=== PATIENT | male | born 1940 | race Caucasian/White ===

== ENCOUNTER 2016-07-16 11:59 | Emergency (ER) | payer MEDICARE, OTHER ==
[2016-07-16] MEDS ORDERED: HYDROmorphone 1 MG/ML SYRINGE IM STA (13:02)
[2016-07-16] MEDS ORDERED: HYDROmorphone 1 MG/ML SYRINGE ONE (13:08)
[2016-07-16] MEDS ORDERED: levoFLOXacin 250 MG TABLET PO STA (15:56)
[2016-07-16] MEDS ORDERED: levoFLOXacin 250 MG TABLET PO ONE (16:01)
== END 2016-07-16 16:28 | disposition home or self-care (01) ==
DX: N45.1 Epididymitis (principal); N30.01 Acute cystitis with hematuria; N49.2 Inflammatory disorders of scrotum; N43.3 Hydrocele, unspecified; I10 Essential (primary) hypertension; J44.9 Chronic obstructive pulmonary disease, unspecified; J45.909 Unspecified asthma, uncomplicated; F17.200 Nicotine dependence, unspecified, uncomplicated; Z79.82 Long term (current) use of aspirin
CPT/HCPCS: 76870; 81001; 87077; 87086; 87181; 93976; 96372; 99283; 99284; A9270; J1170

== ENCOUNTER 2016-09-01 21:37 | Outpatient (CLI) | payer MEDICARE, OTHER | END 2016-09-01 21:38 | disposition home or self-care (01) | DX: R55 Syncope and collapse (principal); I10 Essential (primary) hypertension ==

== ENCOUNTER 2016-09-20 08:18 | Outpatient (CLI) | payer MEDICARE, OTHER | END 2016-09-20 08:19 | disposition home or self-care (01) | DX: I71.4 Abdominal aortic aneurysm, without rupture (principal); K76.0 Fatty (change of) liver, not elsewhere classified ==

== ENCOUNTER 2016-09-20 08:23 | Outpatient (CLI) | payer MEDICARE, OTHER ==
[2016-09-20] MEDS ORDERED: IOPAMIDOL-300 100 ML VIAL IVP ONE (10:18)
== END 2016-09-20 08:24 | disposition home or self-care (01) ==
DX: J43.9 Emphysema, unspecified (principal); R19.01 Right upper quadrant abdominal swelling, mass and lump; R18.8 Other ascites; I71.4 Abdominal aortic aneurysm, without rupture; K76.0 Fatty (change of) liver, not elsewhere classified
CPT/HCPCS: 71260; 76700; Q9967

== ENCOUNTER 2016-10-26 12:07 | Outpatient (CLI) | payer MEDICARE, OTHER | END 2016-10-26 12:08 | disposition home or self-care (01) | DX: R55 Syncope and collapse (principal) ==

== ENCOUNTER 2016-10-30 07:17 | Outpatient (CLI) | payer MEDICARE, OTHER ==
[2016-10-30] MEDS ORDERED: IOPAMIDOL-300 50 ML VIAL IVP ONE (08:11)
== END 2016-10-30 07:18 | disposition home or self-care (01) ==
DX: R55 Syncope and collapse (principal); I71.4 Abdominal aortic aneurysm, without rupture; I10 Essential (primary) hypertension; G31.9 Degenerative disease of nervous system, unspecified
CPT/HCPCS: 70470; Q9967

== ENCOUNTER 2016-11-01 13:06 | Outpatient (CLI) | payer MEDICARE, OTHER | END 2016-11-01 13:07 | disposition home or self-care (01) | DX: M25.462 Effusion, left knee (principal); M62.562 Muscle wasting and atrophy, not elsewhere classified, left lower leg ==

== ENCOUNTER 2017-03-16 08:08 | Outpatient (CLI) | payer MEDICARE, OTHER ==
[2017-03-16 14:18] LABS: ALBUMIN/GLOBULIN RATIO 1.4 (1.0-2.2); BILIRUBIN,TOTAL 0.6 mg/dL (0.2-1.0); BUN - BLOOD UREA NITROGEN 17 mg/dL (6-20); CALCIUM 9.4 mg/dL (8.5-10.3); CARBON DIOXIDE - CO2 30 mmol/L (21-32); CHLORIDE 103 mmol/L (101-111); CHOL/HDL RATIO 3.7 (<5.0); CHOLESTEROL 128 mg/dL; GFR - MDRD 73 (>89); GLUCOSE 100 mg/dL (70-100); HDL CHOLESTEROL 35 mg/dL; POTASSIUM 3.5 mmol/L (3.5-5.0); SODIUM 140 mmol/L (135-145); TOTAL PROTEIN 7.4 g/dL (6.7-8.2); TRIGLYCERIDES 117 mg/dL; VLDL CHOLESTEROL 23 mg/dL
== END 2017-03-16 08:09 | disposition home or self-care (01) ==
LOC: LAB.WCP 08:08
PROVIDERS: ATTEND Physician Assistant Medical
DX: E78.5 Hyperlipidemia, unspecified (principal); Z51.81 Encounter for therapeutic drug level monitoring; Z79.899 Other long term (current) drug therapy
CPT/HCPCS: 36415; 80053; 80061

== ENCOUNTER 2017-09-18 10:51 | Outpatient (CLI) | payer MEDICARE, OTHER ==
[2017-09-18] MEDS ORDERED: IOPAMIDOL-300 100 ML VIAL IVP ONE ×3 (10:52→13:10)
[2017-09-18] MEDS ORDERED: IOPAMIDOL-300 100 ML VIAL ONE (11:31)
--- NOTE | 2017-09-19 10:30 | CT Report ---
EXAM: CTA RUNOFF EXAM DATE: 09/18/2017 12:19 PM. CLINICAL HISTORY: AAA. COMPARISON: None. TECHNIQUE: Following the intravenous administration of 125 cc of Isovue-300, images were obtained thr ough the abdomen, pelvis, and lower extremities. Multiplanar 3D reconstructions are available for in terpretation. In accordance with CT protocol optimization, one or more of the following dose reduction techniques w ere utilized for this exam: automated exposure control, adjustment of mA and/or KV based on patient s ize, or use of iterative reconstructive technique. COMPARISON: 12/16/2013 FINDINGS: UPPER ABDOMINAL AORTA: There is atherosclerosis of the upper abdominal aorta without evidence of aneu rysmal dilatation or dissection. MESENTERIC ARTERIES: There is a calcified plaque at the origin of the celiac without evidence of sign ificant. The common hepatic, and left gastric artery are normal in course and caliber. Splenic artery is normal in course and caliber without evidence of aneurysmal dilatation. The SMA demonstrates calc ified and noncalcified plaque at its origin without evidence of significant stenosis. The GERMAINE appears to be occluded at its origin. Reconstitution of flow is noted distally. RENAL ARTERIES: Single renal arteries are noted bilaterally without evidence of significant stenosis. DISTAL AORTA There is atherosclerosis without evidence of aneurysmal dilatation or dissection involving the iliac arteries. FEMORAL ARTERIES: There is atherosclerosis of the common femoral arteries. Mild calcified plaque is s een involving the inferior aspect of the anterior right common femoral artery. The left common femora l artery is without evidence of anterior calcified plaque. Both common femoral arteries. Below the fe moral heads. There is atherosclerosis without evidence of significant stenosis involving the profunda femoris and superficial femoral arteries. Femur hardening artifact due to a left knee arthroplasty obscures visualization of the left popliteal artery. The visualized popliteal arteries demonstrate a normal course and caliber. TIBIAL The left anterior tibial artery is patent and supplies the dorsalis pedis. The left posterior tibial artery is patent to the level of the ankle. The left posterior tibial artery is patent to the level o f the ankle. ABDOMEN, PELVIS AND LOWER EXTREMITY CT: Increased lung markings are noted within the lung bases most likely represents artery or atelectasis. The liver is without evidence of an enhancing mass. The spleen, pancreas, and adrenal glands are wit hout evidence of an enhancing mass. Kidneys are without evidence of a mass or hydronephrosis. There is a fat-containing umbilical hernia. It measures approximately 2.5 x 1.9 x 3.1 cm (image 165 o f series 7). The appearance is similar to the previous study. There are no dilated loops of bowel to suggest the presence of an obstruction. The appendix is normal in appearance. Diverticuli are seen i nvolving the descending and sigmoid colon. There is no fat stranding or fluid collection to suggest t he presence of diverticulitis. There is a fat-containing left inguinal hernia. The appearance is marivel lar to the previous study. No mass or cyst is seen within the pelvis. There is no lymphadenopathy. Visible but not enlarged nikki aortic lymph nodes are noted. No mass or cyst is seen within the lower extremities. There are postoperative changes with pins in th e right ankle and left hip. There are postoperative changes consistent with a left knee arthroplasty. Degenerative changes of the thoracic and lumbar spine are noted. 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 The diameter of the venetie ira aorta has increased in size since the previous study . No endoleak is identified on the arterial phase images. However venous phase images may be benefici al for further characterization. Probable 3 vessel runoff bilaterally. Obscured visualization of the distal right posterior tibial artery and left popliteal arteries due to be metal susceptibility artifact from adjacent orthopedic hardware. Redemonstration of umbilical and left inguinal hernias with a similar appearance to the previous stud y. Diverticulosis of the descending and sigmoid colon without evidence of diverticulitis. [facility] Referring Provider Line: [phone] SITE ID: [id number]
== END 2017-09-18 10:52 | disposition home or self-care (01) ==
LOC: DI 10:51
PROVIDERS: ATTEND Physician Assistant Medical
DX: I71.4 Abdominal aortic aneurysm, without rupture (principal); K40.90 Unilateral inguinal hernia, without obstruction or gangrene, not specified as recurrent; K42.9 Umbilical hernia without obstruction or gangrene; K57.30 Diverticulosis of large intestine without perforation or abscess without bleeding; I10 Essential (primary) hypertension
CPT/HCPCS: 36415; 75635; 80048; Q9967

== ENCOUNTER 2017-09-18 10:56 | Outpatient (CLI) | payer MEDICARE, OTHER ==
[2017-09-18 11:37] LABS: CALCIUM 8.8 mg/dL (8.5-10.3); CREATININE 0.9 mg/dL (0.6-1.2)
== END 2017-09-18 10:57 | disposition home or self-care (01) ==
LOC: LAB 10:56
PROVIDERS: ATTEND Family Medicine
DX: I10 Essential (primary) hypertension (principal)
CPT/HCPCS: 36415; 80048

== ENCOUNTER 2017-10-03 10:37 | Outpatient (CLI) | payer MEDICARE, OTHER ==
[2017-10-03 19:04] LABS: BASOPHILS % (AUTO) 0.4 %; EOSINOPHILS # (AUTO) 0.1 10^3/uL (0.0-0.7); EOSINOPHILS % (AUTO) 1.8 %; HGB - HEMOGLOBIN 15.3 g/dL (14.0-18.0); LYMPHOCYTES # (AUTO) 1.6 10^3/uL (1.5-3.5); LYMPHOCYTES % (AUTO) 18.9 %; MEAN CORPUSCULAR HEMOGLOBIN 29.1 pg (27.0-31.0); MEAN CORPUSCULAR HGB CONC 31.6 g/dL (32.0-36.0); MEAN CORPUSCULAR VOLUME 91.9 fL (80.0-94.0); MEAN PLATELET VOLUME 7.5 fL (7.4-11.4); MONOCYTES # (AUTO) 0.8 10^3/uL (0.0-1.0); MONOCYTES % (AUTO) 9.8 %; NEUTROPHILS # (AUTO) 5.8 10^3/uL (1.5-6.6); NEUTROPHILS % (AUTO) 69.1 %; PLT - PLATELET COUNT 336 10^3/uL (130-450); RED BLOOD COUNT 5.26 10^6/uL (4.70-6.10); WHITE BLOOD COUNT 8.4 x10^3/uL (4.8-10.8)
[2017-10-03 19:14] LABS: ALBUMIN 4.4 g/dL (3.2-5.5); ALBUMIN/GLOBULIN RATIO 1.5 (1.0-2.2); BILIRUBIN,TOTAL 0.8 mg/dL (0.2-1.0); TOTAL PROTEIN 7.3 g/dL (6.7-8.2)
== END 2017-10-03 10:38 | disposition home or self-care (01) ==
LOC: LAB.WCP 10:37
PROVIDERS: ATTEND Physician Assistant
DX: R10.13 Epigastric pain (principal)
CPT/HCPCS: 36415; 80053; 85025

== ENCOUNTER 2017-10-22 11:21 | Day surgery (SDC) | payer MEDICARE, OTHER ==
[2017-10-22] MEDS ORDERED: LACTATED RINGERS 1,000 ML IV ONE (11:52)
[2017-10-22] MEDS ORDERED: BENZOCAINE/TETRACAINE/BUTAMBEN SPRAY 56 GM TOP ONE ×2 (12:30→12:50)
[2017-10-22] MEDS: LIDO GARGLE 30 ML BOTTLE ONE ×2 (12:30→12:50)
[2017-10-22] MEDS ORDERED: LIDOCAINE 1% 50 ML MDV ONE (12:36)
[2017-10-22] MEDS ORDERED: MIDAZOLAM 2 MG/2 ML VIAL IVP ONE (13:30)
[2017-10-22] MEDS ORDERED: fentaNYL 100 MCG/2 ML VIAL IVP ONE (13:30)
[2017-10-22 14:21] VITALS: BP 138/87
== END 2017-10-22 11:22 | disposition home or self-care (01) ==
LOC: SDS 11:21
PROVIDERS: ATTEND Surgery
PROC: 0DBK8ZZ Excision of Ascending Colon, Via Natural or Artificial Opening Endoscopic (ICD-10-PCS; 2017-10-22)
PROC: 0DJ08ZZ Inspection of Upper Intestinal Tract, Via Natural or Artificial Opening Endoscopic (ICD-10-PCS; 2017-10-22)
PROC: 0DBK8ZZ Excision of Ascending Colon, Via Natural or Artificial Opening Endoscopic (ICD-10-PCS; principal; 2017-10-22 12:30)
PROC: 0DBL8ZZ Excision of Transverse Colon, Via Natural or Artificial Opening Endoscopic (ICD-10-PCS; 2017-10-22 12:30)
DX: R19.4 Change in bowel habit (principal); D12.2 Benign neoplasm of ascending colon; D12.3 Benign neoplasm of transverse colon; K59.00 Constipation, unspecified; R10.13 Epigastric pain; K21.9 Gastro-esophageal reflux disease without esophagitis; K57.30 Diverticulosis of large intestine without perforation or abscess without bleeding; K64.8 Other hemorrhoids; I10 Essential (primary) hypertension; J44.9 Chronic obstructive pulmonary disease, unspecified; E78.5 Hyperlipidemia, unspecified; F17.210 Nicotine dependence, cigarettes, uncomplicated
CPT/HCPCS: 43235; 45380; 45385; A9270; J7120; 88305

== ENCOUNTER 2017-12-17 08:00 | Outpatient (CLI) | payer MEDICARE, OTHER | END 2017-12-17 08:01 | disposition home or self-care (01) | LOC: LAB.WCP 08:00 | PROVIDERS: ATTEND Physician Assistant | DX: N40.1 Benign prostatic hyperplasia with lower urinary tract symptoms (principal) | CPT/HCPCS: 36415; 84153 ==

== ENCOUNTER 2018-01-04 10:04 | Outpatient (CLI) | payer MEDICARE, OTHER ==
[2018-01-04 12:40] LABS: ALBUMIN/GLOBULIN RATIO 1.2 (1.0-2.2); BILIRUBIN,TOTAL 0.7 mg/dL (0.2-1.0); CREATININE 1.1 mg/dL (0.6-1.2); TOTAL PROTEIN 7.3 g/dL (6.7-8.2)
== END 2018-01-04 10:05 | disposition home or self-care (01) ==
LOC: LAB.WCP 10:04
PROVIDERS: ATTEND Physician Assistant
DX: I10 Essential (primary) hypertension (principal)
CPT/HCPCS: 36415; 80053

== ENCOUNTER 2018-03-19 08:00 | Outpatient (CLI) | payer MEDICARE, OTHER ==
[2018-03-19 13:17] LABS: BASOPHILS # (AUTO) 0.1 10^3/uL (0.0-0.1); BASOPHILS % (AUTO) 0.6 %; EOSINOPHILS # (AUTO) 0.2 10^3/uL (0.0-0.7); HGB - HEMOGLOBIN 16.2 g/dL (14.0-18.0); LYMPHOCYTES # (AUTO) 2.1 10^3/uL (1.5-3.5); LYMPHOCYTES % (AUTO) 23.9 %; MEAN CORPUSCULAR HEMOGLOBIN 30.4 pg (27.0-31.0); MEAN CORPUSCULAR HGB CONC 33.5 g/dL (32.0-36.0); MEAN CORPUSCULAR VOLUME 90.9 fL (80.0-94.0); MEAN PLATELET VOLUME 7.2 fL (7.4-11.4); MONOCYTES # (AUTO) 0.8 10^3/uL (0.0-1.0); MONOCYTES % (AUTO) 9.7 %; NEUTROPHILS # (AUTO) 5.5 10^3/uL (1.5-6.6); NEUTROPHILS % (AUTO) 63.8 %; PLT - PLATELET COUNT 398 10^3/uL (130-450); RED BLOOD COUNT 5.32 10^6/uL (4.70-6.10); RED CELL DISTRIBUTION WIDTH 15.9 % (12.0-15.0); WHITE BLOOD COUNT 8.7 x10^3/uL (4.8-10.8)
[2018-03-19 13:40] LABS: ALBUMIN 4.1 g/dL (3.2-5.5); ALBUMIN/GLOBULIN RATIO 1.3 (1.0-2.2); ALKALINE PHOSPHATASE 44 IU/L (42-121); ALT ALANINE AMINOTRANSFERASE 17 IU/L (10-60); AST ASPARTATE AMINOTRANSFERASE 23 IU/L (10-42); BILIRUBIN,TOTAL 0.7 mg/dL (0.2-1.0); BUN - BLOOD UREA NITROGEN 30 mg/dL (6-20); CALCIUM 9.2 mg/dL (8.5-10.3); CARBON DIOXIDE - CO2 29 mmol/L (21-32); CHLORIDE 98 mmol/L (101-111); CHOL/HDL RATIO 3.9 (<5.0); CHOLESTEROL 145 mg/dL; CREATININE 1.2 mg/dL (0.6-1.2); GFR - MDRD 59 (>89); GLUCOSE 89 mg/dL (70-100); HDL CHOLESTEROL 37 mg/dL; LDL CHOLESTEROL,CALCULATED 80 mg/dL; LDL/HDL RATIO 2.2 (<3.6); SODIUM 134 mmol/L (135-145); TOTAL PROTEIN 7.2 g/dL (6.7-8.2); VLDL CHOLESTEROL 28 mg/dL
[2018-03-19 13:47] LABS: PSA TOTAL 0.26 ng/mL (0.000-2.000)
[2018-03-19 13:50] LABS: PSA FREE 0.04 ng/mL (0.16-2.81)
== END 2018-03-19 08:01 | disposition home or self-care (01) ==
LOC: LAB.WCP 08:00
PROVIDERS: ATTEND Physician Assistant
DX: E78.5 Hyperlipidemia, unspecified (principal); I10 Essential (primary) hypertension; N40.1 Benign prostatic hyperplasia with lower urinary tract symptoms
CPT/HCPCS: 36415; 80053; 80061; 83721; 84154; 85025

== ENCOUNTER 2018-03-29 12:33 | Outpatient (CLI) | payer MEDICARE, OTHER ==
--- NOTE | 2018-03-29 17:56 | Ultrasound Report ---
Reason: PERIPHERAL VASCULAR DISEASE Procedure Date: 03/29/2018 Accession Number: [id number] / [id number] Procedure: US - Carotid Doppler Complete CPT Code: FULL RESULT: EXAM: BILATERAL CAROTID AND VERTEBRAL ARTERY DUPLEX DOPPLER ULTRASOUND: EXAM DATE: 03/29/2018 01:25 PM CLINICAL HISTORY: Peripheral vascular disease. COMPARISON: 02/02/2006. TECHNIQUE: Grayscale imaging, color Doppler, and duplex spectral Doppler were used to evaluate the carotid and vertebral arteries bilaterally. Static images were obtained. FINDINGS: Mild to moderate bilateral plaque formation. No significant plaque is identified in the right or left common or internal carotid arteries. Normal antegrade flow is present in bilateral vertebral arteries. VELOCITIES (cm/sec): Right CCA Mid: PSV 70.6 cm/sec CCA Dist: PSV 70.1 cm/sec ICA Prox: PSV 62.2 cm/sec, EDV 14.0 cm/sec ICA Mid: PSV 49.3 cm/sec, EDV 13.4 cm/sec ICA Dist: PSV 56.5 cm/sec, EDV 16.4 cm/sec ECA: PSV 91.9 cm/sec Vert: PSV 41.1 cm/sec ICA/CCA: 0.88 Left CCA Mid: PSV 70.9 cm/sec CCA Dist: PSV 46.5 cm/sec ICA Prox: PSV 45.9 cm/sec, EDV 12.3 cm/sec ICA Mid: PSV 48.1 cm/sec, EDV 18.4 cm/sec ICA Dist: PSV 51.0 cm/sec, EDV 17.4 cm/sec ECA: PSV 87.7 cm/sec Vert: PSV 30.0 cm/sec ICA/CCA: 0.72 ICA diameter stenosis: Right: <50% by velocity and <70% by NASCET criteria. Left: <50% by velocity and <70% by NASCET criteria. IMPRESSION: 1. No significant bilateral carotid artery plaquing. 2. In the right carotid artery there are no elevated carotid artery velocities to suggest hemodynamically significant stenosis. 3. In the left carotid artery there are no elevated carotid artery velocities to suggest hemodynamically significant stenosis. 4. Normal antegrade flow is present in bilateral vertebral arteries. General Recommendations: Stenosis =50% ICA - Follow-up ultrasound 6-12 months Stenosis <50% ICA - High Risk Patient with plaque - Follow-up ultrasound 1-2 years Normal Study but High Risk Patient - Follow-up ultrasound 3-5 years Management recommendations and diagnostic criteria are based on current IAC endorsed standards in Carotid Artery Stenosis: Grayscale and Doppler Ultrasound Diagnosis. Validated velocity measurements with angiographic measurements and velocity criteria are extrapolated from diameter data as defined by the Society of Radiologists in Ultrasound Consensus Conference Radiology 2003; 229;340-346. [facility]
== END 2018-03-29 12:34 | disposition home or self-care (01) ==
LOC: DI 12:33
PROVIDERS: ATTEND Physician Assistant
DX: I73.9 Peripheral vascular disease, unspecified (principal)
CPT/HCPCS: 93880

== ENCOUNTER 2018-10-09 08:00 | Outpatient (CLI) | payer MEDICARE, OTHER ==
[2018-10-09 19:15] LABS: ALBUMIN 3.9 g/dL (3.2-5.5); ALBUMIN/GLOBULIN RATIO 1.2 (1.0-2.2); BILIRUBIN,TOTAL 1.3 mg/dL (0.2-1.0); CALCIUM 9.3 mg/dL (8.5-10.3); CREATININE 1.3 mg/dL (0.6-1.2); TOTAL PROTEIN 7.1 g/dL (6.7-8.2)
[2018-10-09 19:54] LABS: BASOPHILS % (AUTO) 0.6 %; EOSINOPHILS % (AUTO) 0.1 %; HGB - HEMOGLOBIN 15.9 g/dL (14.0-18.0); LYMPHOCYTES % (AUTO) 6.4 %; MEAN CORPUSCULAR HEMOGLOBIN 32.4 pg (27.0-31.0); MEAN CORPUSCULAR HGB CONC 33.7 g/dL (32.0-36.0); MEAN PLATELET VOLUME 7.6 fL (7.4-11.4); MONOCYTES % (AUTO) 9.3 %; NEUTROPHILS % (AUTO) 83.6 %; PLT - PLATELET COUNT 323 10^3/uL (130-450); RED CELL DISTRIBUTION WIDTH 13.2 % (12.0-15.0); WHITE BLOOD COUNT 23.1 x10^3/uL (4.8-10.8)
[2018-10-09 20:30] LABS: ABNORMAL LYMPHS % (MANUAL) 0 %; BAND NEUTROPHILS % (MANUAL) 0 %
[2018-10-09 22:33] LABS: LYMPHOCYTES # (MANUAL) 1.6 10^3/uL (1.5-3.5); LYMPHOCYTES % (MANUAL) 7 %; MONOCYTES # (MANUAL) 2.3 10^3/uL (0.0-1.0); NEUTROPHILS # (MANUAL) 19.2 10^3/uL (1.5-6.6); NEUTROPHILS % (MANUAL) 83 %
[2018-10-09 22:35] LABS: DIFFERENTIAL COMMENT MANUAL DIFFERENTIAL; PLATELET ESTIMATE, MANUAL NORMAL (130-450,000) (NORMAL); PLATELET MORPHOLOGY NORMAL APPEARANCE (NORMAL); RBC MORPHOLOGY (MULTIPLE) NORMAL APPEARANCE (NORMAL)
== END 2018-10-09 23:59 ==
LOC: LAB.WCP 08:00
PROVIDERS: ATTEND Physician Assistant
DX: I10 Essential (primary) hypertension (principal); N39.0 Urinary tract infection, site not specified
CPT/HCPCS: 36415; 80053; 85025; 87086; 87181

== ENCOUNTER 2018-10-11 08:00 | Outpatient (CLI) | payer MEDICARE, OTHER | END 2018-10-11 23:59 | disposition home or self-care (01) | LOC: LAB.WCP 08:00 | PROVIDERS: ATTEND Family Medicine | DX: N39.0 Urinary tract infection, site not specified (principal) | CPT/HCPCS: 81002 ==

== ENCOUNTER 2018-10-14 08:00 | Outpatient (CLI) | payer MEDICARE, OTHER | END 2018-10-14 23:59 | disposition home or self-care (01) | LOC: LAB.R 08:00 | PROVIDERS: ATTEND Family Medicine | DX: N39.0 Urinary tract infection, site not specified (principal) | CPT/HCPCS: 87086 ==

== ENCOUNTER 2018-10-14 08:00 | Outpatient (CLI) | payer MEDICARE, OTHER ==
[2018-10-14 12:30] LABS: BASOPHILS % (AUTO) 0.7 %; EOSINOPHILS # (AUTO) 0.2 10^3/uL (0.0-0.7); EOSINOPHILS % (AUTO) 2.3 %; HGB - HEMOGLOBIN 15.8 g/dL (14.0-18.0); LYMPHOCYTES # (AUTO) 1.7 10^3/uL (1.5-3.5); LYMPHOCYTES % (AUTO) 22.9 %; MEAN CORPUSCULAR HEMOGLOBIN 32.6 pg (27.0-31.0); MEAN CORPUSCULAR HGB CONC 33.8 g/dL (32.0-36.0); MEAN CORPUSCULAR VOLUME 96.4 fL (80.0-94.0); MEAN PLATELET VOLUME 7.2 fL (7.4-11.4); MONOCYTES # (AUTO) 0.9 10^3/uL (0.0-1.0); NEUTROPHILS # (AUTO) 4.6 10^3/uL (1.5-6.6); NEUTROPHILS % (AUTO) 62.1 %; PLT - PLATELET COUNT 316 10^3/uL (130-450); RED BLOOD COUNT 4.84 10^6/uL (4.70-6.10); RED CELL DISTRIBUTION WIDTH 13.3 % (12.0-15.0); WHITE BLOOD COUNT 7.4 x10^3/uL (4.8-10.8)
== END 2018-10-14 23:59 | disposition home or self-care (01) ==
LOC: LAB.WCP 08:00
PROVIDERS: ATTEND Family Medicine
DX: N39.0 Urinary tract infection, site not specified (principal)
CPT/HCPCS: 36415; 85025; 87086

== ENCOUNTER 2018-11-07 11:08 | Outpatient (CLI) | payer MEDICARE, OTHER ==
--- NOTE | 2018-11-07 13:02 | XRAY Report ---
Reason: RIB PAIN Procedure Date: 11/07/2018 Accession Number: [id number] / [id number] Procedure: WCP - Ribs 2 View LT CPT Code: FULL RESULT: EXAM: LEFT RIB RADIOGRAPHY EXAM DATE: 11/07/2018 11:21 AM. CLINICAL HISTORY: Left rib pain status post fall. COMPARISON: CHEST W/ 09/20/2016 10:09 AM. TECHNIQUE: 2 views. FINDINGS: Bones: Normal. No fracture or bone lesion. Lungs: Lungs are hyperinflated and hyperlucent as seen previously suggesting emphysema. No acute disease evident. No pneumothorax. Mediastinum: Heart and cardiomediastinal contours are unremarkable. Other: None. IMPRESSION: 1. No rib fracture or bone lesion. 2. Emphysema with hyperinflation as before. [facility]
== END 2018-11-07 11:09 | disposition home or self-care (01) ==
LOC: DI.WCP 11:08
PROVIDERS: ATTEND Nurse Practitioner
DX: J43.9 Emphysema, unspecified (principal)

== ENCOUNTER 2018-12-23 10:05 | Outpatient (CLI) | payer MEDICARE, OTHER ==
--- NOTE | 2018-12-23 11:06 | XRAY Report ---
Reason: COPD Procedure Date: 12/23/2018 Accession Number: [id number] / [id number] Procedure: WCP - Chest 2 View X-Ray CPT Code: 40012 FULL RESULT: EXAM: CHEST RADIOGRAPHY EXAM DATE: 12/23/2018 10:25 AM. CLINICAL HISTORY: COPD. Cough and shortness of breath. COMPARISON: RIBS 2 VIEW LT 11/07/2018. CHEST W/ 09/20/2016. TECHNIQUE: 2 views. FINDINGS: Lungs/Pleura: There is a paucity of upper lung pulmonary markings. No focal opacities evident. No pleural effusion. No pneumothorax. High lung volumes. Flattening of the diaphragms on lateral view. Mediastinum: Heart and mediastinal contours are stable. Other: A cardiac recording device is again seen projecting over the left thorax. The bones are qualitatively osteopenic; this limits evaluation for underlying fractures or masses. IMPRESSION: Emphysema without acute airspace disease detected. [facility]
== END 2018-12-23 10:06 | disposition home or self-care (01) ==
LOC: DI.WCP 10:05
PROVIDERS: ATTEND Family Medicine
DX: J43.9 Emphysema, unspecified (principal)
CPT/HCPCS: 71046

== ENCOUNTER 2019-01-16 09:15 | Outpatient (CLI) | payer MEDICARE, OTHER | END 2019-01-16 23:59 | disposition home or self-care (01) | LOC: LAB.R 09:15 | PROVIDERS: ATTEND Family Medicine | DX: N39.0 Urinary tract infection, site not specified (principal) | CPT/HCPCS: 87086; 87181 ==

== ENCOUNTER 2019-01-29 11:17 | Outpatient (CLI) | payer MEDICARE, OTHER ==
--- NOTE | 2019-01-30 08:48 | XRAY Report ---
Reason: PAIN SWELLING MED,L ANKLE X 2 WKS Procedure Date: 01/29/2019 Accession Number: [id number] / [id number] Procedure: XR - Ankle 3 View LT CPT Code: FULL RESULT: EXAM: LEFT ANKLE RADIOGRAPHY EXAM DATE: 01/29/2019 11:45 AM. CLINICAL HISTORY: Pain and swelling medial left ankle x 2 weeks. No trauma. COMPARISON: None. TECHNIQUE: 3 views. FINDINGS: Bones: Moderate-sized plantar calcaneal spur. Chronic-appearing, corticated 8 mm ossification at the tip of the medial malleolus is consistent with a developmental ossicle. An old fracture fragment is not excluded. The AP view suggests subtle lucency through the adjacent distal medial malleolus for which an nondisplaced acute fracture is not definitely excluded. Tiny lateral calcifications distal to the fibula and adjacent to the calcaneus also may simply represent incidental small ossicles. Old small fracture fragments are not excluded. Joints: Normal. No effusion. No subluxations. The ankle mortise is normally aligned. Soft Tissues: Mild medial soft tissue swelling. IMPRESSION: 1. No definite acute osseous abnormality. 2. Chronic medial ossicle and probable chronic small lateral ossicles, as above. 3. Subtle lucency within the medial malleolus on a single view. Nondisplaced fracture is not excluded. [facility]
== END 2019-01-29 11:18 | disposition home or self-care (01) ==
LOC: DI 11:17
PROVIDERS: ATTEND Podiatrist
DX: M25.572 Pain in left ankle and joints of left foot (principal); M25.472 Effusion, left ankle

== ENCOUNTER 2019-02-05 | Outpatient (CLI) | payer MEDICARE, OTHER | END 2019-02-05 15:30 | disposition home or self-care (01) | DX: S93.492A Sprain of other ligament of left ankle, initial encounter (principal); S82.52XK Displaced fracture of medial malleolus of left tibia, subsequent encounter for closed fracture with nonunion; M19.072 Primary osteoarthritis, left ankle and foot; S96.812A Strain of other specified muscles and tendons at ankle and foot level, left foot, initial encounter; S93.02XA Subluxation of left ankle joint, initial encounter ==

== ENCOUNTER 2019-04-05 11:19 | Outpatient (CLI) | payer MEDICARE, OTHER ==
--- NOTE | 2019-04-07 03:02 | Ultrasound Report ---
Reason: HYPERTENSION Procedure Date: 04/05/2019 Accession Number: [id number] / [id number] Procedure: US - Carotid Doppler Complete CPT Code: FULL RESULT: EXAM: BILATERAL CAROTID AND VERTEBRAL ARTERY DUPLEX DOPPLER ULTRASOUND EXAM DATE: 04/05/2019 12:20 PM CLINICAL HISTORY: Hypertension. COMPARISON: CAROTID DOPPLER COMPLETE 03/29/2018 12:41 PM. TECHNIQUE: Grayscale imaging, color Doppler, and duplex spectral Doppler were used to evaluate the carotid and vertebral arteries bilaterally. Static images were obtained. FINDINGS: Brisk arterial upstrokes are preserved on spectral waveforms bilaterally throughout the interrogated carotid artery systems. In both carotid artery systems, there is morphologically diffuse segmental hyperechoic shadowing plaque which visually appears to be less than 50% of the lumen. Normal antegrade flow is present in bilateral vertebral arteries. VELOCITIES (cm/sec): Right CCA mid: PSV 38.0 cm/sec CCA dist: PSV 59.0 cm/sec ICA prox: PSV 50.1 cm/sec, EDV 13.2 cm/sec ICA mid: PSV 47.7 cm/sec, EDV 13.0 cm/sec ICA dist: PSV 55.9 cm/sec, EDV 22.4 cm/sec ECA: PSV 96.2 cm/sec Vert: PSV 37.7 cm/sec ICA/CCA: 1.0 Left CCA mid: PSV 59.6 cm/sec CCA dist: PSV 53.6 cm/sec ICA prox: PSV 67.0 cm/sec, EDV 24.6 cm/sec ICA mid: PSV 76.4 cm/sec, EDV 30.4 cm/sec ICA dist: PSV 106.8 cm/sec, EDV 40.4 cm/sec ECA: PSV 84.9 cm/sec Vert: PSV 44.1 cm/sec ICA/CCA: 1.8 ICA diameter stenosis: Right: <50% by velocity and <70% by NASCET criteria. Left: <50% by velocity and <70% by NASCET criteria. IMPRESSION: 1. Diffuse predominantly hyperechoic bilateral carotid artery plaquing, visually less than 50%, centered about the bifurcations. 2. In the right carotid artery there are no elevated carotid artery velocities to suggest hemodynamically significant stenosis. 3. In the left carotid artery there are no elevated carotid artery velocities to suggest hemodynamically significant stenosis. 4. Normal antegrade flow is present in bilateral vertebral arteries. General Recommendations: Stenosis =50% ICA - Follow-up ultrasound 6-12 months Stenosis <50% ICA - High Risk Patient with plaque - Follow-up ultrasound 1-2 years Normal Study but High Risk Patient - Follow-up ultrasound 3-5 years Management recommendations and diagnostic criteria are based on current IAC endorsed standards in Carotid Artery Stenosis: Grayscale and Doppler Ultrasound Diagnosis. Validated velocity measurements with angiographic measurements and velocity criteria are extrapolated from diameter data as defined by the Society of Radiologists in Ultrasound Consensus Conference Radiology 2003; 229;340-346. [facility]
== END 2019-04-05 11:20 | disposition home or self-care (01) ==
LOC: DI 11:19
PROVIDERS: ATTEND Family Medicine
DX: I10 Essential (primary) hypertension (principal)
CPT/HCPCS: 93880

== ENCOUNTER 2019-04-11 10:47 | Outpatient (CLI) | payer MEDICARE, OTHER ==
[2019-04-11] MEDS ORDERED: IOVERSOL 320 100 ML VIAL IVP ONE ×3 (10:48→11:56)
[2019-04-11 11:16] LABS: ALBUMIN 4.3 g/dL (3.2-5.5); ALBUMIN/GLOBULIN RATIO 1.4 (1.0-2.2); BILIRUBIN,TOTAL 0.8 mg/dL (0.2-1.0); CALCIUM 9.5 mg/dL (8.5-10.3); CREATININE 1.3 mg/dL (0.6-1.2); TOTAL PROTEIN 7.3 g/dL (6.7-8.2)
[2019-04-11] MEDS ORDERED: IOVERSOL 320 50 ML VIAL ONE (11:22)
[2019-04-11] MEDS ORDERED: IOVERSOL 320 50 ML VIAL PO ONE (11:56)
--- NOTE | 2019-04-12 09:47 | CT Report ---
Reason: AAA Procedure Date: 04/11/2019 Accession Number: [id number] / [id number] Procedure: CT - ANGIO ABD RUNOFF W/WO - B/L CPT Code: FULL RESULT: EXAM: CT ANGIOGRAM ABDOMEN AND PELVIS, WITH BILATERAL LOWER EXTREMITY ARTERY RUNOFF EXAM DATE: 04/11/2019 11:54 AM CLINICAL HISTORY: Abdominal aortic aneurysm status post stenting. COMPARISON: ANGIO AORTA W/RUNOFF 09/18/2017 12:01 PM. TECHNIQUE: Routine helical imaging was performed through the abdomen, pelvis and bilateral lower extremities in arterial phase. IV Contrast: 120 mL Optiray 320. Reconstructions: Coronal, sagittal, and 3D MIP reconstructions were performed. In accordance with CT protocol optimization, one or more of the following dose reduction techniques were utilized for this exam: automated exposure control, adjustment of mA and/or KV based on patient size, or use of iterative reconstructive technique. FINDINGS: Vascular: There is an aortoiliac endograft in the expected position and patent. Endograft is in stable position since prior. Bilateral renal arteries enhance. Celiac and superior mesenteric arteries enhance. Intermesenteric artery does not enhance. There is a residual saccular distal aortic aneurysm lumen which is thrombosed. No evidence of endograft leak. Right lower extremity: The right common, internal, and external iliac arteries are patent with mild atherosclerosis. Right common femoral, superficial femoral and deep femoral arteries patent with mild atherosclerosis. Right popliteal artery patent with mild atherosclerosis. The anterior tibial and peroneal arteries enhance to the ankle. Anterior tibial gives rise to dorsalis pedis. Posterior tibial artery does not appear to enhance beyond the distal third of the calf. However, there is some enhancement of the plantar arch, likely from collaterals. Left lower extremity: The left common iliac, internal and external iliac arteries are patent with mild atherosclerosis. Left common femoral, superficial femoral and deep femoral arteries patent with mild atherosclerosis. Left popliteal partially obscured by metal artifact but appears patent. The anterior tibial and posterior tibial arteries enhance to the ankle. Peroneal artery does not enhance below distal third of the calf. There is mild enhancement of the dorsalis pedis, but plantar arch does not well enhance, possibly due to timing of contrast enhancement and image acquisition. Inferior vena cava normal. Abdomen: Mild scarring and fibrosis in the lung bases. Lung bases clear. No evidence of mass, fluid or inflammatory process in the abdomen or pelvis. Pelvis: Pelvic organs, bowel, and bladder unremarkable for arterial phase enhancement. Pelvic contents otherwise normal. Extremities: Left knee arthroplasty. No fracture or suspicious bony lesion. IMPRESSION: 1. Aortoiliac endograft in stable position and patent. No evidence of leak. Stable residual distal aortic aneurysm lumen, thrombosed. 2. Two-vessel runoff right lower extremity via anterior tibial and peroneal. 3. Two-vessel runoff left lower extremity via anterior and posterior tibial.
== END 2019-04-11 10:48 | disposition home or self-care (01) ==
LOC: DI 10:47
PROVIDERS: ATTEND Physician Assistant
DX: I71.4 Abdominal aortic aneurysm, without rupture (principal); I10 Essential (primary) hypertension; J44.9 Chronic obstructive pulmonary disease, unspecified
CPT/HCPCS: 36415; 75635; 80053; Q9967

== ENCOUNTER 2019-05-14 15:26 | Outpatient (CLI) | payer MEDICARE, OTHER ==
--- NOTE | 2019-05-15 13:55 | XRAY Report ---
Reason: RIGHT FOOT PAIN Procedure Date: 05/14/2019 Accession Number: [id number] / [id number] Procedure: WCP - Foot 3 View RT CPT Code: Final Report FULL RESULT: EXAM: RIGHT FOOT RADIOGRAPHY EXAM DATE: 05/14/2019 03:46 PM. CLINICAL HISTORY: Right foot pain. COMPARISON: None. TECHNIQUE: 3 views. FINDINGS: Bones and joints: Proximal phalanx of the third toe is dislocated laterally relative to the third metatarsal head. Increased joint space at the second metatarsophalangeal joint. Bones are osteopenic without an acute fracture seen. Moderate degenerative changes at the first MTP joint. Previous ankle fusion appears grossly unremarkable where seen. Soft Tissues: Normal. No soft tissue swelling. IMPRESSION: 1. Proximal phalanx of the third toe is dislocated laterally relative to the third metatarsal head. 2. Increased joint space at the second metatarsophalangeal joint may reflect an effusion. 3. Bones are osteopenic without an acute fracture seen. 4. Moderate degenerative changes at the first metatarsophalangeal joint. [facility]
== END 2019-05-14 23:59 | disposition home or self-care (01) ==
LOC: DI.WCP 15:26
PROVIDERS: ATTEND Family Medicine
DX: S93.124A Dislocation of metatarsophalangeal joint of right lesser toe(s), initial encounter (principal); M85.871 Other specified disorders of bone density and structure, right ankle and foot; M19.071 Primary osteoarthritis, right ankle and foot

== ENCOUNTER 2019-05-15 08:15 | Outpatient (CLI) | payer MEDICARE, OTHER ==
[2019-05-15 13:15] LABS: ALBUMIN 3.9 g/dL (3.2-5.5); ALBUMIN/GLOBULIN RATIO 1.2 (1.0-2.2); ALKALINE PHOSPHATASE 42 IU/L (42-121); ALT ALANINE AMINOTRANSFERASE 17 IU/L (10-60); AST ASPARTATE AMINOTRANSFERASE 24 IU/L (10-42); BILIRUBIN,TOTAL 0.8 mg/dL (0.2-1.0); BUN - BLOOD UREA NITROGEN 29 mg/dL (6-20); CALCIUM 9.2 mg/dL (8.5-10.3); CARBON DIOXIDE - CO2 28 mmol/L (21-32); CHLORIDE 104 mmol/L (101-111); CHOL/HDL RATIO 4.8 (<5.0); CHOLESTEROL 139 mg/dL; CREATININE 1.6 mg/dL (0.6-1.2); GFR - MDRD 42 (>89); GLUCOSE 97 mg/dL (70-100); HDL CHOLESTEROL 29 mg/dL; LDL CHOLESTEROL,CALCULATED 79 mg/dL; LDL/HDL RATIO 2.7 (<3.6); SODIUM 140 mmol/L (135-145); TOTAL PROTEIN 7.1 g/dL (6.7-8.2); VLDL CHOLESTEROL 31 mg/dL
[2019-05-15 13:24] LABS: BASOPHILS # (AUTO) 0.1 10^3/uL (0.0-0.1); BASOPHILS % (AUTO) 0.8 %; EOSINOPHILS # (AUTO) 0.2 10^3/uL (0.0-0.7); EOSINOPHILS % (AUTO) 2.2 %; HGB - HEMOGLOBIN 14.9 g/dL (14.0-18.0); LYMPHOCYTES # (AUTO) 1.9 10^3/uL (1.5-3.5); LYMPHOCYTES % (AUTO) 25.9 %; MEAN CORPUSCULAR HEMOGLOBIN 31.8 pg (27.0-31.0); MEAN CORPUSCULAR HGB CONC 31.6 g/dL (32.0-36.0); MEAN CORPUSCULAR VOLUME 100.4 fL (80.0-94.0); MEAN PLATELET VOLUME 8.9 fL (7.4-11.4); MONOCYTES # (AUTO) 0.7 10^3/uL (0.0-1.0); NEUTROPHILS # (AUTO) 4.4 10^3/uL (1.5-6.6); NEUTROPHILS % (AUTO) 60.5 %; PLT - PLATELET COUNT 377 10^3/uL (130-450); RED BLOOD COUNT 4.69 10^6/uL (4.70-6.10); RED CELL DISTRIBUTION WIDTH 13.5 % (12.0-15.0); WHITE BLOOD COUNT 7.3 x10^3/uL (4.8-10.8)
== END 2019-05-15 23:59 | disposition home or self-care (01) ==
LOC: LAB.WCP 08:15
PROVIDERS: ATTEND Physician Assistant
DX: E78.5 Hyperlipidemia, unspecified (principal); J44.9 Chronic obstructive pulmonary disease, unspecified; I10 Essential (primary) hypertension; R33.8 Other retention of urine; Z51.81 Encounter for therapeutic drug level monitoring; Z79.899 Other long term (current) drug therapy
CPT/HCPCS: 36415; 80053; 80061; 83721; 85025

== ENCOUNTER 2019-06-17 08:00 | Outpatient (CLI) | payer MEDICARE, OTHER ==
[2019-06-17 18:55] LABS: CALCIUM 9.4 mg/dL (8.5-10.3); CREATININE 1.5 mg/dL (0.6-1.2)
== END 2019-06-17 23:59 | disposition home or self-care (01) ==
LOC: LAB.WCP 08:00
PROVIDERS: ATTEND Physician Assistant
DX: N39.0 Urinary tract infection, site not specified (principal); M10.9 Gout, unspecified; I10 Essential (primary) hypertension
CPT/HCPCS: 36415; 80048; 84550; 87086

== ENCOUNTER 2019-06-17 08:00 | Outpatient (CLI) | payer MEDICARE, OTHER | END 2019-06-17 23:59 | disposition home or self-care (01) | LOC: LAB.R 08:00 | PROVIDERS: ATTEND Physician Assistant | DX: N39.0 Urinary tract infection, site not specified (principal) | CPT/HCPCS: 87086 ==

== ENCOUNTER 2019-08-03 07:30 | Emergency (ER) | payer MEDICARE, OTHER ==
--- NOTE | 2019-08-03 08:13 | ED Physician Documentation ---
PD HPI MALE - Stated complaint Stated Complaint: MALE - Chief complaint Chief Complaint: General - History obtained from History obtained from: Patient - History of Present Illness Timing - onset: Yesterday Timing - duration: Days (1) Timing - details: Gradual onset, Still present Associated symptoms: Dysuria, Urinary frequency PD HPI MALE CONTRIB FACTORS: Not sexually active Similar symptoms before: Diagnosis (UTI) Recently seen: Not recently seen - Additional information Additional information: 79-year-old male with a history of hypertension COPD a AAA repair and a TURP has an issue with frequent urinary tract infections and he self caths once every night. He states that beginning yesterday he was having sensation of urinary urgency and frequency and he is dribbling only a small amount. He has had the symptoms multiple times previously he had some chills last night and felt warm. He denies any vomiting denies any flank pain. He remembers from his last visit that he was on an antibiotic got a call from the doctor to change the antibiotic. He indicates these were both antibiotics were taking twice per day. He does see a urologist Dr. Ashraf at [facility]. Review of Systems Constitutional: reports: Fever, Chills Eyes: denies: Decreased vision Ears: denies: Ear pain Nose: denies: Congestion Throat: denies: Sore throat Respiratory: denies: Cough GI: denies: Nausea, Vomiting : reports: Dysuria, Frequency Skin: denies: Rash Musculoskeletal: reports: Back pain. denies: Neck pain, Extremity pain Neurologic: denies: Generalized weakness, Focal weakness, Numbness PD PAST MEDICAL HISTORY - Past Medical History Cardiovascular: Hypertension, High cholesterol Respiratory: Asthma, COPD Endocrine/Autoimmune: None GI: GERD, Diverticulitis : Benign prostate hypertrophy, Retention, Kidney stones, Other HEENT: None Psych: None Musculoskeletal: Osteoarthritis, Fatigue Derm: Other - Past Surgical History Past Surgical History: Yes General: Colonoscopy, EGD Ortho: Knee replacement, Carpal Tunnel surgery Cardiovascular: AAA Derm: Skin cancer surgery - Present Medications Home Medications: Ambulatory Orders Medication Instructions Recorded Confirmed Aspirin [Aspir 81] 81 mg PO DAILY 05/03/13 10/19/17 Cetirizine HCl [Zyrtec] 10 mg PO DAILY 05/03/13 10/22/17 Esomeprazole Magnesium [Nexium] 40 mg PO DAILY 05/03/13 10/22/17 Fenofibrate Nanocrystallized 160 mg PO HS 05/03/13 10/22/17 [Triglide] Simvastatin [Zocor] 20 mg PO QPM 05/03/13 10/19/17 Tiotropium [Spiriva] 1 puffs INH DAILY 05/03/13 10/22/17 Fluticasone/Vilanterol [Breo 1 each IH DAILY 10/19/17 10/22/17 Ellipta 100-25 Mcg INH] hydroCHLOROthiazide 25 mg PO DAILY 10/19/17 10/22/17 [Hydrochlorothiazide] Levofloxacin [Levaquin] 500 mg PO DAILY #7 tablet 08/03/19 - Allergies Allergies/Adverse Reactions: Allergies Allergy/AdvReac Type Severity Reaction Status Date / Time fluticasone propionate * Allergy split Verified 10/19/17 13:04 [From Advair Diskus] vision salmeterol xinafoate * Allergy split Verified 10/19/17 13:04 [From Advair Diskus] vision - Social History Does the pt smoke?: Yes Smoking Status: Current every day smoker Does the pt drink ETOH?: Yes Does the pt have substance abuse?: No PD ED PE NORMAL - Vitals Vital signs reviewed: Yes (tachy and hypertensive) - General General: Alert and oriented X 3, No acute distress, Well developed/nourished - HEENT HEENT: Atraumatic, PERRL - Respiratory Respiratory: No respiratory distress - Abdomen Abdomen: Soft, Non tender - Back Back: No CVA TTP, No spinal TTP - Derm Derm: Normal color, Warm and dry, No rash - Extremities Extremities: No deformity, No calf tenderness / cord - Neuro Neuro: director medical science 2-12 intact, No motor deficit, No sensory deficit, Normal speech Eye Opening: Spontaneous Motor: Obeys Commands Verbal: Oriented GCS Score: 15 - Psych Psych: Normal mood, Normal affect Results - Vitals Vitals: Vital Signs - 24 hr 08/03/19 07:43 Temperature 37.2 C Heart Rate 110 H Respiratory 18 Rate Blood Pressure 130/88 H O2 Saturation 99 Oxygen O2 Source Room air - Labs Labs: Laboratory Tests 08/03/19 08:50 Urine Color YELLOW Urine Clarity CLOUDY Urine pH 7.0 Ur Specific [place] 1.015 Urine Protein 30 H Urine Glucose (UA) NEGATIVE Urine Ketones NEGATIVE Urine Occult Blood TRACE-INTA Urine Nitrite NEGATIVE Urine Bilirubin NEGATIVE Urine Urobilinogen 0.2 (NORMAL) Ur Leukocyte Esterase MODERATE H Urine RBC 6-10 H Urine WBC >25 H Ur Epithelial Cells FEW Transitional Ur Squamous Epith Cells RARE Squamous Urine Bacteria Moderate H Ur Microscopic Review INDICATED Urine Culture Comments INDICATED PD MEDICAL DECISION MAKING - ED course Complexity details: reviewed old records, reviewed results, re-evaluated patient, considered differential, d/w patient ED course: 79-year-old male with frequent urinary tract infections has another urinary tract infection today. In review of his past urine cultures he has grown E. coli a number of times sensitivities have changed and most recently his urine grew an organism resistant to Septra.We will obtain a urine specimen from the patient and place him on some Levaquin. Departure - Departure Disposition: 01 Home, Self Care Clinical Impression: Urinary tract infection Qualifiers: Urinary tract infection type: acute cystitis Hematuria presence: without hematuria Qualified Code(s): N30.00 - Acute cystitis without hematuria Instructions: ED UTI Cystitis Male Follow-Up: Tiffanie Shore PA [Primary Care Provider] - Prescriptions: Levofloxacin [Levaquin] 500 mg PO DAILY #7 tablet
[2019-08-03] MEDS ORDERED: levoFLOXacin 250 MG TABLET PO STA (08:57)
[2019-08-03 09:01] LABS: BILIRUBIN,URINE NEGATIVE (NEGATIVE); GLUCOSE, URINE (UA) NEGATIVE (NEGATIVE); KETONES,URINE (UA) NEGATIVE (NEGATIVE); LEUKOCYTE ESTERASE, URINE MODERATE (NEGATIVE); NITRITE,URINE NEGATIVE (NEGATIVE); OCCULT BLOOD,URINE TRACE-INTA (NEGATIVE); PROTEIN,URINE 30 mg/dL (NEGATIVE); UROBILINOGEN,URINE 0.2 (NORMAL) E.U./dL (NORMAL)
[2019-08-03 09:03] LABS: CLARITY,URINE CLOUDY (CLEAR)
[2019-08-03 09:12] LABS: SQUAMOUS EPITHELIAL CELL,UR RARE Squamous (<= Few)
[2019-08-03 09:13] LABS: BACTERIA,URINE Moderate /HPF (None Seen); EPITHELIAL CELLS,UR FEW Transitional /HPF (<= Few)
[2019-08-03 09:28] VITALS: BP 95/79
== END 2019-08-03 09:33 | disposition home or self-care (01) ==
LOC: ED 07:30
DX: N30.00 Acute cystitis without hematuria (principal); I10 Essential (primary) hypertension; J44.9 Chronic obstructive pulmonary disease, unspecified; F17.200 Nicotine dependence, unspecified, uncomplicated; Z79.82 Long term (current) use of aspirin
CPT/HCPCS: 51701; 81001; 87086; 87181; 99283; 99284; A9270; 81003

== ENCOUNTER 2019-09-17 10:10 | Outpatient (CLI) | payer MEDICARE, OTHER ==
--- NOTE | 2019-09-23 08:29 | CT Report ---
Reason: COPD Procedure Date: 09/17/2019 Accession Number: [id number] / [id number] Procedure: CT - CHEST WO CPT Code: Final Report FULL RESULT: EXAM: CT CHEST WITHOUT IV CONTRAST EXAM DATE: 09/17/2019 10:22 AM. CLINICAL HISTORY: COPD. COMPARISONS: CHEST W/ 09/20/2016 10:09 AM. TECHNIQUE: Routine helical CT imaging was performed through the chest. IV contrast: None. Reconstructions: Coronal and sagittal. In accordance with CT protocol optimization, one or more of the following dose reduction techniques were utilized for this exam: automated exposure control, adjustment of mA and/or KV based on patient size, or use of iterative reconstructive technique. FINDINGS: Lungs/Pleura: Advanced emphysematous changes throughout the lungs, similar in appearance versus previous. Predominantly peripheral and cephalad centrilobular and paraseptal cystic changes, with bullous changes towards the apices. There is an area of peribronchial thickening and atelectasis in the superior segment of the right lower lobe, series 4, image 194. At this level, there is 8 x 10 mm area of focal peribronchial thickening versus developing nodule, with slightly irregular margin. Short interval follow-up is suggested to evaluate for stability of this finding. Elsewhere, no developing lung masses or nodules detected. No pleural fluid collections. Mediastinum: No pathologically enlarged lymph nodes identified. No cardiomegaly. Coronary arterial calcifications. 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 This measures up to 4.2 cm transversely, and is best seen on sagittal images series 8 image 59. Bones: No lytic or blastic lesions detected. Visualized Abdomen: Unremarkable. Other: Minimally imaged endovascular repair of the abdominal aorta. Stable subcutaneous metallic density anterior left mid chest just to the left of midline, compatible with a manager monitoring device. IMPRESSION: 1. Focal peribronchial thickening versus development of a 1 cm nodule in the superior segment of the right lower lobe. Consideration of follow-up within 3-6 months suggested to evaluate for stability. 2. 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 3. Examination elsewhere appears stable. RADIA
== END 2019-09-17 10:11 | disposition home or self-care (01) ==
LOC: DI 10:10
PROVIDERS: ATTEND Physician Assistant
DX: J44.9 Chronic obstructive pulmonary disease, unspecified (principal); R91.8 Other nonspecific abnormal finding of lung field; I71.2 Thoracic aortic aneurysm, without rupture
CPT/HCPCS: 71250

== ENCOUNTER 2019-11-07 08:00 | Outpatient (CLI) | payer MEDICARE, OTHER ==
[2019-11-07 13:21] LABS: BASOPHILS % (AUTO) 0.4 %; EOSINOPHILS # (AUTO) 0.1 10^3/uL (0.0-0.7); EOSINOPHILS % (AUTO) 1.3 %; HGB - HEMOGLOBIN 15.7 g/dL (14.0-18.0); LYMPHOCYTES # (AUTO) 1.5 10^3/uL (1.5-3.5); LYMPHOCYTES % (AUTO) 22.4 %; MEAN CORPUSCULAR HEMOGLOBIN 32.8 pg (27.0-31.0); MEAN CORPUSCULAR HGB CONC 33.1 g/dL (32.0-36.0); MEAN CORPUSCULAR VOLUME 99.2 fL (80.0-94.0); MEAN PLATELET VOLUME 8.9 fL (7.4-11.4); MONOCYTES # (AUTO) 0.8 10^3/uL (0.0-1.0); MONOCYTES % (AUTO) 11.6 %; NEUTROPHILS # (AUTO) 4.3 10^3/uL (1.5-6.6); NEUTROPHILS % (AUTO) 63.9 %; PLT - PLATELET COUNT 320 10^3/uL (130-450); RED BLOOD COUNT 4.78 10^6/uL (4.70-6.10); RED CELL DISTRIBUTION WIDTH 14.2 % (12.0-15.0); WHITE BLOOD COUNT 6.7 x10^3/uL (4.8-10.8)
[2019-11-07 13:41] LABS: ALBUMIN 4.3 g/dL (3.2-5.5); ALBUMIN/GLOBULIN RATIO 1.4 (1.0-2.2); BILIRUBIN,TOTAL 1.1 mg/dL (0.2-1.0); CALCIUM 9.3 mg/dL (8.5-10.3); CREATININE 1.3 mg/dL (0.6-1.2); TOTAL PROTEIN 7.3 g/dL (6.7-8.2)
== END 2019-11-07 23:59 | disposition home or self-care (01) ==
LOC: LAB.WCP 08:00
PROVIDERS: ATTEND Physician Assistant
DX: Z79.899 Other long term (current) drug therapy (principal)
CPT/HCPCS: 36415; 80053; 85025

== ENCOUNTER 2019-11-11 11:50 | Outpatient (CLI) | payer MEDICARE, OTHER ==
[2019-11-11] MEDS ORDERED: IOVERSOL 320 100 ML VIAL IVP ONE ×2 (11:56→15:02)
--- NOTE | 2019-11-12 13:26 | CT Report ---
Reason: THORACIC AORTIC ANEURYSM,LUNG NODULE Procedure Date: 11/11/2019 Accession Number: [id number] / [id number] Procedure: CT - ANGIO CHEST W/WO CPT Code: Final Report FULL RESULT: EXAM: CTA CHEST EXAM DATE: 11/11/2019 12:18 PM. CLINICAL HISTORY: THORACIC AORTIC ANEURYSM, LUNG NODULE.. COMPARISON: CHEST W/O 09/17/2019 10:19 AM. TECHNIQUE: Prior to and following intravenous administration of 80 mL Optiray 320, multiplanar 3D/MIP reconstruction of the thoracic aorta was performed. In accordance with CT protocol optimization, one or more of the following dose reduction techniques were utilized for this exam: automated exposure control, adjustment of mA and/or KV based on patient size, or use of iterative reconstructive technique. FINDINGS: Vascular Structures: Prominent ductus bump redemonstrated and similar to the prior examination. This measures up to 3.8 cm in width at the base and 13 mm in depth. Partially visualized endograft repair of the infrarenal abdominal aorta. There is dilatation of the proximal ascending thoracic aorta measuring up to 4.1 cm, previously 4.4 cm on the axial plane from the 2 o'clock to 8 o'clock position at the level of the main pulmonary artery. Lungs/Pleura: Severe emphysematous changes redemonstrated. Bronchial wall thickening in the superior segment of the right lower lobe is again demonstrated and similar to the prior examination. No suspicious pulmonary nodules or masses. Scarring in the right lower lobe is also redemonstrated and similar. Mediastinum: Normal. No cardiac enlargement or adenopathy. Upper Abdomen: Unremarkable. Other: None. IMPRESSION: 1. Bronchial wall thickening in the superior segment of the right lower lobe is again demonstrated and similar to the prior examination. Severe underlying emphysematous changes redemonstrated and similar. 2. No suspicious pulmonary nodules or masses. 3. Prominent ductus bump redemonstrated and similar to the prior examination measuring up to 3.8 cm in width at the base and 13 mm in depth. 4. Mild dilatation of the ascending thoracic aorta measuring up to 4.1 cm, previously 4.4 cm. RADIA
== END 2019-11-11 11:51 | disposition home or self-care (01) ==
LOC: DI 11:50
PROVIDERS: ATTEND Physician Assistant
DX: I77.810 Thoracic aortic ectasia (principal); R91.8 Other nonspecific abnormal finding of lung field; J43.9 Emphysema, unspecified
CPT/HCPCS: 71275

== ENCOUNTER 2019-12-03 15:18 | Outpatient (CLI) | payer MEDICARE, OTHER | END 2019-12-03 23:59 | disposition home or self-care (01) | LOC: LAB.WCP 15:18 | PROVIDERS: ATTEND Family Medicine | DX: N39.0 Urinary tract infection, site not specified (principal) | CPT/HCPCS: 87086; 87181 ==

== ENCOUNTER 2020-01-01 07:07 | Outpatient (CLI) | payer MEDICARE, OTHER ==
[2020-01-01 12:00] LABS: CALCIUM 9.4 mg/dL (8.5-10.3); CREATININE 1.4 mg/dL (0.6-1.2)
== END 2020-01-01 23:59 | disposition home or self-care (01) ==
LOC: LAB.WCP 07:07
PROVIDERS: ATTEND Physician Assistant
DX: I10 Essential (primary) hypertension (principal)
CPT/HCPCS: 36415; 80048

== ENCOUNTER 2020-03-03 07:00 | Outpatient (CLI) | payer MEDICARE, OTHER | END 2020-03-03 23:59 | disposition home or self-care (01) | LOC: LAB.R 07:00 | PROVIDERS: ATTEND Physician Assistant | DX: N39.0 Urinary tract infection, site not specified (principal) | CPT/HCPCS: 87086; 87181 ==

== ENCOUNTER 2020-04-14 08:20 | Outpatient (CLI) | payer MEDICARE, OTHER ==
[2020-04-14 11:58] LABS: BASOPHILS % (AUTO) 0.5 %; EOSINOPHILS # (AUTO) 0.5 10^3/uL (0.0-0.7); EOSINOPHILS % (AUTO) 6.7 %; HGB - HEMOGLOBIN 14.4 g/dL (14.0-18.0); LYMPHOCYTES # (AUTO) 1.7 10^3/uL (1.5-3.5); MEAN CORPUSCULAR HEMOGLOBIN 30.3 pg (27.0-31.0); MEAN CORPUSCULAR HGB CONC 31.4 g/dL (32.0-36.0); MEAN CORPUSCULAR VOLUME 96.4 fL (80.0-94.0); MEAN PLATELET VOLUME 8.9 fL (7.4-11.4); MONOCYTES # (AUTO) 0.9 10^3/uL (0.0-1.0); MONOCYTES % (AUTO) 12.2 %; NEUTROPHILS # (AUTO) 4.5 10^3/uL (1.5-6.6); NEUTROPHILS % (AUTO) 58.2 %; PLT - PLATELET COUNT 315 10^3/uL (130-450); RED BLOOD COUNT 4.76 10^6/uL (4.70-6.10); WHITE BLOOD COUNT 7.7 x10^3/uL (4.8-10.8)
[2020-04-14 12:17] LABS: ALBUMIN/GLOBULIN RATIO 1.3 (1.0-2.2); ALKALINE PHOSPHATASE 72 IU/L (42-121); ALT ALANINE AMINOTRANSFERASE 26 IU/L (10-60); AST ASPARTATE AMINOTRANSFERASE 28 IU/L (10-42); BILIRUBIN,TOTAL 0.9 mg/dL (0.2-1.0); BUN - BLOOD UREA NITROGEN 14 mg/dL (6-20); CALCIUM 9.3 mg/dL (8.5-10.3); CARBON DIOXIDE - CO2 27 mmol/L (21-32); CHLORIDE 103 mmol/L (101-111); CHOL/HDL RATIO 3.6 (<5.0); CHOLESTEROL 151 mg/dL; CREATININE 1.1 mg/dL (0.6-1.2); GLUCOSE 101 mg/dL (70-100); HDL CHOLESTEROL 42 mg/dL; LDL CHOLESTEROL,CALCULATED 75 mg/dL; LDL/HDL RATIO 1.8 (<3.6); SODIUM 138 mmol/L (135-145); TOTAL PROTEIN 7.1 g/dL (6.7-8.2); VLDL CHOLESTEROL 34 mg/dL
== END 2020-04-14 08:21 | disposition home or self-care (01) ==
LOC: LAB.WCP 08:20
PROVIDERS: ATTEND Physician Assistant
DX: I10 Essential (primary) hypertension (principal); E78.5 Hyperlipidemia, unspecified
CPT/HCPCS: 36415; 80053; 80061; 83721; 85025

== ENCOUNTER 2020-06-15 16:15 | Outpatient (CLI) | payer MEDICARE, OTHER ==
--- NOTE | 2020-06-15 16:17 | XRAY Report ---
PROCEDURE: Chest 1 View X-Ray INDICATIONS: PERSISTENT COUGH TECHNIQUE: One view of the chest was acquired. COMPARISON: 12/23/2018 FINDINGS: Surgical changes and devices: None. Lungs and pleura: No pleural effusions or pneumothorax. There is moderate patchy airspace opacity wi thin the bilateral mid and lower lungs. Mediastinum: Mediastinal contours appear normal. Heart size is normal. Bones and chest wall: No suspicious bony lesions. Overlying soft tissues appear unremarkable. IMPRESSION: Bilateral pneumonia. Follow-up PA and lateral chest x-rays or chest CT is recommended to ensure resol ution, and to exclude underlying neoplasm. Reviewed by: Gildardo Patel MD on 06/15/2020 4:15 PM PST Approved by: Gildardo Patel MD on 06/15/2020 4:15 PM [facility] Station ID: [id number]
--- NOTE | 2020-06-15 16:56 | XRAY Report ---
PROCEDURE: Ribs 2 View RT INDICATIONS: R SIDE RIB PX TECHNIQUE: 3 views of the right ribs were acquired. COMPARISON: Chest x-ray 06/15/2020 FINDINGS: Surgical changes and devices: Vascular endograft is noted. Bones and chest wall: There is a nondisplaced fracture of the lateral right 10th rib. No suspicious b rolando lesions. Overlying soft tissues appear unremarkable. Lungs and pleura: Partially visualized opacities within the lung bases are noted. No pleural effusion s or pneumothorax are visible. IMPRESSION: 1. Nondisplaced right 10th lateral rib fracture. 2. Mild increased opacities within the bases suggestive of pneumonia. Reviewed by: Francheska Denis MD on 06/15/2020 4:55 PM PST Approved by: Francheska Denis MD on 06/15/2020 4:55 PM PST Station ID: [id number]
== END 2020-06-15 23:59 | disposition home or self-care (01) ==
LOC: DI.N 16:15
PROVIDERS: ATTEND Family Medicine
DX: S22.31XA Fracture of one rib, right side, initial encounter for closed fracture (principal); J18.9 Pneumonia, unspecified organism

== ENCOUNTER 2020-06-21 07:00 | Outpatient (CLI) | payer MEDICARE, OTHER ==
--- NOTE | 2020-06-21 15:41 | XRAY Report ---
PROCEDURE: Chest 2 View X-Ray INDICATIONS: PNEUMONIA TECHNIQUE: 2 view(s) of the chest. COMPARISON: 06/15/2020. FINDINGS: Surgical changes and devices: Loop recorder noted. Lungs and pleura: No pleural effusions or pneumothorax. Groundglass opacity in the left greater than right mid lung regions. Findings have improved since the prior study but are not entirely resolved. Mediastinum: Mediastinal contours are normal. Heart size is normal. Bones and chest wall: No suspicious bony abnormalities. Soft tissues appear unremarkable. IMPRESSION: Improved but not entirely resolved bilateral groundglass airspace opacities. Continued fo llow-up to document resolution recommended. In the absence of any residual symptoms, CT chest with IV contrast could be considered for more comprehensive evaluation. Reviewed by: Juan Murphy MD on 06/21/2020 2:39 PM [facility] Approved by: Juan Murphy MD on 06/21/2020 2:39 PM [facility] Station ID: [id number]
== END 2020-06-21 23:59 | disposition home or self-care (01) ==
LOC: DI.N 07:00
PROVIDERS: ATTEND Family Medicine
DX: R91.8 Other nonspecific abnormal finding of lung field (principal)

== ENCOUNTER 2020-10-18 08:00 | Outpatient (CLI) | payer MEDICARE, OTHER ==
[2020-10-18 18:20] LABS: BASOPHILS # (AUTO) 0.1 10^3/uL (0.0-0.1); BASOPHILS % (AUTO) 0.6 %; EOSINOPHILS # (AUTO) 0.4 10^3/uL (0.0-0.7); EOSINOPHILS % (AUTO) 4.6 %; HCT - HEMATOCRIT 48.9 % (42.0-52.0); HGB - HEMOGLOBIN 14.9 g/dL (14.0-18.0); LYMPHOCYTES # (AUTO) 1.9 10^3/uL (1.5-3.5); LYMPHOCYTES % (AUTO) 23.4 %; MEAN CORPUSCULAR HEMOGLOBIN 27.8 pg (27.0-31.0); MEAN CORPUSCULAR HGB CONC 30.5 g/dL (32.0-36.0); MEAN CORPUSCULAR VOLUME 91.2 fL (80.0-94.0); MEAN PLATELET VOLUME 9.1 fL (7.4-11.4); MONOCYTES # (AUTO) 0.9 10^3/uL (0.0-1.0); MONOCYTES % (AUTO) 10.7 %; NEUTROPHILS # (AUTO) 4.9 10^3/uL (1.5-6.6); NEUTROPHILS % (AUTO) 60.3 %; PLT - PLATELET COUNT 293 10^3/uL (130-450); RED BLOOD COUNT 5.36 10^6/uL (4.70-6.10); RED CELL DISTRIBUTION WIDTH 15.3 % (12.0-15.0); WHITE BLOOD COUNT 8.1 x10^3/uL (4.8-10.8)
[2020-10-18 18:44] LABS: ALBUMIN 4.4 g/dL (3.2-5.5); ALBUMIN/GLOBULIN RATIO 1.4 (1.0-2.2); BILIRUBIN,TOTAL 1.1 mg/dL (0.2-1.0); CALCIUM 9.4 mg/dL (8.5-10.3); CREATININE 1.1 mg/dL (0.6-1.2); POTASSIUM 4.3 mmol/L (3.5-5.0); TOTAL PROTEIN 7.5 g/dL (6.7-8.2)
== END 2020-10-18 23:59 | disposition home or self-care (01) ==
LOC: LAB.WCP 08:00
PROVIDERS: ATTEND Physician Assistant
DX: I10 Essential (primary) hypertension (principal)
CPT/HCPCS: 36415; 80053; 85025

== ENCOUNTER 2020-11-08 08:48 | Outpatient (CLI) | payer MEDICARE, OTHER ==
--- NOTE | 2020-11-08 10:40 | CT Report ---
PROCEDURE: ANGIO CHEST W/WO INDICATIONS: THORACIC AORTIC ANEURYSM CONTRAST: IV CONTRAST: Isovue 300 ml: 150 PO CONTRAST: *NO PO CONTRAST TECHNIQUE: Precontrast chest CT is performed. After the administration of intravenous contrast, 2 mm thick secti ons acquired from the pulmonary apices to the posterior costophrenic angles. 3-dimensional maximum i ntensity projection (MIP) coronal and sagittal reformats were then acquired through the thorax. For r adiation dose reduction, the following was used: automated exposure control, adjustment of mA and/or kV according to patient size. COMPARISON: 04/11/2019 CT examination. 11/11/2019 CT examination. FINDINGS: Image quality: Excellent. Vascular structures: Mild dilatation of the ascending thoracic aorta is present, as before, measuring roughly 42 mm diameter. There is a prominent ductus bone measuring roughly 38 mm in length, and 14 m m in depth, as before. No evidence of thoracic aorta dissection. Lungs and pleura: Severe apical predominant emphysema is present, as before. No pleural effusions or pneumothorax central airways are patent. Bronchial wall thickening involving the superior segment of the right lower lobe is unchanged. There is a new, 8 mm diameter nodule with spiculated margins withi n the anterior aspect of the left lower lobe (series 22 image 52). There is a nodular focus within th e left lower lobe posteriorly which is increased in prominence, measuring roughly 8 mm ((series 22 im age 62), and a region of prior scarring. Mediastinum: Heart size is normal, without pericardial effusion. Mild apical scarring calcification of the coronary vasculature. No mediastinal or hilar adenopathy. Thoracic aorta is normal in caliber and enhancement. Esophagus is normal in caliber, without hiatal hernia. Bones and chest wall: No suspicious bony lesions. Ribs and thoracic spine appear intact throughout. The thyroid is normal. No axillary or supraclavicular adenopathy. Abdomen: Visualized portions of the upper abdomen demonstrate the superior aspect of an aortoiliac s tent graft. IMPRESSION: 1. No significant change in mild aneurysmal dilatation of the descending thoracic aorta. No change in prominent ductus bump. 2. No change in bronchial wall thickening within the right lower lobe superior segment. 3. New left lower lobe pulmonary nodules as described above, possibly indicating malignancy. PET/CT e xamination is recommended for further assessment. 4. Coronary artery disease. Reviewed by: Gildardo Patel MD on 11/08/2020 10:38 AM PDT Approved by: Gildardo Patel MD on 11/08/2020 10:38 AM PDT Station ID: [id number]
== END 2020-11-08 08:49 | disposition home or self-care (01) ==
LOC: DI 08:48
PROVIDERS: ATTEND Internal Medicine
DX: I71.2 Thoracic aortic aneurysm, without rupture (principal); R91.8 Other nonspecific abnormal finding of lung field; J98.09 Other diseases of bronchus, not elsewhere classified; I25.10 Atherosclerotic heart disease of native coronary artery without angina pectoris; Z09 Encounter for follow-up examination after completed treatment for conditions other than malignant neoplasm; R91.1 Solitary pulmonary nodule; K80.20 Calculus of gallbladder without cholecystitis without obstruction; Z95.828 Presence of other vascular implants and grafts
CPT/HCPCS: 71275; 75635; Q9967

== ENCOUNTER 2021-04-17 13:35 | Outpatient (CLI) | payer MEDICARE, OTHER ==
--- NOTE | 2021-04-17 13:54 | XRAY Report ---
PROCEDURE: Shoulder 2 View RT INDICATIONS: RIGHT SHOULDER PAIN TECHNIQUE: 2 views of the shoulder were acquired. COMPARISON: Correlation is made with chest CT angiogram, 11/08/2020. FINDINGS: Bones: No fractures or dislocations. No suspicious bony lesions. Visualized ribs appear intact. M ild degenerative changes are seen, with mild subacromial spurring. The acromioclavicular interspace i s mildly widened at 9 mm. Soft tissues: No suspicious soft tissue calcifications. The visualized lung demonstrates a normal a ppearance. IMPRESSION: Degenerative changes, with mild acromioclavicular separation. If it would be helpful for clinical management decision making, please consider a dedicated, schedule d shoulder MRI for further evaluation (assuming that there is no contraindication). Reviewed by: Ronald Jordan MD on 04/17/2021 12:53 PM [facility] Approved by: Ronald Jordan MD on 04/17/2021 12:53 PM [facility] Station ID: [id number]
== END 2021-04-17 13:36 ==
LOC: DI.N 13:35
PROVIDERS: ATTEND Nurse Practitioner
DX: M19.011 Primary osteoarthritis, right shoulder (principal); S43.101A Unspecified dislocation of right acromioclavicular joint, initial encounter

== ENCOUNTER 2021-05-11 11:54 | Outpatient (CLI) | payer MEDICARE, OTHER ==
--- NOTE | 2021-05-11 15:15 | CT Report ---
PROCEDURE: CHEST WO INDICATIONS: LUNG NODULE TECHNIQUE: Noncontrast 1mm axial images were acquired from the pulmonary apices to the posterior costophrenic an gles. Axial 5 mm soft tissue kernel reconstructions were performed as well as 8 mm axial MIP and cor onal and sagittal 5 mm reformations. For radiation dose reduction, the following was used: automate d exposure control, adjustment of mA and/or kV according to patient size. COMPARISON: November 08, 2020 FINDINGS: Thyroid: 9 mm hypoattenuating lesion in the right lobe of the thyroid, which may reflect a nodule. Vasculature: Redemonstrated dilatation of the ascending thoracic aorta, measuring up to 4.2 cm in gre atest dimension, with ductus diverticulum. Heart: No cardiomegaly or pericardial effusion. Coronary artery calcifications are present. Mediastinum/ventura: No pathologically enlarged lymph nodes by size criteria. Lung/pleura: No consolidation, pleural effusion, or pneumothorax. Advance centrilobular paraseptal em physematous changes. Plate atelectasis/scarring in the right middle and lower lobes. Left lower lobe anterior segment May 11, 2021: 9.7 x 9.5 mm; series 4, image 148 November 08, 2020: 7 x 7.3 mm; series 18, image 31 Left lower lobe posterior segment May 11, 2021: 11.8 x 6.2 mm; series 4, image 177 November 08, 2020: 10.3 x 3.3 mm series 15, image 77. Tracheobronchial tree: Patent. Narrowing of the trachea in the transverse dimension. Dilatation of th e bronchials with wall thickening. Upper abdomen: No acute abnormality. Partially imaged infrarenal aortic stent. Persistent 8.3 mm fat attenuation lesion in the pancreatic body/tail, likely representing a lipoma. Pertinent nephrolithiasis versus vascular calcifications. Bones: No significant abnormality. Chest wall: No significant abnormality. IMPRESSION: 1.Persistent nodular densities in the left lower lobe, which appears somewhat sessile in the cranioca udal dimension and may reflect scarring. If not previously performed, consider PET CT for further radha luation. Reviewed by: Jarek Lopez MD on 05/11/2021 3:13 PM PDT Approved by: Jarek Lopez MD on 05/11/2021 3:13 PM PDT Station ID: [id number]
== END 2021-05-11 11:55 | disposition home or self-care (01) ==
LOC: DI 11:54
PROVIDERS: ATTEND Family Medicine
DX: R91.1 Solitary pulmonary nodule (principal)

== ENCOUNTER 2021-08-23 10:22 | Outpatient (CLI) | payer MEDICARE, OTHER ==
[2021-08-23 13:36] LABS: ALBUMIN 4.2 g/dL (3.2-5.5); ALBUMIN/GLOBULIN RATIO 1.3 (1.0-2.2); ALKALINE PHOSPHATASE 84 IU/L (42-121); ALT ALANINE AMINOTRANSFERASE 21 IU/L (10-60); AST ASPARTATE AMINOTRANSFERASE 22 IU/L (10-42); BUN - BLOOD UREA NITROGEN 17 mg/dL (6-20); CALCIUM 8.9 mg/dL (8.5-10.3); CARBON DIOXIDE - CO2 31 mmol/L (21-32); CHLORIDE 96 mmol/L (101-111); CHOL/HDL RATIO 2.8 (<5.0); CHOLESTEROL 152 mg/dL; GFR - MDRD 72 (>89); GLUCOSE 99 mg/dL (70-100); HDL CHOLESTEROL 54 mg/dL; LDL CHOLESTEROL,CALCULATED 74 mg/dL; LDL/HDL RATIO 1.4 (<3.6); POTASSIUM 4.1 mmol/L (3.5-5.0); SODIUM 136 mmol/L (135-145); TOTAL PROTEIN 7.5 g/dL (6.7-8.2); TRIGLYCERIDES 119 mg/dL; VLDL CHOLESTEROL 24 mg/dL
== END 2021-08-23 10:23 | disposition home or self-care (01) ==
LOC: LAB.N 10:22
PROVIDERS: ATTEND Family Medicine
DX: I10 Essential (primary) hypertension (principal)
CPT/HCPCS: 36415; 80053; 80061; 83721

== ENCOUNTER 2022-05-15 14:47 | Outpatient (CLI) | payer MEDICARE, OTHER ==
[2022-05-15 18:22] LABS: BASOPHILS # (AUTO) 0.1 10^3/uL (0.0-0.1); BASOPHILS % (AUTO) 0.5 %; EOSINOPHILS # (AUTO) 0.3 10^3/uL (0.0-0.7); EOSINOPHILS % (AUTO) 3.2 %; HCT - HEMATOCRIT 46.3 % (42.0-52.0); HGB - HEMOGLOBIN 14.1 g/dL (14.0-18.0); LYMPHOCYTES # (AUTO) 1.9 10^3/uL (1.5-3.5); LYMPHOCYTES % (AUTO) 19.6 %; MEAN CORPUSCULAR HEMOGLOBIN 27.2 pg (27.0-31.0); MEAN CORPUSCULAR HGB CONC 30.5 g/dL (32.0-36.0); MEAN CORPUSCULAR VOLUME 89.2 fL (80.0-94.0); MEAN PLATELET VOLUME 9.1 fL (7.4-11.4); MONOCYTES # (AUTO) 1.4 10^3/uL (0.0-1.0); MONOCYTES % (AUTO) 14.2 %; NEUTROPHILS # (AUTO) 6.1 10^3/uL (1.5-6.6); PLT - PLATELET COUNT 321 10^3/uL (130-450); RED BLOOD COUNT 5.19 10^6/uL (4.70-6.10); RED CELL DISTRIBUTION WIDTH 15.9 % (12.0-15.0); WHITE BLOOD COUNT 9.8 x10^3/uL (4.8-10.8)
[2022-05-15 18:42] LABS: ALBUMIN/GLOBULIN RATIO 1.3 (1.0-2.2); BILIRUBIN,TOTAL 0.4 mg/dL (0.2-1.0); CALCIUM 9.3 mg/dL (8.5-10.3); CREATININE 1.2 mg/dL (0.6-1.2); POTASSIUM 4.3 mmol/L (3.5-5.0); TOTAL PROTEIN 7.1 g/dL (6.7-8.2)
[2022-05-15 18:52] LABS: FERRITIN 14.5 ng/mL (23.9-336.2)
== END 2022-05-15 14:48 | disposition home or self-care (01) ==
LOC: LAB.N 14:47
PROVIDERS: ATTEND Nurse Practitioner Family
DX: I10 Essential (primary) hypertension (principal); G47.62 Sleep related leg cramps
CPT/HCPCS: 36415; 80053; 82607; 82728; 82746; 83540; 84466; 85025

== ENCOUNTER 2022-07-12 11:49 | Outpatient (CLI) | payer MEDICARE, OTHER ==
[2022-07-12 18:14] LABS: BASOPHILS # (AUTO) 0.1 10^3/uL (0.0-0.1); BASOPHILS % (AUTO) 0.6 %; EOSINOPHILS # (AUTO) 0.5 10^3/uL (0.0-0.7); EOSINOPHILS % (AUTO) 5.9 %; HCT - HEMATOCRIT 52.6 % (42.0-52.0); HGB - HEMOGLOBIN 15.9 g/dL (14.0-18.0); LYMPHOCYTES # (AUTO) 1.7 10^3/uL (1.5-3.5); LYMPHOCYTES % (AUTO) 19.4 %; MEAN CORPUSCULAR HGB CONC 30.2 g/dL (32.0-36.0); MEAN CORPUSCULAR VOLUME 92.8 fL (80.0-94.0); MEAN PLATELET VOLUME 9.1 fL (7.4-11.4); MONOCYTES % (AUTO) 11.5 %; NEUTROPHILS # (AUTO) 5.3 10^3/uL (1.5-6.6); NEUTROPHILS % (AUTO) 62.4 %; PLT - PLATELET COUNT 267 10^3/uL (130-450); RED BLOOD COUNT 5.67 10^6/uL (4.70-6.10); RED CELL DISTRIBUTION WIDTH 18.7 % (12.0-15.0); WHITE BLOOD COUNT 8.5 x10^3/uL (4.8-10.8)
[2022-07-12 19:15] LABS: % IRON SATURATION 46 % (20-50); IRON 213 ug/dL (45-182); TOTAL IRON BINDING CAPACITY 459 ug/dL (250-450); TRANSFERRIN 328 mg/dL (180-329)
== END 2022-07-12 11:50 | disposition home or self-care (01) ==
LOC: LAB.N 11:49
PROVIDERS: ATTEND Nurse Practitioner Family
DX: D50.9 Iron deficiency anemia, unspecified (principal)
CPT/HCPCS: 36415; 82728; 83540; 84466; 85025

== ENCOUNTER 2022-09-13 09:42 | Outpatient (CLI) | payer MEDICARE, OTHER ==
--- NOTE | 2022-09-13 16:10 | Ultrasound Report ---
PROCEDURE: Head or Neck Soft Tissue INDICATIONS: EMPHYSEMA, LUNG NODULE, HX OF THYROID NODULE TECHNIQUE: Real time scanning was performed of the neck region of interest, with image documentation . COMPARISON: None. FINDINGS: The thyroid is not definitively visualized and appears either surgically absent or markedly atrophic. No thyroid nodule is identified. No mass or lymphadenopathy in the neck demonstrated. IMPRESSION: Markedly atrophic thyroid with no discrete nodule. Reviewed by: Juan Murphy MD on 09/13/2022 4:08 PM PST Approved by: Juan Murphy MD on 09/13/2022 4:08 PM PST Station ID: [id number]
--- NOTE | 2022-09-13 18:13 | CT Report ---
PROCEDURE: CHEST WO INDICATIONS: EMPHYSEMA, LUNG NODULE, HX OF THYROID NODULE TECHNIQUE: Noncontrast 1mm axial images were acquired from the pulmonary apices to the posterior costophrenic an gles. Axial 5 mm soft tissue kernel reconstructions were performed as well as 8 mm axial MIP and cor onal and sagittal 5 mm reformations. For radiation dose reduction, the following was used: automate d exposure control, adjustment of mA and/or kV according to patient size. COMPARISON: 05/11/2021 FINDINGS: Image quality: Good Lungs and pleura:Emphysema. Scattered scarring, particularly increased in the right middle lobe. Righ t lower lobe groundglass opacities. Scattered areas of mucous plugging and bronchiectasis, for exampl e in the right lower lobe. Similar nodule in the left lower lobe (4/180). Numerous micronodules are a lso seen on maximum intensity projection images, for example in the left series 6 image 69. None appe ar overtly suspicious. Mediastinum, heart, and esophagus: No significant hiatal hernia. Coronary and annular calcifications of the heart. No pathologic adenopathy by size criteria. Chest wall and thyroid: Thyroid is somewhat atrophic. Similar right hypodense nodule. Chest wall is u nremarkable. Upper abdomen: Noncontrast limited evaluation, without gross abnormality. Partially seen aortic stent . Bones: No acute or suspicious osseous finding. IMPRESSION: No overtly suspicious pulmonary nodule. Compared to 2020 imaging, there are new ground glass opacitie s in the right lower lobe, along with upstream bronchiectasis and mucous plugging (also seen to a les ser extent in the upper lobes), possibly infectious or inflammatory. There is also increased scarring in the right middle lobe. Multifocal stable small nodules and emphysema. Consider further follow-up chest CT. Reviewed by: Daniel Gtz MD on 09/13/2022 6:11 PM PST Approved by: Daniel Gtz MD on 09/13/2022 6:11 PM PST Station ID: [id number]
== END 2022-09-13 09:43 | disposition home or self-care (01) ==
LOC: DI 09:42
PROVIDERS: ATTEND Nurse Practitioner Family
DX: J43.9 Emphysema, unspecified (principal); R91.8 Other nonspecific abnormal finding of lung field; I71.20 Thoracic aortic aneurysm, without rupture, unspecified; F17.200 Nicotine dependence, unspecified, uncomplicated; I10 Essential (primary) hypertension; I71.40 Abdominal aortic aneurysm, without rupture, unspecified; Z86.39 Personal history of other endocrine, nutritional and metabolic disease; E03.4 Atrophy of thyroid (acquired); J47.9 Bronchiectasis, uncomplicated; T17.890A Other foreign object in other parts of respiratory tract causing asphyxiation, initial encounter; J98.4 Other disorders of lung

== ENCOUNTER 2022-11-13 08:51 | Outpatient (CLI) | payer MEDICARE, OTHER ==
[2022-11-13 09:13] LABS: PT - PROTHROMBIN TIME 11.3 secs (9.9-12.6)
[2022-11-13 09:20] LABS: PARTIAL THROMBOPLASTIN TIME 27.9 secs (24.9-33.3)
== END 2022-11-13 08:52 | disposition home or self-care (01) ==
LOC: LAB 08:51
PROVIDERS: ATTEND Surgery
DX: Z01.812 Encounter for preprocedural laboratory examination (principal); C49.A2 Gastrointestinal stromal tumor of stomach; Z86.010 Personal history of colon polyps
CPT/HCPCS: 36415; 85610; 85730

== ENCOUNTER 2022-11-15 07:15 | Day surgery (SDC) | payer MEDICARE, OTHER ==
--- NOTE | 2022-11-15 07:48 | ANESTHESIA ---
Pre-Anesthesia VS, & Labs - Diagnosis screening exam, history of gastric tumor - Procedure colonoscopy and EGD Vital Signs: Temp Pulse Resp BP Pulse Ox O2 Flow Rate 36 C L 73 14 133/77 H 92 11/15/22 07:35 11/15/22 07:35 11/15/22 07:35 11/15/22 07:35 11/15/22 07:35 Height: 5 ft 9 in Weight (kg): 79.8 kg Body Mass Index: 25.9 BMI Classification: Overweight - NPO >8 hours Home Medications and Allergies Aspirin [Aspir 81] 81 mg PO DAILY 05/03/13 Cetirizine HCl [Zyrtec] 10 mg PO DAILY 05/03/13 Esomeprazole Magnesium [Nexium] 40 mg PO DAILY 05/03/13 Fenofibrate Nanocrystallized [Triglide] 160 mg PO HS 05/03/13 Simvastatin [Zocor] 20 mg PO QPM 05/03/13 Tiotropium [Spiriva] 1 puffs INH DAILY 05/03/13 Fluticasone/Vilanterol [Breo Ellipta 100-25 Mcg INH] 1 each IH DAILY 10/19/17 hydroCHLOROthiazide [Hydrochlorothiazide] 25 mg PO DAILY 10/19/17 Allergies/Adverse Reactions: Allergies Allergy/AdvReac Type Severity Reaction Status Date / Time fluticasone propionate * Allergy split Verified 10/19/17 13:04 [From Advair Diskus] vision salmeterol xinafoate * Allergy split Verified 10/19/17 13:04 [From Advair Diskus] vision Anes History & Medical History - Anesthetic History Anesthesia Complications: reports: No previous complications - Medical History Cardiovascular: reports: Hypertension, High cholesterol, Peripheral Vascular Disease (AAA repair) Pulmonary: reports: Asthma, COPD Gastrointestinal: reports: GERD, Colon polyps, Diverticulitis Urinary: reports: Benign prostate hypertrophy, Retention, Kidney stones, Other (self cath) Musculoskeletal: reports: Osteoarthritis, Fatigue Endocrine/Autoimmune: reports: None Skin: reports: Other Smoking Status: Current every day smoker Psychosocial: reports: Alcohol (daily use) History of Cancer?: Yes - Surgical History General: reports: Colonoscopy, EGD, Other (gastric resection) Cardiothoracic: reports: AAA Urologic: reports: Prostatic surgery Orthopedic: reports: Knee replacement, Carpal Tunnel surgery Dermatologic: reports: Skin cancer surgery Exam General: Alert, Oriented x3, Cooperative, No acute distress Dental: Poor dentition Mouth Openin Fingerbreadth Neck Mobility: Normal Mallampati classification: II Thyromental Distance: 4-6 cm Respiratory: Decreased breath sounds Mental/Cognitive Status: Alert/Oriented X3, Normal for patient Plan Anesthesia Type: General, Total IV Consent for Procedure(s) Verified and Reviewed: Yes Code Status: Attempt Resuscitation ASA classification: 3-Severe systemic disease Is this case an emergency?: No
[2022-11-15] MEDS ORDERED: LACTATED RINGERS 1,000 ML IV ONE (07:53)
[2022-11-15] MEDS ORDERED: PROPOFOL 500 MG/50 ML 500 MG/50 ML VIAL ONE (08:04)
[2022-11-15] MEDS ORDERED: LIDOCAINE-MPF 2% 5 ML VIAL ONE (08:05)
[2022-11-15] MEDS ORDERED: ePHEDrine 50 MG/ML VIAL IVP ONE (08:33)
[2022-11-15] MEDS ORDERED: PHENYLEPHRINE 10 MG/ML VIAL ONE (09:01)
[2022-11-15] MEDS ORDERED: LACTATED RINGERS 100 ML IV ONE (09:06)
[2022-11-15 09:37] VITALS: BP 110/69
--- NOTE | 2022-11-15 09:52 | ANESTHESIA POST OP EVALUATION ---
Anesthesia Post Eval - Post Anesthesia Eval Vitals: Last Vital Signs Temp 36 C L 11/15/22 07:35 Pulse 81 11/15/22 09:35 Resp 23 11/15/22 09:35 BP 110/69 11/15/22 09:35 Pulse Ox 91 L 11/15/22 09:35 O2 Flow Rate CV Function Including HR & BP: Stable Pain Control: Satisfactory Nausea & Vomiting: Negative Mental Status: Baseline Respiratory Status: Airway Patent Hydration Status: Satisfactory Anesthesia Complications: None
== END 2022-11-15 07:16 | disposition home or self-care (01) ==
LOC: SDS 07:15
PROVIDERS: ATTEND Surgery
PROC: 0DB68ZX Excision of Stomach, Via Natural or Artificial Opening Endoscopic, Diagnostic (ICD-10-PCS; principal; 2022-11-15 08:30)
PROC: 0DBN8ZZ Excision of Sigmoid Colon, Via Natural or Artificial Opening Endoscopic (ICD-10-PCS; 2022-11-15 08:30)
DX: Z12.11 Encounter for screening for malignant neoplasm of colon (principal); Z08 Encounter for follow-up examination after completed treatment for malignant neoplasm; D12.7 Benign neoplasm of rectosigmoid junction; J43.9 Emphysema, unspecified; I95.9 Hypotension, unspecified; K21.9 Gastro-esophageal reflux disease without esophagitis; N40.1 Benign prostatic hyperplasia with lower urinary tract symptoms; R33.8 Other retention of urine; F17.200 Nicotine dependence, unspecified, uncomplicated; K31.7 Polyp of stomach and duodenum; Z85.028 Personal history of other malignant neoplasm of stomach; Z86.010 Personal history of colon polyps; Z87.19 Personal history of other diseases of the digestive system; Z79.82 Long term (current) use of aspirin
CPT/HCPCS: 43239; 45338; J7120

== ENCOUNTER 2022-11-26 10:37 | Outpatient (CLI) | payer MEDICARE, OTHER | END 2022-11-26 10:38 | disposition critical access hospital (66) | LOC: EMS 10:37 | DX: R06.02 Shortness of breath (principal); R00.0 Tachycardia, unspecified; R50.9 Fever, unspecified; M25.522 Pain in left elbow; W18.39XA Other fall on same level, initial encounter; Y92.008 Other place in unspecified non-institutional (private) residence as the place of occurrence of the external cause | CPT/HCPCS: A0425; A0429 ==

== ENCOUNTER 2022-11-26 10:56 | Inpatient (IN) | payer MEDICARE, OTHER ==
[2022-11-26] MEDS ORDERED: IPRATROPIUM/ALBUTEROL 3 ML NEB INH STA (11:41)
[2022-11-26] MEDS ORDERED: AZITHROMYCIN INJ 500 MG in SODIUM CHLORIDE 0.9% 250 ML IV STA (11:41)
[2022-11-26] MEDS ORDERED: cefTRIAXone 1 GM VIAL IVP STA (11:41)
[2022-11-26] MEDS ORDERED: methylPREDNISolone SUCCINATE 125 MG/2 ML VIAL IVP STA (11:41)
[2022-11-26] MEDS ORDERED: SODIUM CHLORIDE 0.9% 1,000 ML IV STA ×2 (11:42)
[2022-11-26 11:45] LABS: BASOPHILS % (AUTO) 0.4 %; HCT - HEMATOCRIT 54.3 % (42.0-52.0); LYMPHOCYTES # (AUTO) 0.5 10^3/uL (1.5-3.5); LYMPHOCYTES % (AUTO) 4.3 %; MEAN CORPUSCULAR HEMOGLOBIN 32.6 pg (27.0-31.0); MEAN CORPUSCULAR HGB CONC 33.1 g/dL (32.0-36.0); MEAN CORPUSCULAR VOLUME 98.4 fL (80.0-94.0); MEAN PLATELET VOLUME 8.8 fL (7.4-11.4); MONOCYTES % (AUTO) 9.1 %; NEUTROPHILS # (AUTO) 9.3 10^3/uL (1.5-6.6); NEUTROPHILS % (AUTO) 85.8 %; PLT - PLATELET COUNT 174 10^3/uL (130-450); RED BLOOD COUNT 5.52 10^6/uL (4.70-6.10); RED CELL DISTRIBUTION WIDTH 13.4 % (12.0-15.0); WHITE BLOOD COUNT 10.8 x10^3/uL (4.8-10.8)
--- NOTE | 2022-11-26 11:45 | XRAY Report ---
PROCEDURE: Chest 1 View X-Ray INDICATIONS: fever TECHNIQUE: One view of the chest was acquired. COMPARISON: 10/05/2021 FINDINGS: Surgical changes and devices: None. Lungs and pleura: No pleural effusions or pneumothorax. There is moderate bibasilar patchy reticulon odular pulmonary opacity. Mediastinum: Mediastinal contours appear normal. Heart size is normal. Bones and chest wall: No suspicious bony lesions. Overlying soft tissues appear unremarkable. IMPRESSION: Moderate atypical pneumonia. Reviewed by: Gildardo Patel MD on 11/26/2022 10:44 AM [facility] Approved by: Gildardo Patel MD on 11/26/2022 10:44 AM [facility] Station ID: [id number]
[2022-11-26] MEDS ORDERED: SODIUM CHLORIDE 0.9% IV STA (11:49)
[2022-11-26] MEDS ORDERED: AZITHROMYCIN IV STA (11:49)
--- NOTE | 2022-11-26 11:52 | ED Physician Documentation ---
History of Present Illness - Stated complaint Stated Complaint: TREMORS - Chief complaint Chief Complaint: General - History obtained from History obtained from: Patient - History of Present Illness Timing: Yesterday Pain level max: 0 Pain level now: 0 - Additonal information Additional information: Patient is an 82-year-old male who has a history of COPD, presents to the emergency department with fever, chills, rigors. Started yesterday. Increased coughing. Increased weakness today. He states that he does have home oxygen and wears that as needed. He states 2 L. He has not been on any antibiotics recently. Nothing seems to make this better or worse. Patient states that the shaking chills worsened today. No urinary symptoms. No abdominal pain, nausea, vomiting, diarrhea. No back pain. Has not taken a COVID test. Review of Systems Constitutional: reports: Fever (100.4), Chills Nose: reports: Rhinorrhea / runny nose, Congestion Throat: denies: Sore throat Cardiac: denies: Chest pain / pressure, Palpitations Respiratory: reports: Dyspnea, Cough, Wheezing GI: denies: Abdominal Pain, Nausea, Vomiting, Diarrhea Skin: denies: Rash Musculoskeletal: denies: Neck pain, Back pain Neurologic: denies: Headache PD PAST MEDICAL HISTORY - Past Medical History Cardiovascular: Hypertension, High cholesterol, Peripheral Vascular Disease (AAA repair) Respiratory: Asthma, COPD Endocrine/Autoimmune: None GI: GERD, Colon polyps, Diverticulitis : Benign prostate hypertrophy, Retention, Kidney stones, Other (self cath) HEENT: Chronic vision loss Psych: None Musculoskeletal: Osteoarthritis, Fatigue Derm: Other - Past Surgical History Past Surgical History: Yes General: Colonoscopy, EGD, Other (gastric resection) Ortho: Knee replacement, Carpal Tunnel surgery Cardiovascular: AAA Derm: Skin cancer surgery - Present Medications Home Medications: Ambulatory Orders Medication Instructions Recorded Confirmed Aspirin [Aspir 81] 81 mg PO DAILY 05/03/13 11/15/22 Cetirizine HCl [Zyrtec] 10 mg PO DAILY 05/03/13 11/15/22 Esomeprazole Magnesium [Nexium] 40 mg PO DAILY 05/03/13 11/15/22 Fenofibrate Nanocrystallized 160 mg PO HS 05/03/13 11/15/22 [Triglide] Simvastatin [Zocor] 20 mg PO QPM 05/03/13 11/15/22 Tiotropium [Spiriva] 1 puffs INH DAILY 05/03/13 11/15/22 Fluticasone/Vilanterol [Breo 1 each IH DAILY 10/19/17 11/15/22 Ellipta 100-25 Mcg INH] hydroCHLOROthiazide 25 mg PO DAILY 10/19/17 11/15/22 [Hydrochlorothiazide] - Allergies Allergies/Adverse Reactions: Allergies Allergy/AdvReac Type Severity Reaction Status Date / Time fluticasone propionate * Allergy split Verified 11/26/22 11:15 [From Advair Diskus] vision salmeterol xinafoate * Allergy split Verified 11/26/22 11:15 [From Advair Diskus] vision - Social History Does the pt smoke?: Yes Smoking Status: Current every day smoker Does the pt drink ETOH?: Yes Does the pt have substance abuse?: No PD ED PE NORMAL - Vitals Vital signs reviewed: Yes - General General: Alert and oriented X 3, No acute distress - HEENT HEENT: Moist mucous membranes - Neck Neck: Supple, no meningeal sign - Cardiac Cardiac: RRR, No murmur - Respiratory Respiratory: Other (decreased breath sounds throughout, wheezing B) - Abdomen Abdomen: Soft, Non tender, Non distended - Derm Derm: Warm and dry - Extremities Extremities: No edema, No calf tenderness / cord - Neuro Neuro: Alert and oriented X 3 - Psych Psych: Normal mood, Normal affect Results - Vitals Vitals: Vital Signs - 24 hr 11/26/22 11/26/22 11/26/22 11:15 11:22 11:49 Temperature 37.9 C Heart Rate 107 H 103 H 101 H Respiratory 24 36 H 35 H Rate Blood Pressure 84/62 L 92/60 94/58 L O2 Saturation 83 L 88 L 90 L If not protocol 4 6 : Oxygen Flow, liters/minute 11/26/22 11/26/22 11/26/22 12:16 12:45 13:07 Temperature Heart Rate 96 93 92 Respiratory 25 H 23 23 Rate Blood Pressure 99/73 108/70 O2 Saturation 92 92 If not protocol 2 2 : Oxygen Flow, liters/minute 11/26/22 11/26/22 11/26/22 13:15 13:30 14:00 Temperature Heart Rate 92 92 91 Respiratory 23 21 22 Rate Blood Pressure 125/70 105/61 104/60 O2 Saturation 90 L 92 92 If not protocol 2 2 2 : Oxygen Flow, liters/minute 11/26/22 11/26/22 11/26/22 14:30 15:00 15:30 Temperature Heart Rate 92 90 88 Respiratory 25 H 23 22 Rate Blood Pressure 117/76 116/73 106/68 O2 Saturation 89 L 90 L 91 L If not protocol 2 2 2 : Oxygen Flow, liters/minute Oxygen O2 Source Nasal cannula Oxygen Flow Rate 6 - Labs Labs: Laboratory Tests 11/26/22 11/26/22 11/26/22 11:38 11:38 11:38 WBC 10.8 RBC 5.52 Hgb 18.0 Hct 54.3 H MCV 98.4 H MCH 32.6 H MCHC 33.1 RDW 13.4 Plt Count 174 MPV 8.8 Neut # (Auto) 9.3 H Lymph # (Auto) 0.5 L Union # (Auto) 1.0 Eos # (Auto) 0.0 Baso # (Auto) 0.0 Absolute Nucleated RBC 0.00 Nucleated RBC % 0.0 PT 13.2 H INR 1.2 APTT 28.6 Sodium 139 Potassium 4.1 Chloride 98 L Carbon Dioxide 24 Anion Gap 17.0 H BUN 22 H Creatinine 1.6 H Estimated GFR (MDRD) 42 L Glucose 121 H Lactic Acid Calcium 8.0 L Total Bilirubin 1.1 H AST 41 ALT 31 Alkaline Phosphatase 93 Total Protein 7.1 Albumin 3.9 Globulin 3.2 Albumin/Globulin Ratio 1.2 Lipase 26 Urine Color Urine Clarity Urine pH Ur Specific [place] Urine Protein Urine Glucose (UA) Urine Ketones Urine Occult Blood Urine Nitrite Urine Bilirubin Urine Urobilinogen Ur Leukocyte Esterase Urine RBC Urine WBC Ur Squamous Epith Cells Urine Bacteria Ur Microscopic Review Urine Culture Comments Nasal Adenovirus (PCR) Nasal B. parapertussis DNA (PCR) Nasal Coronavir 229E PCR Nasal Coronavir HKU1 PCR Nasal Coronavir NL63 PCR Nasal Coronavir OC43 PCR Nasal Enterovir/Rhinovir PCR Nasal Influenza B PCR Nasal Influenza A PCR Nasal Parainfluen 1 PCR Nasal Parainfluen 2 PCR Nasal Parainfluen 3 PCR Nasal Parainfluen 4 PCR Nasal RSV (PCR) Nasal B.pertussis DNA PCR Nasal C.pneumoniae (PCR) Raymundo Human Metapneumo PCR Nasal M.pneumoniae (PCR) Nasal SARS-CoV-2 (PCR) 0511/26/22 11/26/22 11:38 11:45 13:00 WBC RBC Hgb Hct MCV MCH MCHC RDW Plt Count MPV Neut # (Auto) Lymph # (Auto) Union # (Auto) Eos # (Auto) Baso # (Auto) Absolute Nucleated RBC Nucleated RBC % PT INR APTT Sodium Potassium Chloride Carbon Dioxide Anion Gap BUN Creatinine Estimated GFR (MDRD) Glucose Lactic Acid 1.3 Calcium Total Bilirubin AST ALT Alkaline Phosphatase Total Protein Albumin Globulin Albumin/Globulin Ratio Lipase Urine Color YELLOW Urine Clarity SL. CLOUDY Urine pH 6.5 Ur Specific [place] 1.020 Urine Protein TRACE Urine Glucose (UA) NEGATIVE Urine Ketones NEGATIVE Urine Occult Blood LARGE H Urine Nitrite NEGATIVE Urine Bilirubin NEGATIVE Urine Urobilinogen 0.2 (NORMAL) Ur Leukocyte Esterase SMALL H Urine RBC TNTC H Urine WBC >25 H Ur Squamous Epith Cells RARE Squamous Urine Bacteria Many H Ur Microscopic Review INDICATED Urine Culture Comments INDICATED Nasal Adenovirus (PCR) NOT DETECTED Nasal B. parapertussis DNA (PCR) NOT DETECTED Nasal Coronavir 229E PCR NOT DETECTED Nasal Coronavir HKU1 PCR NOT DETECTED Nasal Coronavir NL63 PCR NOT DETECTED Nasal Coronavir OC43 PCR NOT DETECTED Nasal Enterovir/Rhinovir PCR NOT DETECTED Nasal Influenza B PCR NOT DETECTED Nasal Influenza A PCR NOT DETECTED Nasal Parainfluen 1 PCR NOT DETECTED Nasal Parainfluen 2 PCR NOT DETECTED Nasal Parainfluen 3 PCR NOT DETECTED Nasal Parainfluen 4 PCR NOT DETECTED Nasal RSV (PCR) NOT DETECTED Nasal B.pertussis DNA PCR NOT DETECTED Nasal C.pneumoniae (PCR) NOT DETECTED Ray[place] Human Metapneumo PCR NOT DETECTED Nasal M.pneumoniae (PCR) NOT DETECTED Nasal SARS-CoV-2 (PCR) NOT DETECTED - Rads (name of study) cxr Relevant Findings:: Final report received, See rad report PD Medical Decision Making - ED course Complexity details: reviewed results, re-evaluated patient, considered differential, d/w patient, d/w family ED course: 82-year-old male with pneumonia on chest x-ray. Has a history of COPD and is hypoxic here. Placed on oxygen. Given Solu-Medrol. Given DuoNeb breathing treatment and breathing improved. Given IV fluids. Started on Rocephin and azithromycin for the pneumonia. Lactate is normal. Given his medical history and hypoxia, room air sat of 83, we will admit the patient for further treatment of his pneumonia. His hypotension improved with IV fluids. His port score is 122, placing him as a risk class IV. Discussed the case with Dr. Waite, hospitalist who accepts This document was made in part using voice recognition software. While efforts are made to proofread this document, sound alike and grammatical errors may occur. Departure - Departure Disposition: 66 [facility] DC/Xfer Clinical Impression: Hypoxia, Tachycardia, COPD with exacerbation, Acute and chronic respiratory failure with hypoxia Pneumonia Qualifiers: Pneumonia type: due to unspecified organism Laterality: unspecified laterality Lung location: unspecified part of lung Qualified Code(s): J18.9 - Pneumonia, unspecified organism Hypotension Qualifiers: Hypotension type: unspecified hypotension type Qualified Code(s): I95.9 - Hypotension, unspecified Urinary tract infection Qualifiers: Urinary tract infection type: acute cystitis Hematuria presence: without hematuria Qualified Code(s): N30.00 - Acute cystitis without hematuria Condition: Stable Discharge Date/Time: 11/26/22 17:00
[2022-11-26 11:53] LABS: INR 1.2 (0.8-1.2); PT - PROTHROMBIN TIME 13.2 secs (9.9-12.6)
[2022-11-26 11:58] LABS: ALBUMIN 3.9 g/dL (3.2-5.5); ALBUMIN/GLOBULIN RATIO 1.2 (1.0-2.2); BILIRUBIN,TOTAL 1.1 mg/dL (0.2-1.0); CREATININE 1.6 mg/dL (0.6-1.2); POTASSIUM 4.1 mmol/L (3.5-5.0); TOTAL PROTEIN 7.1 g/dL (6.7-8.2)
[2022-11-26 12:00] LABS: PARTIAL THROMBOPLASTIN TIME 28.6 secs (24.9-33.3)
[2022-11-26 12:49] LABS: B. PARAPERTUSSIS- RESP PCR PAN NOT DETECTED; B. PERTUSSIS- RESP PCR PANEL NOT DETECTED; C. PNEUMONIAE- RESP PCR PANEL NOT DETECTED; CORONAVIRUS 229E-RESP PCR NOT DETECTED; CORONAVIRUS HKU1-RESP PCR NOT DETECTED; CORONAVIRUS NL63-RESP PCR NOT DETECTED; CORONAVIRUS OC43-RESP PCR NOT DETECTED; HUMAN METAPNEUMOVIRUS NOT DETECTED; INFLUENZA A- RESP PCR PANEL NOT DETECTED; INFLUENZA B - RESP PCR PANEL NOT DETECTED; M. PNEUMONIAE- RESP PCR PANEL NOT DETECTED; PARAINFLUENZA VIRUS 1 NOT DETECTED; PARAINFLUENZA VIRUS 2 NOT DETECTED; PARAINFLUENZA VIRUS 3 NOT DETECTED; PARAINFLUENZA VIRUS 4 NOT DETECTED; RHINOVIRUS/ENTEROVIRUS NOT DETECTED; RSV- RESP PCR PANEL NOT DETECTED; SARS-CoV-2 -RESP PCR PANEL NOT DETECTED
[2022-11-26 13:07] LABS: BILIRUBIN,URINE NEGATIVE (NEGATIVE); GLUCOSE, URINE (UA) NEGATIVE (NEGATIVE); KETONES,URINE (UA) NEGATIVE (NEGATIVE); LEUKOCYTE ESTERASE, URINE SMALL (NEGATIVE); NITRITE,URINE NEGATIVE (NEGATIVE); OCCULT BLOOD,URINE LARGE (NEGATIVE); PH,URINE 6.5 PH (5.0-7.5); PROTEIN,URINE TRACE mg/dL (NEGATIVE); UROBILINOGEN,URINE 0.2 (NORMAL) E.U./dL (NORMAL)
[2022-11-26 13:14] LABS: BACTERIA,URINE Many /HPF (None Seen); CLARITY,URINE SL. CLOUDY (CLEAR); RBC,URINE TNTC /HPF (0-5); SQUAMOUS EPITHELIAL CELL,UR RARE Squamous (<= Few); WBC,URINE >25 /HPF (0-3)
[2022-11-26] MEDS ORDERED: SODIUM CHLORIDE FLUSH 0.9% 10 ML SYRINGE IVP PRN (16:00)
[2022-11-26] MEDS ORDERED: ONDANSETRON 4 MG/2 ML VIAL IVP PRN (16:00)
[2022-11-26] MEDS ORDERED: ACETAMINOPHEN 325 MG TABLET PO PRN (16:00)
[2022-11-26] MEDS ORDERED: IPRATROPIUM/ALBUTEROL 3 ML NEB INH PRN (16:03)
--- NOTE | 2022-11-26 16:11 | HISTORY & PHYSICAL EXAMINATION ---
Chief Complaint - Chief Complaint Chief Complaint: Shortness of breath, cough, shaking chills, weakness, too weak to get up History of Present Illness - Admitted From Admitted From:: ED - History Obtained From History obtained from: ED provider and the patient - History of Present Illness HPI Comment/Other: This is an 82-year-old male, who lives alone, with a history of COPD who uses home O2 as needed, and has a history of cigarette smoking and still smokes but is tapering down, PVD with aorto-iliac stent and hypertension. Yesterday the patient started to develop a cough and shaking chills. Today an episodes of shaking chills made him weak and he dropped to the floor and was too weak to get up for an hour. He says he fell forward onto his hands, did not hit his head and did not blackout. His sister usually calls him daily and he heard the phone ring but was too weak to get up and answer it. This made the sister suspicious and his niece and nephew came to check on him. He checked his oxygen level which was lower than his usual 90% and he presented to the emergency room. In the ER, he had a documented O2 saturation of 83% on room air. He was put on oxy gen, got a nebulizer treatment, steroid treatment and started to feel better. Chest x-ray was read as having bilateral atypical pneumonia with groundglass patchy infiltrates bilaterally. Blood cultures were taken and he has been started on empiric iv Rocephin and Zithromax. His lactic acid is normal, COVID and respiratory PCR is negative and white blood count is 10.8. His urinalysis however has many WBCs and many bacteria consistent with a UTI. ED provider spoke to me about this patient, who will be admitted for hypoxia, pneumonia and UTI. I spoke to the patient about his CODE BLUE wishes. He wants to be a DNR. History - Past Medical History Cardiovascular: reports: Hypertension, High cholesterol, Peripheral Vascular Dis ease (AAA repair) Respiratory: reports: Asthma, COPD Endocrine/Autoimmune: reports: None GI: reports: GERD, Colon polyps, Diverticulitis : reports: Benign prostate hypertrophy, Retention, Kidney stones, Other (self cath) HEENT: reports: Chronic vision loss Psych: reports: None Musculoskeletal: reports: Osteoarthritis, Fatigue Derm: reports: Other MRSA Hx?: No - Past Surgical History General: reports: Colonoscopy, EGD, Other (gastric resection) Ortho: reports: Knee replacement, Carpal Tunnel surgery Cardiovascular: reports: AAA Derm: reports: Skin cancer surgery - Family & Social History Living arrangement: At home Living Situation: Alone Social History Notes: He is a smoker of many years, has been tapering down to quit with a planned quit date of 11/28/2022, so he says he will quit now. No alcohol abuse. Lives alone. His sister calls him every day. His niece and nephew check on him often. He drives a car. - Substance History Use: Uses substance without health or social issues: Tobacco Meds/Allgy - Home Medications Home Medications: Ambulatory Orders Medication Instructions Recorded Confirmed Aspirin [Aspir 81] 81 mg PO DAILY 05/03/13 11/15/22 Cetirizine HCl [Zyrtec] 10 mg PO DAILY 05/03/13 11/15/22 Esomeprazole Magnesium [Nexium] 40 mg PO DAILY 05/03/13 11/15/22 Fenofibrate Nanocrystallized 160 mg PO HS 05/03/13 11/15/22 [Triglide] Simvastatin [Zocor] 20 mg PO QPM 05/03/13 11/15/22 Tiotropium [Spiriva] 1 puffs INH DAILY 05/03/13 11/15/22 Fluticasone/Vilanterol [Breo 1 each IH DAILY 10/19/17 11/15/22 Ellipta 100-25 Mcg INH] hydroCHLOROthiazide 25 mg PO DAILY 10/19/17 11/15/22 [Hydrochlorothiazide] - Allergies Allergies/Adverse Reactions: Allergies Allergy/AdvReac Type Severity Reaction Status Date / Time fluticasone propionate * Allergy split Verified 11/26/22 11:15 [From Advair Diskus] vision salmeterol xinafoate * Allergy split Verified 11/26/22 11:15 [From Advair Diskus] vision Review of Systems - Constitutional Constitutional: reports: Weakness - Respiratory Respiratory: reports: Cough, Sputum production, SOB at rest Exam - Vital Signs Vital Signs: Vital Signs x48h Temp Pulse Resp BP Pulse Ox O2 Flow Rate 11/26/22 14:30 92 25 H 117/76 89 L 2 11/26/22 14:00 91 22 104/60 92 2 11/26/22 13:30 92 21 105/61 92 2 11/26/22 13:15 92 23 125/70 90 L 2 11/26/22 13:07 92 23 108/70 92 2 11/26/22 12:45 93 23 99/73 92 2 11/26/22 12:16 96 25 H 11/26/22 11:49 101 H 35 H 94/58 L 90 L 6 11/26/22 11:22 103 H 36 H 92/60 88 L 4 11/26/22 11:15 37.9 C 107 H 24 84/62 L 83 L - Physical Exam General Appearance: positive: No acute distress (wearing O2 n.c.), Other (Very tanned, elderly male, with male pattern baldness) Eyes Bilateral: positive: Normal inspection, EOMI ENT: positive: ENT inspection nml, No signs of dehydration Neck: positive: Nml inspection, No JVD Respiratory: positive: Other (Very poor air movement in all lung hernandez, no wheezes, rhonchi or rales.) Cardiovascular: positive: Other (Very distant heart sounds due to increased AP diameter from his COPD) Abdomen: positive: Non-tender, Nml bowel sounds, No distention Skin: positive: Warm, Dry Extremities: positive: Non-tender, No pedal edema Neurologic/Psychiatric: positive: Oriented x3, Motor nml Conclusion/Plan - Problem List (1) Acute and chronic respiratory failure with hypoxia Conclusion/Plan: Patient only uses his home O2 as needed, set at 2L/min Plan: We will give supplemental O2, target saturations will be greater than 88% in the COPDer We will treat the underlying pneumonia and COPD exacerbation (2) Pneumonia Conclusion/Plan: His chest x-ray was read as having bilateral groundglass and patchy infiltrates consistent with an atypical pneumonia therefore it may be viral but his entire PCR panel is negative. We will treat him for community-acquired pneumonia Plan: We will obtain sputum for culture We will continue with the empiric IV ceftriaxone and IV Zithromax Will start Mucinex twice daily for pulmonary toilet Qualifiers: Pneumonia type: due to unspecified organism Laterality: unspecified laterality Lung location: unspecified part of lung Qualified Code(s): J18.9 - Pneumonia, unspecified organism (3) COPD with exacerbation Conclusion/Plan: There is results of PFTs done here in 2013 that shows he has severe COPD. He is on some inhalers at home but he continues to smoke. He does tell me he has been trying to quit, decreasing slowly and his quit date was going to be 11/28/22 Plan: We will start IV steroids and inhaled steroids Will give DuoNebs scheduled 4 times daily and as needed Will start Motelukast and give Mucinex and treat the underlying PNA Smoking cessation will be stressed. (4) Urinary tract infection Conclusion/Plan: This patient has to self cath once a day which she does at night. This is probably the source of his bacteriuria. I suspect that his shaking chills may reveal a bacteremia and likely this would be from his UTI Plan: Continue with empiric IV ceftriaxone for the pneumonia which covers UTI treatment Await urine cultures and blood culture results to tailor antibiotic Will order straight cath every evening Qualifiers: Urinary tract infection type: acute cystitis Hematuria presence: without hematuria Qualified Code(s): N30.00 - Acute cystitis without hematuria (5) PVD (peripheral vascular disease) Conclusion/Plan: This patient had aortoiliac stenting. He takes aspirin daily. The patient smokes but has been tapering down in order to quit.. Plan: We will continue with his antiplatelet agent and other cardiovascular meds, await the reconciled med list by pharmacy Smoking cessation will be stressed - Lab Results Fish Bones: 11/26/22 11:38 11/26/22 11:38 - Diagnostic Imaging Results Diagnostic Imaging Results: positive: Final report reviewed - Other Other Results/Comments: Attestation: The patient is expected to be hospitalized greater than 2 midnights, and is expected to be discharged or transferred to another facility within 96 hours: Yes.
[2022-11-26] MEDS: BUDESONIDE 0.5 MG/2 ML NEB INH SCH (18:14)
[2022-11-26] MEDS: IPRATROPIUM/ALBUTEROL 3 ML NEB INH SCH (18:14)
[2022-11-26] MEDS: methylPREDNISolone SUCCINATE 40 MG/ML VIAL IVP SCH ×2 (18:56→23:12)
[2022-11-26] MEDS: SODIUM CHLORIDE FLUSH 0.9% 10 ML SYRINGE IVP SCH (18:57)
[2022-11-26] MEDS: MONTELUKAST 10 MG TABLET PO SCH (23:12)
[2022-11-26] MEDS: guaiFENesin 600 MG TABLET PO SCH (23:12)
[2022-11-27] MEDS: SODIUM CHLORIDE FLUSH 0.9% 10 ML SYRINGE IVP SCH ×3 (01:00→15:32)
[2022-11-27] MEDS: IPRATROPIUM/ALBUTEROL 3 ML NEB INH SCH ×4 (06:24→18:07)
[2022-11-27] MEDS: BUDESONIDE 0.5 MG/2 ML NEB INH SCH ×2 (06:25→18:06)
[2022-11-27] MEDS: methylPREDNISolone SUCCINATE 40 MG/ML VIAL IVP SCH ×3 (06:46→21:40)
[2022-11-27 07:39] LABS: BASOPHILS % (AUTO) 0.2 %; CALCIUM 8.5 mg/dL (8.5-10.3); CREATININE 1.3 mg/dL (0.6-1.2); HCT - HEMATOCRIT 53.3 % (42.0-52.0); HGB - HEMOGLOBIN 17.9 g/dL (14.0-18.0); LYMPHOCYTES # (AUTO) 0.7 10^3/uL (1.5-3.5); LYMPHOCYTES % (AUTO) 5.7 %; MEAN CORPUSCULAR HGB CONC 33.6 g/dL (32.0-36.0); MEAN CORPUSCULAR VOLUME 98.2 fL (80.0-94.0); MEAN PLATELET VOLUME 8.8 fL (7.4-11.4); MONOCYTES # (AUTO) 0.6 10^3/uL (0.0-1.0); MONOCYTES % (AUTO) 4.3 %; NEUTROPHILS # (AUTO) 11.5 10^3/uL (1.5-6.6); NEUTROPHILS % (AUTO) 89.3 %; PLT - PLATELET COUNT 173 10^3/uL (130-450); POTASSIUM 3.8 mmol/L (3.5-5.0); RED BLOOD COUNT 5.43 10^6/uL (4.70-6.10); RED CELL DISTRIBUTION WIDTH 13.3 % (12.0-15.0); WHITE BLOOD COUNT 12.9 x10^3/uL (4.8-10.8)
--- NOTE | 2022-11-27 09:04 | PROVIDER PROGRESS NOTE ---
Assessment/Plan - Problem List (1) Acute and chronic respiratory failure with hypoxia Assessment/Plan: Patient only uses his home O2 as needed, set at 2L/min. 11/27: Patient was sitting at the edge of the bed on 3L NC when I saw him. He stated that he did not feel short of breath, and that he feels like his breathing has gotten better since yesterday. Breath sounds are very diminished both anteriorly and posteriorly. Plan: Daily CBC/BMP. Supplemental O2 (target saturations will be greater than 88%). Obtain sputum for culture. Blood cultures pending. No growth to date yet. Continue nebulizer treatments for COPD. Continue empiric azithromycin and ceftriaxone for pneumonia. Encourage incentive spirometry use. (2) Pneumonia Assessment/Plan: His chest x-ray was read as having bilateral groundglass and patchy infiltrates consistent with an atypical pneumonia therefore it may be viral but his entire PCR panel is negative. We will treat him for community-acquired pneumonia. 11/27: Patient has a strong dry cough when I saw him. He states that sometimes he coughs up sputum but not every time so a sample has not yet been collected for culture. All labs reviewed, WBC 12.9 on morning labs. No fever present today. Plan: Obtain sputum for culture. Continue with the empiric IV ceftriaxone and IV azithromycin. Continue Mucinex twice daily for pulmonary toilet. Encourage incentive spirometry use. Daily CBC. Qualifiers: Pneumonia type: due to unspecified organism Laterality: unspecified laterality Lung location: unspecified part of lung Qualified Code(s): J18.9 - Pneumonia, unspecified organism (3) COPD with exacerbation Assessment/Plan: There is results of PFTs done here in 2013 that shows he has severe COPD. He is on some inhalers at home but he continues to smoke. He does tell me he has been trying to quit, decreasing slowly and his quit date was going to be 11/28/22. 11/27: Patient stated that he did not feel short of breath when I saw him, and that he feels like his breathing has gotten better since yesterday. Breath sounds are very diminished both anteriorly and posteriorly. He states that he is done with smoking for good now. Plan: Continue IV and inhaled steroids. Continue DuoNebs scheduled 4 times daily and as needed. Continue with the empiric IV ceftriaxone and IV azithromycin for underlying pneumonia. Continue Montelukast and Mucinex. Continue encouraging smoking cessation. (4) Urinary tract infection Assessment/Plan: This patient has to self cath once a day which he does at night. This is probably the source of his bacteriuria. I suspect that his shaking chills may reveal a bacteremia and likely this would be from his UTI. 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 Pending urine and blood culture results to tailor antibiotics. Continue straight cath every evening by RN. Daily CBC. Qualifiers: Urinary tract infection type: acute cystitis Hematuria presence: without hematuria Qualified Code(s): N30.00 - Acute cystitis without hematuria (5) PVD (peripheral vascular disease) Assessment/Plan: This patient had aortoiliac stenting. He takes aspirin daily. The patient smokes but has been tapering down in order to quit. 11/27: Patient states that he is done with smoking for good now. Plan: Continue with his antiplatelet agent and other cardiovascular meds, await the reconciled med list by pharmacy. (6) Self-catheterizes urinary bladder This is likely is the cause of developing the UTI. Plan: Continue straight cath every evening by RN. - Current Meds Current Meds: Current Medications Generic Name Dose Route Start Last Admin Trade Name Freq PRN Reason Stop Dose Admin Albuterol/Ipratropium 3 ml 11/26/22 16:03 11/27/22 02:17 Ipratropium/Albuterol 3 Ml Neb INH 3 ml Q4HR PRN Administration Wheezing Albuterol/Ipratropium 3 ml 11/26/22 19:00 11/27/22 06:24 Ipratropium/Albuterol 3 Ml Neb INH 3 ml RTQID MICHAEL Administration Budesonide 0.5 mg 11/26/22 19:00 11/27/22 06:25 Budesonide 0.5 Mg/2 Ml Neb INH 0.5 mg RTBID MICHAEL Administration Guaifenesin 600 mg 11/26/22 21:00 11/26/22 23:12 Guaifenesin 600 Mg Tablet PO 600 mg BID MICHAEL Administration Methylprednisolone 80 mg 11/26/22 16:06 11/27/22 06:46 Methylprednisolone Succinate 40 Mg/Ml Vial IVP 80 mg TID MICHAEL Administration Montelukast Sodium 10 mg 11/26/22 21:00 11/26/22 23:12 Montelukast 10 Mg Tablet PO 10 mg QPM MICHAEL Administration Sodium Chloride 10 ml 11/26/22 17:00 11/27/22 01:00 Sodium Chloride Flush 0.9% 10 Ml Syringe IVP 10 ml 0100,0900,1700 MICHAEL Administration - Lab Result Fish Bone Diagrams: 11/27/22 07:27 11/27/22 07:27 <Ritu Reynoso - Last Filed: 11/27/22 15:14> - Current Meds Current Meds: Current Medications Generic Name Dose Route Start Last Admin Trade Name Freq PRN Reason Stop Dose Admin Albuterol/Ipratropium 3 ml 11/26/22 16:03 11/27/22 02:17 Ipratropium/Albuterol 3 Ml Neb INH 3 ml Q4HR PRN Administration Wheezing Albuterol/Ipratropium 3 ml 11/26/22 19:00 11/27/22 14:49 Ipratropium/Albuterol 3 Ml Neb INH 3 ml RTQID MICHAEL Administration Budesonide 0.5 mg 11/26/22 19:00 11/27/22 06:25 Budesonide 0.5 Mg/2 Ml Neb INH 0.5 mg RTBID MICHAEL Administration Guaifenesin 600 mg 11/26/22 21:00 11/27/22 09:24 Guaifenesin 600 Mg Tablet PO 600 mg BID MICHAEL Administration Ceftriaxone Sodium 1 gm/ 100 mls @ 200 mls/hr 11/27/22 15:00 11/27/22 14:46 Sodium Chloride IV 12/01/22 14:59 200 mls/hr DAILY MICHAEL Administration Methylprednisolone 80 mg 11/26/22 16:06 11/27/22 14:48 Methylprednisolone Succinate 40 Mg/Ml Vial IVP 80 mg TID MICHAEL Administration Montelukast Sodium 10 mg 11/26/22 21:00 11/26/22 23:12 Montelukast 10 Mg Tablet PO 10 mg QPM MICHAEL Administration Sodium Chloride 10 ml 11/26/22 17:00 11/27/22 09:25 Sodium Chloride Flush 0.9% 10 Ml Syringe IVP 10 ml 0100,0900,1700 MICHAEL Administration - Lab Result Fish Bone Diagrams: 11/27/22 07:27 11/27/22 07:27 - Additional Planning My Orders: My Active Orders 11/27/22 14:00 Azithromycin Inj [Zithromax Inj] 500 mg Sodium Chloride 0.9% [Normal Saline 0.9%] 250 ml IV DAILY 11/27/22 15:00 cefTRIAXone [Rocephin] 1 gm Sodium Chloride 0.9% Minibag [Normal Saline 0.9% Minibag] 100 ml IV DAILY 11/27/22 15:09 RT [Nebulizer/MDI Tx.] [RC] QID 11/28/22 05:00 BMP - BASIC METABOLIC PANEL [CHEM] DAILYLAB CBC - COMP BLD CT W/AUTO DIFF [HEME] DAILYLAB 11/29/22 05:00 BMP - BASIC METABOLIC PANEL [CHEM] DAILYLAB CBC - COMP BLD CT W/AUTO DIFF [HEME] DAILYLAB 11/30/22 05:00 BMP - BASIC METABOLIC PANEL [CHEM] DAILYLAB CBC - COMP BLD CT W/AUTO DIFF [HEME] DAILYLAB 12/01/22 05:00 BMP - BASIC METABOLIC PANEL [CHEM] DAILYLAB CBC - COMP BLD CT W/AUTO DIFF [HEME] DAILYLAB <Vicenta Das L - Last Filed: 11/27/22 15:17> Subjective - Subjective Patient Reports: Feeling Better, Shortness of Breath (States that his breathing has gotten better since yesterday, but he still has some SOB with moving.) Nursing Reports: Cough, Shortness of Breath <Ritu Reynoso - Last Filed: 11/27/22 15:14> Objective Vital Signs: Vital Signs - 24 hr 11/26/22 11/26/22 11/26/22 11:15 11:22 11:49 Temperature 37.9 C Heart Rate 107 H 103 H 101 H Heart Rate [ Radial] Respiratory 24 36 H 35 H Rate Blood Pressure 84/62 L 92/60 94/58 L Blood Pressure [Right Brachial artery] O2 Saturation 83 L 88 L 90 L If not protocol 4 6 : Oxygen Flow, liters/minute 11/26/22 11/26/22 11/26/22 12:16 12:45 13:07 Temperature Heart Rate 96 93 92 Heart Rate [ Radial] Respiratory 25 H 23 Rate Blood Pressure 99/73 108/70 Blood Pressure [Right Brachial artery] O2 Saturation 92 92 If not protocol 2 2 : Oxygen Flow, liters/minute 11/26/22 11/26/22 11/26/22 13:15 13:30 14:00 Temperature Heart Rate 92 92 91 Heart Rate [ Radial] Respiratory Rate Blood Pressure 125/70 105/61 104/60 Blood Pressure [Right Brachial artery] O2 Saturation 90 L 92 92 If not protocol 2 2 2 : Oxygen Flow, liters/minute 11/26/22 11/26/22 11/26/22 14:30 15:00 15:30 Temperature Heart Rate 92 90 88 Heart Rate [ Radial] Respiratory 25 H 22 Rate Blood Pressure 117/76 116/73 106/68 Blood Pressure [Right Brachial artery] O2 Saturation 89 L 90 L 91 L If not protocol 2 2 2 : Oxygen Flow, liters/minute 11/26/22 11/26/22 11/26/22 16:00 16:20 16:53 Temperature 36.6 C Heart Rate 85 83 Heart Rate [ 83 Radial] Respiratory 21 19 18 Rate Blood Pressure 102/66 103/71 Blood Pressure 122/69 [Right Brachial artery] O2 Saturation 90 L 91 L 92 If not protocol 2 2 2 : Oxygen Flow, liters/minute 11/26/22 11/26/22 11/27/22 17:06 18:16 00:03 Temperature 36.3 C L Heart Rate 85 Heart Rate [ 83 Radial] Respiratory 18 18 Rate Blood Pressure Blood Pressure 109/70 [Right Brachial artery] O2 Saturation 86 L If not protocol 2 2 2 : Oxygen Flow, liters/minute 11/27/22 11/27/22 11/27/22 02:20 05:49 06:25 Temperature 36.6 C Heart Rate 86 94 Heart Rate [ 77 Radial] Respiratory 20 17 18 Rate Blood Pressure Blood Pressure 110/63 [Right Brachial artery] O2 Saturation 89 L If not protocol 3 2 3 : Oxygen Flow, liters/minute 11/27/22 08:22 Temperature 36.3 C L Heart Rate Heart Rate [ 98 Radial] Respiratory 18 Rate Blood Pressure Blood Pressure 109/62 [Right Brachial artery] O2 Saturation 91 L If not protocol 2 : Oxygen Flow, liters/minute Oxygen O2 Source Nasal cannula Oxygen Flow Rate 6 I&O (Last 24 Hrs): Intake and Output Totals x24h 11/25/22 11/26/2211/27/23 23:59 23:59 23:59 Intake Total 2100 Output Total 1750 375 Balance 350 -375 General: Alert, Oriented x3, Cooperative, Mild distress (Acute on chronic respiratory distress) HEENT: Atraumatic, PERRLA, EOMI, Mucous membr. moist/pink Neck: Supple, No JVD, No thyromegaly Lymphatic: no adenopathy Neuro: Alert, CN 2-12 Grossly Intact, Oriented Times 3 Cardiovascular: Regular rate, Normal S1, Normal S2 Respiratory: Other (Breath sounds are very diminished both anteriorly and posteriorly.) Abdomen: Normal bowel sounds, Soft, No tenderness Extremities: No cyanosis, No edema, Normal pulses Skin: No rashes, No breakdown, No significant lesion - Results Results: Laboratory Results WBC 12.9 x10^3/uL (4.8-10.8) H 11/27/22 07:27 RBC 5.43 10^6/uL (4.70-6.10) 11/27/22 07:27 Hgb 17.9 g/dL (14.0-18.0) 11/27/22 07:27 Hct 53.3 % (42.0-52.0) H 11/27/22 07:27 MCV 98.2 fL (80.0-94.0) H 11/27/22 07:27 MCH 33.0 pg (27.0-31.0) H 11/27/22 07:27 MCHC 33.6 g/dL (32.0-36.0) 11/27/22 07:27 RDW 13.3 % (12.0-15.0) 11/27/22 07:27 Plt Count 173 10^3/uL (130-450) 11/27/22 07:27 MPV 8.8 fL (7.4-11.4) 11/27/22 07:27 Neut # (Auto) 11.5 10^3/uL (1.5-6.6) H 11/27/22 07:27 Lymph # (Auto) 0.7 10^3/uL (1.5-3.5) L 11/27/22 07:27 [place] # (Auto) 0.6 10^3/uL (0.0-1.0) 11/27/22 07:27 Eos # (Auto) 0.0 10^3/uL (0.0-0.7) 11/27/22 07:27 Baso # (Auto) 0.0 10^3/uL (0.0-0.1) 11/27/22 07:27 Absolute Nucleated RBC 0.00 x10^3/uL 11/27/22 07:27 Nucleated RBC % 0.0 /100WBC 11/27/22 07:27 PT 13.2 secs (9.9-12.6) H 11/26/22 11:38 INR 1.2 (0.8-1.2) 11/26/22 11:38 APTT 28.6 secs (24.9-33.3) 11/26/22 11:38 Sodium 141 mmol/L (135-145) 11/27/22 07:27 Potassium 3.8 mmol/L (3.5-5.0) 11/27/22 07:27 Chloride 105 mmol/L (101-111) 11/27/22 07:27 Carbon Dioxide 26 mmol/L (21-32) 11/27/22 07:27 Anion Gap 10.0 (6-13) 11/27/22 07:27 BUN 24 mg/dL (6-20) H 11/27/22 07:27 Creatinine 1.3 mg/dL (0.6-1.2) H 11/27/22 07:27 Estimated GFR (MDRD) 53 (>89) L 11/27/22 07:27 Glucose 161 mg/dL (70-100) H 11/27/22 07:27 Lactic Acid 1.3 mmol/L (0.5-2.2) 11/26/22 11:38 Calcium 8.5 mg/dL (8.5-10.3) 11/27/22 07:27 Total Bilirubin 1.1 mg/dL (0.2-1.0) H 11/26/22 11:38 AST 41 IU/L (10-42) 11/26/22 11:38 ALT 31 IU/L (10-60) 11/26/22 11:38 Alkaline Phosphatase 93 IU/L (42-121) 11/26/22 11:38 Total Protein 7.1 g/dL (6.7-8.2) 11/26/22 11:38 Albumin 3.9 g/dL (3.2-5.5) 11/26/22 11:38 Globulin 3.2 g/dL (2.1-4.2) 11/26/22 11:38 Albumin/Globulin Ratio 1.2 (1.0-2.2) 11/26/22 11:38 Lipase 26 U/L (22-51) 11/26/22 11:38 Urine Color YELLOW 11/26/22 13:00 Urine Clarity SL. CLOUDY (CLEAR) 11/26/22 13:00 Urine pH 6.5 PH (5.0-7.5) 11/26/22 13:00 Ur Specific [place] 1.020 (1.002-1.030) 11/26/22 13:00 Urine Protein TRACE mg/dL (NEGATIVE) 11/26/22 13:00 Urine Glucose (UA) NEGATIVE mg/dL (NEGATIVE) 11/26/22 13:00 Urine Ketones NEGATIVE mg/dL (NEGATIVE) 11/26/22 13:00 Urine Occult Blood LARGE (NEGATIVE) H 11/26/22 13:00 Urine Nitrite NEGATIVE (NEGATIVE) 11/26/22 13:00 Urine Bilirubin NEGATIVE (NEGATIVE) 11/26/22 13:00 Urine Urobilinogen 0.2 (NORMAL) E.U./dL (NORMAL) 11/26/22 13:00 Ur Leukocyte Esterase SMALL (NEGATIVE) H 11/26/22 13:00 Urine RBC TNTC /HPF (0-5) H 11/26/22 13:00 Urine WBC >25 /HPF (0-3) H 11/26/22 13:00 Ur Squamous Epith Cells RARE Squamous (<= Few) 11/26/22 13:00 Urine Bacteria Many /HPF (None Seen) H 11/26/22 13:00 Ur Microscopic Review INDICATED 11/26/22 13:00 Urine Culture Comments INDICATED 11/26/22 13:00 Nasal Adenovirus (PCR) NOT DETECTED 11/26/22 11:45 Nasal B. parapertussis DNA (PCR) NOT DETECTED 11/26/22 11:45 Nasal Coronavir 229E PCR NOT DETECTED 11/26/22 11:45 Nasal Coronavir HKU1 PCR NOT DETECTED 11/26/22 11:45 Nasal Coronavir NL63 PCR NOT DETECTED 11/26/22 11:45 Nasal Coronavir OC43 PCR NOT DETECTED 11/26/22 11:45 Nasal Enterovir/Rhinovir PCR NOT DETECTED 11/26/22 11:45 Nasal Influenza B PCR NOT DETECTED 11/26/22 11:45 Nasal Influenza A PCR NOT DETECTED 11/26/22 11:45 Nasal Parainfluen 1 PCR NOT DETECTED 11/26/22 11:45 Nasal Parainfluen 2 PCR NOT DETECTED 11/26/22 11:45 Nasal Parainfluen 3 PCR NOT DETECTED 11/26/22 11:45 Nasal Parainfluen 4 PCR NOT DETECTED 11/26/22 11:45 Nasal RSV (PCR) NOT DETECTED 11/26/22 11:45 Nasal B.pertussis DNA PCR NOT DETECTED 11/26/22 11:45 Nasal C.pneumoniae (PCR) NOT DETECTED 11/26/22 11:45 Raymundo Human Metapneumo PCR NOT DETECTED 11/26/22 11:45 Nasal M.pneumoniae (PCR) NOT DETECTED 11/26/22 11:45 Nasal SARS-CoV-2 (PCR) NOT DETECTED 11/26/22 11:45 - Procedures Procedures: Procedures ENDO RECTUM POLYPECTOMY (01/19/14) ENDOSC POLYPECTOMY OF LG INTEST (01/19/14) EXCISION OF ASCENDING COLON, ENDO (10/22/17) EXCISION OF SIGMOID COLON, ENDO (11/15/22) EXCISION OF STOMACH, ENDO, DIAGN (11/15/22) EXCISION OF TRANSVERSE COLON, ENDO (10/22/17) FLEXIBLE SIGMOIDOSCOPY (12/22/13) INSPECTION OF UPPER INTESTINAL TRACT, ENDO (10/22/17) <Ritu Reynoso - Last Filed: 11/27/22 15:14> Vital Signs: Vital Signs - 24 hr 11/26/22 11/26/22 11/26/22 15:30 16:00 16:20 Temperature Heart Rate 88 85 83 Heart Rate [ Radial] Respiratory 22 21 19 Rate Blood Pressure 106/68 102/66 103/71 Blood Pressure [Right Brachial artery] O2 Saturation 91 L 90 L 91 L If not protocol 2 2 2 : Oxygen Flow, liters/minute 11/26/22 11/26/22 11/26/22 16:53 17:06 18:16 Temperature 36.6 C Heart Rate 85 Heart Rate [ 83 Radial] Respiratory 18 18 Rate Blood Pressure Blood Pressure 122/69 [Right Brachial artery] O2 Saturation 92 If not protocol 2 2 2 : Oxygen Flow, liters/minute 11/27/22 11/27/22 11/27/22 00:03 02:20 05:49 Temperature 36.3 C L 36.6 C Heart Rate 86 Heart Rate [ 83 77 Radial] Respiratory 18 20 17 Rate Blood Pressure Blood Pressure 109/70 110/63 [Right Brachial artery] O2 Saturation 86 L 89 L If not protocol 2 3 2 : Oxygen Flow, liters/minute 11/27/22 11/27/22 11/27/22 06:25 08:22 09:00 Temperature 36.3 C L Heart Rate 94 Heart Rate [ 98 Radial] Respiratory 18 18 Rate Blood Pressure Blood Pressure 109/62 [Right Brachial artery] O2 Saturation 91 L 85 L If not protocol 3 2 : Oxygen Flow, liters/minute 11/27/22 11/27/22 11/27/22 09:05 10:57 11:40 Temperature 36.6 C Heart Rate 97 Heart Rate [ 99 Radial] Respiratory 22 18 Rate Blood Pressure Blood Pressure 129/76 [Right Brachial artery] O2 Saturation 88 L 90 L If not protocol 2 2 2 : Oxygen Flow, liters/minute 11/27/22 11/27/22 14:58 15:05 Temperature 36.6 C Heart Rate 90 Heart Rate [ 95 Radial] Respiratory 22 18 Rate Blood Pressure Blood Pressure 122/63 [Right Brachial artery] O2 Saturation 90 L If not protocol 2 : Oxygen Flow, liters/minute Oxygen O2 Source Nasal cannula Oxygen Flow Rate 6 I&O (Last 24 Hrs): Intake and Output Totals x24h 11/25/22 11/26/22 11/27/22 23:59 23:59 23:59 Intake Total 2100 350 Output Total 1750 725 Balance 350 -375 - Results Results: Laboratory Results WBC 12.9 x10^3/uL (4.8-10.8) H 11/27/22 07:27 RBC 5.43 10^6/uL (4.70-6.10) 11/27/22 07:27 Hgb 17.9 g/dL (14.0-18.0) 11/27/22 07:27 Hct 53.3 % (42.0-52.0) H 11/27/22 07:27 MCV 98.2 fL (80.0-94.0) H 11/27/22 07:27 MCH 33.0 pg (27.0-31.0) H 11/27/22 07:27 MCHC 33.6 g/dL (32.0-36.0) 11/27/22 07:27 RDW 13.3 % (12.0-15.0) 11/27/22 07:27 Plt Count 173 10^3/uL (130-450) 11/27/22 07:27 MPV 8.8 fL (7.4-11.4) 11/27/22 07:27 Neut # (Auto) 11.5 10^3/uL (1.5-6.6) H 11/27/22 07:27 Lymph # (Auto) 0.7 10^3/uL (1.5-3.5) L 11/27/22 07:27 [place] # (Auto) 0.6 10^3/uL (0.0-1.0) 11/27/22 07:27 Eos # (Auto) 0.0 10^3/uL (0.0-0.7) 11/27/22 07:27 Baso # (Auto) 0.0 10^3/uL (0.0-0.1) 11/27/22 07:27 Absolute Nucleated RBC 0.00 x10^3/uL 11/27/22 07: Nucleated RBC % 0.0 /100WBC 11/27/22 07: PT 13.2 secs (9.9-12.6) H 11/26/22 11:38 INR 1.2 (0.8-1.2) 11/26/22 11:38 APTT 28.6 secs (24.9-33.3) 11/26/22 11:38 Sodium 141 mmol/L (135-145) 11/27/22 07:27 Potassium 3.8 mmol/L (3.5-5.0) 11/27/22 07: Chloride 105 mmol/L (101-111) 11/27/22 07:27 Carbon Dioxide 26 mmol/L (21-32) 11/27/22 07:27 Anion Gap 10.0 (6-13) 11/27/22 07:27 BUN 24 mg/dL (6-20) H 11/27/22 07:27 Creatinine 1.3 mg/dL (0.6-1.2) H 11/27/22 07:27 Estimated GFR (MDRD) 53 (>89) L 11/27/22 07:27 Glucose 161 mg/dL (70-100) H 11/27/22 07:27 Lactic Acid 1.3 mmol/L (0.5-2.2) 11/26/22 11:38 Calcium 8.5 mg/dL (8.5-10.3) 11/27/22 07:27 Total Bilirubin 1.1 mg/dL (0.2-1.0) H 11/26/22 11:38 AST 41 IU/L (10-42) 11/26/22 11:38 ALT 31 IU/L (10-60) 11/26/22 11:38 Alkaline Phosphatase 93 IU/L (42-121) 11/26/22 11:38 Total Protein 7.1 g/dL (6.7-8.2) 11/26/22 11:38 Albumin 3.9 g/dL (3.2-5.5) 11/26/22 11:38 Globulin 3.2 g/dL (2.1-4.2) 11/26/22 11:38 Albumin/Globulin Ratio 1.2 (1.0-2.2) 11/26/22 11:38 Lipase 26 U/L (22-51) 11/26/22 11:38 Urine Color YELLOW 11/26/22 13:00 Urine Clarity SL. CLOUDY (CLEAR) 11/26/22 13:00 Urine pH 6.5 PH (5.0-7.5) 11/26/22 13:00 Ur Specific [place] 1.020 (1.002-1.030) 11/26/22 13:00 Urine Protein TRACE mg/dL (NEGATIVE) 11/26/22 13:00 Urine Glucose (UA) NEGATIVE mg/dL (NEGATIVE) 11/26/22 13:00 Urine Ketones NEGATIVE mg/dL (NEGATIVE) 11/26/22 13:00 Urine Occult Blood LARGE (NEGATIVE) H 11/26/22 13:00 Urine Nitrite NEGATIVE (NEGATIVE) 11/26/22 13:00 Urine Bilirubin NEGATIVE (NEGATIVE) 11/26/22 13:00 Urine Urobilinogen 0.2 (NORMAL) E.U./dL (NORMAL) 11/26/22 13:00 Ur Leukocyte Esterase SMALL (NEGATIVE) H 11/26/22 13:00 Urine RBC TNTC /HPF (0-5) H 11/26/22 13:00 Urine WBC >25 /HPF (0-3) H 11/26/22 13:00 Ur Squamous Epith Cells RARE Squamous (<= Few) 11/26/22 13:00 Urine Bacteria Many /HPF (None Seen) H 11/26/22 13:00 Ur Microscopic Review INDICATED 11/26/22 13:00 Urine Culture Comments INDICATED 11/26/22 13:00 Nasal Adenovirus (PCR) NOT DETECTED 11/26/22 11:45 Nasal B. parapertussis DNA (PCR) NOT DETECTED 11/26/22 11:45 Nasal Coronavir 229E PCR NOT DETECTED 11/26/22 11:45 Nasal Coronavir HKU1 PCR NOT DETECTED 11/26/22 11:45 Nasal Coronavir NL63 PCR NOT DETECTED 11/26/22 11:45 Nasal Coronavir OC43 PCR NOT DETECTED 11/26/22 11:45 Nasal Enterovir/Rhinovir PCR NOT DETECTED 11/26/22 11:45 Nasal Influenza B PCR NOT DETECTED 11/26/22 11:45 Nasal Influenza A PCR NOT DETECTED 11/26/22 11:45 Nasal Parainfluen 1 PCR NOT DETECTED 11/26/22 11:45 Nasal Parainfluen 2 PCR NOT DETECTED 11/26/22 11:45 Nasal Parainfluen 3 PCR NOT DETECTED 11/26/22 11:45 Nasal Parainfluen 4 PCR NOT DETECTED 11/26/22 11:45 Nasal RSV (PCR) NOT DETECTED 11/26/22 11:45 Nasal B.pertussis DNA PCR NOT DETECTED 11/26/22 11:45 Nasal C.pneumoniae (PCR) NOT DETECTED 11/26/22 11:45 Raymundo Human Metapneumo PCR NOT DETECTED 11/26/22 11:45 Nasal M.pneumoniae (PCR) NOT DETECTED 11/26/22 11:45 Nasal SARS-CoV-2 (PCR) NOT DETECTED 11/26/22 11:45 - Procedures Procedures: Procedures ENDO RECTUM POLYPECTOMY (01/19/14) ENDOSC POLYPECTOMY OF LG INTEST (01/19/14) EXCISION OF ASCENDING COLON, ENDO (10/22/17) EXCISION OF SIGMOID COLON, ENDO (11/15/22) EXCISION OF STOMACH, ENDO, DIAGN (11/15/22) EXCISION OF TRANSVERSE COLON, ENDO (10/22/17) FLEXIBLE SIGMOIDOSCOPY (12/22/13) INSPECTION OF UPPER INTESTINAL TRACT, ENDO (10/22/17) <Vicenta Das - Last Filed: 11/27/22 15:17> ABX Reporting Has patient been on IV antibiotics over the past 48 hours?: Yes <Ritu Reynoso - Last Filed: 11/27/22 15:14>
[2022-11-27] MEDS: guaiFENesin 600 MG TABLET PO SCH ×2 (09:24→21:40)
--- NOTE | 2022-11-27 11:00 | PHARMACY PROGRESS NOTE ---
- Best Possible Medication History Admit Date and Time: 11/26/22 1600 Processed by: Pharmacy Medication History completed: Yes Patient Interview: Completed Secondary Source(s): Pharmacy records As the person ultimately responsible for medication therapy, providers are able to order a medication from an existing home medication list in [facility] via the "Reconcile Routine" prior to Confirmation of that medication by child support officer. Such practice is discouraged except when the physician, in their clinical judgment, deems that a medical need exists for a medication without regard to previous use.
[2022-11-27] MEDS ORDERED: cefTRIAXone 1 GM in SODIUM CHLORIDE 0.9% MINIBAG 100 ML IV SCH (15:00)
[2022-11-27] MEDS: AZITHROMYCIN INJ 500 MG in SODIUM CHLORIDE 0.9% 250 ML IV SCH (15:30)
[2022-11-27] MEDS: MONTELUKAST 10 MG TABLET PO SCH (21:41)
[2022-11-28] MEDS: SODIUM CHLORIDE FLUSH 0.9% 10 ML SYRINGE IVP SCH ×4 (00:42→23:59)
[2022-11-28 05:42] LABS: BASOPHILS % (AUTO) 0.1 %; HCT - HEMATOCRIT 49.5 % (42.0-52.0); HGB - HEMOGLOBIN 16.2 g/dL (14.0-18.0); LYMPHOCYTES # (AUTO) 0.6 10^3/uL (1.5-3.5); LYMPHOCYTES % (AUTO) 4.2 %; MEAN CORPUSCULAR HEMOGLOBIN 32.3 pg (27.0-31.0); MEAN CORPUSCULAR HGB CONC 32.7 g/dL (32.0-36.0); MEAN CORPUSCULAR VOLUME 98.6 fL (80.0-94.0); MEAN PLATELET VOLUME 9.4 fL (7.4-11.4); MONOCYTES # (AUTO) 0.7 10^3/uL (0.0-1.0); MONOCYTES % (AUTO) 4.6 %; NEUTROPHILS # (AUTO) 13.6 10^3/uL (1.5-6.6); NEUTROPHILS % (AUTO) 90.4 %; PLT - PLATELET COUNT 201 10^3/uL (130-450); RED BLOOD COUNT 5.02 10^6/uL (4.70-6.10); RED CELL DISTRIBUTION WIDTH 13.2 % (12.0-15.0); WHITE BLOOD COUNT 15.1 x10^3/uL (4.8-10.8)
[2022-11-28 05:57] LABS: CALCIUM 8.6 mg/dL (8.5-10.3); CREATININE 0.9 mg/dL (0.6-1.2); POTASSIUM 4.1 mmol/L (3.5-5.0)
[2022-11-28] MEDS: IPRATROPIUM/ALBUTEROL 3 ML NEB INH SCH ×4 (06:25→20:12)
[2022-11-28] MEDS: BUDESONIDE 0.5 MG/2 ML NEB INH SCH ×2 (06:25→20:07)
[2022-11-28] MEDS: guaiFENesin 600 MG TABLET PO SCH ×2 (09:08→21:07)
[2022-11-28] MEDS: AZITHROMYCIN INJ 500 MG in SODIUM CHLORIDE 0.9% 250 ML IV SCH (09:08)
--- NOTE | 2022-11-28 09:29 | PROVIDER PROGRESS NOTE ---
Assessment/Plan - Problem List (1) Acute and chronic respiratory failure with hypoxia Assessment/Plan: Patient only uses his home O2 as needed, set at 2L/min. 11/27: Patient was sitting at the edge of the bed on 3L NC when I saw him. He stated that he did not feel short of breath, and that he feels like his breathing has gotten better since yesterday. Breath sounds are very diminished both anteriorly and posteriorly. 11/28: Patient was sitting up in the chair when I saw him, and he states that he feels much better today and that his breathing feels great. Lung sounds are still very diminished. He was satting 92% on 2L NC. Urine cultures showed ESBL- producing K. pneumoniae which is sensitive to Zosyn and levofloxacin. Levofloxacin will cover both the UTI and the pneumonia. Plan: Daily CBC/BMP. Supplemental O2 (target saturations will be greater than 88%). Sputum culture preliminary results show rare Gram + diplococci. Blood cultures show no growth to date. Continue nebulizer treatments for COPD. Last dose of azithromycin today. DC ceftriaxone and start levofloxacin. (2) Pneumonia Assessment/Plan: His chest x-ray was read as having bilateral groundglass and patchy infiltrates consistent with an atypical pneumonia therefore it may be viral but his entire PCR panel is negative. We will treat him for community-acquired pneumonia. 11/27: Patient has a strong dry cough when I saw him. He states that sometimes he coughs up sputum but not every time so a sample has not yet been collected for culture. All labs reviewed, WBC 12.9 on morning labs. No fever present today. 11/28: WBC increased to 15 today. Antibiotics will be narrowed for better cov erage based on the sensitivities. Lung sounds are still very diminished. He was satting 92% on 2L NC when I saw him. Plan: Supplemental O2 (target saturations will be greater than 88%). Sputum culture preliminary results show rare Gram + diplococci. Blood cultures show no growth to date. Continue nebulizer treatments for COPD. Continue Mucinex twice daily for pulmonary toilet. Last dose of azithromycin today. DC ceftriaxone and start levofloxacin. Daily CBC. Qualifiers: Pneumonia type: due to unspecified organism Laterality: unspecified laterality Lung location: unspecified part of lung Qualified Code(s): J18.9 - Pneumonia, unspecified organism (3) COPD with exacerbation Assessment/Plan: There is results of PFTs done here in 2013 that shows he has severe COPD. He is on some inhalers at home but he continues to smoke. He does tell me he has been trying to quit, decreasing slowly and his quit date was going to be 11/28/22. 11/27: Patient stated that he did not feel short of breath when I saw him, and that he feels like his breathing has gotten better since yesterday. Breath sounds are very diminished both anteriorly and posteriorly. He states that he is done with smoking for good now. 11/28: Patient was sitting up in the chair when I saw him, and he states that he feels much better today and that his breathing feels great. Lung sounds are still very diminished. He was satting 92% on 2L NC. Plan: Continue IV and inhaled steroids. Continue DuoNebs scheduled 4 times daily and as needed. Last dose of azithromycin today. DC ceftriaxone and start levofloxacin. Continue Montelukast and Mucinex. Continue encouraging smoking cessation. (4) Urinary tract infection Assessment/Plan: This patient has to self cath once a day which he does at night. This is probably the source of his bacteriuria. I suspect that his shaking chills may reveal a bacteremia and likely this would be from his UTI. 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 pneumoniae which is sensitive to Zosyn and levofloxacin. WBC increased to 15 today. Levofloxacin will cover both the UTI and the pneumonia. Plan: DC ceftriaxone and start levofloxacin. Continue straight cath every evening by RN. Daily CBC. Qualifiers: Urinary tract infection type: acute cystitis Hematuria presence: without hematuria Qualified Code(s): N30.00 - Acute cystitis without hematuria (5) PVD (peripheral vascular disease) Assessment/Plan: This patient had aortoiliac stenting. He takes aspirin daily. The patient smokes but has been tapering down in order to quit. 11/27: Patient states that he is done with smoking for good now. 11/28: No acute management needed at this time. Plan: Continue with his antiplatelet agent. Hold hydrochlorothiazide for now. (6) Self-catheterizes urinary bladder This is likely is the cause of developing the UTI. 11/28: No acute management needed at this time. Plan: Continue straight cath every evening by RN. - Current Meds Current Meds: Current Medications Generic Name Dose Route Start Last Admin Trade Name Freq PRN Reason Stop Dose Admin Albuterol/Ipratropium 3 ml 11/26/22 16:03 11/27/22 02:17 Ipratropium/Albuterol 3 Ml Neb INH 3 ml Q4HR PRN Administration Wheezing Albuterol/Ipratropium 3 ml 11/26/22 19:00 11/28/22 06:25 Ipratropium/Albuterol 3 Ml Neb INH 3 ml RTQID MICHAEL Administration Budesonide 0.5 mg 11/26/22 19:00 11/28/22 06:25 Budesonide 0.5 Mg/2 Ml Neb INH 0.5 mg RTBID MICHAEL Administration Guaifenesin 600 mg 11/26/22 21:00 11/28/22 09:08 Guaifenesin 600 Mg Tablet PO 600 mg BID MICHAEL Administration Azithromycin 500 mg/ Sodium 250 mls @ 250 mls/hr 11/27/22 14:00 11/28/22 09:08 Chloride IV 11/29/22 13:59 250 mls/hr DAILY MICHAEL Administration Ceftriaxone Sodium 1 gm/ 100 mls @ 200 mls/hr 11/27/22 15:00 11/28/22 00:45 Sodium Chloride IV 12/01/22 14:59 Infused DAILY MICHAEL Infusion Methylprednisolone 80 mg 11/26/22 16:06 11/27/22 21:40 Methylprednisolone Succinate 40 Mg/Ml Vial IVP 80 mg TID MICHAEL Administration Montelukast Sodium 10 mg 11/26/22 21:00 11/27/22 21:41 Montelukast 10 Mg Tablet PO 10 mg QPM MICHEAL Administration Sodium Chloride 10 ml 11/26/22 16:00 11/27/22 21:41 Sodium Chloride Flush 0.9% 10 Ml Syringe IVP 10 ml PRN PRN Administration NEEDED PER PROVIDER ORDERS Sodium Chloride 10 ml 11/26/22 17:00 11/28/22 09:08 Sodium Chloride Flush 0.9% 10 Ml Syringe IVP 10 ml 0100,0900,1700 MICHAEL Administration - Lab Result Fish Bone Diagrams: 11/28/22 05:16 11/28/22 05:16 Subjective - Subjective Patient Reports: Feeling Better, Resting Comfortably, No Complaints Nursing Reports: No Complaints Objective Vital Signs: Vital Signs - 24 hr 11/27/22 11/27/22 11/27/22 10:57 11:40 14:58 Temperature 36.6 C Heart Rate 97 90 Heart Rate [ 99 Radial] Respiratory 22 18 22 Rate Blood Pressure [Left Brachial artery] Blood Pressure 129/76 [Right Brachial artery] O2 Saturation 90 L If not protocol 2 2 : Oxygen Flow, liters/minute 11/27/22 11/27/22 11/27/22 15:05 18:08 20:42 Temperature 36.6 C 36.4 C L Heart Rate 95 Heart Rate [ 95 93 Radial] Respiratory 18 20 18 Rate Blood Pressure [Left Brachial artery] Blood Pressure 122/63 110/63 [Right Brachial artery] O2 Saturation 90 L 92 If not protocol 2 2 2 : Oxygen Flow, liters/minute 11/28/22 11/28/22 11/28/22 00:23 06:25 06:32 Temperature 36.2 C L 36.2 C L Heart Rate 83 Heart Rate [ 86 84 Radial] Respiratory 24 18 16 Rate Blood Pressure 107/56 L [Left Brachial artery] Blood Pressure 107/67 [Right Brachial artery] O2 Saturation 89 L 88 L If not protocol 2 2 2 : Oxygen Flow, liters/minute 11/28/22 07:38 Temperature 36.3 C L Heart Rate Heart Rate [ 84 Radial] Respiratory 24 Rate Blood Pressure [Left Brachial artery] Blood Pressure 104/66 [Right Brachial artery] O2 Saturation 92 If not protocol 2 : Oxygen Flow, liters/minute Oxygen O2 Source Nasal cannula Oxygen Flow Rate 6 I&O (Last 24 Hrs): Intake and Output Totals x24h 11/26/22 11/27/22 11/28/22 23:59 23:59 23:59 Intake Total 2100 470 786 Output Total 1750 1250 200 Balance 350 -780 586 General: Alert, Oriented x3, Cooperative, No acute distress HEENT: Atraumatic, PERRLA, EOMI, Mucous membr. 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0-1.0) 11/28/22 05:16 Eos # (Auto) 0.0 10^3/uL (0.0-0.7) 11/28/22 05:16 Baso # (Auto) 0.0 10^3/uL (0.0-0.1) 11/28/22 05:16 Absolute Nucleated RBC 0.00 x10^3/uL 11/28/22 05:16 Nucleated RBC % 0.0 /100WBC 11/28/22 05:16 PT 13.2 secs (9.9-12.6) H 11/26/22 11:38 INR 1.2 (0.8-1.2) 11/26/22 11:38 APTT 28.6 secs (24.9-33.3) 11/26/22 11:38 Sodium 140 mmol/L (135-145) 11/28/22 05:16 Potassium 4.1 mmol/L (3.5-5.0) 11/28/22 05:16 Chloride 109 mmol/L (101-111) 11/28/22 05:16 Carbon Dioxide 26 mmol/L (21-32) 11/28/22 05:16 Anion Gap 5.0 (6-13) L 11/28/22 05:16 BUN 30 mg/dL (6-20) H 11/28/22 05:16 Creatinine 0.9 mg/dL (0.6-1.2) 11/28/22 05:16 Estimated GFR (MDRD) 81 (>89) L 11/28/22 05:16 Glucose 174 mg/dL (70-100) H 11/28/22 05:16 Lactic Acid 1.3 mmol/L (0.5-2.2) 11/26/22 11:38 Calcium 8.6 mg/dL (8.5-10.3) 11/28/22 05:16 Total Bilirubin 1.1 mg/dL (0.2-1.0) H 11/26/22 11:38 AST 41 IU/L (10-42) 11/26/22 11:38 ALT 31 IU/L (10-60) 11/26/22 11:38 Alkaline Phosphatase 93 IU/L (42-121) 11/26/22 11:38 Total Protein 7.1 g/dL (6.7-8.2) 11/26/22 11:38 Albumin 3.9 g/dL (3.2-5.5) 11/26/22 11:38 Globulin 3.2 g/dL (2.1-4.2) 11/26/22 11:38 Albumin/Globulin Ratio 1.2 (1.0-2.2) 11/26/22 11:38 Lipase 26 U/L (22-51) 11/26/22 11:38 Urine Color YELLOW 11/26/22 13:00 Urine Clarity SL. CLOUDY (CLEAR) 11/26/22 13:00 Urine pH 6.5 PH (5.0-7.5) 11/26/22 13:00 Ur Specific [place] 1.020 (1.002-1.030) 11/26/22 13:00 Urine Protein TRACE mg/dL (NEGATIVE) 11/26/22 13:00 Urine Glucose (UA) NEGATIVE mg/dL (NEGATIVE) 11/26/22 13:00 Urine Ketones NEGATIVE mg/dL (NEGATIVE) 11/26/22 13:00 Urine Occult Blood LARGE (NEGATIVE) H 11/26/22 13:00 Urine Nitrite NEGATIVE (NEGATIVE) 11/26/22 13:00 Urine Bilirubin NEGATIVE (NEGATIVE) 11/26/22 13:00 Urine Urobilinogen 0.2 (NORMAL) E.U./dL (NORMAL) 11/26/22 13:00 Ur Leukocyte Esterase SMALL (NEGATIVE) H 11/26/22 13:00 Urine RBC TNTC /HPF (0-5) H 11/26/22 13:00 Urine WBC >25 /HPF (0-3) H 11/26/22 13:00 Ur Squamous Epith Cells RARE Squamous (<= Few) 11/26/22 13:00 Urine Bacteria Many /HPF (None Seen) H 11/26/22 13:00 Ur Microscopic Review INDICATED 11/26/22 13:00 Urine Culture Comments INDICATED 11/26/22 13:00 Nasal Adenovirus (PCR) NOT DETECTED 11/26/22 11:45 Nasal B. parapertussis DNA (PCR) NOT DETECTED 11/26/22 11:45 Nasal Coronavir 229E PCR NOT DETECTED 11/26/22 11:45 Nasal Coronavir HKU1 PCR NOT DETECTED 11/26/22 11:45 Nasal Coronavir NL63 PCR NOT DETECTED 11/26/22 11:45 Nasal Coronavir OC43 PCR NOT DETECTED 11/26/22 11:45 Nasal Enterovir/Rhinovir PCR NOT DETECTED 11/26/22 11:45 Nasal Influenza B PCR NOT DETECTED 11/26/22 11:45 Nasal Influenza A PCR NOT DETECTED 11/26/22 11:45 Nasal Parainfluen 1 PCR NOT DETECTED 11/26/22 11:45 Nasal Parainfluen 2 PCR NOT DETECTED 11/26/22 11:45 Nasal Parainfluen 3 PCR NOT DETECTED 11/26/22 11:45 Nasal Parainfluen 4 PCR NOT DETECTED 11/26/22 11:45 Nasal RSV (PCR) NOT DETECTED 11/26/22 11:45 Nasal B.pertussis DNA PCR NOT DETECTED 11/26/22 11:45 Nasal C.pneumoniae (PCR) NOT DETECTED 11/26/22 11:45 [place] Human Metapneumo PCR NOT DETECTED 11/26/22 11:45 Nasal M.pneumoniae (PCR) NOT DETECTED 11/26/22 11:45 Nasal SARS-CoV-2 (PCR) NOT DETECTED 11/26/22 11:45 - Procedures Procedures: Procedures ENDO RECTUM POLYPECTOMY (01/19/14) ENDOSC POLYPECTOMY OF LG INTEST (01/19/14) EXCISION OF ASCENDING COLON, ENDO (10/22/17) EXCISION OF SIGMOID COLON, ENDO (11/15/22) EXCISION OF STOMACH, ENDO, DIAGN (11/15/22) EXCISION OF TRANSVERSE COLON, ENDO (10/22/17) FLEXIBLE SIGMOIDOSCOPY (12/22/13) INSPECTION OF UPPER INTESTINAL TRACT, ENDO (10/22/17) ABX Reporting Has patient been on IV antibiotics over the past 48 hours?: Yes
[2022-11-28] MEDS: levoFLOXacin 750 MG/150 ML 750 MG/150 ML BAG IV SCH (10:57)
[2022-11-28] MEDS: TAMSULOSIN 0.4 MG CAPSULE PO SCH (11:52)
[2022-11-28] MEDS: POTASSIUM CHLORIDE 10 MEQ CAPSULE PO SCH (11:52)
[2022-11-28] MEDS: CETIRIZINE 10 MG TABLET PO SCH (11:52)
[2022-11-28] MEDS: methylPREDNISolone SUCCINATE 40 MG/ML VIAL IVP SCH ×2 (14:27→21:08)
[2022-11-28] MEDS: SACCHAROMYCES BOULARDII 250 MG CAPSULE PO SCH (17:52)
[2022-11-28] MEDS: MONTELUKAST 10 MG TABLET PO SCH (21:07)
[2022-11-29] MEDS: methylPREDNISolone SUCCINATE 40 MG/ML VIAL IVP SCH ×2 (05:11→13:58)
[2022-11-29 05:43] LABS: BASOPHILS % (AUTO) 0.1 %; HCT - HEMATOCRIT 48.4 % (42.0-52.0); HGB - HEMOGLOBIN 15.9 g/dL (14.0-18.0); LYMPHOCYTES # (AUTO) 0.5 10^3/uL (1.5-3.5); LYMPHOCYTES % (AUTO) 4.1 %; MEAN CORPUSCULAR HEMOGLOBIN 32.6 pg (27.0-31.0); MEAN CORPUSCULAR HGB CONC 32.9 g/dL (32.0-36.0); MEAN CORPUSCULAR VOLUME 99.4 fL (80.0-94.0); MEAN PLATELET VOLUME 9.2 fL (7.4-11.4); MONOCYTES # (AUTO) 0.6 10^3/uL (0.0-1.0); MONOCYTES % (AUTO) 5.4 %; NEUTROPHILS # (AUTO) 10.1 10^3/uL (1.5-6.6); NEUTROPHILS % (AUTO) 89.8 %; PLT - PLATELET COUNT 208 10^3/uL (130-450); RED BLOOD COUNT 4.87 10^6/uL (4.70-6.10); RED CELL DISTRIBUTION WIDTH 13.4 % (12.0-15.0); WHITE BLOOD COUNT 11.2 x10^3/uL (4.8-10.8)
[2022-11-29] MEDS: IPRATROPIUM/ALBUTEROL 3 ML NEB INH SCH ×4 (06:01→18:53)
[2022-11-29] MEDS: BUDESONIDE 0.5 MG/2 ML NEB INH SCH ×2 (06:01→18:53)
[2022-11-29 06:02] LABS: CALCIUM 8.8 mg/dL (8.5-10.3); CREATININE 0.8 mg/dL (0.6-1.2); POTASSIUM 4.5 mmol/L (3.5-5.0)
[2022-11-29] MEDS: ASPIRIN EC 81 MG TABLET PO SCH (08:06)
[2022-11-29] MEDS: CETIRIZINE 10 MG TABLET PO SCH (08:06)
[2022-11-29] MEDS: guaiFENesin 600 MG TABLET PO SCH ×2 (08:06→21:42)
[2022-11-29] MEDS: FENOFIBRATE 48 MG TABLET PO SCH (08:06)
[2022-11-29] MEDS: TAMSULOSIN 0.4 MG CAPSULE PO SCH (08:06)
[2022-11-29] MEDS: AZITHROMYCIN INJ 500 MG in SODIUM CHLORIDE 0.9% 250 ML IV SCH (08:06)
[2022-11-29] MEDS: SACCHAROMYCES BOULARDII 250 MG CAPSULE PO SCH ×2 (08:06→17:06)
[2022-11-29] MEDS: POTASSIUM CHLORIDE 10 MEQ CAPSULE PO SCH (08:06)
[2022-11-29] MEDS: SODIUM CHLORIDE FLUSH 0.9% 10 ML SYRINGE IVP SCH ×2 (08:07→17:06)
[2022-11-29] MEDS: levoFLOXacin 750 MG/150 ML 750 MG/150 ML BAG IV SCH (10:13)
[2022-11-29] MEDS: polyethylene glycoL 3350 17 GM PACKET PO SCH (10:13)
--- NOTE | 2022-11-29 15:03 | PROVIDER PROGRESS NOTE ---
Progress Note November 29, 2022 2:56 PM Sitting up at the edge of the bed. He says that he feels good. A lot less coughing the last 2 days. Still short of breath when he gets up from the bed and tries to walk to the bathroom but he feels stronger and safer. He realizes that he will not be able to go home by himself. He still needs a lot of help. His daughter flies in either later tonight or early tomorrow morning and will be staying with him. Then another daughter will come in a week later and stay with him as well. Active Medications Acetaminophen (Acetaminophen 325 Mg Tablet) 650 mg PO Q4HR PRN PRN Reason: Pain 1 to 4, or Fever Albuterol/Ipratropium (Ipratropium/Albuterol 3 Ml Neb) 3 ml INH Q4HR PRN PRN Reason: Wheezing Last Admin: 11/27/22 02:17 Dose: 3 ml Albuterol/Ipratropium (Ipratropium/Albuterol 3 Ml Neb) 3 ml INH RTQID [facility] Last Admin: 11/29/22 11:14 Dose: 3 ml Aspirin (Aspirin Ec 81 Mg Tablet) 81 mg PO DAILY [facility] Last Admin: 11/29/22 08:06 Dose: 81 mg Budesonide (Budesonide 0.5 Mg/2 Ml Neb) 0.5 mg INH RTBID [facility] Last Admin: 11/29/22 06:01 Dose: 0.5 mg Cetirizine HCl (Cetirizine 10 Mg Tablet) 10 mg PO DAILY [facility] Last Admin: 11/29/22 08:06 Dose: 10 mg Fenofibrate (Fenofibrate 48 Mg Tablet) 144 mg PO DAILY [facility] Last Admin: 11/29/22 08:06 Dose: 144 mg Guaifenesin (Guaifenesin 600 Mg Tablet) 600 mg PO BID [facility] Last Admin: 11/29/22 08:06 Dose: 600 mg Levofloxacin (Levaquin 750 Mg/150 Ml) 750 mg in 150 mls @ 100 mls/hr IV Q24H [facility] Last Infusion: 11/29/22 11:45 Dose: Infused Methylprednisolone (Methylprednisolone Succinate 40 Mg/Ml Vial) 80 mg IVP TID [facility] Last Admin: 11/29/22 13:58 Dose: 80 mg Montelukast Sodium (Montelukast 10 Mg Tablet) 10 mg PO QPM [facility] Last Admin: 11/28/22 21:07 Dose: 10 mg Ondansetron HCl (Ondansetron 4 Mg/2 Ml Vial) 4 mg IVP Q6HR PRN PRN Reason: Nausea / Vomiting Polyethylene Glycol (Polyethylene Glycol 3350 17 Gm Packet) 17 gm PO DAILY [facility] Last Admin: 11/29/22 10:13 Dose: 17 gm Potassium Chloride (Potassium Chloride 10 Meq Capsule) 10 meq PO DAILYWM [facility] Last Admin: 11/29/22 08:06 Dose: 10 meq Saccharomyces Boulardii (Saccharomyces Boulardii 250 Mg Capsule) 250 mg PO BIDWM [facility] Last Admin: 11/29/22 08:06 Dose: 250 mg Sodium Chloride (Sodium Chloride Flush 0.9% 10 Ml Syringe) 10 ml IVP PRN PRN PRN Reason: NEEDED PER PROVIDER ORDERS Last Admin: 11/27/22 21:41 Dose: 10 ml Sodium Chloride (Sodium Chloride Flush 0.9% 10 Ml Syringe) 10 ml IVP 0100,0900,1700 [facility] Last Admin: 11/29/22 08:07 Dose: 10 ml Tamsulosin HCl (Tamsulosin 0.4 Mg Capsule) 0.4 mg PO DAILY [facility] Last Admin: 11/29/22 08:06 Dose: 0.4 mg Home Meds: Aspirin [Aspir 81] 81 mg PO DAILY 05/03/13 Cetirizine HCl [Zyrtec] 10 mg PO DAILY 05/03/13 Esomeprazole Magnesium [Nexium] 40 mg PO DAILY 05/03/13 Fenofibrate Nanocrystallized [Triglide] 160 mg PO HS 05/03/13 Simvastatin [Zocor] 20 mg PO QPM 05/03/13 Tiotropium [Spiriva] 1 puffs INH DAILY 05/03/13 Fluticasone/Vilanterol [Breo Ellipta 100-25 Mcg INH] 1 each IH DAILY 10/19/17 hydroCHLOROthiazide [Hydrochlorothiazide] 25 mg PO DAILY 10/19/17 Albuterol Sulf [Ventolin Hfa Inhaler] 1 - 2 puffs INH Q4HR PRN 11/27/22 Mirabegron [Myrbetriq] 50 mg PO DAILY 11/27/22 Potassium Chloride [Klor-Con M10] 10 meq PO DAILY 11/27/22 Exam: Temperature is 36.4. Heart rate 86. Blood pressure 117/76. Respirations 18. He has been on his usual 2 L nasal cannula since 8 in the morning November 27. When he walks with physical therapy he will desaturate to 87% on the 2 L. Needs to go up to 2-1/2 or 3 L to bump it back up over 90% with exertion. Recovers quickly. Alert, oriented, no acute distress as he sits on the edge of the bed Shotty neck adenopathy but supple Very quiet lung sounds. But I actually hear more air sounds in the apices and midlung zone I usually hear. Bases are silent. He does laugh spontaneously is something I say and he has wheezing with that. Otherwise I hear no wheezing, crackles, rhonchi. No respiratory distress or increased respiratory effort. With walking or talking. AP chest wall diameter is narrow Regular rate and rhythm Abdomen is soft, nontender, quiet bowel sounds. Last bowel movement was November 27. He is urinating without a Carter and has clear yellow urine when the nurses visualize it. Extremities have no edema. Neurologically he is alert, oriented to person place and time, mild hearing deficit but not severe. Using a walker Per PT today: Pt agreeable to performing bathing tasks in prep for D/C home tomorrow. SpO2 at 92% on 2L O2 NC at beginning of session. Pt demo'd good carryover during STS t/f with hand placement and use of FWW req SBA-CGA for all t/fs. Pt req assistance with IV and O2 management during functional mobility w/ FWW (SBA). Mod cueing for use of gb to cementer machine joiner front of toilet for urination with Joanne for clothing management. CGA w/ cues for SPT to shower bench. Pt req Joanne with bathing tasks to wash back; S/U for 80% of bathing. CGA while standing with cueing to use grab bar maintaining good standing balance while using one UE to wash self. Joanne to d ry back and BLEs. S/U to don socks. MaxA to don brief and gown d/t unfamiliarity. SBA for mobility w/ FWW to b/s chair. SpO2 at 90% on 2L O2 NC after activity (improvement). Call benjamin and tray table within reach, all needs met. Pt edu on use of AD upon d/c; recommended constant O2, FWW, sock aid, long- handled sponge, loan operations specialist and gbs. Laboratory Tests 11/29/22 11/29/22 05:08 05:08 WBC 11.2 H Hgb 15.9 Hct 48.4 MCV 99.4 H Plt Count 208 Sodium 141 Potassium 4.5 Chloride 108 Carbon Dioxide 27 Anion Gap 6.0 BUN 27 H Creatinine 0.8 Assessment/Plan - Problem List (1) Acute Phase now resolved. And now with chronic respiratory failure with hypoxia Assessment/Plan: Patient only uses his home O2 as needed, set at 2L/min. 11/27: Patient was sitting at the edge of the bed on 3L NC when I saw him. He stated that he did not feel short of breath, and that he feels like his breathing has gotten better since yesterday. Breath sounds are very diminished both anteriorly and posteriorly. 11/28: Patient was sitting up in the chair when I saw him, and he states that he feels much better today and that his breathing feels great. Lung sounds are still very diminished. He was satting 92% on 2L NC. Urine cultures showed ESBL-producing K. pneumoniae which is sensitive to Zosyn and levofloxacin. Levofloxacin will cover both the UTI and the pneumonia. He was started on levaquin. Ceftriaxone stopped.Sputum culture preliminary results show rare Gram + diplococci. 11/29: Day #2 of Levaquin. Overall day #4 of antibiotics. Plan: Daily CBC/BMP. Supplemental O2 (target saturations will be greater than 88%). Continue nebulizer treatments for COPD. (2) Pneumonia Assessment/Plan: His chest x-ray was read as having bilateral groundglass and patchy infiltrates consistent with an atypical pneumonia therefore it may be viral but his entire PCR panel is negative. We will treat him for community-acquired pneumonia. 11/27: Patient has a strong dry cough when I saw him. He states that sometimes he coughs up sputum but not every time so a sample has not yet been collected for culture. All labs reviewed, WBC 12.9 on morning labs. No fever present today. 11/28: WBC increased to 15 today. Antibiotics will be narrowed for better coverage based on the sensitivities. Lung sounds are still very diminished. He was satting 92% on 2L NC when I saw him. Last dose of azithromycin today. In order to cover both pneumonia and UTI ceftriaxone will be stopped and Levaquin will be started.Blood cultures are negative today. Sputum culture has gram- positive diplococci.Blood cultures still negative from admission. 11/29: Stable oxygen requirement. He feels good. Plan for discharge tomorrow morning. I will send him home on a total of 7 days of antibiotics. Today is day 4, so he will need 3 more days to complete. Plan: Supplemental O2 (target saturations will be greater than 88%). Continue nebulizer treatments for COPD. Continue Mucinex twice daily for pulmonary toilet. Daily CBC. I went over incentive spirometry with him. Showed him how to be aggressive and using the tube. I want him to go home with this and practice this at least for 5 times a day. Qualifiers: Pneumonia type: due to unspecified organism Laterality: unspecified laterality Lung location: unspecified part of lung Qualified Code(s): J18.9 - Pneumonia, unspecified organism (3) COPD with exacerbation Assessment/Plan: There is results of PFTs done here in 2013 that shows he has severe COPD. He is on some inhalers at home but he continues to smoke. He does tell me he has been trying to quit, decreasing slowly and his quit date was going to be 11/28/22. 11/27: Patient stated that he did not feel short of breath when I saw him, and that he feels like his breathing has gotten better since yesterday. Breath sounds are very diminished both anteriorly and posteriorly. He states that he is done with smoking for good now. 11/28: Patient was sitting up in the chair when I saw him, and he states that he feels much better today and that his breathing feels great. Lung sounds are still very diminished. He was satting 92% on 2L NC. 11/29: He is sitting up in bed this morning. Said he had not quite gotten to the chair yet. He says that he feels even stronger than yesterday. Feels like his breathing is back to baseline. He is surprised when I let him know that he does desat with exertion. He feels safe enough to go home but his caregiver/daughter will not be arriving till tonight or tomorrow morning. Plan: Continue inhaled steroids, but he has been on Solu-Medrol 80 mg IV 3 times daily for 4 days. I will stop the Solu-Medrol. No taper since has been 4 days. Continue DuoNebs scheduled 4 times daily and as needed. Continue Montelukast and Mucinex. Continue encouraging smoking cessation. (4) Urinary tract infection Assessment/Plan: This patient has to self cath once a day which he does at night. This is probably the source of his bacteriuria. I suspect that his shaking chills may reveal a bacteremia and likely this would be from his UTI. 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 pneumoniae which is sensitive to Zosyn and levofloxacin. WBC increased to 15 today. Levofloxacin will cover both the UTI and the pneumonia. Ceftriaxone discontinued and started on Levaquin. 11/29:Today is day #2 of Levaquin, day #4 of antibiotics. Plan for a full 7 days of antibiotics we will need to go home on 3 more days when he leaves tomorrow. Continue straight cath every evening by RN.But I have asked her to encourage him to make sure he is doing sterile technique. Daily CBC. Qualifiers: Urinary tract infection type: acute cystitis Hematuria presence: without hematuria Qualified Code(s): N30.00 - Acute cystitis without hematuria (5) PVD (peripheral vascular disease) Assessment/Plan: This patient had aortoiliac stenting. He takes aspirin daily. The patient smokes but has been tapering down in order to quit. 11/27: Patient states that he is done with smoking for good now. 11/28 & 11/29: No acute management needed at this time. Plan: Continue with his antiplatelet agent. Hold hydrochlorothiazide for now. (6) Self-catheterizes urinary bladder This is likely is the cause of developing the UTI. 11/28: No acute management needed at this time. 11/29: focus on sterile technique Plan: Continue straight cath every evening by RN.
[2022-11-29] MEDS: MONTELUKAST 10 MG TABLET PO SCH (21:42)
[2022-11-30] MEDS: SODIUM CHLORIDE FLUSH 0.9% 10 ML SYRINGE IVP SCH ×2 (01:00→08:18)
[2022-11-30 05:24] LABS: BASOPHILS % (AUTO) 0.1 %; HGB - HEMOGLOBIN 15.7 g/dL (14.0-18.0); LYMPHOCYTES # (AUTO) 0.9 10^3/uL (1.5-3.5); LYMPHOCYTES % (AUTO) 7.9 %; MEAN CORPUSCULAR HEMOGLOBIN 32.5 pg (27.0-31.0); MEAN CORPUSCULAR HGB CONC 32.7 g/dL (32.0-36.0); MEAN CORPUSCULAR VOLUME 99.4 fL (80.0-94.0); MEAN PLATELET VOLUME 9.1 fL (7.4-11.4); MONOCYTES # (AUTO) 1.1 10^3/uL (0.0-1.0); NEUTROPHILS # (AUTO) 8.8 10^3/uL (1.5-6.6); NEUTROPHILS % (AUTO) 81.2 %; PLT - PLATELET COUNT 223 10^3/uL (130-450); RED BLOOD COUNT 4.83 10^6/uL (4.70-6.10); RED CELL DISTRIBUTION WIDTH 13.2 % (12.0-15.0); WHITE BLOOD COUNT 10.9 x10^3/uL (4.8-10.8)
[2022-11-30 05:34] LABS: CALCIUM 8.7 mg/dL (8.5-10.3); CREATININE 0.8 mg/dL (0.6-1.2); POTASSIUM 4.4 mmol/L (3.5-5.0)
[2022-11-30] MEDS: BUDESONIDE 0.5 MG/2 ML NEB INH SCH (07:29)
[2022-11-30] MEDS: IPRATROPIUM/ALBUTEROL 3 ML NEB INH SCH (07:29)
--- NOTE | 2022-11-30 07:54 | Discharge Plan ---
Discharge Plan Problem Reviewed?: Yes Disposition: Home Health Service Condition: Stable Prescriptions: Montelukast [Singulair] 10 mg PO QPM #30 tab Diet: Regular Activity Restrictions: Activity as Tolerated Health Concerns: You have a history of emphysema and you are on oxygen at 2 L nasal cannula, you still smoke, and you have peripheral vascular disease of the aorta down to your legs. You also have high blood pressure, and chronic urinary retention requiring you to self catheterize on a daily basis. You came to the hospital because you developed a cough and shaking chills. You were so weak that you drop to the floor and you could not get back up for about an hour. When you did not answer your phone, your family came to check on you and found you on the floor. They called ambulance, and you were brought to the emergency room. You had a urinary tract infection, as well as severe low oxygen from atypical pneumonia. You have been on antibiotics for both a urinary tract infection and the pneumonia. Over the last 2 days you started to feel stronger, and you are back down to your normal oxygen of 2 L nasal cannula. You live alone. Plan of Treatment: 1. You will need to finish your antibiotics and I have prescribed Levaquin tablets at 250 mg tablets. You need to take 3 tablets, twice a day. This will only be for 2 days. And then you will complete 7 days of antibiotics. 2. You still require help. Your oxygen level drops when you try and do simple activities such as walking across the room. So while at rest, make sure you are on 2 L nasal cannula. If you get up to walk to the bathroom, walk to the living room, or walk anywhere, increase your oxygen to 3 L while walking. Please make sure you also use your front wheel walker when you ambulate. 3. Please see your primary care provider, Jael Armas, in the next 1 to 2 weeks. 4. I would also suggest that you start talking to your family about future care needs. A general discussion about who would take care of you, or where you will live when you could no longer take care of yourself should probably be covered. 5. Because you are still weak and needs some help, I have ordered home health help. With home health I have ordered physical therapy and Occupational Therapy. A bath aide. And a public health social worker to evaluate her home situation. Care Goals: To remain at home as independently as possible for as long as possible To control your symptoms of emphysema so that you do not deteriorate further, or require more oxygen You would be a candidate for cardiopulmonary rehabilitation. This allows you to get stronger, and breathe better. See if your primary care provider can refer you. Assessment: Patient is alert, oriented, still making his own decisions Follow-Up Care: [facility] No Smoking: If you smoke, Please STOP! Call for help.
[2022-11-30] MEDS: SACCHAROMYCES BOULARDII 250 MG CAPSULE PO SCH (08:17)
[2022-11-30] MEDS: CETIRIZINE 10 MG TABLET PO SCH (08:17)
[2022-11-30] MEDS: POTASSIUM CHLORIDE 10 MEQ CAPSULE PO SCH (08:17)
[2022-11-30] MEDS: ASPIRIN EC 81 MG TABLET PO SCH (08:17)
[2022-11-30] MEDS: FENOFIBRATE 48 MG TABLET PO SCH (08:17)
[2022-11-30] MEDS: guaiFENesin 600 MG TABLET PO SCH (08:17)
[2022-11-30] MEDS: TAMSULOSIN 0.4 MG CAPSULE PO SCH (08:17)
--- NOTE | 2022-11-30 08:17 | DISCHARGE SUMMARY ---
"Discharge Summary Admit Date: 11/26/22 Discharge Date: 11/30/22 Discharging Provider: Vicenta Das MD Primary Care Provider: Elena Gillespie Code Status: Do Not Attempt Resuscitation Condition at Discharge: Fair Discharge Disposition: Home Health Service - DIAGNOSES Discharge Diagnoses with Status of Each Condition: 1. Acute on chronic respiratory failure with hypoxia 2. Atypical pneumonia 3. COPD with exacerbation 4. ESBL Klebsiella pneumonia UTI 5. Chronic urinary retention 6. Self catheterizes urinary bladder 7. Peripheral vascular disease - HPI History of Present Illness: This is an 82-year-old male, who lives alone, with a history of COPD who uses home O2 as needed, and has a history of cigarette smoking and still smokes but is tapering down, PVD with aorto-iliac stent and hypertension. Yesterday the patient started to develop a cough and shaking chills. Today an episodes of shaking chills made him weak and he dropped to the floor and was too weak to get up for an hour. He says he fell forward onto his hands, did not hit his head and did not blackout. His sister usually calls him daily and he heard the phone ring but was too weak to get up and answer it. This made the sister suspicious and his niece and nephew came to check on him. He checked his oxygen level which was lower than his usual 90% and he presented to the emergency room. In the ER, he had a documented O2 saturation of 83% on room air. He was put on oxygen, got a nebulizer treatment, steroid treatment and started to feel better. Chest x-ray was read as having bilateral atypical pneumonia with groundglass pa tchy infiltrates bilaterally. Blood cultures were taken and he has been started on empiric iv Rocephin and Zithromax. His lactic acid is normal, COVID and respiratory PCR is negative and white blood count is 10.8. His urinalysis however has many WBCs and many bacteria consistent with a UTI. ED provider spoke to me about this patient, who will be admitted for hypoxia, pneumonia and UTI. I spoke to the patient about his CODE BLUE wishes. He wants to be a DNR. - Past Medical History Cardiovascular: reports: Hypertension, High cholesterol, Peripheral Vascular Disease (AAA repair) Respiratory: reports: Asthma, COPD Endocrine/Autoimmune: reports: None GI: reports: GERD, Colon polyps, Diverticulitis : reports: Benign prostate hypertrophy, Retention, Kidney stones, Other (self cath) HEENT: reports: Chronic vision loss Psych: reports: None Musculoskeletal: reports: Osteoarthritis, Fatigue Derm: reports: Other MRSA Hx?: No - Past Surgical History General: reports: Colonoscopy, EGD, Other (gastric resection) Ortho: reports: Knee replacement, Carpal Tunnel surgery Cardiovascular: reports: AAA Derm: reports: Skin cancer surgery - CONSULTS | PROCEDURES Procedures: Chest x-ray has moderate bibasilar patchy reticular nodular pulmonary opacities. Viral panel has no virus detected from adenovirus, coronavirus, SARS COVID-19, influenza, enterovirus, parainfluenza, pertussis, chlamydia, or human metapneumovirus. Blood cultures from November 26 are negative after 2 days then on the third day was positive for Staphylococcus species. This is felt to be contaminant. Urine culture from November 26 has ESBL producing Klebsiella pneumonia sensitive to ertapenem, imipenem, Levaquin, Zosyn. Respiratory culture positive for gram-negative evelia, identification and sensitivities are pending - HOSPITAL COURSE Hospital Course: He was started on empiric antibiotic therapy. He really did likely had viral pneumonia but his entire viral panel was negative. He responded to empiric antibiotics, steroids, oxygen and nebs. He was eventually able to come down to his baseline 2 L nasal cannula. With exertion he does need to go up to 3 L nasal cannula. He was identified as having an ESBL Klebsiella pneumonia UTI. Antibiotics were adjusted to treat both the pneumonia and the UTI and he is now on Levaquin and needs to complete 2 more days of Levaquin therapy in the outpatient setting. He is back to baseline ambulation. No longer coughing. Feels strong and safe to go home. He does have 1 daughter coming to stay with him for the next week, and then another daughter will come after that. I have asked him to start discussing advance care planning with regards to what he will do if he can no longer take care of himself. It is plan to go to a usp, to stay at home with caregivers, or to go live with one of his kids. At discharge temperature was 36.5. Heart rate 86. Blood pressure 122/77. Respirations 20. He is on 2 L nasal cannula and saturating at 93%. He is a tanned elderly gentleman. Balding. Well-nourished. Neck has shotty adenopathy but no bruits or JVD. Lungs have very, very quiet breath sounds. When I first met him he had no breath sounds whatsoever and over the course of a couple of days him starting to hear some slight sounds in the apices and mid lungs and no sounds in the bases. He does have prolonged and exhalation but no wheezing. No respiratory distress no use of accessory muscles. Occasionally he gets a hoarse voice and has to clear his throat with a cough. Regular rate and rhythm. Abdomen benign. Extremities without edema. He walks in his room without any ataxia. I discharge I am having finish his Levaquin. He needs 2 more days. I have started him on singular. He will resume his usual home medications. I have asked home health to start seeing him for PT/OT. Social work to assess if his home life is safe. Greater than 30 minutes was spent coordinating discharge. I have asked him to see his primary care provider in the next 1 to 2 weeks. - ALLERGIES Allergies/Adverse Reactions: Allergies Allergy/AdvReac Type Severity Reaction Status Date / Time fluticasone propionate * Allergy split Verified 11/26/22 11:15 [From Advair Diskus] vision salmeterol xinafoate * Allergy split Verified 11/26/22 11:15 [From Advair Diskus] vision - MEDICATIONS Home Medications: Ambulatory Orders Medication Instructions Recorded Confirmed Aspirin [Aspir 81] 81 mg PO DAILY 05/03/13 11/27/22 Cetirizine HCl [Zyrtec] 10 mg PO DAILY 05/03/13 11/27/22 Esomeprazole Magnesium [Nexium] 40 mg PO DAILY 05/03/13 11/27/22 Fenofibrate Nanocrystallized 160 mg PO HS 05/03/13 11/27/22 [Triglide] Simvastatin [Zocor] 20 mg PO QPM 05/03/13 11/27/22 Tiotropium [Spiriva] 1 puffs INH DAILY 05/03/13 11/27/22 Fluticasone/Vilanterol [Breo 1 each IH DAILY 10/19/17 11/27/22 Ellipta 100-25 Mcg INH] hydroCHLOROthiazide 25 mg PO DAILY 10/19/17 11/27/22 [Hydrochlorothiazide] Albuterol Sulf [Ventolin Hfa 1 - 2 puffs INH Q4HR PRN 11/27/22 11/27/22 Inhaler] Mirabegron [Myrbetriq] 50 mg PO DAILY 11/27/22 11/27/22 Potassium Chloride [Klor-Con M10] 10 meq PO DAILY 11/27/22 11/27/22 Acetaminophen [Tylenol] 650 mg PO Q4HR PRN tab 11/30/22 Montelukast [Singulair] 10 mg PO QPM #30 tab 11/30/22 guaiFENesin [Mucinex] 600 mg PO BID tab 11/30/22 levoFLOXacin [Levaquin] 750 mg PO QD #6 tablet 11/30/22 - LABS Result Diagrams: 11/30/22 04:49 11/30/22 04:49"
[2022-11-30] MEDS: polyethylene glycoL 3350 17 GM PACKET PO SCH (08:18)
[2022-11-30 09:42] VITALS: BP 122/77
== END 2022-11-30 10:35 | disposition home health service (06) | DRG 189 ==
LOC: EDUNIT# → ED 10:56 → MS2 16:00
PROVIDERS: ADMIT Internal Medicine; ATTEND Specialist
DX: R53.1 Weakness (principal); J96.21 Acute and chronic respiratory failure with hypoxia; J44.0 Chronic obstructive pulmonary disease with (acute) lower respiratory infection; J44.1 Chronic obstructive pulmonary disease with (acute) exacerbation; J18.9 Pneumonia, unspecified organism; I95.9 Hypotension, unspecified; J43.9 Emphysema, unspecified; N30.90 Cystitis, unspecified without hematuria; F17.210 Nicotine dependence, cigarettes, uncomplicated; B96.1 Klebsiella pneumoniae [K. pneumoniae] as the cause of diseases classified elsewhere; F17.200 Nicotine dependence, unspecified, uncomplicated; Z20.822 Contact with and (suspected) exposure to COVID-19; N40.1 Benign prostatic hyperplasia with lower urinary tract symptoms; R33.8 Other retention of urine; R00.0 Tachycardia, unspecified; N30.00 Acute cystitis without hematuria; I73.9 Peripheral vascular disease, unspecified; I10 Essential (primary) hypertension; Z66 Do not resuscitate; E78.00 Pure hypercholesterolemia, unspecified; K21.9 Gastro-esophageal reflux disease without esophagitis; Z79.82 Long term (current) use of aspirin; Z99.81 Dependence on supplemental oxygen; Z91.81 History of falling
CPT/HCPCS: 36415; 71045; 80048; 80053; 81001; 83605; 83690; 85025; 85610; 85730; 87040; 87070; 87077; 87086; 87150; 87181; 87205; 87633; 94640; 94664; 96361; 96365; 96375; 97116; 97161; 97166; 97535; 99284; 99285; A9270; J7626; 81003

== ENCOUNTER 2023-02-27 12:21 | Outpatient (CLI) | payer MEDICARE, OTHER ==
[2023-02-27 18:00] LABS: BASOPHILS % (AUTO) 0.4 %; EOSINOPHILS # (AUTO) 0.1 10^3/uL (0.0-0.7); EOSINOPHILS % (AUTO) 1.6 %; HCT - HEMATOCRIT 54.1 % (42.0-52.0); HGB - HEMOGLOBIN 17.1 g/dL (14.0-18.0); LYMPHOCYTES # (AUTO) 1.4 10^3/uL (1.5-3.5); LYMPHOCYTES % (AUTO) 18.6 %; MEAN CORPUSCULAR HEMOGLOBIN 31.4 pg (27.0-31.0); MEAN CORPUSCULAR HGB CONC 31.6 g/dL (32.0-36.0); MEAN CORPUSCULAR VOLUME 99.4 fL (80.0-94.0); MEAN PLATELET VOLUME 9.3 fL (7.4-11.4); MONOCYTES # (AUTO) 0.6 10^3/uL (0.0-1.0); MONOCYTES % (AUTO) 8.4 %; NEUTROPHILS # (AUTO) 5.4 10^3/uL (1.5-6.6); NEUTROPHILS % (AUTO) 70.7 %; PLT - PLATELET COUNT 242 10^3/uL (130-450); RED BLOOD COUNT 5.44 10^6/uL (4.70-6.10); WHITE BLOOD COUNT 7.6 x10^3/uL (4.8-10.8)
[2023-02-27 18:09] LABS: ALBUMIN 4.2 g/dL (3.2-5.5); ALBUMIN/GLOBULIN RATIO 1.7 (1.0-2.2); BILIRUBIN,TOTAL 0.7 mg/dL (0.2-1.0); CALCIUM 9.4 mg/dL (8.5-10.3); POTASSIUM 3.8 mmol/L (3.5-4.5); TOTAL PROTEIN 6.7 g/dL (6.4-8.9)
[2023-02-27 18:22] LABS: THYROID STIMULATING HORMONE 2.08 uIU/mL (0.34-5.60)
== END 2023-02-27 12:22 | disposition home or self-care (01) ==
LOC: LAB.N 12:21
PROVIDERS: ATTEND Nurse Practitioner Family
DX: I12.9 Hypertensive chronic kidney disease with stage 1 through stage 4 chronic kidney disease, or unspecified chronic kidney disease (principal); N18.31 Chronic kidney disease, stage 3a; Z86.39 Personal history of other endocrine, nutritional and metabolic disease
CPT/HCPCS: 36415; 80053; 84443; 85025

== ENCOUNTER 2023-05-24 14:23 | Outpatient (CLI) | payer MEDICARE, OTHER ==
[2023-05-24 17:57] LABS: CALCIUM 9.3 mg/dL (8.5-10.3); CREATININE 1.1 mg/dL (0.6-1.3); POTASSIUM 4.2 mmol/L (3.5-4.5)
[2023-05-24 18:13] LABS: THYROID STIMULATING HORMONE 2.18 uIU/mL (0.34-5.60)
[2023-05-24 18:19] LABS: FERRITIN 10.4 ng/mL (23.9-336.2)
== END 2023-05-24 14:24 | disposition home or self-care (01) ==
LOC: LAB.N 14:23
PROVIDERS: ATTEND Family Medicine
DX: M79.605 Pain in left leg (principal); M79.604 Pain in right leg; R25.2 Cramp and spasm
CPT/HCPCS: 36415; 80048; 82550; 82728; 84443

== ENCOUNTER 2023-06-20 13:59 | Outpatient (CLI) | payer MEDICARE, OTHER ==
[2023-06-20 18:44] LABS: PSA TOTAL 0.741 ng/mL (0.000-2.000)
== END 2023-06-20 14:00 | disposition home or self-care (01) ==
LOC: LAB.N 13:59
PROVIDERS: ATTEND Internal Medicine
DX: Z12.5 Encounter for screening for malignant neoplasm of prostate (principal)
CPT/HCPCS: 36415; 84153

== ENCOUNTER 2023-07-18 11:33 | Outpatient (CLI) | payer MEDICARE, OTHER ==
[2023-07-18 17:52] LABS: BASOPHILS # (AUTO) 0.1 10^3/uL (0.0-0.1); BASOPHILS % (AUTO) 0.8 %; EOSINOPHILS # (AUTO) 0.2 10^3/uL (0.0-0.7); EOSINOPHILS % (AUTO) 2.4 %; HCT - HEMATOCRIT 55.8 % (42.0-52.0); HGB - HEMOGLOBIN 17.1 g/dL (14.0-18.0); LYMPHOCYTES # (AUTO) 1.7 10^3/uL (1.5-3.5); LYMPHOCYTES % (AUTO) 22.3 %; MEAN CORPUSCULAR HEMOGLOBIN 29.2 pg (27.0-31.0); MEAN CORPUSCULAR HGB CONC 30.6 g/dL (32.0-36.0); MEAN CORPUSCULAR VOLUME 95.2 fL (80.0-94.0); MEAN PLATELET VOLUME 9.7 fL (7.4-11.4); MONOCYTES # (AUTO) 0.9 10^3/uL (0.0-1.0); MONOCYTES % (AUTO) 11.6 %; NEUTROPHILS # (AUTO) 4.8 10^3/uL (1.5-6.6); NEUTROPHILS % (AUTO) 62.5 %; PLT - PLATELET COUNT 248 10^3/uL (130-450); RED BLOOD COUNT 5.86 10^6/uL (4.70-6.10); RED CELL DISTRIBUTION WIDTH 20.7 % (12.0-15.0); WHITE BLOOD COUNT 7.6 x10^3/uL (4.8-10.8)
[2023-07-18 18:04] LABS: SLIDE REVIEW? Indicated
[2023-07-18 18:29] LABS: ALBUMIN 4.1 g/dL (3.2-5.5); ALBUMIN/GLOBULIN RATIO 1.6 (1.0-2.2); BILIRUBIN,TOTAL 0.6 mg/dL (0.2-1.0); CALCIUM 8.9 mg/dL (8.5-10.3); POTASSIUM 4.4 mmol/L (3.5-4.5); TOTAL PROTEIN 6.7 g/dL (6.4-8.9)
[2023-07-18 18:34] LABS: FERRITIN 15.4 ng/mL (23.9-336.2)
[2023-07-18 21:25] LABS: PLATELET ESTIMATE, MANUAL NORMAL (130-450,000) (NORMAL)
== END 2023-07-18 11:34 | disposition home or self-care (01) ==
LOC: LAB.N 11:33
PROVIDERS: ATTEND Nurse Practitioner Family
DX: I12.9 Hypertensive chronic kidney disease with stage 1 through stage 4 chronic kidney disease, or unspecified chronic kidney disease (principal); N18.31 Chronic kidney disease, stage 3a; D50.9 Iron deficiency anemia, unspecified
CPT/HCPCS: 36415; 80053; 82728; 83540; 84466; 85025

== ENCOUNTER 2023-08-14 08:59 | Outpatient (CLI) | payer MEDICARE, OTHER ==
--- NOTE | 2023-08-14 13:04 | Ultrasound Report ---
PROCEDURE: Renal (Retroperitoneal) INDICATIONS: INCOMPLETE BLADDER EMPTYING TECHNIQUE: Real-time scanning was performed of the retroperitoneal organs, with image documentation. COMPARISON: CT chest 11/08/2020. FINDINGS: Kidneys: Kidneys are normal in size. Right kidney measures 10.1 cm long; left kidney measures 11.5 cm long. Right renal cortical thickness is 0.84 cm; left renal cortical thickness is 0.82 cm. No so lid masses, hydronephrosis, or nephrolithiasis. An 8 x 9 x 7 mm right renal cyst is noted. A 24 x 24 x 29 mm left renal cyst is noted inferiorly. Bot h these cysts show posterior acoustic enhancement, no internal echogenicity or blood flow and thin wa lls. Bladder: Pre-void bladder volume is 560 mL. Patient was unable to void. ureteral jets are noted with color Doppler interrogation. (Of note, ureteral jets may not be detectable in up to 25% of cases du e to insufficient differences in specific gravity between ureteral and bladder urine). Miscellaneous: No free abdominal fluid. IMPRESSION: 1. Patient was unable to void. 2. Bilateral incidental simple renal cysts 3. Otherwise unremarkable kidneys Reviewed by: Derrell Becerra MD on 08/14/2023 1:03 PM PST Approved by: Derrell Becerra MD on 08/14/2023 1:03 PM PST Station ID: [id number]
== END 2023-08-14 09:00 | disposition home or self-care (01) ==
LOC: DI 08:59
PROVIDERS: ATTEND Urology
DX: R33.9 Retention of urine, unspecified (principal)

== ENCOUNTER 2023-10-26 07:45 | Outpatient (CLI) | payer MEDICARE, OTHER | END 2023-10-26 08:00 | disposition home or self-care (01) | LOC: LAB.N 07:45 | PROVIDERS: ATTEND Physician Assistant Medical | DX: N39.0 Urinary tract infection, site not specified (principal) | CPT/HCPCS: 87077; 87086; 87181 ==

== ENCOUNTER 2023-10-27 14:20 | Outpatient (CLI) | payer MEDICARE, OTHER | END 2023-10-27 23:59 | disposition critical access hospital (66) | LOC: EMS 14:20 | DX: R06.03 Acute respiratory distress (principal); R05.9 Cough, unspecified; R53.1 Weakness; Z99.81 Dependence on supplemental oxygen; J44.9 Chronic obstructive pulmonary disease, unspecified | CPT/HCPCS: A0425; A0427 ==

== ENCOUNTER 2023-10-27 14:45 | Inpatient (IN) | payer MEDICARE, OTHER ==
[2023-10-27 15:15] LABS: BASOPHILS % (AUTO) 0.3 %; EOSINOPHILS % (AUTO) 0.2 %; LYMPHOCYTES % (AUTO) 12.6 %; MEAN CORPUSCULAR HEMOGLOBIN 32.3 pg (27.0-31.0); MEAN CORPUSCULAR HGB CONC 31.6 g/dL (32.0-36.0); MEAN CORPUSCULAR VOLUME 102.2 fL (80.0-94.0); MEAN PLATELET VOLUME 8.9 fL (7.4-11.4); MONOCYTES % (AUTO) 15.7 %; NEUTROPHILS % (AUTO) 70.7 %; PLT - PLATELET COUNT 146 10^3/uL (130-450); RED BLOOD COUNT 5.58 10^6/uL (4.70-6.10); RED CELL DISTRIBUTION WIDTH 14.9 % (12.0-15.0); WHITE BLOOD COUNT 10.6 x10^3/uL (4.8-10.8)
[2023-10-27 15:17] LABS: ABNORMAL LYMPHS % (MANUAL) 0 %
[2023-10-27] MEDS: methylPREDNISolone SUCCINATE 125 MG/2 ML VIAL IVP STA (15:17)
[2023-10-27 15:30] LABS: ALBUMIN 3.9 g/dL (3.2-5.5); ALBUMIN/GLOBULIN RATIO 1.4 (1.0-2.2); ALKALINE PHOSPHATASE 87 IU/L (42-121); ALT ALANINE AMINOTRANSFERASE 19 IU/L (10-60); AST ASPARTATE AMINOTRANSFERASE 21 IU/L (10-42); BILIRUBIN,TOTAL 0.6 mg/dL (0.2-1.0); BUN - BLOOD UREA NITROGEN 32 mg/dL (6-20); CALCIUM 9.5 mg/dL (8.5-10.3); CARBON DIOXIDE - CO2 34 mmol/L (21-32); CHLORIDE 99 mmol/L (101-111); CREATININE 1.3 mg/dL (0.6-1.3); GFR - MDRD 53 (>89); GLUCOSE 84 mg/dL (74-104); POTASSIUM 4.9 mmol/L (3.5-4.5); SODIUM 135 mmol/L (135-145); TOTAL PROTEIN 6.7 g/dL (6.4-8.9)
[2023-10-27 15:31] LABS: LIPASE < 10 U/L (11-82)
--- NOTE | 2023-10-27 15:36 | XRAY Report ---
PROCEDURE: Chest 2V INDICATIONS: SOa, COPD TECHNIQUE: 2 views of the chest were acquired. COMPARISON: None. FINDINGS: Surgical changes and devices: None. Lungs and pleura: Progression of interstitial reticulonodular prominence most prominent the bibasila r regions. No pleural effusion. No pneumothorax. Mediastinum: Mediastinal contours appear normal. Heart size is normal. Bones and chest wall: No suspicious bony lesions. Overlying soft tissues appear unremarkable. IMPRESSION: Progression of reticulonodular interstitial opacities of the bibasilar regions likely reflecting inte rstitial lung disease with atypical infection not excluded. Reviewed by: Azar Murphy MD on 10/27/2023 2:34 PM [facility] Approved by: Azar Murphy MD on 10/27/2023 2:34 PM [facility] Station ID: [id number]
[2023-10-27 15:37] LABS: BAND NEUTROPHILS % (MANUAL) 1 %; LYMPHOCYTES # (MANUAL) 1.5 10^3/uL (1.5-3.5); LYMPHOCYTES % (MANUAL) 11 %; MONOCYTES # (MANUAL) 1.5 10^3/uL (0.0-1.0); NEUTROPHILS # (MANUAL) 7.6 10^3/uL (1.5-6.6); REACTIVE LYMPHS % (MANUAL) 3 %
[2023-10-27 15:38] LABS: DIFFERENTIAL COMMENT MANUAL DIFFERENTIAL; PLATELET ESTIMATE, MANUAL NORMAL (130-450,000) (NORMAL); PLATELET MORPHOLOGY NORMAL APPEARANCE (NORMAL); RBC MORPHOLOGY (MULTIPLE) 1+ MACROCYTOSIS (NORMAL)
--- NOTE | 2023-10-27 15:40 | ED Physician Documentation ---
PD HPI DYSPNEA - Stated complaint Stated Complaint: SOA - Chief complaint Chief Complaint: Resp - Additional information Additional information: 83-year-old male with history of hypertension, hypercholesterolemia, peripheral vascular disease, advanced COPD, tobacco dependence currently smokes about 10 cigarettes a day has been smoking since mid 50s, GERD, BPH, kidney stones, urinary retention, osteoarthritis. Patient presents to the emergency department via EMS for shortness of breath. He was seen at walk-in clinic yesterday and was started on antibiotics (unsure what kind at this time) for urinary tract infection. He said since he has been home he has been feeling increased generalized malaise unwell. He uses oxygen intermittently does not sleep with it every night but said last night he slept with about 2 to 3 L because he was having such a hard time catching his breath. When medics arrived he was found to be at 78% on room air he was given a DuoNeb and route and did report significant alleviation of symptoms but is still quite hypoxic. Patient unsure if he is not having any fevers but he has been experiencing intermittent chills. PD PAST MEDICAL HISTORY - Past Medical History Past Medical History: Yes Cardiovascular: Hypertension, High cholesterol, Peripheral Vascular Disease Respiratory: Asthma, COPD Neuro: None Endocrine/Autoimmune: None GI: GERD, Colon polyps, Diverticulitis : Benign prostate hypertrophy, Retention, Kidney stones, Other HEENT: Chronic vision loss Psych: None Musculoskeletal: Osteoarthritis, Fatigue Derm: Other - Past Surgical History Past Surgical History: Yes General: Colonoscopy, EGD, Other Ortho: Knee replacement, Carpal Tunnel surgery Cardiovascular: AAA Derm: Skin cancer surgery - Present Medications Home Medications: Ambulatory Orders Medication Instructions Recorded Confirmed Aspirin [Aspir 81] 81 mg PO DAILY 05/03/13 10/27/23 Cetirizine HCl [Zyrtec] 10 mg PO DAILY 05/03/13 10/27/23 Simvastatin [Zocor] 20 mg PO QPM 05/03/13 10/27/23 Tiotropium [Spiriva] 1 puffs INH DAILY 05/03/13 10/27/23 Fluticasone/Vilanterol [Breo 1 each IH DAILY 10/19/17 10/27/23 Ellipta 100-25 Mcg Inhalr] hydroCHLOROthiazide 25 mg PO DAILY 10/19/17 10/27/23 [Hydrochlorothiazide] Albuterol Sulf [Ventolin Hfa 1 - 2 puffs INH Q4HR PRN 11/27/22 10/27/23 Inhaler] Mirabegron [Myrbetriq] 50 mg PO DAILY 11/27/22 10/27/23 Potassium Chloride [Klor-Con M10] 10 meq PO DAILY 11/27/22 10/27/23 Acetaminophen [Tylenol] 650 mg PO Q4HR PRN tab 11/30/22 10/27/23 Montelukast [Singulair] 10 mg PO QPM #30 tab 11/30/22 10/27/23 guaiFENesin [Mucinex] 600 mg PO BID tab 11/30/22 10/27/23 levoFLOXacin [Levaquin] 750 mg PO QD #6 tablet 11/30/22 10/27/23 Ferrous Sulfate [Feosol] 325 mg PO DAILY 10/27/23 10/27/23 Magnesium Oxide [Magnesium] 500 mg PO DAILY 10/27/23 10/27/23 Pantoprazole Sodium 20 mg PO BID 10/27/23 10/27/23 Telmisartan 40 mg PO DAILY 10/27/23 10/27/23 - Allergies Allergies/Adverse Reactions: Allergies Allergy/AdvReac Type Severity Reaction Status Date / Time bupropion Allergy Unknown Verified 10/27/23 14:54 fluticasone propionate * Allergy split Verified 11/26/22 11:15 [From Advair Diskus] vision salmeterol xinafoate * Allergy split Verified 11/26/22 11:15 [From Advair Diskus] vision - Social History Does the pt smoke?: Yes Smoking Status: Current every day smoker Does the pt drink ETOH?: Yes Does the pt have substance abuse?: No - Immunizations Immunizations are current?: No Immunizations: Other immun not current PD ED PE NORMAL - Vitals Vital signs reviewed: Yes - General General: Alert and oriented X 3, Well developed/nourished, Other (Increased work of breathing) - Cardiac Cardiac: No murmur, No gallop, Strong equal pulses, Other (Tachycardic) - Respiratory Respiratory: Other (Bilateral wheeze and rhonchi) - Abdomen Abdomen: Normal bowel sounds, Soft, Non tender, No organomegaly - Back Back: No CVA TTP - Derm Derm: Normal color, Warm and dry, No rash - Extremities Extremities: No edema, No calf tenderness / cord - Neuro Neuro: Alert and oriented X 3, life skills worker 2-12 intact, No motor deficit, No sensory deficit, Normal speech - Psych Psych: Normal mood, Normal affect Results - Vitals Vitals: Vital Signs - 24 hr 10/27/23 10/27/23 10/27/23 14:55 15:13 16:00 Temperature 37.2 C Heart Rate 104 H 98 102 H Respiratory 24 24 26 H Rate Blood Pressure 112/101 H 98/52 L 144/80 H O2 Saturation 86 L 95 87 L If not protocol 4 4 : Oxygen Flow, liters/minute 10/27/23 10/27/23 16:44 17:02 Temperature Heart Rate 102 H 106 H Respiratory 28 H 30 H Rate Blood Pressure 109/49 L 119/67 O2 Saturation 92 89 L If not protocol 4 4 : Oxygen Flow, liters/minute Oxygen O2 Source Nasal cannula Oxygen Flow Rate 4 - Labs Labs: Laboratory Tests 10/27/23 10/27/23 10/27/23 15:05 15:05 15:10 WBC 10.6 RBC 5.58 Hgb 18.0 Hct 57.0 H MCV 102.2 H MCH 32.3 H MCHC 31.6 L RDW 14.9 Plt Count 146 MPV 8.9 Neut # (Auto) Not Reportable Lymph # (Auto) Not Reportable [place]ho # (Auto) Not Reportable Eos # (Auto) Not Reportable Baso # (Auto) Not Reportable Absolute Nucleated RBC Not Reportable Total Counted 100 Band Neuts % (Manual) 1 Reactive Lymphs % (Man) 3 Abnorm Lymph % (Manual) 0 Nucleated RBC % Not Reportable Neutrophils # (Manual) 7.6 H Lymphocytes # (Manual) 1.5 Monocytes # (Manual) 1.5 H Eosinophils # (Manual) 0.0 Basophils # (Manual) 0.0 Differential Comment MANUAL DIFFERENTIAL Platelet Estimate NORMAL (130-450,000) Platelet Morphology NORMAL APPEARANCE RBC Morph Micro Appear 1+ MACROCYTOSIS Sodium 135 Potassium 4.9 H Chloride 99 L Carbon Dioxide 34 H Anion Gap 2.0 L BUN 32 H Creatinine 1.3 Estimated GFR (MDRD) 53 L Glucose 84 Calcium 9.5 Magnesium 2.0 Total Bilirubin 0.6 AST 21 ALT 19 Alkaline Phosphatase 87 Total Protein 6.7 Albumin 3.9 Globulin 2.8 Albumin/Globulin Ratio 1.4 Lipase < 10 L Nasal Adenovirus (PCR) NOT DETECTED Nasal B. parapertussis DNA (PCR) NOT DETECTED Nasal Coronavir 229E PCR NOT DETECTED Nasal Coronavir HKU1 PCR NOT DETECTED Nasal Coronavir NL63 PCR NOT DETECTED Nasal Coronavir OC43 PCR NOT DETECTED Nasal Enterovir/Rhinovir PCR NOT DETECTED Nasal Influenza B PCR NOT DETECTED Nasal Influenza A PCR NOT DETECTED Nasal Parainfluen 1 PCR NOT DETECTED Nasal Parainfluen 2 PCR NOT DETECTED Nasal Parainfluen 3 PCR NOT DETECTED Nasal Parainfluen 4 PCR NOT DETECTED Nasal RSV (PCR) NOT DETECTED Nasal B.pertussis DNA PCR NOT DETECTED Nasal C.pneumoniae (PCR) NOT DETECTED Raymundo Human Metapneumo PCR NOT DETECTED Nasal M.pneumoniae (PCR) NOT DETECTED Nasal SARS-CoV-2 (PCR) NOT DETECTED - Rads (name of study) 2V Chest x-ray Relevant Findings:: Final report received, EMP independent interpretation of test, Other (Progression of reticulonodular interstitial opacities of the bibasilar regions most likely interstitial lung disease) CT angio chest Relevant Findings:: Final report received, EMP independent interpretation of test, Other (No pulmonary embolism, right lower lobe infiltrate, increased interstitial thickening, advanced emphysema changes) PD Medical Decision Making - ED course ED course: 83-year-old male here with shortness of breath, differentials include pneumonia, sepsis, pyelonephritis, COPD exacerbation. Because of patient's tachycardia age and dyspnea could not rule out pulmonary embolism because of this a CT angio was complete and there was no pulmonary embolus identified. Chest x-ray revealed ongoing bibasilar infiltrates. CT revealed increasing interstitial thickening and fibrosis with traction bronchiectasis as well as advanced emphysema to the lungs. While patient was in the emergency department he was given 1 L of IV fluids, 2 sets of blood cultures were collected in and out for urinalysis for cultures was also complete. He was given 125 mg of Solu-Medrol and started on IV doxycycline. Patient said if it was advisable for him to be admitted for hospitalization given his ongoing hypoxia and COPD exacerbation he said that he would be amenable to do so. Labs were complete no leukocytosis he appears to have most likely anemia of chronic inflammation, hematocrit 57.0, MCV 102.2, MCH 32.3. He appears to be hyperkalemic, potassium 4.9, carbon dioxide 34 BUN elevated at 32, GFR 53 respiratory panel negative. I spoke with Dr. Richards he said at this point in time he would be agreeable to admit patient for hospitalization to help with his COPD exacerbation and monitoring of blood cultures. Greatly appreciate his acceptance to the hospital for patient to recover from COPD exacerbation and UTI. Departure - Departure Disposition: 66 [facility] DC/Xfer Clinical Impression: COPD exacerbation, Hyperkalemia, Acute kidney injury UTI (urinary tract infection) Qualifiers: Hematuria presence: without hematuria Forms: PCP List
[2023-10-27] MEDS ORDERED: iohexoL-300 100 ML VIAL ONE (16:01)
[2023-10-27] MEDS: SODIUM CHLORIDE 0.9% 1,000 ML IV ONE (16:05)
[2023-10-27 16:11] LABS: CORONAVIRUS 229E-RESP PCR NOT DETECTED; CORONAVIRUS HKU1-RESP PCR NOT DETECTED; CORONAVIRUS NL63-RESP PCR NOT DETECTED; CORONAVIRUS OC43-RESP PCR NOT DETECTED; HUMAN METAPNEUMOVIRUS NOT DETECTED; SARS-CoV-2 -RESP PCR PANEL NOT DETECTED
[2023-10-27 16:12] LABS: B. PARAPERTUSSIS- RESP PCR PAN NOT DETECTED; B. PERTUSSIS- RESP PCR PANEL NOT DETECTED; C. PNEUMONIAE- RESP PCR PANEL NOT DETECTED; INFLUENZA A- RESP PCR PANEL NOT DETECTED; INFLUENZA B - RESP PCR PANEL NOT DETECTED; M. PNEUMONIAE- RESP PCR PANEL NOT DETECTED; PARAINFLUENZA VIRUS 1 NOT DETECTED; PARAINFLUENZA VIRUS 2 NOT DETECTED; PARAINFLUENZA VIRUS 3 NOT DETECTED; PARAINFLUENZA VIRUS 4 NOT DETECTED; RHINOVIRUS/ENTEROVIRUS NOT DETECTED; RSV- RESP PCR PANEL NOT DETECTED
--- NOTE | 2023-10-27 16:41 | CT Report ---
PROCEDURE: Angio Chest INDICATIONS: SOA, r/o PE CONTRAST: 80ml omni 300 TECHNIQUE: After the administration of intravenous contrast, 2 mm axial images were acquired from the pulmonary apices to the posterior costophrenic angles during the arterial phase. In addition, 1 mm lung kernel and 5 mm soft tissue kernel reconstructions were performed. 3-dimensional coronal oblique maximum int ensity projection (MIP) reformats, 8 mm axial MIP, and 5 mm coronal and sagittal MPR reformats were t hen performed through the thorax. For radiation dose reduction, the following was used: automated exp osure control, adjustment of mA and/or kV according to patient size. COMPARISON: CT September 23, 2022 FINDINGS: Image quality: Excellent. Large vessels: No filling defects within the opacified pulmonary arteries, accounting for motion and contrast timing. Small fusiform aneurysm at the top of the aortic arch with peripheral calcifications consistent with chronic dilation measuring up to 4.4 cm Lungs and pleura: No consolidation. No pleural effusions. No pneumothorax. Extensive paraseptal and centrilobular emphysematous changes throughout the bilateral lungs with mild interstitial thickening most prominent in the bibasilar regions. No honeycombing. Right lower lobe infiltrate and groundglass opacities. Mild traction bronchiectasis and mucous plugging within the right lower lobe. Mediastinum: Heart size is normal. No pericardial effusion. No large vessel abnormality. No mediastin al adenopathy by size criteria. Chest wall and lower neck: Right 1.5 cm thyroid nodule. No axillary or supraclavicular adenopathy by size. Bones: No aggressive osseous abnormality. Upper Abdomen: Unremarkable. IMPRESSION: 1.No pulmonary embolus. 2.Right lower lobe infiltrate. 3.Increasing interstitial thickening and fibrosis with traction bronchiectasis. 4.Advanced emphysematous changes of the lungs. 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 6.Small right thyroid nodule measuring 1.5 cm consider routine ultrasound. Reviewed by: Azar Murphy MD on 10/27/2023 3:40 PM AKVELMA Approved by: Azar Murphy MD on 10/27/2023 3:40 PM AKVELMA Station ID: [id number]
[2023-10-27] MEDS: DOXYCYCLINE INJ 100 MG in SODIUM CHLORIDE 0.9% MINIBAG 100 ML IV STA (16:59)
[2023-10-27] MEDS ORDERED: ACETAMINOPHEN 325 MG TABLET PO PRN ×2 (17:03→17:05)
[2023-10-27] MEDS ORDERED: ONDANSETRON 4 MG/2 ML VIAL IVP PRN (17:05)
[2023-10-27] MEDS ORDERED: SODIUM CHLORIDE FLUSH 0.9% 10 ML SYRINGE IVP PRN (17:05)
[2023-10-27] MEDS ORDERED: ONDANSETRON ODT 4 MG TABLET TL PRN (17:05)
--- NOTE | 2023-10-27 17:12 | HISTORY & PHYSICAL EXAMINATION ---
Chief Complaint - Chief Complaint Chief Complaint: Shortness of breath, weakness History of Present Illness - Admitted From Admitted From:: ED - History Obtained From Records Reviewed: Yes History obtained from: Patient, EMR Exam Limitations: None - History of Present Illness HPI Comment/Other: Patient is an 83-year-old male with a past medical history of ESBL, COPD with intermittent use of oxygen, peripheral vascular disease with aorto iliac stent, hypertension, BPH requiring intermittent catheterization, GERD who presented to the ED due to complaints of shortness of breath and weakness that had been progressing over the last 2 days. Patient presented to the urgent care clinic where he was given a diagnosis of urinary tract infection and started on oral levofloxacin. He reports that last night he required oxygen while he slept due to his difficulty breathing. He reports continued smoking approximately 10 cigarettes daily. EMS was called and noted that he was saturating in the 70s on room air. Upon presentation to the ED, a CT chest was performed which revealed evidence of emphysema. There were no evidence of pulmonary embolus or pneumonia. He was given a dose of IV methylprednisolone as well as a nebulizer. He was saturating in the high 90s on 4 L via nasal cannula. During my evaluation, patient denied any wheezing, fever, chills. He did endorse difficulty breathing. Reports that he lives alone. He is DNR. History - Past Medical History Cardiovascular: reports: Hypertension, High cholesterol, Peripheral Vascular Disease Respiratory: reports: Asthma, COPD Neuro: reports: None Endocrine/Autoimmune: reports: None GI: reports: GERD, Colon polyps, Diverticulitis : reports: Benign prostate hypertrophy, Retention, Kidney stones, Other HEENT: reports: Chronic vision loss Psych: reports: None Musculoskeletal: reports: Osteoarthritis, Fatigue Derm: reports: Other MRSA Hx?: No - Past Surgical History General: reports: Colonoscopy, EGD, Other Ortho: reports: Knee replacement, Carpal Tunnel surgery Cardiovascular: reports: AAA Derm: reports: Skin cancer surgery - Family & Social History Living Situation: Alone Social History Notes: He is a smoker of many years, has been tapering down to quit with a planned quit date of 11/28/2022, so he says he will quit now. No alcohol abuse. Lives alone. His sister calls him every day. His niece and nephew check on him often. He drives a car. - Substance History Use: Uses substance without health or social issues: Tobacco Meds/Allgy - Home Medications Home Medications: Ambulatory Orders Medication Instructions Recorded Confirmed Aspirin [Aspir 81] 81 mg PO DAILY 05/03/13 10/27/23 Cetirizine HCl [Zyrtec] 10 mg PO DAILY 05/03/13 10/27/23 Simvastatin [Zocor] 20 mg PO QPM 05/03/13 10/27/23 Tiotropium [Spiriva] 1 puffs INH DAILY 05/03/13 10/27/23 Fluticasone/Vilanterol [Breo 1 each IH DAILY 10/19/17 10/27/23 Ellipta 100-25 Mcg Inhalr] hydroCHLOROthiazide 25 mg PO DAILY 10/19/17 10/27/23 [Hydrochlorothiazide] Albuterol Sulf [Ventolin Hfa 1 - 2 puffs INH Q4HR PRN 11/27/22 10/27/23 Inhaler] Mirabegron [Myrbetriq] 50 mg PO DAILY 11/27/22 10/27/23 Potassium Chloride [Klor-Con M10] 10 meq PO DAILY 11/27/22 10/27/23 Acetaminophen [Tylenol] 650 mg PO Q4HR PRN tab 11/30/22 10/27/23 Montelukast [Singulair] 10 mg PO QPM #30 tab 11/30/22 10/27/23 guaiFENesin [Mucinex] 600 mg PO BID tab 11/30/22 10/27/23 levoFLOXacin [Levaquin] 750 mg PO QD #6 tablet 11/30/22 10/27/23 Ferrous Sulfate [Feosol] 325 mg PO DAILY 10/27/23 10/27/23 Magnesium Oxide [Magnesium] 500 mg PO DAILY 10/27/23 10/27/23 Pantoprazole Sodium 20 mg PO BID 10/27/23 10/27/23 Telmisartan 40 mg PO DAILY 10/27/23 10/27/23 - Allergies Allergies/Adverse Reactions: Allergies Allergy/AdvReac Type Severity Reaction Status Date / Time bupropion Allergy Unknown Verified 10/27/23 14:54 fluticasone propionate * Allergy split Verified 11/26/22 11:15 [From Advair Diskus] vision salmeterol xinafoate * Allergy split Verified 11/26/22 11:15 [From Advair Diskus] vision Review of Systems - Constitutional Constitutional: reports: Fatigue, Weakness. denies: Fever, Chills - Cardiovascular Cariovascular: reports: Exertional dyspnea, Decr. exercise tolerance. denies: Irregular heart rate, Palpitations, Chest pain, Edema, Lightheadedness, Syncope - Respiratory Respiratory: reports: SOB at rest, SOB with exertion. denies: Cough, Sputum production, Wheezing - Gastrointestinal Gastrointestinal: denies: Abdominal pain, Abdominal distention - All Other Systems All Other Systems: reports: Reviewed and negative Prior Level of Functionality: Resides home alone in [place]. Exam - Vital Signs Reviewed Vital Signs: Yes Vital Signs: Vital Signs x48h Temp Pulse Resp BP Pulse Ox O2 Flow Rate 10/27/23 17:02 106 H 30 H 119/67 89 L 4 10/27/23 16:44 102 H 28 H 109/49 L 92 4 10/27/23 16:00 102 H 26 H 144/80 H 87 L 4 10/27/23 15:13 98 24 98/52 L 95 4 10/27/23 14:55 37.2 C 104 H 24 112/101 H 86 L - Physical Exam General Appearance: positive: Alert, Mild distress Respiratory: positive: No respiratory distress, Breath sounds nml, Wheezes Cardiovascular: positive: Regular rate & rhythm, No murmur, No gallop Extremities: positive: Non-tender, Full ROM, No pedal edema Neurologic/Psychiatric: positive: Oriented x3, CN's nml (2-12) Sepsis Event Note (H) - Evaluation Current Stage of Sepsis: Ruled out Conclusion/Plan - Problem List (1) COPD exacerbation Conclusion/Plan: --CT scan showing evidence of emphysema. Will start him on treatment with DuoNeb as well as prednisone 40 mg daily. -- He does not chronically use oxygen at home. Will attempt to wean. He was on 4 L via nasal cannula in the ED saturating in the high 90s. Anticipate we can decrease the amount of oxygen he is on when he gets to the floor. Goal is to maintain an oxygen saturation between 88 and 93%. (2) PVD (peripheral vascular disease) Conclusion/Plan: --Continue him on aspirin and statin. Prior history of an aortic iliac stent. (3) History of ESBL E. coli infection Conclusion/Plan: --Prior history of Klebsiella ESBL infection in his urine. Patient does self catheterize. --Will continue him on oral levofloxacin. A urine culture has been ordered. --He denies any current urinary symptoms. (4) Hypertension Conclusion/Plan: --Holding home antihypertensives. (5) Urinary retention due to benign prostatic hyperplasia Conclusion/Plan: --Patient self catheterizes twice daily. - Lab Results Fish Bones: 10/27/23 15:05 10/27/23 15:05 - Diagnostic Imaging Results Diagnostic Imaging Results: positive: Final report reviewed
[2023-10-27] MEDS: iohexoL-300 100 ML VIAL IVP ONE (17:34)
[2023-10-27 17:40] LABS: BILIRUBIN,URINE SMALL (NEGATIVE); GLUCOSE, URINE (UA) NEGATIVE (NEGATIVE); KETONES,URINE (UA) NEGATIVE (NEGATIVE); LEUKOCYTE ESTERASE, URINE SMALL (NEGATIVE); NITRITE,URINE NEGATIVE (NEGATIVE); OCCULT BLOOD,URINE NEGATIVE (NEGATIVE); PH,URINE 5.5 PH (5.0-7.5); PROTEIN,URINE NEGATIVE (NEGATIVE); UROBILINOGEN,URINE 0.2 (NORMAL) E.U./dL (NORMAL)
[2023-10-27 17:41] LABS: CLARITY,URINE CLEAR (CLEAR)
[2023-10-27 17:47] LABS: BACTERIA,URINE Rare /HPF (None Seen); RBC,URINE 0-5 /HPF (0-5); SQUAMOUS EPITHELIAL CELL,UR RARE Squamous (<= Few); WBC,URINE >25 /HPF (0-3)
[2023-10-27] MEDS: levoFLOXacin 250 MG TABLET PO SCH (18:53)
[2023-10-27] MEDS: SODIUM ZIRCONIUM CYCLOSILICATE 5 GM PACKET PO ONE (18:53)
[2023-10-27] MEDS: HYDROcod/ACETAM 10 MG/325 MG TABLET PO PRN (19:44)
[2023-10-27] MEDS: ATORVASTATIN 10 MG TABLET PO SCH (21:14)
[2023-10-27] MEDS: MONTELUKAST 10 MG TABLET PO SCH (21:15)
[2023-10-27] MEDS: guaiFENesin 600 MG TABLET PO SCH (21:15)
[2023-10-27] MEDS: IPRATROPIUM/ALBUTEROL 3 ML NEB INH SCH (21:25)
[2023-10-28] MEDS: SODIUM CHLORIDE FLUSH 0.9% 10 ML SYRINGE IVP SCH (00:08)
[2023-10-28 05:37] LABS: BASOPHILS % (AUTO) 0.1 %; HCT - HEMATOCRIT 55.9 % (42.0-52.0); HGB - HEMOGLOBIN 17.4 g/dL (14.0-18.0); LYMPHOCYTES # (AUTO) 0.5 10^3/uL (1.5-3.5); LYMPHOCYTES % (AUTO) 6.4 %; MEAN CORPUSCULAR HEMOGLOBIN 32.3 pg (27.0-31.0); MEAN CORPUSCULAR HGB CONC 31.1 g/dL (32.0-36.0); MEAN CORPUSCULAR VOLUME 103.9 fL (80.0-94.0); MEAN PLATELET VOLUME 9.3 fL (7.4-11.4); MONOCYTES # (AUTO) 0.4 10^3/uL (0.0-1.0); MONOCYTES % (AUTO) 4.9 %; NEUTROPHILS # (AUTO) 6.5 10^3/uL (1.5-6.6); NEUTROPHILS % (AUTO) 87.9 %; PLT - PLATELET COUNT 145 10^3/uL (130-450); RED BLOOD COUNT 5.38 10^6/uL (4.70-6.10); RED CELL DISTRIBUTION WIDTH 14.8 % (12.0-15.0); WHITE BLOOD COUNT 7.4 x10^3/uL (4.8-10.8)
[2023-10-28 05:57] LABS: CALCIUM 9.2 mg/dL (8.5-10.3); CREATININE 1.3 mg/dL (0.6-1.3); POTASSIUM 4.8 mmol/L (3.5-4.5)
[2023-10-28] MEDS: PANTOPRAZOLE 40 MG TABLET PO SCH (06:02)
--- NOTE | 2023-10-28 08:37 | PROVIDER PROGRESS NOTE ---
Assessment/Plan - Problem List (1) COPD exacerbation Assessment/Plan: (1) COPD exacerbation Conclusion/Plan: --CT scan showing evidence of emphysema. Will start him on treatment with DuoNeb as well as prednisone 40 mg daily. --Currently on minimal settings of HFNC. Goal is to maintain an oxygen saturation between 88 and 93%. Hopeful to wean him back to oxymask or NC today. (2) PVD (peripheral vascular disease) Conclusion/Plan: --Continue him on aspirin and statin. Prior history of an aortic iliac stent. (3) History of ESBL E. coli infection Conclusion/Plan: --Prior history of Klebsiella ESBL infection in his urine. Patient does self catheterize. --Will continue him on oral levofloxacin. A urine culture has been ordered. --He denies any current urinary symptoms. (4) Hypertension Conclusion/Plan: --Holding home antihypertensives. (5) Urinary retention due to benign prostatic hyperplasia Conclusion/Plan: --Patient self catheterizes twice daily. Dispo: Inpatient. He will need a PT/OT evaluation due to his weakness. He lives home alone. - Current Meds Current Meds: Current Medications Generic Name Dose Route Start Last Admin Trade Name Freq PRN Reason Stop Dose Admin Hydrocodone Bitart/Acetaminophen 1 tab 10/27/23 17:05 10/27/23 19:44 Hydrocod/Acetam 10 Mg/325 Mg Tablet PO 1 tab Q4HR PRN Administration Pain 8 to 10 Albuterol/Ipratropium 3 ml 10/27/23 21:00 10/28/23 07:24 Ipratropium/Albuterol 3 Ml Neb INH 3 ml QID MICHAEL Administration Atorvastatin Calcium 10 mg 10/27/23 21:00 10/27/23 21:14 Atorvastatin 10 Mg Tablet PO 10 mg QPM MICHAEL Administration Guaifenesin 600 mg 10/27/23 21:00 10/27/23 21:15 Guaifenesin 600 Mg Tablet PO 600 mg BID MICHAEL Administration Levofloxacin 750 mg 10/27/23 18:00 10/27/23 18:53 Levofloxacin 250 Mg Tablet PO 750 mg Q24H MICHAEL Administration Montelukast Sodium 10 mg 10/27/23 21:00 10/27/23 21:15 Montelukast 10 Mg Tablet PO 10 mg QPM MICHAEL Administration Pantoprazole Sodium 40 mg 10/28/23 07:00 10/28/23 06:02 Pantoprazole 40 Mg Tablet PO 40 mg QDAC MICHAEL Administration Sodium Chloride 10 ml 10/28/23 01:00 10/28/23 00:08 Sodium Chloride Flush 0.9% 10 Ml Syringe IVP 10 ml 0100,0900,1700 MICHAEL Administration - Lab Result Fish Bone Diagrams: 10/28/23 05:14 10/28/23 05:14 - Additional Planning My Orders: My Active Orders 10/27/23 Dinner Regular Diet [DIET] 10/27/23 17:05 Activity Orders [RC] Q2HR IO [RC] IOSHIFT Incentive Spirometry - RT [RC] .TID Initiate Bowel Care Protocol [RC] .protocol Initiate Line Care Protocol [RC] QSHIFT Initiate Personal Care Protoco [RC] .protocol Oxygen Therapy [RC] .PRN Vital Signs [RC] 0800,1600,0000 Acetaminophen [Tylenol] 650 mg PO Q4HR PRN HYDROcodone/ACET 10/325 [[place] 10 mg/325 mg] 1 tab PO Q4HR PRN Ondansetron Inj [Zofran Inj] 4 mg IVP Q6HR PRN Ondansetron Odt [Zofran Odt] 4 mg TL Q6HR PRN Sodium Chloride Flush 0.9% [Normal Saline Flush 0.9%] 10 ml IVP PRN PRN Code Status [OTHERS] Routine Condition of Patient [OTHERS] Routine DVT Prophylaxis [OTHERS] Routine 10/27/23 17:06 Evaluate and Treat OT [OT] Routine Evaluate and Treat PT [PT] Routine 10/27/23 17:08 Straight Catheter Insertion [RC] ENDSHIFT 10/27/23 18:00 levoFLOXacin [Levaquin] 750 mg PO Q24H 10/27/23 21:00 Atorvastatin [Lipitor] 10 mg PO QPM Ipratropium/Albuterol [Duoneb] 3 ml INH QID Montelukast [Singulair] 10 mg PO QPM guaiFENesin [Mucinex] 600 mg PO BID 10/27/23 21:28 RT [Nebulizer/MDI Tx.] [RC] .QID 10/28/23 01:00 Sodium Chloride Flush 0.9% [Normal Saline Flush 0.9%] 10 ml IVP 0100,0900,1700 10/28/23 07:00 Pantoprazole [Protonix] 40 mg PO QDAC 10/28/23 08:00 Magnesium Oxide [Mag Ox] 400 mg PO DAILYWM 10/28/23 09:00 Aspirin EC [Ecotrin] 81 mg PO DAILY Enoxaparin [Lovenox] 40 mg SUBQ DAILY Ferrous Sulfate [Feosol] 325 mg PO DAILY Loratadine [Claritin] 10 mg PO DAILY Potassium Chloride [Micro-K] 10 meq PO DAILY Solifenacin Succinate [Vesicare] 10 mg PO DAILY predniSONE [Deltasone] 40 mg PO DAILY 10/29/23 05:00 BMP - BASIC METABOLIC PANEL [CHEM] DAILYLAB CBC [CBC - COMP BLD CT W/AUTO DIFF] [HEME] DAILYLAB 10/30/23 05:00 BMP - BASIC METABOLIC PANEL [CHEM] DAILYLAB CBC [CBC - COMP BLD CT W/AUTO DIFF] [HEME] DAILYLAB 10/31/23 05:00 BMP - BASIC METABOLIC PANEL [CHEM] DAILYLAB CBC [CBC - COMP BLD CT W/AUTO DIFF] [HEME] DAILYLAB 11/01/23 05:00 BMP - BASIC METABOLIC PANEL [CHEM] DAILYLAB CBC [CBC - COMP BLD CT W/AUTO DIFF] [HEME] DAILYLAB Subjective - Subjective Patient Reports: Other (No acute concerns. He is on HFNC. Feels his breathing has improved. Saturating well. No fever or chills. Denies any abdominal or suprapubic pain.) Objective Vital Signs: Vital Signs - 24 hr 10/27/23 10/27/23 10/27/23 14:55 15:13 16:00 Temperature 37.2 C Heart Rate 104 H 98 102 H Heart Rate [ Monitoring electrodes] Respiratory 24 24 26 H Rate Blood Pressure 112/101 H 98/52 L 144/80 H Blood Pressure [Right Brachial artery] O2 Saturation 86 L 95 87 L If not protocol 4 4 : Oxygen Flow, liters/minute 10/27/23 10/27/23 10/27/23 16:44 17:02 17:34 Temperature Heart Rate 102 H 106 H 100 Heart Rate [ Monitoring electrodes] Respiratory 28 H 30 H 24 Rate Blood Pressure 109/49 L 119/67 134/73 H Blood Pressure [Right Brachial artery] O2 Saturation 92 89 L 89 L If not protocol 4 4 4 : Oxygen Flow, liters/minute 10/27/23 10/27/23 10/27/23 18:10 19:01 21:25 Temperature 37.5 C Heart Rate 98 Heart Rate [ 100 Monitoring electrodes] Respiratory 26 H 22 Rate Blood Pressure Blood Pressure 129/64 [Right Brachial artery] O2 Saturation 89 L If not protocol 2 4 25 : Oxygen Flow, liters/minute 10/27/23 10/28/23 10/28/23 23:38 00:00 07:27 Temperature 36.4 C L Heart Rate 81 Heart Rate [ 88 Monitoring electrodes] Respiratory 18 15 Rate Blood Pressure Blood Pressure 100/59 L [Right Brachial artery] O2 Saturation 86 L 94 If not protocol 25 25 : Oxygen Flow, liters/minute Oxygen O2 Source HHFNC Oxygen Flow Rate 4 I&O (Last 24 Hrs): Intake and Output Totals x24h 10/26/23 10/27/23 10/28/23 23:59 23:59 23:59 Intake Total 730 0 Output Total 300 Balance 430 0 General: Alert, Oriented x3, Cooperative, No acute distress Cardiovascular: Regular rate, Normal S1, Normal S2, No murmurs Respiratory: No respiratory distress, Breath sounds nml, Wheezes Abdomen: Normal bowel sounds, Soft, No tenderness, No hepatospenomegaly, No masses - Results Results: Laboratory Results WBC 7.4 x10^3/uL (4.8-10.8) 10/28/23 05:14 RBC 5.38 10^6/uL (4.70-6.10) 10/28/23 05:14 Hgb 17.4 g/dL (14.0-18.0) 10/28/23 05:14 Hct 55.9 % (42.0-52.0) H 10/28/23 05:14 MCV 103.9 fL (80.0-94.0) H 10/28/23 05:14 MCH 32.3 pg (27.0-31.0) H 10/28/23 05:14 MCHC 31.1 g/dL (32.0-36.0) L 10/28/23 05:14 RDW 14.8 % (12.0-15.0) 10/28/23 05:14 Plt Count 145 10^3/uL (130-450) 10/28/23 05:14 MPV 9.3 fL (7.4-11.4) 10/28/23 05:14 Neut # (Auto) 6.5 10^3/uL (1.5-6.6) 10/28/23 05:14 Lymph # (Auto) 0.5 10^3/uL (1.5-3.5) L 10/28/23 05:14 [place] # (Auto) 0.4 10^3/uL (0.0-1.0) 10/28/23 05:14 Eos # (Auto) 0.0 10^3/uL (0.0-0.7) 10/28/23 05:14 Baso # (Auto) 0.0 10^3/uL (0.0-0.1) 10/28/23 05:14 Absolute Nucleated RBC 0.00 x10^3/uL 10/28/23 05:14 Total Counted 100 10/27/23 15:05 Band Neuts % (Manual) 1 % (0-10) 10/27/23 15:05 Reactive Lymphs % (Man) 3 % 10/27/23 15:05 Abnorm Lymph % (Manual) 0 % 10/27/23 15:05 Nucleated RBC % 0.0 /100WBC 10/28/23 05:14 Neutrophils # (Manual) 7.6 10^3/uL (1.5-6.6) H 10/27/23 15:05 Lymphocytes # (Manual) 1.5 10^3/uL (1.5-3.5) 10/27/23 15:05 Monocytes # (Manual) 1.5 10^3/uL (0.0-1.0) H 10/27/23 15:05 Eosinophils # (Manual) 0.0 10^3/uL (0-0.7) 10/27/23 15:05 Basophils # (Manual) 0.0 10^3/uL (0-0.1) 10/27/23 15:05 Differential Comment MANUAL DIFFERENTIAL 10/27/23 15:05 Platelet Estimate NORMAL (130-450,000) (NORMAL) 10/27/23 15:05 Platelet Morphology NORMAL APPEARANCE (NORMAL) 10/27/23 15:05 RBC Morph Micro Appear 1+ MACROCYTOSIS (NORMAL) 10/27/23 15:05 Sodium 136 mmol/L (135-145) 10/28/23 05:14 Potassium 4.8 mmol/L (3.5-4.5) H 10/28/23 05:14 Chloride 100 mmol/L (101-111) L 10/28/23 05:14 Carbon Dioxide 30 mmol/L (21-32) 10/28/23 05:14 Anion Gap 6.0 (6-13) 10/28/23 05:14 BUN 31 mg/dL (6-20) H 10/28/23 05:14 Creatinine 1.3 mg/dL (0.6-1.3) 10/28/23 05:14 Estimated GFR (MDRD) 53 (>89) L 10/28/23 05:14 Glucose 169 mg/dL (74-104) H 10/28/23 05:14 Calcium 9.2 mg/dL (8.5-10.3) 10/28/23 05:14 Magnesium 2.0 mg/dL (1.7-2.3) 10/27/23 15:05 Total Bilirubin 0.6 mg/dL (0.2-1.0) 10/27/23 15:05 AST 21 IU/L (10-42) 10/27/23 15:05 ALT 19 IU/L (10-60) 10/27/23 15:05 Alkaline Phosphatase 87 IU/L (42-121) 10/27/23 15:05 Total Protein 6.7 g/dL (6.4-8.9) 10/27/23 15:05 Albumin 3.9 g/dL (3.2-5.5) 10/27/23 15:05 Globulin 2.8 g/dL (2.1-4.2) 10/27/23 15:05 Albumin/Globulin Ratio 1.4 (1.0-2.2) 10/27/23 15:05 Lipase < 10 U/L (11-82) L 10/27/23 15:05 Urine Color DARK YELLOW 10/27/23 17:30 Urine Clarity CLEAR (CLEAR) 10/27/23 17:30 Urine pH 5.5 PH (5.0-7.5) 10/27/23 17:30 Ur Specific [place] >=1.030 (1.002-1.030) H 10/27/23 17:30 Urine Protein NEGATIVE mg/dL (NEGATIVE) 10/27/23 17:30 Urine Glucose (UA) NEGATIVE mg/dL (NEGATIVE) 10/27/23 17:30 Urine Ketones NEGATIVE mg/dL (NEGATIVE) 10/27/23 17:30 Urine Occult Blood NEGATIVE (NEGATIVE) 10/27/23 17:30 Urine Nitrite NEGATIVE (NEGATIVE) 10/27/23 17:30 Urine Bilirubin SMALL (NEGATIVE) H 10/27/23 17:30 Urine Urobilinogen 0.2 (NORMAL) E.U./dL (NORMAL) 10/27/23 17:30 Ur Leukocyte Esterase SMALL (NEGATIVE) H 10/27/23 17:30 Urine RBC 0-5 /HPF (0-5) 10/27/23 17:30 Urine WBC >25 /HPF (0-3) H 10/27/23 17:30 Ur Squamous Epith Cells RARE Squamous (<= Few) 10/27/23 17:30 Urine Bacteria Rare /HPF (None Seen) 10/27/23 17:30 Ur Microscopic Review INDICATED 10/27/23 17:30 Urine Culture Comments INDICATED 10/27/23 17:30 Nasal Adenovirus (PCR) NOT DETECTED 10/27/23 15:10 Nasal B. parapertussis DNA (PCR) NOT DETECTED 10/27/23 15:10 Nasal Coronavir 229E PCR NOT DETECTED 10/27/23 15:10 Nasal Coronavir HKU1 PCR NOT DETECTED 10/27/23 15:10 Nasal Coronavir NL63 PCR NOT DETECTED 10/27/23 15:10 Nasal Coronavir OC43 PCR NOT DETECTED 10/27/23 15:10 Nasal Enterovir/Rhinovir PCR NOT DETECTED 10/27/23 15:10 Nasal Influenza B PCR NOT DETECTED 10/27/23 15:10 Nasal Influenza A PCR NOT DETECTED 10/27/23 15:10 Nasal Parainfluen 1 PCR NOT DETECTED 10/27/23 15:10 Nasal Parainfluen 2 PCR NOT DETECTED 10/27/23 15:10 Nasal Parainfluen 3 PCR NOT DETECTED 10/27/23 15:10 Nasal Parainfluen 4 PCR NOT DETECTED 10/27/23 15:10 Nasal RSV (PCR) NOT DETECTED 10/27/23 15:10 Nasal B.pertussis DNA PCR NOT DETECTED 10/27/23 15:10 Nasal C.pneumoniae (PCR) NOT DETECTED 10/27/23 15:10 [place] Human Metapneumo PCR NOT DETECTED 10/27/23 15:10 Nasal M.pneumoniae (PCR) NOT DETECTED 10/27/23 15:10 Nasal SARS-CoV-2 (PCR) NOT DETECTED 10/27/23 15:10 - Procedures Procedures: Procedures ENDO RECTUM POLYPECTOMY (01/19/14) ENDOSC POLYPECTOMY OF LG INTEST (01/19/14) EXCISION OF ASCENDING COLON, ENDO (10/22/17) EXCISION OF SIGMOID COLON, ENDO (11/15/22) EXCISION OF STOMACH, ENDO, DIAGN (11/15/22) EXCISION OF TRANSVERSE COLON, ENDO (10/22/17) FLEXIBLE SIGMOIDOSCOPY (12/22/13) INSPECTION OF UPPER INTESTINAL TRACT, ENDO (10/22/17) Sepsis Event Note (H) - Evaluation Current Stage of Sepsis: Ruled out
[2023-10-28] MEDS ORDERED: TELMISARTAN 40 MG PO SCH (09:00)
[2023-10-28] MEDS ORDERED: hydroCHLOROthiazide 25 MG TABLET PO SCH (09:00)
[2023-10-28] MEDS ORDERED: POTASSIUM CHLORIDE 10 MEQ CAPSULE PO SCH (09:00)
[2023-10-28] MEDS: MAGNESIUM OXIDE 400 MG TABLET PO SCH (09:23)
[2023-10-28] MEDS: ASPIRIN EC 81 MG TABLET PO SCH (09:23)
[2023-10-28] MEDS: SOLIFENACIN SUCCINATE 5 MG TABLET PO SCH (09:23)
[2023-10-28] MEDS: ENOXAPARIN 40 MG/0.4 ML SYRINGE SUBQ SCH (09:23)
[2023-10-28] MEDS: LORATADINE 10 MG TABLET PO SCH (09:24)
[2023-10-28] MEDS: predniSONE 20 MG TABLET PO SCH (09:24)
[2023-10-28] MEDS: FERROUS SULFATE 325 MG TABLET PO SCH (09:31)
[2023-10-28] MEDS: SODIUM ZIRCONIUM CYCLOSILICATE 5 GM PACKET PO ONE (09:31)
[2023-10-29 05:26] LABS: BASOPHILS % (AUTO) 0.1 %; HCT - HEMATOCRIT 52.7 % (42.0-52.0); HGB - HEMOGLOBIN 17.3 g/dL (14.0-18.0); LYMPHOCYTES # (AUTO) 0.8 10^3/uL (1.5-3.5); LYMPHOCYTES % (AUTO) 6.5 %; MEAN CORPUSCULAR HEMOGLOBIN 33.5 pg (27.0-31.0); MEAN CORPUSCULAR HGB CONC 32.8 g/dL (32.0-36.0); MEAN CORPUSCULAR VOLUME 101.9 fL (80.0-94.0); MONOCYTES # (AUTO) 1.1 10^3/uL (0.0-1.0); MONOCYTES % (AUTO) 9.4 %; NEUTROPHILS # (AUTO) 9.8 10^3/uL (1.5-6.6); NEUTROPHILS % (AUTO) 83.4 %; PLT - PLATELET COUNT 158 10^3/uL (130-450); RED BLOOD COUNT 5.17 10^6/uL (4.70-6.10); RED CELL DISTRIBUTION WIDTH 14.5 % (12.0-15.0); WHITE BLOOD COUNT 11.7 x10^3/uL (4.8-10.8)
[2023-10-29 05:43] LABS: CALCIUM 9.4 mg/dL (8.5-10.3); CREATININE 1.2 mg/dL (0.6-1.3); POTASSIUM 5.3 mmol/L (3.5-4.5)
--- NOTE | 2023-10-29 08:53 | PROVIDER PROGRESS NOTE ---
Assessment/Plan - Problem List (1) COPD exacerbation Assessment/Plan: (1) COPD exacerbation Conclusion/Plan: --CT scan showing evidence of emphysema. Will start him on treatment with DuoNeb QID as well as prednisone 40 mg daily. Levofloxacin for pneumonia ppx. -- He does not chronically use oxygen at home but lately has been using it more frequently. I imagine he would benefit from chronic oxygen use. Currently on HFNC. --Subjectively feels improved, however still has demand for oxygen. --Would be a candidate for outpatient Palliative. (2) PVD (peripheral vascular disease) Conclusion/Plan: --Continue him on aspirin and statin. Prior history of an aortic iliac stent. (3) History of ESBL E. coli infection Conclusion/Plan: --Prior history of Klebsiella ESBL infection in his urine. Patient does self catheterize. --Will continue him on oral levofloxacin. A urine culture is pending. --He denies any current urinary symptoms. (4) Hypertension Conclusion/Plan: --Restarted home HCTZ 25 mg. Holding telmisartan. (5) Urinary retention due to benign prostatic hyperplasia Conclusion/Plan: --Patient self catheterizes twice daily. Dispo: Plan for PT/OT today. Remains on HFNC. Continuing to wean oxygen. - Current Meds Current Meds: Current Medications Generic Name Dose Route Start Last Admin Trade Name Freq PRN Reason Stop Dose Admin Hydrocodone Bitart/Acetaminophen 1 tab 10/27/23 17:05 10/28/23 20:04 Hydrocod/Acetam 10 Mg/325 Mg Tablet PO 1 tab Q4HR PRN Administration Pain 8 to 10 Albuterol/Ipratropium 3 ml 10/27/23 21:00 10/29/23 07:16 Ipratropium/Albuterol 3 Ml Neb INH 3 ml QID IMCHAEL Administration Aspirin 81 mg 10/28/23 09:00 10/28/23 09:23 Aspirin Ec 81 Mg Tablet PO 81 mg DAILY MICHAEL Administration Atorvastatin Calcium 10 mg 10/27/23 21:00 10/28/23 20:04 Atorvastatin 10 Mg Tablet PO 10 mg QPM MICHAEL Administration Enoxaparin Sodium 40 mg 10/28/23 09:00 10/28/23 09:23 Enoxaparin 40 Mg/0.4 Ml Syringe SUBQ 40 mg DAILY MICHAEL Administration Ferrous Sulfate 325 mg 10/28/23 09:00 10/28/23 09:31 Ferrous Sulfate 325 Mg Tablet PO 325 mg DAILY MICHAEL Administration Guaifenesin 600 mg 10/27/23 21:00 10/28/23 20:05 Guaifenesin 600 Mg Tablet PO 600 mg BID MICHAEL Administration Levofloxacin 750 mg 10/27/23 18:00 10/28/23 18:02 Levofloxacin 250 Mg Tablet PO 750 mg Q24H MICHAEL Administration Loratadine 10 mg 10/28/23 09:00 10/28/23 09:24 Loratadine 10 Mg Tablet PO 10 mg DAILY MICHAEL Administration Magnesium Oxide 400 mg 10/28/23 08:00 10/28/23 09:23 Magnesium Oxide 400 Mg Tablet PO 400 mg DAILYWM MICHAEL Administration Montelukast Sodium 10 mg 10/27/23 21:00 10/28/23 20:05 Montelukast 10 Mg Tablet PO 10 mg QPM MICHAEL Administration Pantoprazole Sodium 40 mg 10/28/23 07:00 10/29/23 06:59 Pantoprazole 40 Mg Tablet PO 40 mg QDAC MICHAEL Administration Prednisone 40 mg 10/28/23 09:00 10/28/23 09:24 Prednisone 20 Mg Tablet PO 11/02/23 08:59 40 mg DAILY MICHAEL Administration Sodium Chloride 10 ml 10/28/23 01:00 10/29/23 06:59 Sodium Chloride Flush 0.9% 10 Ml Syringe IVP 10 ml 0100,0900,1700 MICHAEL Administration Solifenacin 10 mg 10/28/23 09:00 10/28/23 09:23 Solifenacin Succinate 5 Mg Tablet PO 10 mg DAILY MICHAEL Administration - Lab Result Fish Bone Diagrams: 10/29/23 05:18 10/29/23 05:18 - Additional Planning My Orders: My Active Orders 10/28/23 08:00 Magnesium Oxide [Mag Ox] 400 mg PO DAILYWM 10/28/23 09:00 Aspirin EC [Ecotrin] 81 mg PO DAILY Enoxaparin [Lovenox] 40 mg SUBQ DAILY Ferrous Sulfate [Feosol] 325 mg PO DAILY Loratadine [Claritin] 10 mg PO DAILY Solifenacin Succinate [Vesicare] 10 mg PO DAILY predniSONE [Deltasone] 40 mg PO DAILY 10/28/23 15:28 [place] Insertion [RC] QSHIFT 10/29/23 09:00 Sodium Zirconium Cyclosilicate [Lokelma] 10 gm PO BID 10/30/23 05:00 BMP - BASIC METABOLIC PANEL [CHEM] DAILYLAB CBC [CBC - COMP BLD CT W/AUTO DIFF] [HEME] DAILYLAB 10/31/23 05:00 BMP - BASIC METABOLIC PANEL [CHEM] DAILYLAB CBC [CBC - COMP BLD CT W/AUTO DIFF] [HEME] DAILYLAB 11/01/23 05:00 BMP - BASIC METABOLIC PANEL [CHEM] DAILYLAB CBC [CBC - COMP BLD CT W/AUTO DIFF] [HEME] DAILYLAB Subjective - Subjective Patient Reports: Other (No acute complaints. Remains on HFNC. Denies any fever or chills. No suprapubic tenderness. Feels his breathing has improved quite a bit but still requiring decent amount of supplemental oxygen. SpO2 90%.) Objective Vital Signs: Vital Signs - 24 hr 10/28/23 10/28/23 10/28/23 14:12 15:52 17:51 Temperature 36.8 C Heart Rate 85 93 Heart Rate [ 85 Brachial] Respiratory 15 20 16 Rate Blood Pressure 109/61 [Right Brachial artery] O2 Saturation 89 L If not protocol 25 25 25 : Oxygen Flow, liters/minute 10/28/23 10/28/23 10/29/23 17:53 19:20 03:20 Temperature 36.7 C Heart Rate Heart Rate [ 82 Brachial] Respiratory 20 Rate Blood Pressure 117/68 [Right Brachial artery] O2 Saturation 90 L If not protocol 25 25 25 : Oxygen Flow, liters/minute 10/29/23 10/29/23 07:17 07:36 Temperature 37.0 C Heart Rate 90 Heart Rate [ 62 Brachial] Respiratory 22 20 Rate Blood Pressure 154/80 H [Right Brachial artery] O2 Saturation 90 L If not protocol 35 25 : Oxygen Flow, liters/minute Oxygen O2 Source HHFNC Oxygen Flow Rate 4 I&O (Last 24 Hrs): Intake and Output Totals x24h 10/27/23 10/28/23 10/29/23 23:59 23:59 23:59 Intake Total 730 1550 780 Output Total 300 1400 500 Balance 430 150 280 General: Alert, Oriented x3, Cooperative, No acute distress Cardiovascular: Regular rate, Normal S1, Normal S2, No murmurs Respiratory: Chest non-tender, No respiratory distress, Breath sounds nml Abdomen: Normal bowel sounds, Soft, No tenderness, No hepatospenomegaly, No masses - Results Results: Laboratory Results WBC 11.7 x10^3/uL (4.8-10.8) H 10/29/23 05:18 RBC 5.17 10^6/uL (4.70-6.10) 10/29/23 05:18 Hgb 17.3 g/dL (14.0-18.0) 10/29/23 05:18 Hct 52.7 % (42.0-52.0) H 10/29/23 05:18 MCV 101.9 fL (80.0-94.0) H 10/29/23 05:18 MCH 33.5 pg (27.0-31.0) H 10/29/23 05:18 MCHC 32.8 g/dL (32.0-36.0) 10/29/23 05:18 RDW 14.5 % (12.0-15.0) 10/29/23 05:18 Plt Count 158 10^3/uL (130-450) 10/29/23 05:18 MPV 9.0 fL (7.4-11.4) 10/29/23 05:18 Neut # (Auto) 9.8 10^3/uL (1.5-6.6) H 10/29/23 05:18 Lymph # (Auto) 0.8 10^3/uL (1.5-3.5) L 10/29/23 05:18 [place] # (Auto) 1.1 10^3/uL (0.0-1.0) H 10/29/23 05:18 Eos # (Auto) 0.0 10^3/uL (0.0-0.7) 10/29/23 05:18 Baso # (Auto) 0.0 10^3/uL (0.0-0.1) 10/29/23 05:18 Absolute Nucleated RBC 0.00 x10^3/uL 10/29/23 05:18 Total Counted 100 10/27/23 15:05 Band Neuts % (Manual) 1 % (0-10) 10/27/23 15:05 Reactive Lymphs % (Man) 3 % 10/27/23 15:05 Abnorm Lymph % (Manual) 0 % 10/27/23 15:05 Nucleated RBC % 0.0 /100WBC 10/29/23 05:18 Neutrophils # (Manual) 7.6 10^3/uL (1.5-6.6) H 10/27/23 15:05 Lymphocytes # (Manual) 1.5 10^3/uL (1.5-3.5) 10/27/23 15:05 Monocytes # (Manual) 1.5 10^3/uL (0.0-1.0) H 10/27/23 15:05 Eosinophils # (Manual) 0.0 10^3/uL (0-0.7) 10/27/23 15:05 Basophils # (Manual) 0.0 10^3/uL (0-0.1) 10/27/23 15:05 Differential Comment MANUAL DIFFERENTIAL 10/27/23 15:05 Platelet Estimate NORMAL (130-450,000) (NORMAL) 10/27/23 15:05 Platelet Morphology NORMAL APPEARANCE (NORMAL) 10/27/23 15:05 RBC Morph Micro Appear 1+ MACROCYTOSIS (NORMAL) 10/27/23 15:05 Sodium 138 mmol/L (135-145) 10/29/23 05:18 Potassium 5.3 mmol/L (3.5-4.5) H 10/29/23 05:18 Chloride 102 mmol/L (101-111) 10/29/23 05:18 Carbon Dioxide 32 mmol/L (21-32) 10/29/23 05:18 Anion Gap 4.0 (6-13) L 10/29/23 05:18 BUN 37 mg/dL (6-20) H 10/29/23 05:18 Creatinine 1.2 mg/dL (0.6-1.3) 10/29/23 05:18 Estimated GFR (MDRD) 58 (>89) L 10/29/23 05:18 Glucose 128 mg/dL (74-104) H 10/29/23 05:18 Calcium 9.4 mg/dL (8.5-10.3) 10/29/23 05:18 Magnesium 2.0 mg/dL (1.7-2.3) 10/27/23 15:05 Total Bilirubin 0.6 mg/dL (0.2-1.0) 10/27/23 15:05 AST 21 IU/L (10-42) 10/27/23 15:05 ALT 19 IU/L (10-60) 10/27/23 15:05 Alkaline Phosphatase 87 IU/L (42-121) 10/27/23 15:05 Total Protein 6.7 g/dL (6.4-8.9) 10/27/23 15:05 Albumin 3.9 g/dL (3.2-5.5) 10/27/23 15:05 Globulin 2.8 g/dL (2.1-4.2) 10/27/23 15:05 Albumin/Globulin Ratio 1.4 (1.0-2.2) 10/27/23 15:05 Lipase < 10 U/L (11-82) L 10/27/23 15:05 Urine Color DARK YELLOW 10/27/23 17:30 Urine Clarity CLEAR (CLEAR) 10/27/23 17:30 Urine pH 5.5 PH (5.0-7.5) 10/27/23 17:30 Ur Specific [place] >=1.030 (1.002-1.030) H 10/27/23 17:30 Urine Protein NEGATIVE mg/dL (NEGATIVE) 10/27/23 17:30 Urine Glucose (UA) NEGATIVE mg/dL (NEGATIVE) 10/27/23 17:30 Urine Ketones NEGATIVE mg/dL (NEGATIVE) 10/27/23 17:30 Urine Occult Blood NEGATIVE (NEGATIVE) 10/27/23 17:30 Urine Nitrite NEGATIVE (NEGATIVE) 10/27/23 17:30 Urine Bilirubin SMALL (NEGATIVE) H 10/27/23 17:30 Urine Urobilinogen 0.2 (NORMAL) E.U./dL (NORMAL) 10/27/23 17:30 Ur Leukocyte Esterase SMALL (NEGATIVE) H 10/27/23 17:30 Urine RBC 0-5 /HPF (0-5) 10/27/23 17:30 Urine WBC >25 /HPF (0-3) H 10/27/23 17:30 Ur Squamous Epith Cells RARE Squamous (<= Few) 10/27/23 17:30 Urine Bacteria Rare /HPF (None Seen) 10/27/23 17:30 Ur Microscopic Review INDICATED 10/27/23 17:30 Urine Culture Comments INDICATED 10/27/23 17:30 Nasal Adenovirus (PCR) NOT DETECTED 10/27/23 15:10 Nasal B. parapertussis DNA (PCR) NOT DETECTED 10/27/23 15:10 Nasal Coronavir 229E PCR NOT DETECTED 10/27/23 15:10 Nasal Coronavir HKU1 PCR NOT DETECTED 10/27/23 15:10 Nasal Coronavir NL63 PCR NOT DETECTED 10/27/23 15:10 Nasal Coronavir OC43 PCR NOT DETECTED 10/27/23 15:10 Nasal Enterovir/Rhinovir PCR NOT DETECTED 10/27/23 15:10 Nasal Influenza B PCR NOT DETECTED 10/27/23 15:10 Nasal Influenza A PCR NOT DETECTED 10/27/23 15:10 Nasal Parainfluen 1 PCR NOT DETECTED 10/27/23 15:10 Nasal Parainfluen 2 PCR NOT DETECTED 10/27/23 15:10 Nasal Parainfluen 3 PCR NOT DETECTED 10/27/23 15:10 Nasal Parainfluen 4 PCR NOT DETECTED 10/27/23 15:10 Nasal RSV (PCR) NOT DETECTED 10/27/23 15:10 Nasal B.pertussis DNA PCR NOT DETECTED 10/27/23 15:10 Nasal C.pneumoniae (PCR) NOT DETECTED 10/27/23 15:10 [place] Human Metapneumo PCR NOT DETECTED 10/27/23 15:10 Nasal M.pneumoniae (PCR) NOT DETECTED 10/27/23 15:10 Nasal SARS-CoV-2 (PCR) NOT DETECTED 10/27/23 15:10 - Procedures Procedures: Procedures ENDO RECTUM POLYPECTOMY (01/19/14) ENDOSC POLYPECTOMY OF LG INTEST (01/19/14) EXCISION OF ASCENDING COLON, ENDO (10/22/17) EXCISION OF SIGMOID COLON, ENDO (11/15/22) EXCISION OF STOMACH, ENDO, DIAGN (11/15/22) EXCISION OF TRANSVERSE COLON, ENDO (10/22/17) FLEXIBLE SIGMOIDOSCOPY (12/22/13) INSPECTION OF UPPER INTESTINAL TRACT, ENDO (10/22/17) Sepsis Event Note (H) - Evaluation Current Stage of Sepsis: Ruled out
[2023-10-29] MEDS: SODIUM ZIRCONIUM CYCLOSILICATE 5 GM PACKET PO SCH (09:17)
[2023-10-29] MEDS: hydroCHLOROthiazide 25 MG TABLET PO SCH (09:17)
[2023-10-29] MEDS: polyethylene glycoL 3350 17 GM PACKET PO SCH (09:18)
[2023-10-29 09:22] LABS: ABG PH 7.34 (7.35-7.45)
[2023-10-29 09:23] LABS: ABG HCO3 29.5 mmol/L (22.0-26.0); ABG PCO2 56 mmHg (34-45); ABG PO2 58 mmHg (80-100)
[2023-10-29 09:24] LABS: ABG BASE EXCESS 1.8 mmol/L (-2.0-3.0); ABG OXYGEN SATURATION 91 % (94-98); ABG TCO2 31.3 MMOL/L (21.0-29.0); ALLEN TEST POSITIVE
--- NOTE | 2023-10-29 11:32 | PHARMACY PROGRESS NOTE ---
- Best Possible Medication History Admit Date and Time: 10/27/23 1306 Processed by: Pharmacy Medications reviewed in ED?: Yes Medication History completed: Yes Patient Interview: Completed Secondary Source(s): Physician records, Insurance records As the person ultimately responsible for medication therapy, providers are able to order a medication from an existing home medication list in [facility] via the "Reconcile Routine" prior to Confirmation of that medication by wan support specialist. Such practice is discouraged except when the physician, in their clinical judgment, deems that a medical need exists for a medication without regard to previous use.
[2023-10-29] MEDS: BUDESONIDE 0.5 MG/2 ML NEB INH SCH (18:59)
[2023-10-29] MEDS: IPRATROPIUM/ALBUTEROL 3 ML NEB INH SCH (18:59)
[2023-10-30 05:52] LABS: BASOPHILS % (AUTO) 0.2 %; EOSINOPHILS % (AUTO) 0.1 %; HCT - HEMATOCRIT 51.6 % (42.0-52.0); HGB - HEMOGLOBIN 16.9 g/dL (14.0-18.0); LYMPHOCYTES % (AUTO) 9.9 %; MEAN CORPUSCULAR HEMOGLOBIN 33.1 pg (27.0-31.0); MEAN CORPUSCULAR HGB CONC 32.8 g/dL (32.0-36.0); MEAN CORPUSCULAR VOLUME 101.2 fL (80.0-94.0); MEAN PLATELET VOLUME 8.9 fL (7.4-11.4); MONOCYTES % (AUTO) 10.9 %; NEUTROPHILS # (AUTO) 7.5 10^3/uL (1.5-6.6); NEUTROPHILS % (AUTO) 78.2 %; PLT - PLATELET COUNT 168 10^3/uL (130-450); RED CELL DISTRIBUTION WIDTH 14.6 % (12.0-15.0); WHITE BLOOD COUNT 9.6 x10^3/uL (4.8-10.8)
[2023-10-30 06:12] LABS: CALCIUM 9.1 mg/dL (8.5-10.3); CREATININE 0.8 mg/dL (0.6-1.3); POTASSIUM 4.1 mmol/L (3.5-4.5)
[2023-10-30] MEDS: SENNA 8.6 MG TABLET PO SCH (11:44)
[2023-10-30] MEDS: DOCUSATE SODIUM 250 MG CAPSULE PO SCH (11:44)
--- NOTE | 2023-10-30 16:20 | PROVIDER PROGRESS NOTE ---
Subjective - Prog Note Date Prog Note Date: 10/30/23 Prog Note Time: 16:19 - Subjective Pt reports feeling: Improved Subjective: He is sitting up in his chair. He is on high flow nasal cannula at 35 L. I asked him to describe his home life and he states that he does have emphysema. He is supposed to use oxygen at 2 L "whenever I needed". He says that he checks his O2 sats on a daily basis and only uses the oxygen if he is below 88. He says it has been months if not over a year since he had to use his oxygen last. He tells me that he lives alone. He is independent with his activities of daily living. 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 Someone helps with the cooking. He has a sister, niece and nephew that live nearby. He is 80% service-connected with the . I asked the nurses if there is anything else going on and they explained to me that he has not had a bowel movement in 4 days and they plan on escalating his bowel prep. Pharmacy states that he is on Lokelma twice daily. K was 5.3 yesterday and put on Lokelma. Prior to this admission he does not have hyperkalemia. He is usually 3.6-4.6. On admission he was 4.9. Went up to 5.3 and started on Loke lma yesterday. He is not on an FRANCOIS inhibitor or spironolactone. He usually is on potassium supplementation at home but he has not been on it here. Current Medications - Current Medications Current Medications: Active Medications Acetaminophen (Acetaminophen 325 Mg Tablet) 650 mg PO Q4HR PRN PRN Reason: Pain 1 to 4, or Fever Hydrocodone Bitart/Acetaminophen (Hydrocod/Acetam 10 Mg/325 Mg Tablet) 1 tab PO Q4HR PRN PRN Reason: Pain 8 to 10 Last Admin: 10/28/23 20:04 Dose: 1 tab Albuterol/Ipratropium (Ipratropium/Albuterol 3 Ml Neb) 3 ml INH RTQID ON LICENSE OF [facility] Last Admin: 10/30/23 15:07 Dose: 3 ml Aspirin (Aspirin Ec 81 Mg Tablet) 81 mg PO DAILY ON LICENSE OF [facility] Last Admin: 10/30/23 08:39 Dose: 81 mg Atorvastatin Calcium (Atorvastatin 10 Mg Tablet) 10 mg PO QPM ON LICENSE OF [facility] Last Admin: 10/29/23 20:33 Dose: 10 mg Budesonide (Budesonide 0.5 Mg/2 Ml Neb) 0.5 mg INH RTBID ON LICENSE OF [facility] Last Admin: 10/30/23 07:04 Dose: 0.5 mg Docusate Sodium (Docusate Sodium 250 Mg Capsule) 250 - 500 mg PO DAILY ON LICENSE OF [facility] Last Admin: 10/30/23 11:44 Dose: 500 mg Enoxaparin Sodium (Enoxaparin 40 Mg/0.4 Ml Syringe) 40 mg SUBQ DAILY ON LICENSE OF [facility] Last Admin: 10/30/23 08:40 Dose: 40 mg Ferrous Sulfate (Ferrous Sulfate 325 Mg Tablet) 325 mg PO DAILY ON LICENSE OF [facility] Last Admin: 10/30/23 08:39 Dose: 325 mg Guaifenesin (Guaifenesin 600 Mg Tablet) 600 mg PO BID ON LICENSE OF [facility] Last Admin: 10/30/23 08:40 Dose: 600 mg Hydrochlorothiazide (Hydrochlorothiazide 25 Mg Tablet) 25 mg PO DAILY ON LICENSE OF [facility] Last Admin: 10/30/23 08:39 Dose: 25 mg Levofloxacin (Levofloxacin 250 Mg Tablet) 750 mg PO Q24H ON LICENSE OF [facility] Last Admin: 10/29/23 18:11 Dose: 750 mg Loratadine (Loratadine 10 Mg Tablet) 10 mg PO DAILY ON LICENSE OF [facility] Last Admin: 10/30/23 08:39 Dose: 10 mg Magnesium Oxide (Magnesium Oxide 400 Mg Tablet) 400 mg PO DAILYWM ON LICENSE OF [facility] Last Admin: 10/30/23 08:40 Dose: 400 mg Montelukast Sodium (Montelukast 10 Mg Tablet) 10 mg PO QPM ON LICENSE OF [facility] Last Admin: 10/29/23 20:33 Dose: 10 mg Ondansetron HCl (Ondansetron Odt 4 Mg Tablet) 4 mg TL Q6HR PRN PRN Reason: Nausea / Vomiting Ondansetron HCl (Ondansetron 4 Mg/2 Ml Vial) 4 mg IVP Q6HR PRN PRN Reason: Nausea / Vomiting Pantoprazole Sodium (Pantoprazole 40 Mg Tablet) 40 mg PO QDAC ON LICENSE OF [facility] Last Admin: 10/30/23 06:15 Dose: 40 mg Polyethylene Glycol (Polyethylene Glycol 3350 17 Gm Packet) 17 gm PO DAILY ON LICENSE OF [facility] Last Admin: 10/30/23 08:40 Dose: 17 gm Prednisone (Prednisone 20 Mg Tablet) 40 mg PO DAILY ON LICENSE OF [facility] Stop: 11/02/23 08:59 Last Admin: 10/30/23 08:39 Dose: 40 mg Senna (Senna 8.6 Mg Tablet) 8.6 - 17.2 mg PO DAILY ON LICENSE OF [facility] Last Admin: 10/30/23 11:44 Dose: 17.2 mg Sodium Chloride (Sodium Chloride Flush 0.9% 10 Ml Syringe) 10 ml IVP PRN PRN PRN Reason: NEEDED PER PROVIDER ORDERS Sodium Chloride (Sodium Chloride Flush 0.9% 10 Ml Syringe) 10 ml IVP 0100,0900,1700 ON LICENSE OF [facility] Last Admin: 10/30/23 08:40 Dose: 10 ml Sodium Zirconium Cyclosilicate (Sodium Zirconium Cyclosilicate 5 Gm Packet) 10 gm PO BID ON LICENSE OF [facility] Stop: 11/01/23 08:59 Last Admin: 10/30/23 08:41 Dose: 10 gm Solifenacin (Solifenacin Succinate 5 Mg Tablet) 10 mg PO DAILY ON LICENSE OF [facility] Last Admin: 10/30/23 08:39 Dose: 10 mg Aspirin [Aspir 81] 81 mg PO DAILY 05/03/13 Cetirizine HCl [Zyrtec] 10 mg PO DAILY 05/03/13 Simvastatin [Zocor] 20 mg PO QPM 05/03/13 Tiotropium [Spiriva] 1 puffs INH DAILY 05/03/13 Fluticasone/Vilanterol [Breo Ellipta 100-25 Mcg Inhalr] 1 each IH DAILY 10/19/17 hydroCHLOROthiazide [Hydrochlorothiazide] 25 mg PO DAILY 10/19/17 Albuterol Sulf [Ventolin Hfa Inhaler] 1 - 2 puffs INH Q4HR PRN 11/27/22 Mirabegron [Myrbetriq] 50 mg PO DAILY 11/27/22 Potassium Chloride [Klor-Con M10] 10 meq PO DAILY 11/27/22 Ferrous Sulfate [Feosol] 325 mg PO OAW 10/27/23 Magnesium Oxide [Magnesium] 500 mg PO DAILY 10/27/23 Pantoprazole Sodium 20 mg PO BID 10/27/23 Telmisartan 40 mg PO DAILY 10/27/23 Objective - Vital Signs/Intake & Output Reviewed Vital Signs: Yes Vital Signs: Vital Signs x48h Temp Pulse Pulse Resp BP Pulse Ox O2 Flow Rate 10/30/23 15:43 36.7 C 86 20 112/55 L 93 20 10/30/23 15:09 80 20 20 10/30/23 13:25 81 20 89 L 10/30/23 11:18 88 22 30 10/30/23 10:54 30 Intake & Output: Intake & Output 10/27/23 10/28/23 10/29/23 10/30/23 23:59 23:59 23:59 23:59 Intake Total 730 1550 1894 720 Output Total 300 1400 2925 3125 Balance 430 150 1031 -2405 - Objective General Appearance: positive: No acute distress (Has high flow nasal cannula on board, appears to be a very dark skinned elderly white male. Almost ruborous and diffuse appearance. Able to carry a conversation without tachypnea or dyspnea or use of accessory muscles), Alert Eyes Bilateral: positive: PERRL, EOMI ENT: positive: No signs of dehydration Neck: positive: No JVD Respiratory: positive: No respiratory distress, Other ( very severe prolonged and exhalation but no wheezing.). negative: Wheezes, Rales, Rhonchi Cardiovascular: positive: Regular rate & rhythm, Systolic murmur Abdomen: positive: Non-tender, No organomegaly, Nml bowel sounds, No distention Skin: positive: Warm, Dry Extremities: positive: Full ROM, Pedal edema ( Venous insufficiency). negative: Calf tenderness Neurologic/Psychiatric: positive: Oriented x3, CN's nml (2-12), Motor nml - Lab Results Fish Bones: 10/30/23 05:20 10/30/23 05:20 Other Labs: Lab Results x24hrs 10/30/23 10/30/23 Range/Units 05:20 05:20 WBC 9.6 (4.8-10.8) x10^3/uL RBC 5.10 (4.70-6.10) 10^6/uL Hgb 16.9 (14.0-18.0) g/dL Hct 51.6 (42.0-52.0) % MCV 101.2 H (80.0-94.0) fL MCH 33.1 H (27.0-31.0) pg MCHC 32.8 (32.0-36.0) g/dL RDW 14.6 (12.0-15.0) % Plt Count 168 (130-450) 10^3/uL MPV 8.9 (7.4-11.4) fL Neut # (Auto) 7.5 H (1.5-6.6) 10^3/uL Lymph # (Auto) 1.0 L (1.5-3.5) 10^3/uL Clarke # (Auto) 1.0 (0.0-1.0) 10^3/uL Eos # (Auto) 0.0 (0.0-0.7) 10^3/uL Baso # (Auto) 0.0 (0.0-0.1) 10^3/uL Absolute Nucleated RBC 0.00 x10^3/uL Nucleated RBC % 0.0 /100WBC Sodium 139 (135-145) mmol/L Potassium 4.1 (3.5-4.5) mmol/L Chloride 101 (101-111) mmol/L Carbon Dioxide 35 H (21-32) mmol/L Anion Gap 3.0 L (6-13) BUN 28 H (6-20) mg/dL Creatinine 0.8 (0.6-1.3) mg/dL Estimated GFR (MDRD) 92 (>89) Glucose 91 (74-104) mg/dL Calcium 9.1 (8.5-10.3) mg/dL Sepsis Event Note (H) - Evaluation Current Stage of Sepsis: Ruled out Assessment/Plan - Problem List (1) COPD exacerbation Impression: --CT scan showing evidence of emphysema. no pneumonia. He is on treatment with DuoNeb QID as well as prednisone day #4/5 40 mg daily. Levofloxacin for pneumonia ppx. today is Hospital day 4 and he says that this is the best he has felt since being here in the hospital. -- He does not chronically use oxygen at home but lately has been using it more frequently. I imagine he would benefit from chronic oxygen use. Currently on HFNC. -- I plan on reducing his high flow nasal cannula requirement and switching him to nasal cannula oxygen. I have spoken to respiratory therapy to see how low we can get his oxygen requirement down. day we will do oxygen desat test to quantify how much oxygen he will need at home. however, he desaturates very quickly with just simple movement of going from supine to sitting to standing. He does not even have to take a step. He has very little endurance and drops to the 80s when he takes 1 step. I will continue to reassess him daily to see if he can go home or will he need to go to group home facility for physical and pulmonary rehab. I will discuss a POLST form with him as well as outpatient palliative care referral (2) PVD (peripheral vascular disease) Conclusion/Plan: --Continue him on aspirin and statin. Prior history of an aortic iliac stent. but I do not feel a dorsalis pedis or posterior tibial pulse, he has 3 to 4- second capillary refill in his great toes. Feet are warm, not cold (3) History of ESBL E. coli infection Conclusion/Plan: --Prior history of Klebsiella ESBL infection in his urine. Patient does self catheterize. --Blood cultures have been negative. He has less than 10,000 colony-forming un its on urine culture. when I stop his Levaquin for his COPD exacerbation that will be his final dose. I will not continue it for UTI. --He denies any current urinary symptoms. (4) Hypertension Conclusion/Plan: --Restarted home HCTZ 25 mg. Holding telmisartan. BP 112/55. (5) Urinary retention due to benign prostatic hyperplasia Conclusion/Plan: --Patient self catheterizes twice daily. he is not on Flomax or Proscar. But he is on Spiriva and Myrbetriq. He is also on Zyrtec. The Zyrtec and Spiriva would give him urinary retention. Plan: Start Flomax, consider Proscar (6) Hyperkalemia Last lokelma dose today. Recheck levels tomorrow morning.
[2023-10-30] MEDS: TAMSULOSIN 0.4 MG CAPSULE PO SCH (20:16)
[2023-10-31 05:39] LABS: BASOPHILS % (AUTO) 0.2 %; EOSINOPHILS % (AUTO) 0.1 %; HCT - HEMATOCRIT 54.1 % (42.0-52.0); HGB - HEMOGLOBIN 17.1 g/dL (14.0-18.0); LYMPHOCYTES # (AUTO) 0.9 10^3/uL (1.5-3.5); LYMPHOCYTES % (AUTO) 8.3 %; MEAN CORPUSCULAR HEMOGLOBIN 32.4 pg (27.0-31.0); MEAN CORPUSCULAR HGB CONC 31.6 g/dL (32.0-36.0); MEAN CORPUSCULAR VOLUME 102.7 fL (80.0-94.0); MEAN PLATELET VOLUME 8.7 fL (7.4-11.4); MONOCYTES # (AUTO) 1.1 10^3/uL (0.0-1.0); MONOCYTES % (AUTO) 9.4 %; NEUTROPHILS # (AUTO) 9.1 10^3/uL (1.5-6.6); NEUTROPHILS % (AUTO) 81.1 %; PLT - PLATELET COUNT 181 10^3/uL (130-450); RED BLOOD COUNT 5.27 10^6/uL (4.70-6.10); RED CELL DISTRIBUTION WIDTH 14.5 % (12.0-15.0); WHITE BLOOD COUNT 11.2 x10^3/uL (4.8-10.8)
[2023-10-31 05:49] LABS: CALCIUM 9.5 mg/dL (8.5-10.3); CREATININE 0.9 mg/dL (0.6-1.3); POTASSIUM 3.8 mmol/L (3.5-4.5)
[2023-10-31 09:33] LABS: THYROID STIMULATING HORMONE 4.49 uIU/mL (0.34-5.60)
--- NOTE | 2023-10-31 15:31 | Discharge Plan ---
Discharge Plan Problem Reviewed?: Yes Disposition: Home Health Service Condition: Stable Diet: Regular Activity Restrictions: Activity as Tolerated Shower Restrictions: No Driving Restrictions: No Assistance Devices: Walker Weight Bearing: Full Weight Instruction Topics: Oxygen Use Safety, Oxygen Home Use, UTI Health Concerns: You have fairly severe emphysema. You still smoke a few cigarettes a week. Sometimes a few cigarettes or up to 10 a day. You are on home oxygen as needed. You say that you check your oxygen saturations with the machine at home and that a number below 88% results in you having to take oxygen. You tell me that you have not had to take oxygen for quite some time. You came to the emergency room because you began having worsening shortness of breath. You are always short of breath and you have a resultant reduction in endurance but the 2 days before you came into the hospital was much worse. He went to the urgent care clinic where you were given a diagnosis of a urinary tract infection and you were started on Levaquin. You noticed that in spite of the antibiotic, you are now starting to feel worse at night with shortness of breath. You now started using your oxygen at night because you felt like you are having difficulty breathing. After 2 nights of this you are so short of breath he called EMS. EMS said that your saturations were in the 70s on room air. In the emergency room we make sure you did not have pneumonia. CAT scan of the chest shows severe emphysema but no blood clot to the lung and no pneumonia. We then started you on steroids, nebulizers, and continue the antibiotics that have been started in the urgent care clinic. Initially you were requiring high flow heated oxygen. By November 28 you are able to come off the heated high flow oxygen and went to regular oxygen by nasal cannula. Your baseline is usually needing 2 L. Here if you need 6 L with exertion such as getting up to go to the bathroom or to walk down hallway. And you need 5 L at rest. Physical therapy has seen you and thinks that you probably should go to a senior care temporarily because of your shortness of breath and the amount of help you need. But you have reassured us over and over again that you would rather be home. You keep on telling us that your 2 nephews will be able to help you at home even though they both work full-time. [place] 2 [place] them to come help you. Plan of Treatment: 1. You must stop smoking. If you smoke while using oxygen you could severely burn your face, burn the furniture, or burn to your house down. 2. Resume all of your medications that you are already on. I have not stopped or changed any of them. 3. The only thing that is new is continuing the antibiotics that was started 2 days before you came in. Finish the antibiotic pack at home. That is the Levaquin you were prescribed. 4. Please see your primary care provider in follow-up. I would recommend you be seen in the next 1 to 2 days, being seen next Sunday (today is Sunday) would be acceptable. Because you are at high risk for stroke and heart attack due to your age, smoking, and peripheral vascular history, I would recommend that you get a stress test. It is unclear why your emphysema decompensated so quickly and so severely. 5. We sat down and talked about what the future may look like since you are getting more disabled from your emphysema. You already know that you are a DO NOT RESUSCITATE. You do not want to be resuscitated if you stop breathing or if you do not have a pulse. However you have not really made plans about who will be taking care of you. You tell me that all you want us to stay home and use caregivers to take care of you in your house. And when the time comes we will transition you to hospice and comfortably at home. 6. When you are admitted your potassium was high. It got as high as 5.3 and then we started you on a special medicine to reduce your potassium level. At the time of discharge your potassium was 3.8. Make sure your primary care provider rechecks the potassium with a blood draw in the office. We also did repeat a urine culture and your urine was without any bacteria in it at this time 7. While here you were describing problems with your prostate. But you are not on any prostate medications. But you do take several medications that we will restrict your ability to urinate. One of them is Spiriva and the other is Zyrtec. I would recommend that you talk to your primary care provider and start on Flomax and Proscar to help you pee and to shrink your prostate. 8. When we did your CAT scan to make sure you did not have pneumonia, you do have a thyroid nodule that may need follow-up down the road. Care Goals: She will remain home and be less short of breath for as long as possible Assessment: patient is alert, oriented to person, place, time and situation. Follow-Up Care: Home Health - RN, Home Health - PT, Home Health - OT No Smoking: If you smoke, Please STOP! Call for help. Follow-up with: Danii Hernandez ARNP [Provider Admit Priv/Credential] -
--- NOTE | 2023-10-31 16:02 | DISCHARGE SUMMARY ---
Discharge Summary Admit Date: 10/27/23 Discharge Date: 10/31/23 Discharging Provider: Vicenta Das MD Primary Care Provider: PETER Pineda Code Status: Do Not Attempt Resuscitation Condition at Discharge: Stable Discharge Disposition: 06 [facility] Service - DIAGNOSES Discharge Diagnoses with Status of Each Condition: 1. Acute on chronic respiratory failure with hypoxia and hypercapnia 2. Chronic tobacco abuse 3. COPD with exacerbation 4. Peripheral vascular disease history 5. History of ESBL E. coli infection 6. Hypertension 7. Urinary retention due to benign prostatic hypertrophy 8. Hyperkalemia 9. Thyroid nodule on CT of chest - HPI History of Present Illness: Patient is an 83-year-old male with a past medical history of ESBL, COPD with intermittent use of oxygen, peripheral vascular disease with aorto iliac stent, hypertension, BPH requiring intermittent catheterization, GERD who presented to the ED due to complaints of shortness of breath and weakness that had been progressing over the last 2 days. Patient presented to the urgent care clinic where he was given a diagnosis of urinary tract infection and started on oral levofloxacin. He reports that last night he required oxygen while he slept due to his difficulty breathing. He reports continued smoking approximately 10 cigarettes daily. EMS was called and noted that he was saturating in the 70s on room air. Upon presentation to the ED, a CT chest was performed which revealed evidence of emphysema. There were no evidence of pulmonary embolus or pneumonia. He was given a dose of IV methylprednisolone as well as a nebulizer. He was saturating in the high 90s on 4 L via nasal cannula. During my evaluation, patient denied any wheezing, fever, chills. He did endorse difficulty breathing. Reports that he lives alone. He is DNR. - Past Medical History Cardiovascular: reports: Hypertension, High cholesterol, Peripheral Vascular Disease Respiratory: reports: Asthma, COPD Neuro: reports: None Endocrine/Autoimmune: reports: None GI: reports: GERD, Colon polyps, Diverticulitis : reports: Benign prostate hypertrophy, Retention, Kidney stones, Other HEENT: reports: Chronic vision loss Psych: reports: None Musculoskeletal: reports: Osteoarthritis, Fatigue Derm: reports: Other MRSA Hx?: No - Past Surgical History General: reports: Colonoscopy, EGD, Other Ortho: reports: Knee replacement, Carpal Tunnel surgery Cardiovascular: reports: AAA Derm: reports: Skin cancer surgery - CONSULTS | PROCEDURES Procedures: Chest x-ray has progression of reticulonodular interstitial opacities in the bibasilar regions reflecting interstitial lung disease with atypical infection is a possibility or worsening of interstitial lung disease CT of the chest and thorax has a 1.5 cm thyroid nodule that needs follow-up. No filling defects of PEs. 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 Lungs and pleura without consolidation, pleural effusion, pneumothorax. Extensive paraseptal and centrilobular emphysema throughout the bilateral lungs with mild interstitial thickening prominent in the bibasilar regions. No honeycombing. Right lower lobe infiltrate and groundglass opacities. Blood cultures without any growth after 2 days Urine culture with less than 10,000 colony-forming units - HOSPITAL COURSE Hospital Course: The patient was started on empiric antibiotic therapy for completion of a UTI prior to admission, as well as for empiric therapy of COPD exacerbation. His CT scan confirmed that there is no PE nor did he have pneumonia. He was not felt to be in congestive heart failure. While he does have chronic COPD and chronic dyspnea on exertion he has not needed to use oxygen and his cardiovascular endurance has been relatively stable for several months now. He had no antecedent symptoms of infection. His viral panel was negative. As such is not clear why this patient has such severe COPD exacerbation requiring high flow heated nasal cannula Oxygen. As such I have asked him to see his primary care provider in follow-up and get a stress test in the outpatient setting to make sure that this gentleman who has peripheral vascular disease is not having an anginal equivalent with his COPD exacerbation. He received 5 days of oral steroid therapy. He stayed in the hospital slightly greater than 96 hours because of his severe hypoxemia. I was able to get him off the high flow nasal cannula and transition to nasal cannula. He requires 5 L at rest, and 6 L with exertion. At home he is on 2 L as needed. I told him that this is a change in his baseline situation. He was seen by occupational therapy and physical therapy. They did feel he would benefit from a short-term rehab stay to improve his cardiovascular endurance. However the patient was adamant that he could go home and take care of himself. I reminded him several times over the last 2 days of his stay that he really could not take care of himself on his own. 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 He has a walker. He has 2 nephews that live nearby and said that they will be "willing to drop everything and help him". He also has 2 daughters that live out of state. While he is not willing to call and asked them to come help him, he knows they would if he wanted to. He also has a sister in the area but she is also elderly and frail and unable to help him. He was willing to discuss advance care planning. He confirms that he is a DO NOT RESUSCITATE. He states that he will be hiring caregivers when the time comes. His plan is to always stay at home, never go to a [place] [facility] facility, and transition to hospice when it is appropriate. He was hypokalemic for unknown reasons. His potassium was high at admission. He peaked at 5.3. He received Lokelma and potassium came down to 4.1 the day before discharge. And it was 3.8 on the day of discharge. he should have a BMP for followup next week. Discharge exam had a temperature of 98. Heart rate 83. Blood pressure 126/66. Respirations 20. 93% saturated at rest on 5 L. He is 5 foot 9 inches tall, 81 kg. He appears to be a very shrunken deeply tanned, mariaelena elderly gentleman who is alert and oriented to person, place, time and situation. Still he maintains his independence and reluctant to accept help. He has soft bilateral carotid bruits. Lungs are very, very quiet. I really do not hear much air movement including wheezing, crackles, or rhonchi. He does have a very prolonged and exhalation phase. But he is not using his accessory muscles to breathe. He is comfortable sitting in his chair, speaking to me. He does desaturate into the mid 80s when he gets up and walks at 5 L. Needs to 6 L and he still drops into the mid 80s but recovers within 30 seconds when he sits down. He does get tachypneic when he gets up and walks but again, no use of accessory muscles abdomen is soft, nontender, normal bowel sounds. He did have straight cath while he was here. He does this at home on a regular basis. Last bowel movement was yesterday. His extremities do not have palpable pulses but they are warm. He has delayed capillary refill of 4 to 5 seconds at the great toes. He ambulates without assistance. Has no edema. Greater than 30 minutes was spent coordinating discharge This document was made in part using voice recognition software. While efforts are made to proofread this document, sound alike and grammatical errors may occur. - ALLERGIES Allergies/Adverse Reactions: Allergies Allergy/AdvReac Type Severity Reaction Status Date / Time bupropion Allergy Unknown Verified 10/27/23 14:54 fluticasone propionate * Allergy split Verified 11/26/22 11:15 [From Advair Diskus] vision salmeterol xinafoate * Allergy split Verified 11/26/22 11:15 [From Advair Diskus] vision - MEDICATIONS Home Medications: Ambulatory Orders Medication Instructions Recorded Confirmed Aspirin [Aspir 81] 81 mg PO DAILY 05/03/13 10/29/23 Cetirizine HCl [Zyrtec] 10 mg PO DAILY 05/03/13 10/29/23 Simvastatin [Zocor] 20 mg PO QPM 05/03/13 10/29/23 Tiotropium [Spiriva] 1 puffs INH DAILY 05/03/13 10/27/23 Fluticasone/Vilanterol [Breo 1 each IH DAILY 10/19/17 10/29/23 Ellipta 100-25 Mcg Inhalr] hydroCHLOROthiazide 25 mg PO DAILY 10/19/17 10/29/23 [Hydrochlorothiazide] Albuterol Sulf [Ventolin Hfa 1 - 2 puffs INH Q4HR PRN 11/27/22 10/29/23 Inhaler] Mirabegron [Myrbetriq] 50 mg PO DAILY 11/27/22 10/29/23 Potassium Chloride [Klor-Con M10] 10 meq PO DAILY 11/27/22 10/29/23 Acetaminophen [Tylenol] 650 mg PO Q4HR PRN tab 11/30/22 10/29/23 Montelukast [Singulair] 10 mg PO QPM #30 tab 11/30/22 10/29/23 guaiFENesin [Mucinex] 600 mg PO BID tab 11/30/22 10/29/23 Ferrous Sulfate [Feosol] 325 mg PO OAW 10/27/23 10/29/23 Magnesium Oxide [Magnesium] 500 mg PO DAILY 10/27/23 10/29/23 Pantoprazole Sodium 20 mg PO BID 10/27/23 10/29/23 Telmisartan 40 mg PO DAILY 10/27/23 10/29/23 levoFLOXacin [Levaquin] 750 mg PO Q24H tab 10/31/23 - LABS Result Diagrams: 10/31/23 05:24 10/31/23 05:24 - SEPSIS Current Stage of Sepsis: Ruled out
[2023-10-31 16:09] VITALS: BP 126/66; O2SAT 93
== END 2023-10-31 15:45 | disposition home health service (06) | DRG 189 ==
LOC: EDUNIT# → ED 14:45 → MS2 17:05
PROVIDERS: ADMIT Family Medicine; ATTEND Specialist
DX: J96.22 Acute and chronic respiratory failure with hypercapnia (principal); N17.9 Acute kidney failure, unspecified; J44.1 Chronic obstructive pulmonary disease with (acute) exacerbation; N39.0 Urinary tract infection, site not specified; J96.21 Acute and chronic respiratory failure with hypoxia; R00.0 Tachycardia, unspecified; I73.9 Peripheral vascular disease, unspecified; J47.9 Bronchiectasis, uncomplicated; J84.10 Pulmonary fibrosis, unspecified; I10 Essential (primary) hypertension; Z20.818 Contact with and (suspected) exposure to other bacterial communicable diseases; Z20.822 Contact with and (suspected) exposure to COVID-19; Z20.828 Contact with and (suspected) exposure to other viral communicable diseases; N40.1 Benign prostatic hyperplasia with lower urinary tract symptoms; R33.8 Other retention of urine; E87.5 Hyperkalemia; E04.1 Nontoxic single thyroid nodule; K21.9 Gastro-esophageal reflux disease without esophagitis; F17.210 Nicotine dependence, cigarettes, uncomplicated; E78.00 Pure hypercholesterolemia, unspecified; B96.20 Unspecified Escherichia coli [E. coli] as the cause of diseases classified elsewhere; J43.9 Emphysema, unspecified; Z66 Do not resuscitate; Z79.82 Long term (current) use of aspirin; Z79.899 Other long term (current) drug therapy
CPT/HCPCS: 36415; 36600; 71046; 71275; 80048; 80053; 81001; 82607; 82803; 83690; 83735; 84207; 84443; 85025; 87040; 87086; 87633; 94640; 94761; 96374; 97116; 97162; 97166; 97530; 97535; 99285; A9270; J1650; J7512; J7626; P9612; Q9967; 51701; 81003

== ENCOUNTER 2023-11-14 13:24 | Outpatient (CLI) | payer MEDICARE, OTHER ==
[2023-11-14 17:51] LABS: ALBUMIN/GLOBULIN RATIO 1.7 (1.0-2.2); BILIRUBIN,TOTAL 0.9 mg/dL (0.2-1.0); CALCIUM 9.6 mg/dL (8.5-10.3); POTASSIUM 4.3 mmol/L (3.5-4.5); TOTAL PROTEIN 6.3 g/dL (6.4-8.9)
[2023-11-14 17:56] LABS: BASOPHILS % (AUTO) 0.3 %; EOSINOPHILS # (AUTO) 0.1 10^3/uL (0.0-0.7); EOSINOPHILS % (AUTO) 1.5 %; HCT - HEMATOCRIT 53.3 % (42.0-52.0); HGB - HEMOGLOBIN 17.7 g/dL (14.0-18.0); LYMPHOCYTES # (AUTO) 1.4 10^3/uL (1.5-3.5); LYMPHOCYTES % (AUTO) 15.8 %; MEAN CORPUSCULAR HEMOGLOBIN 33.5 pg (27.0-31.0); MEAN CORPUSCULAR HGB CONC 33.2 g/dL (32.0-36.0); MEAN CORPUSCULAR VOLUME 100.9 fL (80.0-94.0); MEAN PLATELET VOLUME 9.3 fL (7.4-11.4); MONOCYTES # (AUTO) 0.9 10^3/uL (0.0-1.0); NEUTROPHILS # (AUTO) 6.4 10^3/uL (1.5-6.6); NEUTROPHILS % (AUTO) 72.1 %; PLT - PLATELET COUNT 206 10^3/uL (130-450); RED BLOOD COUNT 5.28 10^6/uL (4.70-6.10); RED CELL DISTRIBUTION WIDTH 13.8 % (12.0-15.0); WHITE BLOOD COUNT 8.8 x10^3/uL (4.8-10.8)
== END 2023-11-14 13:25 | disposition home or self-care (01) ==
LOC: LAB.N 13:24
PROVIDERS: ATTEND Physician Assistant Medical
DX: E87.5 Hyperkalemia (principal); D50.9 Iron deficiency anemia, unspecified
CPT/HCPCS: 36415; 80053; 85025

== ENCOUNTER 2024-02-01 09:43 | Emergency (ER) | payer MEDICARE, OTHER ==
[2024-02-01 10:20] LABS: BASOPHILS % (AUTO) 0.4 %; EOSINOPHILS # (AUTO) 0.1 10^3/uL (0.0-0.7); EOSINOPHILS % (AUTO) 1.3 %; HCT - HEMATOCRIT 51.7 % (42.0-52.0); HGB - HEMOGLOBIN 16.4 g/dL (14.0-18.0); LYMPHOCYTES # (AUTO) 1.4 10^3/uL (1.5-3.5); LYMPHOCYTES % (AUTO) 14.9 %; MEAN CORPUSCULAR HEMOGLOBIN 33.2 pg (27.0-31.0); MEAN CORPUSCULAR HGB CONC 31.7 g/dL (32.0-36.0); MEAN CORPUSCULAR VOLUME 104.7 fL (80.0-94.0); MEAN PLATELET VOLUME 8.7 fL (7.4-11.4); MONOCYTES # (AUTO) 0.9 10^3/uL (0.0-1.0); MONOCYTES % (AUTO) 8.9 %; NEUTROPHILS # (AUTO) 7.2 10^3/uL (1.5-6.6); NEUTROPHILS % (AUTO) 74.1 %; PLT - PLATELET COUNT 224 10^3/uL (130-450); RED BLOOD COUNT 4.94 10^6/uL (4.70-6.10); RED CELL DISTRIBUTION WIDTH 12.7 % (12.0-15.0); WHITE BLOOD COUNT 9.7 x10^3/uL (4.8-10.8)
--- NOTE | 2024-02-01 10:22 | ED Physician Documentation ---
PD HPI ABD PAIN - Stated complaint Stated Complaint: GI - Chief complaint Chief Complaint: Abd Pain - History obtained from History obtained from: Patient - Additional information Additional information: 83-year-old gentleman with history of endovascular aortic repair, COPD and still smokes on 1.5 L of oxygen at home, last colonoscopy was 3 years ago but incomplete due to poor prep. 3 weeks ago he had a single episode of dark diarrhea but since then has had very irregular and small bowel movements. Is associated with mild abdominal pain and no sensation of distention. PD PAST MEDICAL HISTORY - Past Medical History Past Medical History: Yes Cardiovascular: Hypertension, High cholesterol Respiratory: Asthma, COPD Neuro: None Endocrine/Autoimmune: None GI: GERD, Colon polyps, Diverticulitis : Benign prostate hypertrophy, Retention, Kidney stones, Other HEENT: Chronic vision loss Psych: None Musculoskeletal: Osteoarthritis, Fatigue Derm: Other - Past Surgical History Past Surgical History: Yes General: Colonoscopy, EGD, Other Ortho: Knee replacement, Carpal Tunnel surgery Cardiovascular: AAA Derm: Skin cancer surgery - Present Medications Home Medications: Ambulatory Orders Medication Instructions Recorded Confirmed Aspirin [Aspir 81] 81 mg PO DAILY 05/03/13 10/29/23 Cetirizine HCl [Zyrtec] 10 mg PO DAILY 05/03/13 10/29/23 Simvastatin [Zocor] 20 mg PO QPM 05/03/13 10/29/23 Tiotropium [Spiriva] 1 puffs INH DAILY 05/03/13 10/27/23 Fluticasone/Vilanterol [Breo 1 each IH DAILY 10/19/17 10/29/23 Ellipta 100-25 Mcg Inhalr] hydroCHLOROthiazide 25 mg PO DAILY 10/19/17 10/29/23 [Hydrochlorothiazide] Albuterol Sulf [Ventolin Hfa 1 - 2 puffs INH Q4HR PRN 11/27/22 10/29/23 Inhaler] Mirabegron [Myrbetriq] 50 mg PO DAILY 11/27/22 10/29/23 Potassium Chloride [Klor-Con M10] 10 meq PO DAILY 11/27/22 10/29/23 Acetaminophen [Tylenol] 650 mg PO Q4HR PRN tab 11/30/22 10/29/23 Montelukast [Singulair] 10 mg PO QPM #30 tab 11/30/22 10/29/23 guaiFENesin [Mucinex] 600 mg PO BID tab 11/30/22 10/29/23 Ferrous Sulfate [Feosol] 325 mg PO OAW 10/27/23 10/29/23 Magnesium Oxide [Magnesium] 500 mg PO DAILY 10/27/23 10/29/23 Pantoprazole Sodium 20 mg PO BID 10/27/23 10/29/23 Telmisartan 40 mg PO DAILY 10/27/23 10/29/23 levoFLOXacin [Levaquin] 750 mg PO Q24H tab 10/31/23 polyethylene glycoL 3350(BULK) 17 gm PO DAILY PRN #1 each 02/01/24 [Miralax] - Allergies Allergies/Adverse Reactions: Allergies Allergy/AdvReac Type Severity Reaction Status Date / Time bupropion Allergy Unknown Verified 02/01/24 10:01 fluticasone propionate * Allergy split Verified 02/01/24 10:01 [From Advair Diskus] vision salmeterol xinafoate * Allergy split Verified 02/01/24 10:01 [From Advair Diskus] vision - Social History Does the pt smoke?: Yes Smoking Status: Current every day smoker Does the pt drink ETOH?: Yes Does the pt have substance abuse?: No - Immunizations Immunizations are current?: No Immunizations: Other immun not current PD ED PE NORMAL - Vitals Vital signs reviewed: Yes - General General: Alert and oriented X 3, No acute distress - Cardiac Cardiac: RRR, No murmur - Respiratory Respiratory: No respiratory distress, Clear bilaterally - Abdomen Abdomen: Other (Mild left abdominal tenderness) - Rectal Rectal: Other (Scant brown stool in the vault without fecal impaction) - Extremities Extremities: No edema - Neuro Neuro: Alert and oriented X 3 Results - Vitals Vitals: Vital Signs - 24 hr 02/01/24 02/01/24 02/01/24 09:54 10:05 12:17 Temperature 36.3 C L Heart Rate 77 72 88 Respiratory 22 20 18 Rate Blood Pressure 168/88 H 146/86 H 129/68 O2 Saturation 92 95 93 If not protocol 1.5 : Oxygen Flow, liters/minute Oxygen O2 Source Nasal cannula - Labs Labs: Microbiology 02/01/24 10:20 Occult Blood - Final Stool Laboratory Tests 07/26/24 07/26/24 07/26/24 10:14 10:14 10:14 WBC 9.7 RBC 4.94 Hgb 16.4 Hct 51.7 MCV 104.7 H MCH 33.2 H MCHC 31.7 L RDW 12.7 Plt Count 224 MPV 8.7 Neut # (Auto) 7.2 H Lymph # (Auto) 1.4 L Glynn # (Auto) 0.9 Eos # (Auto) 0.1 Baso # (Auto) 0.0 Absolute Nucleated RBC 0.00 Nucleated RBC % 0.0 PT 12.2 INR 1.1 Sodium Potassium Chloride Carbon Dioxide Anion Gap BUN Creatinine Estimated GFR (MDRD) Glucose Calcium Total Bilirubin AST ALT Alkaline Phosphatase Total Protein Albumin Globulin Albumin/Globulin Ratio Blood Type O POSITIVE Blood Type Recheck Antibody Screen NEGATIVE 02/01/24 02/01/24 10:14 11:08 WBC RBC Hgb Hct MCV MCH MCHC RDW Plt Count MPV Neut # (Auto) Lymph # (Auto) Glynn # (Auto) Eos # (Auto) Baso # (Auto) Absolute Nucleated RBC Nucleated RBC % PT INR Sodium 138 Potassium 4.7 H Chloride 99 L Carbon Dioxide 34 H Anion Gap 5.0 L BUN 19 Creatinine 1.1 Estimated GFR (MDRD) 64 L Glucose 92 Calcium 9.4 Total Bilirubin 0.9 AST 14 ALT 12 Alkaline Phosphatase 93 Total Protein 7.0 Albumin 4.3 Globulin 2.7 Albumin/Globulin Ratio 1.6 Blood Type Blood Type Recheck O POSITIVE Antibody Screen - Rads (name of study) CT of the abdomen pelvis demonstrating cholelithiasis, diverticulosis and moderate colonic stool. Relevant Findings:: Final report received, EMP independent interpretation of test PD Medical Decision Making - ED course ED course: CBC, INR, and CMP were basically normal except for macrocytosis and signs of probably chronic CO2 retention from his COPD. 83-year-old gentleman presents with difficult bowels and some mild discomfort. Differential would include diverticulitis, or other abdominal urgency/emergency. What is identified here is that he has incidental diverticulosis and cholelithiasis with a large stool load and he is prescribed MiraLAX. He was given close return precautions and advised to follow-up for colonoscopy. Departure - Departure Disposition: 01 Home, Self Care Clinical Impression: Constipation Qualifiers: Constipation type: unspecified constipation type Qualified Code(s): K59.00 - Constipation, unspecified Condition: Good Record reviewed to determine appropriate education?: Yes Instructions: ED Constipation Prescriptions: polyethylene glycoL 3350(BULK) [Miralax] 17 gm PO DAILY PRN #1 each PRN Reason: Constipation Comments: We did not find anything concerning today other than constipation on your CAT scan. I am prescribing you a laxative that should be helpful for you. You should follow-up with your primary care physician as you are planning for referral for colonoscopy. You do have diverticula, little outpouchings in your colon but they do not appear acutely inflamed or infected so do not need any specific treatment except for a high-fiber diet which you should do chronically. Call your doctor to arrange a follow-up appointment, make the next available appointment. In the interim, return anytime if worse or if new symptoms develop. Forms: PCP List
[2024-02-01 10:26] LABS: INR 1.1 (0.8-1.2); PT - PROTHROMBIN TIME 12.2 secs (9.9-12.6)
[2024-02-01 10:42] LABS: ALBUMIN 4.3 g/dL (3.2-5.5); ALBUMIN/GLOBULIN RATIO 1.6 (1.0-2.2); BILIRUBIN,TOTAL 0.9 mg/dL (0.2-1.0); CALCIUM 9.4 mg/dL (8.5-10.3); CREATININE 1.1 mg/dL (0.6-1.3); POTASSIUM 4.7 mmol/L (3.5-4.5)
[2024-02-01] MEDS ORDERED: iohexoL-300 100 ML VIAL ONE (11:35)
--- NOTE | 2024-02-01 12:44 | CT Report ---
PROCEDURE: Abdomen/Pelvis W INDICATIONS: iv only, constipation, abd pain CONTRAST: 100ml omni 300 TECHNIQUE: After the administration of intravenous contrast, a CT scan of the abdomen and pelvis was performed. Images were recorded and evaluated at appropriate window settings. Reformats: coronal and sagittal. F or radiation dose reduction, the following was used: automated exposure control, adjustment of mA and /or kV according to patient size. COMPARISON: CT abdomen pelvis 10/24/2023, head 11/26/2020, CT injury 11/08/2020. FINDINGS: Image quality: Diagnostic. Lower chest: Unremarkable. Liver: No solid mass. Gallbladder: Minimal dependent stones without wall thickening. Biliary tree: No intrahepatic or extrahepatic dilation, accounting for age. Spleen: No splenomegaly. Pancreas: No pancreatic ductal dilation. Adrenals: No adrenal nodule. Kidneys and ureters: No hydronephrosis. No renal cystic lesion which requires follow up. No solid mas s. Simple bilateral renal cysts. Stomach, bowel and peritoneum: No gastric or small bowel dilation. No abnormal wall thickening. No pa thologic free fluid. Prominent colonic diverticular present without inflammatory change. Moderate col onic stool. Lymph nodes: No central or retroperitoneal adenopathy. Vessels: Aorta iliac endograft is present. There is a left lateral outpouching of the distal aorta, u nchanged. Patent portal vein. PELVIS Reproductive organs: Unremarkable. Bladder: No abnormal wall thickening, accounting for underdistention. Pelvic lymph nodes: No pelvic adenopathy by size criteria. Bones: No aggressive osseous abnormality. Left femoral screw fixation. Other: No significant ventral or inguinal hernia. IMPRESSION: Diverticulosis. Moderate colonic stool without obstruction. Cholelithiasis. Reviewed by: Francheska Denis MD on 02/01/2024 12:43 PM PDT Approved by: Francheska Denis MD on 02/01/2024 12:43 PM PDT Station ID: [id number]
[2024-02-01 13:07] VITALS: BP 138/76; O2SAT 89
[2024-02-01] MEDS: iohexoL-300 100 ML VIAL IVP ONE (19:12)
== END 2024-02-01 12:58 | disposition home or self-care (01) ==
LOC: ED 09:43
DX: K59.00 Constipation, unspecified (principal); J44.9 Chronic obstructive pulmonary disease, unspecified; F17.200 Nicotine dependence, unspecified, uncomplicated; Z99.81 Dependence on supplemental oxygen; I10 Essential (primary) hypertension; N40.0 Benign prostatic hyperplasia without lower urinary tract symptoms; Z87.442 Personal history of urinary calculi; Z86.010 Personal history of colon polyps; Z79.82 Long term (current) use of aspirin; Z79.899 Other long term (current) drug therapy
CPT/HCPCS: 36415; 74177; 80053; 82272; 85025; 85610; 86850; 86900; 86901; 99283; 99284; Q9967

== ENCOUNTER 2024-04-05 13:35 | Outpatient (CLI) | payer MEDICARE, OTHER ==
[2024-04-05 13:54] LABS: BASOPHILS % (AUTO) 0.2 %; EOSINOPHILS # (AUTO) 0.2 10^3/uL (0.0-0.7); EOSINOPHILS % (AUTO) 1.2 %; HCT - HEMATOCRIT 39.7 % (42.0-52.0); LYMPHOCYTES # (AUTO) 1.5 10^3/uL (1.5-3.5); LYMPHOCYTES % (AUTO) 11.7 %; MEAN CORPUSCULAR HEMOGLOBIN 28.4 pg (27.0-31.0); MEAN CORPUSCULAR HGB CONC 30.2 g/dL (32.0-36.0); MEAN CORPUSCULAR VOLUME 94.1 fL (80.0-94.0); MEAN PLATELET VOLUME 8.8 fL (7.4-11.4); MONOCYTES # (AUTO) 1.3 10^3/uL (0.0-1.0); MONOCYTES % (AUTO) 10.3 %; NEUTROPHILS # (AUTO) 9.5 10^3/uL (1.5-6.6); NEUTROPHILS % (AUTO) 76.2 %; PLT - PLATELET COUNT 294 10^3/uL (130-450); RED BLOOD COUNT 4.22 10^6/uL (4.70-6.10); RED CELL DISTRIBUTION WIDTH 14.3 % (12.0-15.0); WHITE BLOOD COUNT 12.5 x10^3/uL (4.8-10.8)
[2024-04-05 14:06] LABS: ALBUMIN 4.2 g/dL (3.2-5.5); ALBUMIN/GLOBULIN RATIO 1.6 (1.0-2.2); BILIRUBIN,TOTAL 0.6 mg/dL (0.2-1.0); CALCIUM 9.1 mg/dL (8.5-10.3); CREATININE 1.2 mg/dL (0.6-1.3); POTASSIUM 4.4 mmol/L (3.5-4.5); TOTAL PROTEIN 6.8 g/dL (6.4-8.9)
== END 2024-04-05 13:36 | disposition home or self-care (01) ==
LOC: LAB 13:35
PROVIDERS: ATTEND Physician Assistant Medical
DX: K92.1 Melena (principal)
CPT/HCPCS: 36415; 80053; 82150; 83690; 85025

== ENCOUNTER 2025-04-16 08:24 | Observation (INO) ==
--- NOTE | 2025-04-16 08:35 | ED Physician Documentation ---
PD HPI GI BLEED Stated complaint Stated Complaint: GIB Chief complaint Chief Complaint: General History obtained from History obtained from: Patient (Denies abdominal pain or nausea. He has been having regular bowel movements up until last night.), EMS and Caregiver (Patient is at [facility] healing with a periprosthetic right distal femur fracture with knee brace and time to heal. No blood thinners. Staff noted some dark stool last night and then larger amount of dark to maroon-red stool this morning. Patient denies abdominal pain.) History of Present Illness Timing - onset: Today and Last night ([facility] to have some darker stool last night. This increased this morning in quantity and appeared red and black mixed. Normal vitals and alertness.) Timing - duration: Hours (about 8 hours) Timing - details: Abrupt onset and Still present Associated symptoms: Maroon stool and Black/tarry stool; No Vomiting, Abdominal pain, Chest pain or Fever Contributing factors: Aspirin use; No Recent antibiotics, NSAID use or Anticoagulated Similar symptoms before: Has not had sx before Recently seen: Emergency Dept (seen at [facility] for fall and Dx periprosthetic distal femur fracture, treated with knee brace and time to heal. At [facility] just subsequent to that. ) Additional information Additional information: Patient's POLST it is limited interventions. He states he would be accepting of blood transfusion if needed as well as colonoscopy. Meds/Allgy Home Medications Ambulatory Orders Medication Instructions Recorded Confirmed cetirizine 10 mg capsule (Zyrtec) 10 mg PO DAILY 05/0303/12/25 mirabegron 50 mg tablet,extended 50 mg PO DAILY 03/12/25 release 24 hr (Myrbetriq) cyanocobalamin (vitamin B-12) 500 500 mcg PO DAILY 30 days #30 tabs 05/18/24 03/12/25 mcg tablet pyridoxine (vitamin B6) 100 mg 100 mg PO DAILY #30 tab s 05/18/24 03/12/25 tablet (Vitamin B-6) montelukast 10 mg tablet 10 mg PO QPM 11/04/24 potassium chloride 10 mEq 10 meq PO DAILY 11/04/24 tablet,extended release esomeprazole magnesium 40 mg 40 mg PO DAILY 12/03/24 0 03/12/25 capsule,delayed release fluticasone fur. 200 mcg-umeclid 1 inh inhalation REBECA Y 12/03/24 03/12/25 62.5 mcg-vilant 25 mcg inhalat.powder (Trelegy Ellipta) hydrochlorothiazide 25 mg tablet 25 mg PO DAILY #90 ta bs 12/26/24 03/12/25 albuterol sulfate 90 mcg/actuation 1 - 2 puff inhalati on Q4HR PRN 01/15/25 03/12/25 aerosol inhaler (Ventolin HFA) Shortness Of Air/Wheezi ng #8.5 grams simvastatin 20 mg tablet 20 mg PO QPM #90 tabs 03/12/25 meloxicam 15 mg tablet 15 mg PO QPM #90 tabs 03/12/25 hydrocodone 5 mg-acetaminophen 325 1 tab PO .nightly P RN pain #10 tabs 03/12/25 03/12/25 mg tablet magnesium oxide 400 mg PO QDAY PRN constipat ion 03/12/25 03/12/25 #90 tabs oxycodone-acetaminophen 5 mg-325 1 tab PO Q4H PRN pain #14 tabs 03/17/25 mg tablet (Percocet) Allergies Allergies Allergy/AdvReac Type Severity Reaction Status Date / Time bupropion Allergy Unknown Verified 04/16/25 08:38 fluticasone propionate * AdvReac Severe split Verified 04/16/25 08:38 (From Advair Diskus) vision salmeterol xinafoate * (From AdvReac Severe split Verified 04/16/25 08:38 Advair Diskus) vision PFSH Active Problems All Active Problems (Updated 04/16/25 @ 11:47 by Diallo Nieto MD) Lung mass (Acute) Acute GI bleeding (Acute) Knee pain, left (Acute) Acute pain of left knee (Acute) Advance care planning (Acute) Medicare annual wellness visit, subsequent (Acute) Abrasion of right arm (Acute) Elevated LFTs (Acute) [place] (acute kidney injury) (Acute) Physical deconditioning (Acute) Chronic osteoarthritis (Acute) Elevated lipase (Acute) COPD (chronic obstructive pulmonary disease) (Chronic) Thoracic ascending aortic aneurysm (Acute) Benign prostate hyperplasia (Acute) Tobacco abuse (Chronic) Iron deficiency anemia (Acute) Urinary retention due to benign prostatic hyperplasia (Acute) Hypertension (Chronic) Tachycardia (Acute) PVD (peripheral vascular disease) (Acute) Epididymitis (Acute) Medical History Medical History (Updated 04/16/25 @ 11:47 by Diallo Nieto MD) Acute kidney injury Elevated LFTs Urinary tract infection Hypoxia Pneumonia History of ESBL E. coli infection Jock itch Hypotension Social History Social History (Updated 03/15/25 @ 18:35 by Juliana Burns MD) Smoking Status: Current some day smoker Number of Years Smoked: 70 How many cigarettes a day do you smoke? (20 cigarettes=1 Pk): 10 Do you dip or chew tobacco?: No Do you vape?: No Patient requests smoking cessation consult: Yes Initiate information on smoking cessation: No Living arrangement: At home Living Condition: Alone Level: Independent Do you feel safe in your home environment?: Yes History of physical, verbal, emotional, or financial abuse?: No ETOH Use: Liquor Frequency: Daily Substance Use: denies use POLST Patient has POLST: No Exam Exam Vital Signs: Vital Signs x48h Temp Pulse Resp BP Pulse Ox O2 Flow Rate 04/16/25 11:00 83 21 123/95 H 94 3 04/16/25 09:09 83 106/76 94 3 04/16/25 08:40 3 04/16/25 08:24 36.6 C 84 18 109/80 18 L 3 Constitutional normal general appearance, no apparent distress and average body habitus Neck/C-Spine supple Lymph no lymphadenopathy noted Respiratory breath sounds equal bilaterally, normal respiratory effort and clear to auscultation bilaterally Cardiovascular normal heart rate noted and regular rhythm noted Gastrointestinal abdomen soft to palpation, nontender to palpation, nondistended and rectal exam abnormal (heme positive stool) (black to maroon/red. ) Extremities no tenderness Knee immobilizer on left leg. No edema noted in the lower legs. Results Vitals Vitals: Vital Signs - 24 hr 04/16/25 08:24 04/16/25 08:39 04/16/25 08:40 Temperature 36.6 C Pulse Rate 84 Respiratory Rate 18 Blood Pressure 109/80 O2 Saturation 18 L Oxygen Delivery Method Nasal Cannula Nasal Cannula O2 Source Nasal cannula Oxygen Flow Rate 3 If not protocol: Oxygen Flow, liters/minute 3 3 Pain Intensity 0 04/16/25 09:09 04/16/25 11:00 Temperature Pulse Rate 83 83 Respiratory Rate 21 Blood Pressure 106/76 123/95 H O2 Saturation 94 94 Oxygen Delivery Method O2 Source Nasal cannula Nasal cannula Oxygen Flow Rate If not protocol: Oxygen Flow, liters/minute 3 3 Pain Intensity 0 0 Oxygen O2 Source Nasal cannula Oxygen Flow Rate 3 Labs Labs: Microbiology 04/16/25 08:38 Occult Blood - Final Stool Laboratory Tests 04/16/25 04/16/25 08:45 10:57 WBC 12.1 H RBC 5.02 Hgb 13.7 L 13.3 L Hct 44.6 42.6 MCV 88.8 MCH 27.3 MCHC 30.7 L RDW 19.0 H Plt Count 220 MPV 8.9 Neut # (Auto) Not Reportable Lymph # (Auto) Not Reportable [place] # (Auto) Not Reportable Eos # (Auto) Not Reportable Baso # (Auto) Not Reportable Absolute Nucleated RBC Not Reportable Total Counted 100 Band Neuts % (Manual) 7 Reactive Lymphs % (Man) 6 Abnorm Lymph % (Manual) 0 Nucleated RBC % Not Reportable Neutrophils # (Manual) 10.2 H Lymphocytes # (Manual) 1.5 Monocytes # (Manual) 0.4 Eosinophils # (Manual) 0.1 Basophils # (Manual) 0.0 Differential Comment MANUAL DIFFERENTIAL Platelet Estimate NORMAL (130-450,000) RBC Morph Micro Appear 4+ ANISOCYTOSIS PT 12.0 INR 1.1 Sodium 136 Potassium 4.7 H Chloride 100 L Carbon Dioxide 32 Anion Gap 4.0 L BUN 36 H Creatinine 1.1 Estimated GFR (MDRD) 64 L Glucose 96 Calcium 8.8 Magnesium 1.9 Total Bilirubin 0.4 AST 16 ALT 39 Alkaline Phosphatase 77 Total Protein 5.7 L Albumin 3.2 Globulin 2.5 Albumin/Globulin Ratio 1.3 Lipase 11 Blood Type O POSITIVE Antibody Screen NEGATIVE Rads (name of study) abd/pelvic angio: Relevant Findings:: Final report received and EMP independent interpretation of test (no obvious extravasation of blood in abd. ) Interpretation: EXAM: [id number] CT/ABPEANG ([id number]) PROCEDURE: CT Angio Abdomen/Pelvis INDICATIONS: acute GI bleeding CONTRAST: Omni 300 100ml TECHNIQUE: After the administration of intravenous contrast, images were acquired from the diaphragm to the symphysis. Maximum-intensity projection (MIP) reformats were then acquired. For radiation dose reduction, the following was used: automated exposure control, adjustment of mA and/or kV according to patient size. COMPARISON: CT of abdomen and pelvis dated 12/02/2024 and 02/01/2024 FINDINGS: Image quality: Excellent. VESSELS: Aorta: Presence of aortobiiliac grafts. Fusiform infrarenal abdominal aortic aneurysm is seen measures up to 2.8 x 3.4 cm in size series 28 image 221. No aortic dissection. No contrast extravasation or suggestion of endoleak. 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 Mesenteric arteries: Celiac trunk, superior and inferior mesenteric arteries appear patent. No area of active contrast extravasation or accumulation is seen. Right pelvic arteries: Patent without hemodynamically significant stenosis. Left pelvic arteries: Patent without hemodynamically significant stenosis. CHEST: Lung bases and heart: Masslike consolidation in posterior medial aspect of the right lower lobe is seen extending to right hilar region. Small airspace opacities also noted in left lung base posterior aspect. Moderate centrilobular emphysema is seen. Heart size is enlarged, no pericardial effusion. Three-vessel coronary artery atherosclerotic calcifications are seen. ABDOMEN: Liver: No solid mass. Tiny right hepatic dome cyst is seen. Gallbladder and biliary tree: Hyperdense material within dependent portion of gallbladder lumen without gallbladder wall thickening. Spleen: No splenomegaly. Pancreas: No pancreatic ductal dilation. Adrenals: No adrenal nodule. Kidneys and ureters: No hydronephrosis. No renal cystic lesion which requires follow up. No solid mass. Bowel and peritoneum: Moderate fecal stasis in the colon is seen. No bowel obstruction or abnormal bowel wall thickening. No abscess collection. No mesenteric fat stranding. No area of contrast accumulation within the bowel lumen is seen. No free fluid or free air. Lymph nodes: No central or retroperitoneal adenopathy. PELVIS Reproductive organs: Unremarkable. Bladder: No abnormal wall thickening, accounting for underdistension. Pelvic lymph nodes: No pelvic adenopathy by size criteria. Bones: No aggressive osseous abnormality. Other: No significant ventral or inguinal hernia. IMPRESSION: 1. No area of active GI bleeding is seen. 2. Prior aortobiiliac graft placement. Fusiform infrarenal abdominal aortic aneurysm and right common iliac artery aneurysm as above. No aortic dissection. No evidence of endoleak. 3. No hemodynamically significant stenosis is seen in mesenteric arteries. 4. Moderate constipation. No bowel obstruction or abnormal bowel wall thickening. No free fluid of free air. 5. Masslike consolidation in posterior medial aspect of right lower lobe extending to right hilar region. Finding may represent pneumonia. Underlying neoplastic process can not be excluded. Clinical correlation and follow-up is recommended. Reviewed by: Moshe Uriarte MD on 04/16/2025 10:59 AM PDT PD Medical Decision Making ED course Complexity details: reviewed results, re-evaluated patient (still no abd pains nor tenderness. ), considered differential (Onset of melena stool some last night and then much more this morning. Clearly melena and maroon blood on rectal exam. Guaiac positive in the lab. Initial blood pressure and blood count are good. Repeat blood count just now ordered at 2 hours. Blood pressure remains adequate. No anticoag.), d/w patient and d/w [employer] consultant (I did talk by phone with Dr. Christopher who is on-call for surgery and he is available for consultation if the hospitalist desires. I talked with hospitalist who will some see the patient) ED course: Patient without abdominal pain but had onset of dark stool some overnight last night and then much more this morning which appeared melanotic to maroon and was obviously bloody in those colors on rectal exam. Tested positive in the lab. His blood pressure remains adequate. Initial blood count showed hemoglobin of 13.9 with a repeat of 13.3. He did have some more stool out during this interval but apparently not a severe hemorrhage amount. He was given pantoprazole and TXA presuming a upper GI bleed. CT scan did not show any extravasation. No unusual abdominal process. Note was made of a posterior lung masslike lesion that could be an infiltrate or pneumonia versus tumor. I did talk with the surgeon on-call who is available for consultation if need. I talked with the hospitalist who will come and see the patient in the ER. Reexam of the patient showed him to still be alert and conversant. No abdominal tenderness. Blood pressure remains normotensive. Discharge Plan Discharge Patient Disposition: [facility] DC/Xfer Condition: Stable Clinical Impression: Acute GI bleeding, Lung mass Prescriptions: No Action hydrochlorothiazide 25 mg tablet 25 mg PO DAILY Qty: 90 3RF albuterol sulfate [Ventolin HFA] 90 mcg/actuation HFA aerosol inhaler 1 - 2 puff inhalation Q4HR PRN (Reason: Shortness Of Air/Wheezing) Qty: 8.5 3RF simvastatin 20 mg tablet 20 mg PO QPM Qty: 90 0RF meloxicam 15 mg tablet 15 mg PO QPM Qty: 90 0RF Zyrtec 10 MG capsule 10 mg PO DAILY mirabegron [Myrbetriq] 50 MG tablet extended release 24 hr 50 mg PO DAILY cyanocobalamin (vitamin B-12) 500 mcg Tablet 500 mcg PO DAILY 30 Days Qty: 30 0RF pyridoxine (vitamin B6) [Vitamin B-6] 100 mg Tablet 100 mg PO DAILY Qty: 30 0RF Trelegy Ellipta 200-62.5-25 mcg blister with device 1 inh inhalation DAILY Rx Instructions: patient had a prior listed reaction to Advair Diskus with vision changes, but has tolerated Breo Ellipta daily for several months. No listed history of glaucoma." esomeprazole magnesium 40 mg capsule,delayed release(DR/EC) 40 mg PO DAILY oxycodone-acetaminophen [Percocet] 5-325 mg tablet 1 tab PO Q4H PRN (Reason: pain) Qty: 14 0RF montelukast 10 mg tablet 10 mg PO QPM potassium chloride 10 mEq tablet extended release 10 meq PO DAILY hydrocodone-acetaminophen 5-325 mg tablet 1 tab PO .nightly PRN (Reason: pain) Qty: 10 0RF magnesium oxide 400 mg magnesium tablet 400 mg PO QDAY PRN (Reason: constipation) Qty: 90 3RF Print Language: Nepalese
[2025-04-16 09:00] LABS: HCT - HEMATOCRIT 44.6 % (42.0-52.0); HGB - HEMOGLOBIN 13.7 g/dL (14.0-18.0); MEAN PLATELET VOLUME 8.9 fL (7.4-11.4); PLT - PLATELET COUNT 220 10^3/uL (130-450); RED CELL DISTRIBUTION WIDTH 19.0 % (12.0-15.0)
[2025-04-16 09:04] LABS: INR 1.1 (0.8-1.2); PT - PROTHROMBIN TIME 12.0 secs (9.9-12.6)
[2025-04-16] MEDS: SODIUM CHLORIDE 0.9% 1,000 ML IV STA ×2 (09:05→12:55)
[2025-04-16] MEDS: PANTOPRAZOLE 40 MG VIAL IVP STA (09:05)
[2025-04-16 09:06] LABS: ABNORMAL LYMPHS % (MANUAL) 0 %; BASOPHILS # (MANUAL) 0.0 10^3/uL (0-0.1)
[2025-04-16 09:11] LABS: ALT ALANINE AMINOTRANSFERASE 39.0 IU/L (10-60); AST ASPARTATE AMINOTRANSFERASE 16.0 IU/L (10-42); BUN - BLOOD UREA NITROGEN 36.0 mg/dL (6-20); CARBON DIOXIDE - CO2 32.0 mmol/L (21-32); CREATININE 1.1 mg/dL (0.6-1.3); GFR - MDRD 64.0 (>89)
[2025-04-16 09:28] LABS: BAND NEUTROPHILS % (MANUAL) 7 %; EOSINOPHILS # (MANUAL) 0.1 10^3/uL (0-0.7); LYMPHOCYTES # (MANUAL) 1.5 10^3/uL (1.5-3.5); LYMPHOCYTES % (MANUAL) 6 %; MONOCYTES # (MANUAL) 0.4 10^3/uL (0.0-1.0); NEUTROPHILS # (MANUAL) 10.2 10^3/uL (1.5-6.6); PLATELET ESTIMATE, MANUAL NORMAL (130-450,000) (NORMAL); RBC MORPHOLOGY (MULTIPLE) 4+ ANISOCYTOSIS (NORMAL); REACTIVE LYMPHS % (MANUAL) 6 %
[2025-04-16] MEDS: TRANEXAMIC ACID IN NACL 1,000 MG/100 ML BAG IV STA (10:00)
--- OUTSIDE RECORDS SUMMARY | 2025-04-16 10:23 | EXTERNAL MEDICAL SUMMARY RPT | Continuity of Care Document ---
Author Organization [place] Address [address] [address] Phone Care Team Providers Care Manager Of Creative Services Name Role Phone Unavailable Unavailable Unavailable Antwan Goldberg Unavailable Unavailable Allergies and Intolerances date description facility reaction severity 2025-03-19 23:12:21 [facility] (no reactio n) (no severity) 2025-03-19 23:12:21 [facility] (no reactio n) (no severity) Medications date description facility 2025-03-20 00:00 Mirabegron [facility] 2025-03-20 00:00 Meloxicam [facility] 2025-03-20 00:00 Magnesium Oxide [facility] 2025-03-20 [facility]25-03-25 00:00 Prednisone [facility] 2025-03-20 00:00 Potassium Chloride [facility] 2025-03-25 00:00 Hydrocodone-Acetamin[facility] Problems date description facility 2025-03-10 13:39 Pain in left knee [facility] 2025-03-12 14:20 Pain in left knee [facility] 2025-03-20 00:00 Chronic obstructive asthma with exacerbation [facility] 2025-03-20 00:00 Urinary tract infection [facility] 2025-03-20 00:00 Hypoxia [facility] 2025-03-20 00:00 Generalized weakness [facility] 2025-03-20 16:23 Chronic obstructive pulmonary disease with (acute) exacerbat [facility] 2025-03-21 00:00 Left knee pain [facility] 2025-03-21 00:00 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 [facility] 2025-03-23 06:11 [facility] 06:11 Periprosthetic fract ure around other internal prosthetic mark [facility] 2025-03-23 06:11 Presence of unspecified artific ial knee joint [facility] 2025-03-23 09:02 Imaging @ [place] @ Ultrasonography @ Internal Carotid Arteries, [facility] 2025-03-23 09:02 Iron deficiency anemia, unspeci fied [facility] 2025-03-23 09:02 Pyridoxine deficiency [facility] 2025-03-23 09:02 Deficiency of other specified B group vitamins [facility] 2025-03-23 09:02 Hypomagnesemia [facility] 2025-03-23 09:02 Hyperkalemia [facility] 2025-03-23 09:02 Essential (primary) hypertensio n [facility] 2025-03-23 09:02 Aneurysm of the ascending aorta , without rupture [facility] 2025-03-23 09:02 Peripheral vascular disease, un specified [facility] 2025-03-23 09:02 Chronic obstructive pulmonary disease with (acute) exacerbation [facility] 2025-03-23 09:02 Acute respiratory failure with hypoxia [facility] 2025-03-23 09:02 Acute and chronic respiratory f ailure with hypoxia [facility] 2025-03-23 09:02 Respiratory failure, unspecified, unspecified whether with hypoxia or hypercapnia [facility] 2025-03-23 09:02 Fecal impaction [facility] 2025-03-23 09:02 Pain in left knee [facility] 2025-03-23 09:02 Acute kidney failure, unspecifi ed [facility] 2025-03-23 09:02 Benign prostatic hyp erplasia without lower urinary tract symptoms [facility] 2025-03-23 09:02 Shortness of breath [employer] [facility] 2025-03-23 09:02 Hypoxemia [employer] 2025-03-23 09:02 Fever, unspecified [facility] 2025-03-23 09:02 Other specified abnormal findin gs of blood chemistry [facility] 2025-03-23 09:02 Tobacco use [facility] 2025-03-23 13:34 [facility] 13:34 Periprosthetic fract ure around other internal prosthetic [facility] 2025-03-23 13:34 Presence of unspecified artific ial [facility] 2025-03-25 07:46 Pain in left lower leg [facility] 2025-03-25 10:50 [facility]25 10:50 Periprosthetic fract ure around other internal prosthetic [facility] 2025-03-25 10:50 Presence of unspecified artific ial [facility] 2025-03-25 10:55 Chronic obstructive pulmonary disease [facility] 2025-[facility]-25 10:55 Periprosthetic fract ure around other internal prosthetic [facility] 2025-03-25 10:55 [facility]25 11:48 Chronic obstructive pulmonary disease with (acute) [facility] 2025-03-25 11:48 Periprosthetic fract ure around other internal prosthetic [facility] 2025-03-25 11:48 Presence of unspecified artific ial [facility] 2025-03-25 12:51 [facility] 2025-03-26 08:21 Imaging @ [facility] [place] @ Ultrasonography @ Internal Carotid Arteries, Bilateral [facility] 2025-03-26 08:21 Iron deficiency anemia, unspeci fied [facility] 2025-03-26 08:21 Pyridoxine deficiency [facility] 2025-03-26 08:21 Deficiency of other specified B group vitamins [facility] 2025-03-26 08:21 Hypomagnesemia [facility] 2025-03-26 08:21 Hyperkalemia [facility] 2025-03-26 08:21 Essential (primary) hypertensio n [facility] 2025-03-26 08:21 Aneurysm of the ascending aorta , without rupture [facility] 2025-03-26 08:21 Peripheral vascular disease, un specified [facility] 2025-03-26 08:21 Chronic obstructive pulmonary disease with (acute) exacerbation [facility] 2025-03-26 08:21 Acute respiratory failure with hypoxia [facility] 2025-03-26 08:21 Acute and chronic respiratory f ailure with hypoxia [facility] 2025-03-26 08:21 Respiratory failure, unspecified, unspecified whether with hypoxia or hypercapnia [facility] 2025-03-26 08:21 Fecal impaction [facility] 2025-03-26 08:21 [facility] 08:21 Acute kidney failure, unspecifi ed [facility] 2025-03-26 08:21 Benign prostatic hyp erplasia without lower urinary tract symptoms [facility] 2025-03-26 08:21 [facility]ness [facility]-26 08:21 Hypoxemia [facility] 2025-03-26 08:21 Fever, unspecified [facility] 2025-03-26 08:21 Other specified abnormal findin gs of blood chemistry [facility] 2025-03-26 08:21 Tobacco use [facility] 2025-03-26 16:38 Chronic obstructive pulmonary disease with (acute) [facility] 2025-03-26 16:38 Periprosthetic fract ure around other internal prosthetic [facility] 2025-03-26 16:38 Presence of unspecified [facility] 2025-03-27 09:13 Chronic obstructive pulmonary disease with (acute) [facility] 2025-03-27 09:13 Periprosthetic fract ure around other internal prosthetic [facility] 2025-03-27 09:13 Presence of unspecified artific ial [facility] 2025-03-27 10:05 Chronic obstructive pulmonary disease with (acute) [facility] 2025-03-27 10:05 Periprosthetic fract ure around other internal prosthetic [facility] 2025-03-27 10:05 Presence of unspecified artific ial [facility] 2025-03-27 12:16 Chronic obstructive pulmonary disease with (acute) [facility] 2025-03-27 12:16 Periprosthetic fract ure around other internal prosthetic [facility] 2025-03-27 12:16 Presence of unspecified [facility] 2025-03-31 10:36 Pain in left knee [facility] 2025-04-08 14:09 Imaging @ [place] @ Ultrasonography @ Internal Carotid Arteries, Bilateral [facility] 2025-04-08 14:09 Iron deficiency anemia, unspeci fied [facility] 2025-04-08 14:09 Pyridoxine deficiency [facility] 2025-04-08 14:09 Deficiency of other specified B group vitamins [employer] 2025-04-08 14:09 Hypomagnesemia [facility] 2025-04-08 14:09 Hyperkalemia [facility] 2025-04-08 14:09 Essential (primary) hypertensio n [employer] 2025-04-08 14:09 Aneurysm of the ascending aorta , without rupture [employer] 2025-04-08 14:09 Peripheral vascular disease, un specified [facility] 2025-04-08 14:09 Chronic obstructive pulmonary disease with (acute) exacerbation [employer] 2025-04-08 14:09 Acute respiratory failure with hypoxia [employer] 2025-04-08 14:09 Acute and chronic respiratory f ailure with hypoxia [employer] 2025-04-08 14:09 Respiratory failure, unspecified, unspecified whether with hypoxia or hypercapnia [employer] 2025-04-08 14:09 Fecal impaction [employer] 2025-04-08 14:09 Pain in left knee [facility] 2025-[facility]-08 14:09 Acute kidney failure, unspecifi ed [employer] 2025-04-08 14:09 Benign prostatic hyp erplasia without lower urinary tract symptoms [employer] 2025-04-08 14:09 Shortness of breath [employer] [facility] 2025-04-08 14:09 Hypoxemia [employer] 2025-04-08 14:09 Fever, unspecified [facility] 2025-04-08 14:09 Other specified abnormal findin gs of blood chemistry [employer] 2025-04-08 14:09 Tobacco use [employer] 2025-04-10 09:17 Imaging @ [place] @ Ultrasonography @ Internal Carotid Arteries, Bilateral [facility] 2025-04-10 09:17 Iron deficiency anemia, unspeci fied [facility] 2025-04-10 09:17 Pyridoxine deficiency [facility] 2025-04-10 09:17 Deficiency of other specified B group vitamins [facility] 2025-04-10 09:17 Hypomagnesemia [facility] 2025-04-10 09:17 Hyperkalemia [facility] 2025-04-10 09:17 Essential (primary) hypertensio n [facility] 2025-04-10 09:17 Aneurysm of the ascending aorta , without rupture [facility] 2025-04-10 09:17 Peripheral vascular disease, un specified [facility] 2025-04-10 09:17 Chronic obstructive pulmonary disease with (acute) exacerbation [facility] 2025-04-10 09:17 Acute respiratory failure with hypoxia [facility] 2025-04-10 09:17 Acute and chronic respiratory f ailure with hypoxia [facility] 2025-04-10 09:17 Respiratory failure, unspecified, unspecified whether with hypoxia or hypercapnia [facility] 2025-04-10 09:17 Fecal impaction [facility] 2025-04-10 09:17 Pain in left knee [facility] 2025-04-10 09:17 Acute kidney failure, unspecifi ed [facility] 2025-04-10 09:17 Benign prostatic hyp erplasia without lower urinary tract symptoms [facility] [employer] 2025-04-10 09:17 Shortness of breath [facility] 2025-04-10 09:17 Hypoxemia [facility] 2025-04-10 09:17 Fever, unspecified [facility] 2025-04-10 09:17 Other specified abnormal findin gs of blood chemistry [facility] 2025-04-10 09:17 Tobacco use [facility] Procedures date description facility 2025-03-24 [facility] 00:00 XR abdomen 1V [facility] 2025-03-23 00:00 XR fluoro small intestine [facility] 2025-03-20 00:00 Blood culture [facility] 2025-03-20 00:00 X-ray of chest, two views [facility] 2025-03-20 00:00 Computed tomography angiography of chest with contrast for pulmonary embolus [facility] 2025-03-23 00:00 CT abdomen pelvis w [facility] Results/Labs test date facility value unit notes Result panel 1 Specimen collection (procedure) (no date) [facility] (missing) (missing) (missing) Result panel 2 Specimen collection (procedure) (no date) [facility] (missing) (missing) (missing) Result panel 3 Specimen collection (procedure) (no date) [facility] (missing) (missing) (missing) Result panel 4 Specimen collection (procedure) (no date) [facility] (missing) (missing) (missing) Result panel 5 Specimen collection (procedure) (no date) [facility] (missing) (missing) (missing) Result panel 6 Specimen collection (procedure) (no date) [facility] (missing) (missing) (missing) Result panel 7 Specimen collection (procedure) (no date) [facility] (missing) (missing) (missing) Result panel 8 Specimen collection (procedure) (no date) [facility] (missing) (missing) (missing) Result panel 9 Specimen collection (procedure) (no date) [facility] (missing) (missing) (missing) Result panel 10 Specimen collection (procedure) (no date) [facility] (missing) (missing) (missing) Result panel 11 Specimen collection (procedure) (no date) [facility] (missing) (missing) (missing) Result panel 12 Specimen collection (procedure) (no date) [facility] (missing) (missing) (missing) Result panel 13 Specimen collection (procedure) (no date) [facility] (missing) (missing) (missing) Result panel 14 Specimen collection (procedure) (no date) [facility] (missing) (missing) (missing) Result panel 15 Specimen collection (procedure) (no date) [facility] (missing) (missing) (missing) Result panel 16 Specimen collection (procedure) (no date) [facility] (missing) (missing) (missing) Result panel 17 Specimen collection (procedure) (no date) [facility] (missing) (missing) (missing) Result panel 18 Specimen collection (procedure) (no date) [facility] (missing) (missing) (missing) Result panel 19 Specimen collection (procedure) (no date) [facility] (missing) (missing) (missing) Result panel 20 Specimen collection (procedure) (no date) [facility] (missing) (missing) (missing) Result panel 21 Specimen collection (procedure) (no date) [facility] (missing) (missing) (missing) Result panel 22 Specimen collection (procedure) (no date) [facility] (missing) (missing) (missing) Result panel 23 Specimen collection (procedure) (no date) [facility] (missing) (missing) (missing) Result panel 24 Specimen collection (procedure) (no date) [facility] (missing) (missing) (missing) Result panel 25 Specimen collection (procedure) (no date) [facility] (missing) (missing) (missing) Result panel 26 Specimen collection (procedure) (no date) [facility] (missing) (missing) (missing) Result panel 27 Specimen collection (procedure) (no date) [facility] (missing) (missing) (missing) Result panel 28 Specimen collection (procedure) (no date) [facility] (missing) (missing) (missing) Result panel 29 Specimen collection (procedure) (no date) [facility] (missing) (missing) (missing) Result panel 30 Specimen collection (procedure) (no date) [facility] (missing) (missing) (missing) Result panel 31 Specimen collection (procedure) (no date) [facility] (missing) (missing) (missing) Result panel 32 Specimen collection (procedure) (no date) [facility] (missing) (missing) (missing) Result panel 33 Specimen collection (procedure) (no date) [facility] (missing) (missing) (missing) Result panel 34 Specimen collection (procedure) (no date) [facility] (missing) (missing) (missing) Result panel 35 Specimen collection (procedure) (no date) [facility] (missing) (missing) (missing) Result panel 36 Specimen collection (procedure) (no date) [facility] (missing) (missing) (missing) Result panel 37 Specimen collection (procedure) (no date) [facility] (missing) (missing) (missing) Result panel 38 Specimen collection (procedure) (no date) [facility] (missing) (missing) (missing) Result panel 39 Specimen collection (procedure) (no date) [facility] (missing) (missing) (missing) Result panel 40 Specimen collection (procedure) (no date) [facility] (missing) (missing) (missing) Result panel 41 Specimen collection (procedure) (no date) [facility] (missing) (missing) (missing) Result panel 42 Specimen collection (procedure) (no date) [facility] (missing) (missing) (missing) Result panel 43 Specimen collection (procedure) (no date) [facility] (missing) (missing) (missing) Result panel 44 Specimen collection (procedure) (no date) [facility] (missing) (missing) (missing) Result panel 45 Specimen collection (procedure) (no date) [facility] (missing) (missing) (missing) Result panel 46 Specimen collection (procedure) (no date) [facility] (missing) (missing) (missing) Result panel 47 Specimen collection (procedure) (no date) [facility] (missing) (missing) (missing) Result panel 48 Specimen collection (procedure) (no date) [facility] (missing) (missing) (missing) Result panel 49 Specimen collection (procedure) (no date) [facility] (missing) (missing) (missing) Result panel 50 Specimen collection (procedure) (no date) [facility] (missing) (missing) (missing) Result panel 51 Specimen collection (procedure) (no date) [facility] (missing) (missing) (missing) Result panel 52 Specimen collection (procedure) (no date) [facility] (missing) (missing) (missing) Result panel 53 Specimen collection (procedure) (no date) [facility] (missing) (missing) (missing) Result panel 54 Specimen collection (procedure) (no date) [facility] (missing) (missing) (missing) Result panel 55 Specimen collection (procedure) (no date) [facility] (missing) (missing) (missing) Result panel 56 Specimen collection (procedure) (no date) [facility] (missing) (missing) (missing) Result panel 57 Specimen collection (procedure) (no date) [facility] (missing) (missing) (missing) Result panel 58 Specimen collection (procedure) (no date) [facility] (missing) (missing) (missing) Result panel 59 Specimen collection (procedure) (no date) [facility] (missing) (missing) (missing) Result panel 60 Specimen collection (procedure) (no date) [facility] (missing) (missing) (missing) Result panel 61 Specimen collection (procedure) (no date) [facility] (missing) (missing) (missing) Result panel 62 Specimen collection (procedure) (no date) [facility] (missing) (missing) (missing) Result panel 63 Specimen collection (procedure) (no date) [facility] (missing) (missing) (missing) Result panel 64 Specimen collection (procedure) (no date) [facility] (missing) (missing) (missing) Result panel 65 Specimen collection (procedure) (no date) [facility] (missing) (missing) (missing) Result panel 66 Specimen collection (procedure) (no date) [facility] (missing) (missing) (missing) Result panel 67 Specimen collection (procedure) (no date) [facility] (missing) (missing) (missing) Result panel 68 Specimen collection (procedure) (no date) [facility] (missing) (missing) (missing) Result panel 69 Specimen collection (procedure) (no date) [facility] (missing) (missing) (missing) Result panel 70 Specimen collection (procedure) (no date) [facility] (missing) (missing) (missing) Result panel 71 Specimen collection (procedure) (no date) [facility] (missing) (missing) (missing) Result panel 72 Specimen collection (procedure) (no date) [facility] (missing) (missing) (missing) Result panel 73 Specimen collection (procedure) (no date) [facility] (missing) (missing) (missing) Result panel 74 Specimen collection (procedure) (no date) [facility] (missing) (missing) (missing) Result panel 75 Specimen collection (procedure) (no date) [facility] (missing) (missing) (missing) Result panel 76 Specimen collection (procedure) (no date) [facility] (missing) (missing) (missing) Result panel 77 Specimen collection (procedure) (no date) [facility] (missing) (missing) (missing) Result panel 78 Specimen collection (procedure) (no date) [facility] (missing) (missing) (missing) Result panel 79 Specimen collection (procedure) (no date) [facility] (missing) (missing) (missing) Result panel 80 Specimen collection (procedure) (no date) [facility] (missing) (missing) (missing) Result panel 81 Specimen collection (procedure) (no date) [facility] (missing) (missing) (missing) Result panel 82 Specimen collection (procedure) (no date) [facility] (missing) (missing) (missing) Result panel 83 Specimen collection (procedure) (no date) [facility] (missing) (missing) (missing) Result panel 84 Specimen collection (procedure) (no date) [facility] (missing) (missing) (missing) Result panel 85 Specimen collection (procedure) (no date) [facility] (missing) (missing) (missing) Result panel 86 Specimen collection (procedure) (no date) [facility] (missing) (missing) (missing) Result panel 87 Specimen collection (procedure) (no date) [facility] (missing) (missing) (missing) Result panel 88 Specimen collection (procedure) (no date) [facility] (missing) (missing) (missing) Result panel 89 Specimen collection (procedure) (no date) [facility] (missing) (missing) (missing) Result panel 90 Specimen collection (procedure) (no date) [facility] (missing) (missing) (missing) Result panel 91 Specimen collection (procedure) (no date) [facility] (missing) (missing) (missing) Result panel 92 Specimen collection (procedure) (no date) [facility] (missing) (missing) (missing) Result panel 93 Specimen collection (procedure) (no date) [facility] (missing) (missing) (missing) Result panel 94 Specimen collection (procedure) (no date) [facility] (missing) (missing) (missing) Result panel 95 Specimen collection (procedure) (no date) [facility] (missing) (missing) (missing) Result panel 96 Specimen collection (procedure) (no date) [facility] (missing) (missing) (missing) Result panel 97 Specimen collection (procedure) (no date) [facility] (missing) (missing) (missing) Result panel 98 Specimen collection (procedure) (no date) [facility] (missing) (missing) (missing) Result panel 99 Specimen collection (procedure) (no date) [facility] (missing) (missing) (missing) Result panel 100 Specimen collection (procedure) (no date) [facility] (missing) (missing) (missing) Result panel 101 Specimen collection (procedure) (no date) [facility] (missing) (missing) (missing) Result panel 102 Specimen collection (procedure) (no date) [facility] (missing) (missing) (missing) Result panel 103 Specimen collection (procedure) (no date) [facility] (missing) (missing) (missing) Result panel 104 Specimen collection (procedure) (no date) [facility] (missing) (missing) (missing) Result panel 105 Specimen collection (procedure) (no date) [facility] (missing) (missing) (missing) Result panel 106 Specimen collection (procedure) (no date) [facility] (missing) (missing) (missing) Result panel 107 Specimen collection (procedure) (no date) [facility] (missing) (missing) (missing) Result panel 108 Specimen collection (procedure) (no date) [facility] (missing) (missing) (missing) Result panel 109 Specimen collection (procedure) (no date) [facility] (missing) (missing) (missing) Result panel 110 Specimen collection (procedure) (no date) [facility] (missing) (missing) (missing) Result panel 111 Specimen collection (procedure) (no date) [facility] (missing) (missing) (missing) Result panel 112 Specimen collection (procedure) (no date) [facility] (missing) (missing) (missing) Result panel 113 Specimen collection (procedure) (no date) [facility] (missing) (missing) (missing) Result panel 114 Specimen collection (procedure) (no date) [facility] (missing) (missing) (missing) Result panel 115 Specimen collection (procedure) (no date) [facility] (missing) (missing) (missing) Result panel 116 Specimen collection (procedure) (no date) [facility] (missing) (missing) (missing) Result panel 117 Specimen collection (procedure) (no date) [facility] (missing) (missing) (missing) Result panel 118 Specimen collection (procedure) (no date) [facility] (missing) (missing) (missing) Result panel 119 Troponin I.cardiac [Mass/volume] in Serum or Plasma 2025-03-19 23:55:07 [facility] < 0.012 ng/mL (missing) (missing) Result panel 120 White blood cell count 2025-03-19 23:55:07 [facility] 9 .6 X10^3/uL (missing) Result panel 121 Red blood cell count 2025-03-19 23:55:07 [facility] 4.9 4 X10^6/uL (missing) Result panel 122 Hemoglobin 2025-03-19 23:55:07 [facility] 13.7 g/d L (missing) Result panel 123 Hematocrit 2025-03-19 23:55:07 [facility] 42.5 % (missing) Result panel 124 MCV (mean corpuscular volume ) determination 2025-03-19 23:55:07 [facility] 85.9 fL (mis sing) Result panel 125 Mean corpuscular hemoglobin (MCH) determination 2025-03-19 23:55:07 [facility] 27.8 PG (missing) Result panel 126 Mean corpuscular hemoglobin concentration (MCHC) determination 2025-03-19 23:55:07 [facility] 32.3 % (mis sing) Result panel 127 Red cell distribution width determination 2025-03-19 23:55:07 [facility] 18.4 % (mis sing) Result panel 128 Platelet count 2025-03-19 23:55:07 [facility] 283 X10^3/uL (missing) Result panel 129 Automated neutrophil % 2025-03-19 23:55:07 [facility] 7 1.0 % (missing) Result panel 130 Automated lymphocyte % 2025-03-19 23:55:07 [facility] 1 4.5 % (missing) Result panel 131 Automated monocyte % 2025-03-19 23:55:07 [facility] 12. 5 % (missing) Result panel 132 Automated eosinophil % 2025-03-19 23:55:07 [facility] 1 .3 % (missing) Result panel 133 Automated basophil % 2025-03-19 23:55:07 [facility] 0.7 % (missing) Result panel 134 Absolute neutrophil count 2025-03-19 23:55:07 [facility] l 6800 /uL (missing) Result panel 135 Absolute lymphocyte count 2025-03-19 23:55:07 [facility] l 1400 /uL (missing) Result panel 136 Automated blood monocyte count 2025-03-19 23:55:07 [facility] 1200 /uL (missing) Result panel 137 Automated eosinophil count 2025-03-19 [facility] [facility] [address] Result panel 138 Automated basophil count 2025-03-19 23:55:07 [facility] 100 /uL (missing) Result panel 139 Troponin I.cardiac [Mass/volume] in Serum or Plasma 2025-03-19 23:55:07 [facility] < 0.012 ng/mL (missing) (missing) Result panel 140 Basophils Percent Auto 2025-03-20 00:16 [facility] 0.7 % (missing) Eosinophils Percent Auto 2025-03-20 00:16 [facility] 1. 3 % (missing) Basophils Absolute Auto 2025-03-20 00:16 [facility] 100 /ul (missing) Eosinophils Absolute Auto 2025-03-20 00:16 [facility] 1 00 /ul (missing) Monocytes Percent Auto 2025-03-20 00:16 [facility] 12.5 % (missing) Monocytes Absolute Auto 2025-03-20 00: [facility] 120 0 /ul (missing) Hemoglobin 2025-03-20 00:[address] [place] [address] 13.7 g/dl (missing) Lymphocytes Percent Auto 2025-03-20 00:[address] [place] [address] 14 .5 % (missing) Lymphocytes Absolute Auto 2025-03-20 00:[address] [place] [address] 1 400 /ul (missing) Red Cell Distribution Width 2025-03-20 00: [facility] 18.4 % (missing) Mean Corpuscular Hemoglobin 2025-03-20 00:[address] [place] [address] 27.8 pg (missing) Platelet Count 2025-03-20 00: [facility] 283 x1 0 3/ul (missing) Mean Corpuscular HGB Conc 2025-03-20 00: [facility] 3 2.3 % (missing) Red Blood Cell Count 2025-03-20 00:[address] [place] [address] 4.94 x10 6/ul (missing) Hematocrit 2025-03-20 00: [facility] 42.5 % (missing) Neutrophils Absolute Auto 2025-03-20 00: [facility] 6 800 /ul (missing) Neutrophils Percent Auto 2025-03-20 00:[address] [place] [address] 71 .0 % (missing) Mean Corpuscular Volume 2025-03-20 00: [facility] 85. 9 fl (missing) White Blood Cell Count 2025-03-20 00:[address] [place] [address] 9.6 x10 3/ul (missing) Result panel 141 Influenza virus A RNA [Presence] in Upper respiratory specimen by MICHAEL with probe dete 2025-03-20 00:38:07 [facility] Flu a negative (missing) (missing) Result panel 142 Influenza virus B RNA [Presence] in Upper respiratory specimen by MICHAEL with probe dete 2025-03-20 00:38:07 [facility] Flu b negative (missing) (missing) Result panel 143 Respiratory syncytial virus RNA [Presence] in Nasopharynx by MICHAEL with probe detection 2025-03-20 00:38:07 [facility] Negative (missing) (missing) Result panel 144 Influenza virus A RNA [Presence] in Upper respiratory specimen by MICHAEL with probe dete 2025-03-20 00:38:07 [facility] Flu a negative (missing) (missing) Result panel 145 Influenza virus B RNA [Presence] in Upper respiratory specimen by MICHAEL with probe dete 2025-03-20 00:38:07 [facility] Flu b negative (missing) (missing) Result panel 146 Respiratory syncytial virus RNA [Presence] in Nasopharynx by MICHAEL with probe detection 2025-03-20 00:38:07 [facility] Negative (missing) (missing) Result panel 147 Troponin I 2025-03-20 00:40 [facility] < 0.012 ng/ml Comment 2 hours after initial Troponin Ortho Troponin-I Recommended Upper Reference Range & Cutoff The 99th Percentile URL: 0.034 ng/mL AMI Diagnostic Cutoff: 0.120 ng/mL Result panel 148 X-ray report 2025-03-20 01:14 [facility] (missing) (mis sing) (missing) Result panel 149 X-ray report 2025-03-20 01:14 [facility] (missing) (mis sing) (missing) Result panel 150 Influenza A - CEPHEID 2025-03-20 01:30 [facility] Flu A NEGATIVE (missing) (missing) Influenza B - CEPHEID 2025-03-20 01:30 [facility] Flu B NEGATIVE (missing) (missing) Respiratory Syncytial Virus 2025-03-20 01:30 [facility] Negative (missing) (missing) COVID-19 CEPHEID 4-PLEX PCR 2025-03-20 01:30 [facility] Negative (missing) The Xpert Xpress SARS-CoV-2 test is a rapid, real-time RT-PCR test intended for the qualitative detection of nucleic acid from the SARS-CoV-2 in either nasopharyngeal, nasal, or mid-turbinate swab and/or nasal wash/ aspirate specimens collected from individuals suspected of COVID-19 by their healthcare provider. Results are for the detection of SARS-CoV-2 RNA. The SARS-CoV-2 RNA is generally detectable in upper respiratory specimens during the acute phase of infection. Positive results are indicative of active infection with SARS-CoV-2; clinical correlation with patient history and other diagnostic information is necessary to determine patient infection status. Positive results do not rule out bacterial infection or co-infection with other viruses. The agent detected may not be the definite cause of disease. Negative results do not preclude SARS-CoV-2 infection and should not be used as the sole basis for treatment or other patient management decisions. Negative results must be combined with clinical observations, patient history, and epidemiological information. The Xpert Xpress SARS-CoV-2 test is only for use under the Food and Drug Administrations Emergency Use Authorization. Result panel 151 Sodium [Moles/volume] in Serum or Plasma 2025-03-20 01:30:07 [facility] 134 mmol/L ([facility]) Result panel 152 Potassium [Moles/volume] in Serum or Plasma 2025-03-20 01:30:07 [facility] 3.5 mmol/L ([facility]) Result panel 153 Chloride [Moles/volume] in Serum or Plasma 2025-03-20 01:30:07 [facility] 103 mmol/L ([facility]) Result panel 154 Carbon dioxide, total [Moles/volume] in Serum or Plasma 2025-03-20 01:30:07 [facility] 25 mmol/L ([facility]) Result panel 155 Urea nitrogen [Mass/volume] in Serum or Plasma 2025-03-20 01:30:07 [facility] 30 mg/dL ([facility]) Result panel 156 Creatinine [Mass/volume] in Serum or Plasma 2025-03-20 01:30:07 [facility] 0.82 mg/dL ([facility]) Result panel 157 Glomerular filtration rate (GFR) estimation 2025-03-20 01:30:07 [facility] > 60 mL/min (missing) (missing) Result panel 158 BUN/creatinine ratio 2025-03-20 01:30:07 [facility] 36. 6 (missing) (missing) Result panel 159 Glucose [Mass/volume] in Ser um or Plasma 2025-03-20 01:30:07 [facility] 82 mg/dL ([facility]) Result panel 160 Calcium [Mass/volume] in Serum or Plasma 2025-03-20 01:30:07 [facility] 8.7 mg/dL ([facility]) Result panel 161 Bilirubin.total [Mass/volume ] in Serum or Plasma 2025-03-20 01:30:07 [facility] 0.8 mg/dL (missing) Result panel 162 Aspartate aminotransferase [Enzymatic activity/volume] in Serum or Plasma 2025-03-20 01:30:07 [facility] 40 IU/L ([facility]) Result panel 163 Alanine aminotransferase [Enzymatic activity/volume] in Serum or Plasma 2025-03-20 01:30:07 [facility] 26 IU/L ([facility]) Result panel 164 Alkaline phosphatase [Enzyma tic activity/volume] in Serum or Plasma 2025-03-20 01:30:07 [facility] 80 U/L (miss ing) Result panel 165 Protein total ser/plas 2025-03-20 01:30:07 [facility] 6 .5 g/dL (missing) Result panel 166 Albumin [Mass/volume] in Ser um or Plasma 2025-03-20 01:30:07 [facility] 3.7 g/dL (miss ing) Result panel 167 Globulin [Mass/volume] in Serum by calculation 2025-03-20 01:30:07 [facility] 2.8 g/dL (missing) Result panel 168 Albumin/Globulin [Mass Ratio] in Serum or Plasma 2025-03-20 01:30:07 [facility] 1.3 ([facility]) (missing) Result panel 169 Lipase [Enzymatic activity/volume] in Serum or Plasma 2025-03-20 01:30:07 [facility] 39 U/L (miss ing) Result panel 170 Epithelial cells detection in urine sediment by light microscopy 2025-03-20 01:47:07 [facility] 0-1/hpf (missing) (miss ing) Result panel 171 Microscopic analysis of urine for red blood cells (RBC) 2025-03-20 01:47:07 [facility] 1-5/hpf (missing) (missing) Result panel 172 Microscopic analysis of urine for white blood cells (WBC) 2025-03-20 01:47:07 [facility] 10-30/hpf (missing) (missing) Result panel 173 Urine squamous epithelial cell detection 2025-03-20 01:47:07 [facility] 1-5 /hpf (missing) (miss ing) Result panel 174 Epithelial cells detection in urine sediment by light microscopy 2025-03-20 01:47:07 [facility] 0-1/hpf (missing) (miss ing) Result panel 175 Estimated Glomerular Filt Rate 2025-03-20 01:52 [facility] > 60 ml/min Reported eGFR is based the CKD-EPI 2021 equation that does not use a race coefficient. An eGFR below 60 mL/min/1.73m2 suggests that some kidney damage has occurred, and indicative of chronic kidney disease if persisting greater than 3 months. An eGFR less than 15 is indicative of kidney failure. Bilirubin Total 2025-03-20 01:52 [facility] 0.8 mg/dl (missing) Creatinine 2025-03-20 01:52 [facility] 0.82 mg/dl (missing) Albumin Globulin Ratio 2025-03-20 01:52 [facility] 1.3 (missing) (missing) Chloride 2025-03-20 01:52 [facility] 103 mmol/l (missing) Sodium 2025-03-20 01:52 [facility] 134 mmol/l (missing) Globulin 2025-03-20 01:52 [facility] 2.8 g/dl (missing) Carbon Dioxide 2025-03-20 01:52 [facility] 25 mmol/l (missing) Alanine Aminotransferase 2025-03-20 01:52 [facility] 26 iu/l (missing) Potassium 2025-03-20 01:52 [facility] 3.5 mmol/l (missing) Albumin 2025-03-20 01:52 [facility] 3.7 g/dl (missing) Blood Urea Nitrogen 2025-03-20 01:52 [facility] 30 mg/dl (missing) BUN Creatinine Ratio 2025-03-20 01:52 [facility] 36.6 (missing) (missing) Lipase 2025-03-20 01:52 [facility] 39 u/l (missing) Aspartate Aminotransferase 2025-03-20 01:52 [facility] 40 iu/l (missing) Total Protein 2025-03-20 01:52 [facility] 6.5 g/dl (missing) Calcium 2025-03-20 01:52 [facility] 8.7 mg/dl (missing) Alkaline Phosphatase 2025-03-20 01:52 [facility] 80 u/l (missing) Glucose 2025-03-20 01:52 [facility] 82 mg/dl (missing) Result panel 176 Transitional Epi Cells Urine 2025-03-20 02:11 [facility] 0-1/HPF (missing) (missing) Squamous Epithelial Cell Urine 2025-03-20 02:11 [facility] 1-5 /HPF (missing) (missing) RBC Urine 2025-03-20 02:11 [facility] 1-5/HPF (missing) (missing) WBC Urine 2025-03-20 02:11 [facility] 10-30/HPF (missing) (missing) Urine Volume 2025-03-20 02:11 [facility] 10mL (spun) (missing) Urine Source: Urine, Catheterized Culture if Indicated? Y Bacteria Urine 2025-03-20 02:11 [facility] Many (>30) (missing) (missing) Culture Indicated Urine 2025-03-20 02:11 [facility] Specimen Cultured (missing) (missing) Result panel 177 Blood culture 2025-03-20 03:25:07 [facility] NO G ROWTH AFTER 5 DAYS (missing) (missing) Result panel 178 Blood culture 2025-03-20 03:25:07 [facility] NO G ROWTH AFTER 5 DAYS (missing) (missing) Result panel 179 CAT scan report 2025-03-20 08:17 [facility] (missing) ( missing) (missing) Result panel 180 C reactive protein [Mass/volume] in Serum or Plasma 2025-03-20 08:25:07 [facility] 1.3 mg/dL (miss ing) Result panel 181 Estimated Glomerular Filt Rate 2025-03-20 09:08 [facility] > 60 ml/min Reported eGFR is based the CKD-EPI 2020 equation that does not use a race coefficient. An eGFR below 60 mL/min/1.73m2 suggests that some kidney damage has occurred, and indicative of chronic kidney disease if persisting greater than 3 months. An eGFR less than 15 is indicative of kidney failure. Creatinine 2025-03-20 09:08 [facility] 0.82 mg/dl (missing) Magnesium 2025-03-20 09:08 [facility] 1.9 mg/dl CANNOT ADD ON, WILL NEED TO BE DRAWN Sodium 2025-03-20 09:08 [facility] 137 mmol/l CANNOT ADD ON, WILL NEED TO BE DRAWN Glucose 2025-03-20 09:08 [facility] 156 mg/dl (missing) Blood Urea Nitrogen 2025-03-20 09:08 [facility] 24 mg/dl (missing ) Carbon Dioxide 2025-03-20 09:08 [facility] 28 mm ol/l (missing) BUN Creatinine Ratio 2025-03-20 09:08 [facility] 29.3 (missing) (missing ) Potassium 2025-03-20 09:08 [facility] 4.3 mmol/l (missing) Calcium 2025-03-20 09:08 [facility] 8.9 mg/dl (missing) Chloride 2025-03-20 09:08 [facility] 99 mmol/l (missing) Result panel 182 Emergency department note 2025-03-20 18:14 [facility] (missing) (missing) (missing ) Result panel 183 X-ray report 2025-03-20 18:40 [facility] (missing) (mis sing) (missing) Result panel 184 C-Reactive Protein Quant 2025-03-20 19:06 [facility] 1. 3 mg/dl (missing) Result panel 185 Erythrocyte sedimentation rate 2025-03-20 19:14:07 [facility] 5 MM/HR (missing) Result panel 186 Erythrocyte Sedimentation Rate 2025-03-20 19:59 [facility] 5 mm/hr (missing) Result panel 187 Blood Culture 2025-03-21 03:29 [facility] (missing) (missing) (missing) Blood Culture 2025-03-21 03:29 [facility] NO GROWTH AFTER 24 HOURS (missing) (missing) Blood Culture 2025-03-21 03:29 [facility] NO GROWTH AFTER 24 HOURS (missing) BOTH ANAEROBIC BOTTLES SHORTS, VEINS COLLAPSE EASY Result panel 188 Estimated Glomerular Filt Rate 2025-03-21 07:06 [facility] > 60 ml/min Reported eGFR is based the CKD-EPI 2020 equation that does not use a race coefficient. An eGFR below 60 mL/min/1.73m2 suggests that some kidney damage has occurred, and indicative of chronic kidney disease if persisting greater than 3 months. An eGFR less than 15 is indicative of kidney failure. Creatinine 2025-03-21 07:06 [facility] 0.79 mg/dl (missing) Chloride 2025-03-21 07:06 [facility] 101 mmol/l (missing) Glucose 2025-03-21 07:06 [facility] 129 mg/dl (missing) Sodium 2025-03-21 07:06 [facility] 133 mmol/l (missing) Magnesium 2025-03-21 07:06 [facility] 2.1 mg/dl (missing) Blood Urea Nitrogen 2025-03-21 07:06 [facility] 26 mg/dl (missing ) Carbon Dioxide 2025-03-21 07:06 [facility] 26 mm ol/l (missing) BUN Creatinine Ratio 2025-03-21 07:06 [facility] 32.9 (missing) (missing ) Potassium 2025-03-21 07:06 [facility] 4.4 mmol/l (missing) Calcium 2025-03-21 07:06 [facility] 8.9 mg/dl (missing) Result panel 189 Orange Count 2025-03-21 10:32 [facility] 60,000 - 70,000 cfu/ml (missing) ORGANISM 2025-03-21 10:32 [facility] GPCGram positive cocci (missing) (missing) Action to follow 2025-03-21 10:32 [facility] Identification and Sensitivity to Follow (missing) (missing) Result panel 190 CAT scan report 2025-03-21 15:00 [facility] (missing) ( missing) (missing) Result panel 191 Blood Culture 2025-03-22 03:29 [facility] (missing) (missing) (missing) Blood Culture 2025-03-22 03:29 [facility] NO GROWTH AFTER 48 HOURS (missing) (missing) Blood Culture 2025-03-22 03:29 [facility] NO GROWTH AFTER 48 HOURS (missing) BOTH ANAEROBIC BOTTLES SHORTS, VEINS COLLAPSE EASY Result panel 192 Urine Culture 2025-03-22 07:09 [facility] (missing) (missing) (missing) Oxacillin Antwan 2025-03-22 07:09 [facility] >=4 (missing) (missing) Ciprofloxacin 2025-03-22 07:09 [facility] >=8 (missing) (missing) Levofloxacin 2025-03-22 07:09 [facility] >=8 (missing) (missing) Gentamicin 2025-03-22 07:09 [facility] <=0.5 (missing) (missing) Rifampin 2025-03-22 07:09 [facility] <=0.5 (missing) (missing) Nitrofurantoin 2025-03-22 07:09 [facility] <=16 (missing) (missing) Vancomycin 2025-03-22 07:09 [facility] 1 (missing) (missing) Linezolid 2025-03-22 07:09 [facility] 2 (missing) (missing) Tetracycline 2025-03-22 07:09 [facility] 2 (missing) (missing) Moxifloxacin 2025-03-22 07:09 [facility] 4 (missing) (missing) Orange Count 2025-03-22 07:09 [facility] 60,000 - 70,000 cfu/ml (missing) Urine Culture 2025-03-22 07:09 [facility] Based on resistance to oxacillin this isolate would be (missing) (missing) Action to follow 2025-03-22 07:09 [facility] No Further Workup (missing) (missing) Urine Culture 2025-03-22 07:09 [facility] Routine testing of other penicillins, beta-lactam/beta (missing) (missing) ORGANISM 2025-03-22 07:09 [facility] STAEPIStaphylococcus epidermidis (missing) (missing) Urine Culture 2025-03-22 07:09 [facility] carbapenems is not advised by CLSI Standards. (missing) (missing) Urine Culture 2025-03-22 07:09 [facility] lactamase inhibitor combinations, cephalosporins, and (missing) (missing) Urine Culture 2025-03-22 07:09 [facility] resistant to all formulary beta-lactam antimicrobial agents. (missing) (missing) Result panel 193 Magnesium [Mass/volume] in Serum or Plasma 2025-03-22 07:10:07 [facility] 2.0 mg/dL (m issing) Result panel 194 Estimated Glomerular Filt Rate 2025-03-22 07:32 [facility] > 60 ml/min Reported eGFR is based the CKD-EPI 2020 equation that does not use a race coefficient. An eGFR below 60 mL/min/1.73m2 suggests that some kidney damage has occurred, and indicative of chronic kidney disease if persisting greater than 3 months. An eGFR less than 15 is indicative of kidney failure. Creatinine 2025-03-22 07:32 [facility] 0.85 mg/dl (missing) Sodium 2025-03-22 07:32 [facility] 134 mmol/l (missing) Magnesium 2025-03-22 07:32 [facility] 2.0 mg/dl (missing) Blood Urea Nitrogen 2025-03-22 07:32 [facility] 27 mg/dl (missing ) Carbon Dioxide 2025-03-22 07:32 [facility] 27 mm ol/l (missing) BUN Creatinine Ratio 2025-03-22 07:32 [facility] 31.8 (missing) (missing ) Potassium 2025-03-22 07:32 [facility] 4.3 mmol/l (missing) Calcium 2025-03-22 07:32 [facility] 9.1 mg/dl (missing) Glucose 2025-03-22 07:32 [facility] 99 mg/dl (missing) Chloride 2025-03-22 07:32 [facility] 99 mmol/l (missing) Result panel 195 Urine pH measurement 2025-03-22 11:30:07 [facility] 6.0 (missing) (missing) Result panel 196 Urine specific gravity measurement 2025-03-22 11:30:07 [facility] 1.020 (missing) (miss ing) Result panel 197 Urine protein measurement 2025-03-22 11:30:07 [facility] Negative (missing) (miss ing) Result panel 198 Urine glucose measurement 2025-03-22 11:30:07 [facility] Negative g/dL (missing) (missing) Result panel 199 Urine ketones measurement 2025-03-22 11:30:07 [facility] Negative (missing) (miss ing) Result panel 200 Urine occult blood detection 2025-03-22 11:30:07 [facility] Negative (missing) (miss ing) Result panel 201 Urine nitrate measurement 2025-03-22 11:30:07 [facility] Negative (missing) (miss ing) Result panel 202 Urine bilirubin measurement 2025-03-22 11:30:07 [facility] Negative (missing) (miss ing) Result panel 203 Urine urobilinogen detection 2025-03-22 11:30:07 [facility] 0.2 E.U./dL (miss ing) Result panel 204 Urine leukocyte esterase detection 2025-03-22 11:30:07 [facility] Negative (missing) (missing) Result panel 205 Microscopic analysis of urine for red blood cells (RBC) 2025-03-22 11:30:07 [facility] None seen (missing) (missing) Result panel 206 Microscopic analysis of urine for white blood cells (WBC) 2025-03-22 11:30:07 [facility] 0-1/hpf (missing) (missing) Result panel 207 Urine squamous epithelial cell detection 2025-03-22 11:30:07 [facility] 0-1 /hpf (missing) (miss ing) Result panel 208 Urine color determination 2025-03-22 11:30:07 [facility] Yellow (missing) (mis sing) Result panel 209 Urine appearance 2025-03-22 11:30:07 [facility] Clear (missing) (missing) Result panel 210 Urobilinogen Urine UA 2025-03-22 12:37 [facility] 0.2 e.u./dl (missing ) Specific [place] Urine UA 2025-03-22 12:37 [facility] 1.020 (missing) (missing ) pH Urine UA 2025-03-22 12:37 [facility] 6.0 (miss ing) (missing) Appearance Urine UA 2025-03-22 12:37 [facility] CLEAR (missing) (missing) Bilirubin Urine UA 2025-03-22 12:37 [facility] NEGATIVE (missing) (missing) Ketones Urine UA 2025-03-22 12:37 [facility] NEGATIVE (missing) (missing) Leukocyte Esterase Urine UA 2025-03-22 12:37 [facility] NEGATIVE (missing) (missing ) Nitrite Urine UA 2025-03-22 12:37 [facility] NEGATIVE (missing) (missing) Occult Blood Urine UA 2025-03-22 12:37 [facility] NEGATIVE (missing) (missing ) Protein Urine UA 2025-03-22 12:37 [facility] NEGATIVE (missing) (missing) Glucose Urine UA 2025-03-22 12:37 [facility] NEGATIVE g/dl (missing) Color Urine UA 2025-03-22 12:37 [facility] YELLOW (m issing) Urine Source: Urine, Clean Catch Culture if Indicated? Y Result panel 211 Squamous Epithelial Cell Urine 2025-03-22 12:41 [facility] 0-1 /HPF (missing) (missing) WBC Urine 2025-03-22 12:41 [facility] 0-1/HPF (missing) (missing) Urobilinogen Urine UA 2025-03-22 12:41 [facility] 0.2 e.u./dl (missing) Specific [place] Urine UA 2025-03-22 12:41 [facility] 1.020 (missing) (missing) Urine Volume 2025-03-22 12:41 [facility] 10mL (spun) (missing) (missing) pH Urine UA 2025-03-22 12:41 [facility] 6.0 (missing) (missing) Appearance Urine UA 2025-03-22 12:41 [facility] CLEAR (missing) (missing) Culture Indicated Urine 2025-03-22 12:41 [facility] Cult Not Indicated (missing) (missing) Bilirubin Urine UA 2025-03-22 12:41 [facility] NEGATIVE (missing) (missing) Ketones Urine UA 2025-03-22 12:41 [facility] NEGATIVE (missing) (missing) Leukocyte Esterase Urine UA 2025-03-22 12:41 [facility] NEGATIVE (missing) (missing) Nitrite Urine UA 2025-03-22 12:41 [facility] NEGATIVE (missing) (missing) Occult Blood Urine UA 2025-03-22 12:41 [facility] NEGATIVE (missing) (missing) Protein Urine UA 2025-03-22 12:41 [facility] NEGATIVE (missing) (missing) Glucose Urine UA 2025-03-22 12:41 [facility] NEGATIVE g/dl (missing) RBC Urine 2025-03-22 12:41 [facility] None Seen (missing) (missing) Bacteria Urine 2025-03-22 12:41 [facility] Occasional (0-1) (missing) Delta: Many (>30) on 03/20/25-0147 Color Urine UA 2025-03-22 12:41 [facility] YELLOW (missing) Urine Source: Urine, Clean Catch Culture if Indicated? Y Result panel 212 X-ray report 2025-03-22 23:04 [facility] (missing) (mis sing) (missing) Result panel 213 Blood Culture 2025-03-23 03:29 [facility] (missing) (missing) (missing) Blood Culture 2025-03-23 03:29 [facility] NO GROWTH AFTER 72 HOURS (missing) (missing) Blood Culture 2025-03-23 03:29 [facility] NO GROWTH AFTER 72 HOURS (missing) BOTH ANAEROBIC BOTTLES SHORTS, VEINS COLLAPSE EASY Result panel 214 Basophils Absolute Auto 2025-03-23 06:[address] [place] [address] 0 /ul (missing) Eosinophils Absolute Auto 2025-03-23 06:[address] [place] [address] 0 /ul (missing) Basophils Percent Auto 2025-03-23 06:[address] [place] [address] 0.2 % (missing) Eosinophils Percent Auto 2025-03-23 06:[address] [place] [address] 0. 2 % (missing) White Blood Cell Count 2025-03-23 06:[address] [place] [address] 11.1 x10 3/ul (missing) Monocytes Absolute Auto 2025-03-23 06:[address] [place] [address] 110 0 /ul (missing) Hemoglobin 2025-03-23 06:[address] [place] [address] 14.3 g/dl (missing) Red Cell Distribution Width 2025-03-23 06:[address] [place] [address] 18.0 % (missing) Lymphocytes Percent Auto 2025-03-23 06:[address] [place] [address] 2. 6 % (missing) Mean Corpuscular Hemoglobin 2025-03-23 06:[address] [place] [address] 27.8 pg (missing) Platelet Count 2025-03-23 06:[address] [place] [address] 289 x1 0 3/ul (missing) Lymphocytes Absolute Auto 2025-03-23 06:[address] [place] [address] 3 00 /ul (missing) Mean Corpuscular HGB Conc 2025-03-23 06:[address] [place] [address] 3 2.5 % (missing) Hematocrit 2025-03-23 06:51 [facility] 44.1 % (missing) Red Blood Cell Count 2025-03-23 06:51 [facility] 5.15 x10 6/ul (missing) Mean Corpuscular Volume 2025-03-23 06:51 [facility] 85. 5 fl (missing) Neutrophils Percent Auto 2025-03-23 06:51 [facility] 87 .1 % (missing) Monocytes Percent Auto 2025-03-23 06:51 [facility] 9.9 % (missing) Neutrophils Absolute Auto 2025-03-23 06:51 [facility] 9 600 /ul (missing) Result panel 215 Estimated Glomerular Filt Rate 2025-03-23 07:02 [facility] > 60 ml/min Reported eGFR is based the CKD-EPI 2020 equation that does not use a race coefficient. An eGFR below 60 mL/min/1.73m2 suggests that some kidney damage has occurred, and indicative of chronic kidney disease if persisting greater than 3 months. An eGFR less than 15 is indicative of kidney failure. Bilirubin Total 2025-03-23 07:02 [facility] 0.8 mg/dl (missing) Creatinine 2025-03-23 07:02 [facility] 1.06 mg/dl (missing) Albumin Globulin Ratio 2025-03-23 07:02 [facility] 1.4 (missing) (missing) Chloride 2025-03-23 07:02 [facility] 101 mmol/l (missing) Glucose 2025-03-23 07:02 [facility] 102 mg/dl (missing) Sodium 2025-03-23 07:02 [facility] 135 mmol/l (missing) Globulin 2025-03-23 07:02 [facility] 2.8 g/dl (missing) Carbon Dioxide 2025-03-23 07:02 [facility] 24 mmol/l (missing) Albumin 2025-03-23 07:02 [facility] 3.9 g/dl (missing) BUN Creatinine Ratio 2025-03-23 07:02 [facility] 35.8 (missing) (missing) Blood Urea Nitrogen 2025-03-23 07:02 [facility] 38 mg/dl (missing) Potassium 2025-03-23 07:02 [facility] 4.3 mmol/l (missing) Alanine Aminotransferase 2025-03-23 07:02 [facility] 49 iu/l (missing) Aspartate Aminotransferase 2025-03-23 07:02 [facility] 56 iu/l (missing) Total Protein 2025-03-23 07:02 [facility] 6.7 g/dl (missing) Alkaline Phosphatase 2025-03-23 07:02 [facility] 75 u/l (missing) Calcium 2025-03-23 07:02 [facility] 8.6 mg/dl (missing) Result panel 216 X-ray report 2025-03-23 08:26 [facility] (missing) (mis sing) (missing) Result panel 217 CAT scan report 2025-03-23 10:25 [facility] (missing) ( missing) (missing) Result panel 218 X-ray report 2025-03-23 17:27 [facility] (missing) (mis sing) (missing) Result panel 219 Blood Culture 2025-03-24 03:29 [facility] (missing) (missing) (missing) Blood Culture 2025-03-24 03:29 [facility] NO GROWTH AFTER 4 DAYS (missing) (missing) Blood Culture 2025-03-24 03:29 [facility] NO GROWTH AFTER 4 DAYS (missing) BOTH ANAEROBIC BOTTLES SHORTS, VEINS COLLAPSE EASY Result panel 220 White blood cell count 2025-03-24 04:20:07 [facility] 7 .9 X10^3/uL (missing) Result panel 221 Red blood cell count 2025-03-24 04:20:07 [facility] 4.9 0 X10^6/uL (missing) Result panel 222 Hemoglobin 2025-03-24 04:20:07 [facility] 13.5 g/d L (missing) Result panel 223 Hematocrit 2025-03-24 04:20:07 [facility] 41.8 % (missing) Result panel 224 MCV (mean corpuscular volume ) determination 2025-03-24 04:20:07 [facility] 85.4 fL (mis sing) Result panel 225 Mean corpuscular hemoglobin (MCH) determination 2025-03-24 04:20:07 [facility] 27.6 PG (missing) Result panel 226 Mean corpuscular hemoglobin concentration (MCHC) determination 2025-03-24 04:20:07 [facility] 32.3 % (mis sing) Result panel 227 Red cell distribution width determination 2025-03-24 04:20:07 [facility] 18.3 % (mis sing) Result panel 228 Platelet count 2025-03-24 04:20:07 [facility] 238 X10^3/uL (missing) Result panel 229 Automated neutrophil % 2025-03-24 04:20:07 [facility] 8 9.3 % (missing) Result panel 230 Automated lymphocyte % 2025-03-24 04:20:07 [facility] 4 .8 % (missing) Result panel 231 Automated monocyte % 2025-03-24 04:20:07 [facility] 5.8 % (missing) Result panel 232 Automated eosinophil % 2025-03-24 04:20:07 [facility] 0 .0 % (missing) Result panel 233 Automated basophil % 2025-03-24 04:20:07 [facility] 0.1 % (missing) Result panel 234 Absolute neutrophil count 2025-03-24 04:20:07 [facility] 7000 /uL (missing) Result panel 235 Absolute lymphocyte count 2025-03-24 04:20[facility] [facility] 400 /[facility] (missing) Result panel 236 Automated blood monocyte count 2025-03-24 04:20:[facility] 500 /uL (missing) Result panel 237 Automated eosinophil count 2025-03-24 04:20:07 [facility] 0 /uL (missing) Result panel 238 Automated basophil count 2025-03-24 04:20:07 [facility] 0 /uL (missing) Result panel 239 Sodium [Moles/volume] in Serum or Plasma 2025-03-24 04:20:07 [facility] 138 mmol/L ([facility]) Result panel 240 Potassium [Moles/volume] in Serum or Plasma 2025-03-24 04:20:07 [facility].2 [facility] Result panel 241 Chloride [Moles/volume] in Serum or Plasma 2025-03-24 04:20:07 [facility] 103 mmol/L [facility] Result panel 242 Carbon dioxide, total [Moles/volume] in Serum or Plasma 2025-03-24 04:20:07 [facility] 28 mmol/L ([facility] ing) Result panel 243 Urea nitrogen [Mass/volume] in Serum or Plasma 2025-03-24 04:20:07 [facility] 26 mg/dL ([facility]) Result panel 244 Creatinine [Mass/volume] in Serum or Plasma 2025-03-24 04:20:07 [facility] 0.83 mg/dL ([facility]) Result panel 245 Glomerular filtration rate (GFR) estimation 2025-03-24 04:20:07 [facility] > 60 mL/min (missing) (missing) Result panel 246 BUN/creatinine ratio 2025-03-24 04:20:07 [facility] 31. 3 (missing) (missing) Result panel 247 Glucose [Mass/volume] in Serum or Plasma 2025-03-24 04:20:07 [facility] 117 mg/dL ([facility]) Result panel 248 Calcium [Mass/volume] in Serum or Plasma 2025-03-24 04:20:07 [facility] 8.4 mg/dL ([facility]) Result panel 249 Bilirubin.total [Mass/volume ] in Serum or Plasma 2025-03-24 04:20:07 [facility] 0.6 mg/dL (missing) Result panel 250 Aspartate aminotransferase [Enzymatic activity/volume] in Serum or Plasma 2025-03-24 04:20:07 [facility] 33 IU/L ([facility]) Result panel 251 Alanine aminotransferase [Enzymatic activity/volume] in Serum or Plasma 2025-03-24 04:20:07 [facility] 38 IU/L ([facility]) Result panel 252 Alkaline phosphatase [Enzyma tic activity/volume] in Serum or Plasma 2025-03-24 04:20:07 [facility] 61 U/L ([facility] ing) Result panel 253 Protein total ser/plas 2025-03-24 04:20:07 [facility] 5 .8 g/dL (missing) Result panel 254 Albumin [Mass/volume] in Ser um or Plasma 2025-03-24 04:20:07 [facility] 3.3 g/dL (miss ing) Result panel 255 Globulin [Mass/volume] in Serum by calculation 2025-03-24 04:20:07 [facility] 2.5 g/dL (missing) Result panel 256 Albumin/Globulin [Mass Ratio] in Serum or Plasma 2025-03-24 04:20:07 [facility] 1.3 (miss ing) (missing) Result panel 257 Lipase [Enzymatic activity/volume] in Serum or Plasma 2025-03-24 04:20:07 [facility] 12 U/L (miss ing) Result panel 258 Basophils Absolute Auto 2025-03-24 05:00 [facility] 0 /ul (missing) Eosinophils Absolute Auto 2025-03-24 05:00 [facility] 0 /ul (missing) Eosinophils Percent Auto 2025-03-24 05:00 [facility] 0. 0 % (missing) Basophils Percent Auto 2025-03-24 05:00 [facility] 0.1 % (missing) Hemoglobin 2025-03-24 05:00 [facility] 13.5 g/dl (missing) Red Cell Distribution Width 2025-03-24 05:00 [facility] 18.3 % (missing) Platelet Count 2025-03-24 05:00 [facility] 238 x1 0 3/ul (missing) Mean Corpuscular Hemoglobin 2025-03-24 05:[address] [place] [address] 27.6 pg (missing) Mean Corpuscular HGB Conc 2025-03-24 05:00 [facility] 3 2.3 % (missing) Lymphocytes Percent Auto 2025-03-24 05:[address] [place] [address] 4. 8 % (missing) Red Blood Cell Count 2025-03-24 05:[address] [place] [address] 4.90 x10 6/ul (missing) Lymphocytes Absolute Auto 2025-03-24 05:[address] [place] [address] 4 00 /ul (missing) Hematocrit 2025-03-24 05:[address] [place] [address] 41.8 % (missing) Monocytes Percent Auto 2025-03-24 05:[address] [place] [address] 5.8 % (missing) Monocytes Absolute Auto 2025-03-24 05:00 [facility] 500 /ul (missing) White Blood Cell Count 2025-03-24 05:00 [facility] 7.9 x10 3/ul (missing) Neutrophils Absolute Auto 2025-03-24 05:[address] [place] [address] 7 000 /ul (missing) Mean Corpuscular Volume 2025-03-24 05:00 [facility] 85. 4 fl (missing) Neutrophils Percent Auto 2025-03-24 05:[address] [place] [address] 89 .3 % (missing) Result panel 259 Estimated Glomerular Filt Rate 2025-03-24 05:10 [facility] > 60 ml/min Reported eGFR is based the CKD-EPI 2021 equation that does not use a race coefficient. An eGFR below 60 mL/min/1.73m2 suggests that some kidney damage has occurred, and indicative of chronic kidney disease if persisting greater than 3 months. An eGFR less than 15 is indicative of kidney failure. Bilirubin Total 2025-03-24 05:10 [facility] 0.6 mg/dl (missing) Creatinine 2025-03-24 05:10 [facility] 0.83 mg/dl (missing) Albumin Globulin Ratio 2025-03-24 05:10 [facility] 1.3 (missing) (missing) Chloride 2025-03-24 05:10 [facility] 103 mmol/l (missing) Glucose 2025-03-24 05:10 [facility] 117 mg/dl (missing) Lipase 2025-03-24 05:10 [facility] 12 u/l [place]: 39 on 03/20/25-0130 Sodium 2025-03-24 05:10 [facility] 138 mmol/l (missing) Globulin 2025-03-24 05:10 [facility] 2.5 g/dl (missing) Blood Urea Nitrogen 2025-03-24 05:10 [facility] 26 mg/dl (missing) Carbon Dioxide 2025-03-24 05:10 [facility] 28 mmol/l (missing) Albumin 2025-03-24 05:10 [facility] 3.3 g/dl (missing) BUN Creatinine Ratio 2025-03-24 05:10 [facility] 31.3 (missing) (missing) Aspartate Aminotransferase 2025-03-24 05:10 [facility] 33 iu/l (missing) Alanine Aminotransferase 2025-03-24 05:10 [facility] 38 iu/l (missing) Potassium 2025-03-24 05:10 [facility] 4.2 mmol/l (missing) Total Protein 2025-03-24 05:10 [facility] 5.8 g/dl (missing) Alkaline Phosphatase 2025-03-24 05:10 [facility] 61 u/l (missing) Calcium 2025-03-24 05:10 [facility] 8.4 mg/dl (missing) Result panel 260 X-ray report 2025-03-24 12:34 [facility] (missing) (mis sing) (missing) Result panel 261 Blood Culture 2025-03-25 03:29 [facility] (missing) (missing) (missing) Blood Culture 2025-03-25 03:29 [facility] NO GROWTH AFTER 5 DAYS (missing) (missing) Blood Culture 2025-03-25 03:29 [facility] NO GROWTH AFTER 5 DAYS (missing) BOTH ANAEROBIC BOTTLES SHORTS, VEINS COLLAPSE EASY Result panel 262 OCCULT BLOOD IN PAT. SINGLE 2025-04-16 08:38 [facility] 1ONE (missing) (natasha ng) OCCULT BLOOD IN PAT. SINGLE 2025-04-16 08:38 [facility] NEGREFERENCE RANGE: NEGATIVE (missing) (missing) OCCULT BLOOD IN PAT. SINGLE 2025-04-16 08:38 [facility] NO.CARDSNUMBER OF CARDS (missing) (missing) OCCULT BLOOD IN PAT. SINGLE 2025-04-16 08:38 [facility] OCCULTOCCULT BLOOD (missing) (missing) OCCULT BLOOD IN PAT. SINGLE 2025-04-16 08:38 [facility] PPOSITIVE (missing) (natasha ng) OCCULT BLOOD IN PAT. SINGLE 2025-04-16 08:38 [facility] [email or web address] (missing) (natasha ng) Result panel 263 ABNORMAL LYMPHS % (MANUAL) 2025-04-16 08:45 [facility] 0 % (missing) BASOPHILS # (MANUAL) 2025-04-16 08:45 [facility] 0.0 10 3/ul (missing) EOSINOPHILS # (MANUAL) 2025-04-16 08:45 [facility] 0.1 10 3/ul (missing) MONOCYTES # (MANUAL) 2025-04-16 08:45 [facility] 0.4 10 3/ul (missing) BILIRUBIN,TOTAL 2025-04-16 08:45 [facility] 0.4 mg/dl As of January 2023 testing method has changed, this may include reference ranges. INR 2025-04-16 08:45 [facility] Oral Anticoagulant Indication INR range Venous Thrombosis, P.E. 2.0 - 3.0 Mechanical Valve 2.5 - 3.5 CREATININE 2025-04-16 08:45 [facility] 1.1 mg/dl As of January 2023 testing method has changed, this may include reference ranges. ALBUMIN/GLOBULIN RATIO 2025-04-16 08:45 [facility] 1.3 (missin g) (missing) LYMPHOCYTES # (MANUAL) 2025-04-16 08:45 [facility] 1.5 10 3/ul (missing) MAGNESIUM 2025-04-16 08:[address] [place] [address] 1.9 mg/dl As of January 2023 testing method has changed, this may include reference ranges. NEUTROPHILS # (MANUAL) 2025-04-16 08:45 [facility] 10.2 10 3/ul (missing) TOTAL CELLS COUNTED 2025-04-16 08:45 [facility] 100 (missin g) (missing) CHLORIDE 2025-04-16 08:[address] [place] [address] 100 mmol/l As of January 2023 testing method has changed, this may include reference ranges. LIPASE 2025-04-16 :[address] [place] [address] 11 u/l As of January 2023 testing method has changed, this may include reference ranges. PT - PROTHROMBIN TIME 2025-04-16 :[address] [place] [address] 12.0 secs N WHITE BLOOD COUNT 2025-04-16 :[address] [place] [address] 12.1 x10 3/ul (missing) HGB - HEMOGLOBIN 2025-04-16 :[address] [place] [address] 13.7 g/dl (missing) SODIUM 2025-04-16 :[address] [place] [address] 136 mmol/l (missing) AST ASPARTATE AMINOTRANSFERASE 2025-04-16 :[address] [place] [address] 16 iu/l As of January 2023 testing method has changed, this may include reference ranges. RED CELL DISTRIBUTION WIDTH 2025-04-16 :[address] [place] [address] 19.0 % (missing) GLOBULIN 2025-04-[address] [place] [address] 2.5 g/dl (missing) PLT - PLATELET COUNT 2025-04-[address] [place] [address] 220 10 3/ul (missing) MEAN CORPUSCULAR HEMOGLOBIN 2025-04-[address] [place] [address] 27.3 pg (missing) ALBUMIN 2025-04-[address] [place] [address] 3.2 g/dl As of January 2023 testing method has changed, this may include reference ranges. MEAN CORPUSCULAR HGB CONC 2025-04-16 :[address] [place] [address] 30.7 g/dl (missing) CARBON DIOXIDE - CO2 2025-04-[address] [place] [address] 32 mmol/l As of January 2023 testing method has changed, this may include reference ranges. BUN - BLOOD UREA NITROGEN 2025-04-16 :[address] [place] [address] 36 mg/dl As of January 2023 testing method has changed, this may include reference ranges. ALT ALANINE AMINOTRANSFERASE 2025-04-16 :[address] [place] [address] 39 iu/l As of January 2023 testing method has changed, this may include reference ranges. RBC MORPHOLOGY (MULTIPLE) 2025-04-16 :[address] [place] [address] 4+ ANISOCYTOSIS (missin g) (missing) ANION GAP 2025-04-16 :[address] [place] [address] 4.0 (missin g) (missing) POTASSIUM 2025-04-16 :[address] [place] [address] 4.7 mmol/l As of January 2023 testing method has changed, this may include reference ranges. HCT - HEMATOCRIT 2025-04-16 08:[address] [place] [address] 44.6 % (missing) RED BLOOD COUNT 2025-04-16 08:[address] [place] [address] 5.02 10 6/ul (missing) TOTAL PROTEIN 2025-04-16 :[address] [place] [address] 5.7 g/dl As of January 2023 testing method has changed, this may include reference ranges. REACTIVE LYMPHS % (MANUAL) 2025-04-16 08:[address] [place] [address] 6 % (missing) GFR - MDRD 2025-04-16 08:[address] [place] [address] 64 (missin g) The IDMS-traceable MDRD Study Equation has been validated extensively in and populations between the ages of 18 and 70 with impaired kidney function (eGFR < 60 mL/min/1.73m2) and has shown good performance for patients with all common causes of kidney disease. Although this equation has not been validated for patients older than 70, an MDRD-derived eGFR may still be a useful tool for providers caring for patients older than 70. References: http://www.nkdep .nih.gov/lab-radha luation/gfr/crea tinine-stand ardization, last updated September 2011. BAND NEUTROPHILS % (MANUAL) 2025-04-16 08:[address] [place] [address] 7 % (missing) ALKALINE PHOSPHATASE 2025-04-16 :[address] [place] [address] 77 iu/l As of January 2023 testing method has changed, this may include reference ranges. CALCIUM 2025-04-16:[address] [place] [address] 8.8 mg/dl As of January 2023 testing method has changed, this may include reference ranges. MEAN PLATELET VOLUME 2025-04-16 08:[address] [place] [address] 8.9 fl (missing) MEAN CORPUSCULAR VOLUME 2025-04-16 :[address] [place] [address] 88.8 fl (missing) GLUCOSE 2025-04-16 :[address] [place] [address] 96 mg/dl As of January 2023 testing method has changed, this may include reference ranges. DIFFERENTIAL COMMENT 2025-04-16 08:[address] [place] [address] MANUAL DIFFERENTIAL (missin g) (missing) PLATELET ESTIMATE, MANUAL 2025-04-16 :[address] [place] [address] NORMAL (130-450,000) (missin g) (missing) Social History date description facility 2025-03-20 00:00 Current some day [facility] 2025-03-22 00:00 Current some day [facility] Vital Signs date measurement value units 2025-03-19 00:00 BMI 25.8 kg/m2 2025-03-19 00:00 height_metric 175.26 cm 2025-03-19 00:00 temperature_standard 98.1 F 2025-03-19 00:00 weight_metric 79.37 kg 2025-03-20 00:00 BP_diastolic 65 mmHg 2025-03-20 00:00 BP_systolic 137 mmHg 2025-03-20 00:00 heart_rate 84 /min 2025-03-20 00:00 o2_saturation 89 % 2025-03-20 00:00 respiration_rate 18 /min 2025-03-22 00:00 height_metric 175.26 cm 2025-03-22 00:00 weight_metric 79.37 kg 2025-03-27 00:00 BP_diastolic 75 mmHg 2025-03-27 00:00 BP_systolic 149 mmHg 2025-03-27 00:00 heart_rate 69 /min 2025-03-27 00:00 o2_saturation 90 % 2025-03-27 00:00 respiration_rate 16 /min 2025-03-27 00:00 temperature_standard 97.7 F
--- NOTE | 2025-04-16 11:03 | CT Report ---
PROCEDURE: CT Angio Abdomen/Pelvis INDICATIONS: acute GI bleeding CONTRAST: Omni 300 100ml TECHNIQUE: After the administration of intravenous contrast, images were acquired from the diaphragm to the symphysis. Maximum-intensity projection (MIP) reformats were then acquired. For radiation dose reduction, the following was used: automated exposure control, adjustment of mA and/or kV according to patient size. COMPARISON: CT of abdomen and pelvis dated 12/02/2024 and 02/01/2024 FINDINGS: Image quality: Excellent. VESSELS: Aorta: Presence of aortobiiliac grafts. Fusiform infrarenal abdominal aortic aneurysm is seen measures up to 2.8 x 3.4 cm in size series 28 image 221. No aortic dissection. No contrast extravasation or suggestion of endoleak. 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 Mesenteric arteries: Celiac trunk, superior and inferior mesenteric arteries appear patent. No area of active contrast extravasation or accumulation is seen. Right pelvic arteries: Patent without hemodynamically significant stenosis. Left pelvic arteries: Patent without hemodynamically significant stenosis. CHEST: Lung bases and heart: Masslike consolidation in posterior medial aspect of the right lower lobe is seen extending to right hilar region. Small airspace opacities also noted in left lung base posterior aspect. Moderate centrilobular emphysema is seen. Heart size is enlarged, no pericardial effusion. Three-vessel coronary artery atherosclerotic calcifications are seen. ABDOMEN: Liver: No solid mass. Tiny right hepatic dome cyst is seen. Gallbladder and biliary tree: Hyperdense material within dependent portion of gallbladder lumen without gallbladder wall thickening. Spleen: No splenomegaly. Pancreas: No pancreatic ductal dilation. Adrenals: No adrenal nodule. Kidneys and ureters: No hydronephrosis. No renal cystic lesion which requires follow up. No solid mass. Bowel and peritoneum: Moderate fecal stasis in the colon is seen. No bowel obstruction or abnormal bowel wall thickening. No abscess collection. No mesenteric fat stranding. No area of contrast accumulation within the bowel lumen is seen. No free fluid or free air. Lymph nodes: No central or retroperitoneal adenopathy. PELVIS Reproductive organs: Unremarkable. Bladder: No abnormal wall thickening, accounting for underdistension. Pelvic lymph nodes: No pelvic adenopathy by size criteria. Bones: No aggressive osseous abnormality. Other: No significant ventral or inguinal hernia. IMPRESSION: 1. No area of active GI bleeding is seen. 2. Prior aortobiiliac graft placement. Fusiform infrarenal abdominal aortic aneurysm and right common iliac artery aneurysm as above. No aortic dissection. No evidence of endoleak. 3. No hemodynamically significant stenosis is seen in mesenteric arteries. 4. Moderate constipation. No bowel obstruction or abnormal bowel wall thickening. No free fluid of free air. 5. Masslike consolidation in posterior medial aspect of right lower lobe extending to right hilar region. Finding may represent pneumonia. Underlying neoplastic process can not be excluded. Clinical correlation and follow-up is recommended. Reviewed by: Moshe Nayak MD on 04/16/2025 10:59 AM PDT Approved by: Moshe Nayak MD on 04/16/2025 10:59 AM PDT Station ID: [id number]
[2025-04-16 11:04] LABS: HCT - HEMATOCRIT 42.6 % (42.0-52.0); HGB - HEMOGLOBIN 13.3 g/dL (14.0-18.0)
--- NOTE | 2025-04-16 11:16 | HISTORY & PHYSICAL EXAMINATION ---
Chief Complaint Chief Complaint Chief Complaint: Bright red blood in stool History of Present Illness Admitted From Admitted From:: Home History Obtained From Records Reviewed: EMR, family medicine notes History obtained from: Patient Exam Limitations: None History of Present Illness HPI Comment/Other: Patient is a 84-year-old gentleman with history of COPD on 2 to 3 L of oxygen at home, BPH requiring self-catheterization 2-4 times a day, longstanding GERD on esomeprazole, who presents after blood was noted in the toilet at his rehab facility. Of note, patient was recently admitted at [facility] from 03/20 to 03/27 for a COPD exacerbation. A CT scan done here showed a possible gastric ulcer along with small bowel ileus. Surgery was consulted, and did not think they urgent endoscopy was needed. His hemoglobin was stable. He was discharged to [facility] for further rehabilitation following this episode. He states that his last colonoscopy and EGD were done about 3 years ago, and he was told that they were normal. He is not quite sure where this was done. His hemoglobin at the time of discharge was 14.3. He has had a few episodes per him, his staff was helping clean him up this morning, when they noted bright red blood in his stool. This is the first time they have noticed this. Nursing here has noted some maroon stool as well. Patient denies any abdominal pain, dizziness, lightheadedness. He has no nausea, no vomiting, and has not vomited up any blood. In the ER, he was vitally stableblood pressure was 139/88, heart rate was 84, temperature is 97.9, respiratory rate was 18, he was saturating 94% on his home 2 L. Lab work shows a hemoglobin of 13.3, BMP was notable for potassium of 4.7, within normal creatinine. Lipase was within normal limits. An abdomen/pelvis CTA was completed which showed no area of active GI bleeding, did show moderate constipation. General surgery was spoken with by the emergency room physician, who will follow along as needed. He was admitted for acute GI bleeding. Past medical history includes COPD on 2 to 3 L of oxygen at home tobacco use, BPH, hypertension, hyperlipidemia, GERD, aortic aneurysm s/p EVAR. Medications included Trelegy, albuterol, esomeprazole, hydrochlorothiazide, Myrbetriq, Percocet, simvastatin, meloxicam. He is allergic to bupropion, salmeterol, fluticasone. Surgical history includes bilateral ankle surgeries, triple aneurysm EVAR procedure. Patient still uses tobacco occasionally, although he has not smoked since being at rehab. He denies any current alcohol use, recreational drug use. He lives alone. He usually ambulates independently. Meds/Allgy Home Medications Ambulatory Orders Medication Instructions Recorded Confirmed cetirizine 10 mg capsule (Zyrtec) 10 mg PO DAILY 05/0303/12/25 mirabegron 50 mg tablet,extended 50 mg PO DAILY 03/12/25 release 24 hr (Myrbetriq) cyanocobalamin (vitamin B-12) 500 500 mcg PO DAILY 30 days #30 tabs 05/18/24 03/12/25 mcg tablet pyridoxine (vitamin B6) 100 mg 100 mg PO DAILY #30 tab s 05/18/24 03/12/25 tablet (Vitamin B-6) montelukast 10 mg tablet 10 mg PO QPM 11/04/24 potassium chloride 10 mEq 10 meq PO DAILY 11/04/24 tablet,extended release esomeprazole magnesium 40 mg 40 mg PO DAILY 12/03/24 0 03/12/25 capsule,delayed release fluticasone fur. 200 mcg-umeclid 1 inh inhalation REBECA Y 12/03/24 03/12/25 62.5 mcg-vilant 25 mcg inhalat.powder (Trelegy Ellipta) hydrochlorothiazide 25 mg tablet 25 mg PO DAILY #90 ta bs 12/26/24 03/12/25 albuterol sulfate 90 mcg/actuation 1 - 2 puff inhalati on Q4HR PRN 01/15/25 03/12/25 aerosol inhaler (Ventolin HFA) Shortness Of Air/Wheezi ng #8.5 grams simvastatin 20 mg tablet 20 mg PO QPM #90 tabs 03/12/25 meloxicam 15 mg tablet 15 mg PO QPM #90 tabs 03/12/25 hydrocodone 5 mg-acetaminophen 325 1 tab PO .nightly P RN pain #10 tabs 03/12/25 03/12/25 mg tablet magnesium oxide 400 mg PO QDAY PRN constipat ion 03/12/25 03/12/25 #90 tabs oxycodone-acetaminophen 5 mg-325 1 tab PO Q4H PRN pain #14 tabs 03/17/25 mg tablet (Percocet) cyclobenzaprine 10 mg tablet mg 04/16/25 magnesium oxide 400 mg (241.3 mg mg 04/16/25 magnesium) tablet prednisone 10 mg tablet mg 04/16/25 prednisone 20 mg tablet mg 04/16/25 telmisartan 40 mg tablet mg 04/16/25 Allergies Allergies Allergy/AdvReac Type Severity Reaction Status Date / Time bupropion Allergy Unknown Verified 04/16/25 08:38 fluticasone propionate * AdvReac Severe split Verified 04/16/25 08:38 (From Advair Diskus) vision salmeterol xinafoate * (From AdvReac Severe split Verified 04/16/25 08:38 Advair Diskus) vision PFSH Active Problems All Active Problems (Updated 04/16/25 @ 13:35 by Vivi Sousa MD) Leukocytosis (Acute) Lung mass (Acute) Acute GI bleeding (Acute) Knee pain, left (Acute) Acute pain of left knee (Acute) Advance care planning (Acute) Medicare annual wellness visit, subsequent (Acute) Abrasion of right arm (Acute) Elevated LFTs (Acute) [place] (acute kidney injury) (Acute) Physical deconditioning (Acute) Chronic osteoarthritis (Acute) Elevated lipase (Acute) COPD (chronic obstructive pulmonary disease) (Chronic) Thoracic ascending aortic aneurysm (Acute) Benign prostate hyperplasia (Acute) Tobacco abuse (Chronic) Iron deficiency anemia (Acute) Urinary retention due to benign prostatic hyperplasia (Acute) Hypertension (Chronic) Tachycardia (Acute) PVD (peripheral vascular disease) (Acute) Epididymitis (Acute) Medical History Medical History Acute kidney injury Elevated LFTs Urinary tract infection Hypoxia Pneumonia History of ESBL E. coli infection Jock itch Hypotension Social History Social History Smoking Status: Current some day smoker Number of Years Smoked: 70 How many cigarettes a day do you smoke? (20 cigarettes=1 Pk): 10 Do you dip or chew tobacco?: No Do you vape?: No Patient requests smoking cessation consult: Yes Initiate information on smoking cessation: No Living arrangement: At home Living Condition: Alone Level: Assisted Home Mobility Equipment: Walker and Wheeled walker Do you feel safe in your home environment?: Yes History of physical, verbal, emotional, or financial abuse?: No ETOH Use: Liquor Frequency: Daily Substance Use: denies use POLST Patient has POLST: Yes POLST on file?: Yes POLST CPR Status: Do Not Attempt Resuscitation (DNAR) / Allow Natural Review of Systems Constitutional Denies: Fatigue, Fever, Chills, Malaise, Weakness or Poor appetite Eyes Denies: Pain, Irritation, Blurry vision, Vision loss, Diplopia or Eye discomfort Ears, nose, mouth, and throat Denies: Ear pain, Hearing loss, Tinnitus, Nose bleeds, Nasal discharge, Mouth lesions, Bleeding gums or Neck pain Cardiovascular Reports: shortness of breath with exertion; Denies: Irregular heart rate, chest pain, palpitations, edema or Syncope Respiratory Reports: Shortness of breath; Denies: Cough, Sputum production or Wheezing Gastrointestinal Reports: Rectal bleeding, Melena and Blood in stool; Denies: Abdominal pain, Abdominal distention, Nausea, Vomiting, Heartburn, Diarrhea or Constipation Genitourinary Reports: Incontinence, Difficulty urinating and Difficulty starting urination; Denies: Painful urination, Urinary frequency or Urinary urgency Musculoskeletal Denies: Back pain, Neck pain, Extremity pain, Extremity swelling or Joint pain Integumentary/Breast Denies: Rash, Itching, Dryness, Redness, Skin pain or Changes in skin color Neurological Denies: Headache, General weakness, Weakness in extremities, Numbness in extremities, Abnormal gait or Dizziness Psychiatric Denies: Depression, Anxiety, Mood swings or Panic attacks Endocrine Denies: Excessive urination, Excessive thirst or Fatigue Hematologic/Lymphatic Denies: Anemia, Easy bruising or Easy bleeding Allergic/Immunologic Denies: Hives, Tongue swelling, Facial swelling or Wheezing Prior Level of Functionality: Typically independent of ADLs. After hospitalization at [facility], patient was at SNF. Exam Exam Vital Signs: Vital Signs x48h Temp Pulse Pulse Resp BP BP Pulse Ox 04/16/25 12:43 98.1 F 82 19 139/88 H 93 04/16/25 12:22 98.6 F 67 18 121/77 94 04/16/25 12:08 98.6 F 80 18 121/77 98 04/16/25 11:00 83 21 123/95 H 94 04/16/25 09:09 83 106/76 94 04/16/25 08:40 04/16/25 08:24 97.9 F 84 18 109/80 18 L O2 Flow Rate 04/16/25 12:43 3 04/16/25 12:22 3 04/16/25 12:08 04/16/25 11:00 3 04/16/25 09:09 3 04/16/25 08:40 3 04/16/25 08:24 3 Constitutional normal general appearance, no apparent distress, average body habitus and no limitations HENMT normocephalic and head/scalp atraumatic Multiple subherric keratosis noted on scalp. Eyes PERRL, EOMs intact bilaterally and conjunctivae normal Neck/C-Spine visual inspection normal and trachea midline Chest inspection of chest normal Respiratory breath sounds equal bilaterally, normal respiratory effort, clear to auscultation bilaterally, no wheezes, no rales and no retractions On home 2-3 L of oxygen. No active wheezing noted. Cardiovascular normal heart rate noted, regular rhythm noted, no gallop, no rub and no murmur Gastrointestinal abdomen normal to inspection, abdomen soft to palpation, nontender to palpation, distended and normoactive bowel sounds Genitourinary no CVA tenderness and bladder normal to palpation Back/Pelvis spine normal to inspection, no thoracic spine tenderness and no lumbar spine tenderness Extremities normal to inspection, normal to palpation, no tenderness and full ROM Neurology no movement abnormality noted and no focal motor deficit noted Psychiatry mental status grossly normal, oriented x3, thought process normal, cooperative and affect normal Skin no wounds Conclusion/Plan Problem List (1) Acute GI bleeding: Plan: Patient presents with bright red blood per rectum, as well as some dark to maroon-colored stools. FOBT positive. Patient with longstanding history of GERD. Was just at [facility], and CT abdomen at that time noted possible gastric ulceration. Hemoglobin of 14.4 decreased to 13.3. Has been stable now. Continue gentle IV fluid rehydration. Clear liquids at this time. Continue H&H every 8 hours. Continue IV Protonix 40 mg twice daily. General Surgery is aware of the patient, will follow as needed. Hold meloxicam. Hold all NSAIDs indefinitely. (2) Leukocytosis: Plan: Likely due to above, continue trend and monitor off antibiotics. Qualifiers: Leukocytosis type: unspecified Qualified Code(s): D72.829 - Elevated white blood cell count, unspecified (3) Hypertension: Plan: Hold home hydrochlorothiazide in setting of active GI bleed. Qualifiers: Hypertension type: primary hypertension Qualified Code(s): I10 - Essential (primary) hypertension (4) COPD (chronic obstructive pulmonary disease): Plan: Continue home inhalers. Not an active exacerbation at this time. Did recently complete systemic steroids which may have led to this ulceration and bleed. Continue home 2 to 3 L of oxygen at home. Qualifiers: COPD type: unspecified COPD Qualified Code(s): J44.9 - Chronic obstructive pulmonary disease, unspecified (5) Benign prostate hyperplasia: Plan: Patient has severe BPH requiring self catheterizations 2-4 times a day. Bladder protocol in place to continue management of this. Qualifiers: Lower urinary tract symptom presence: unspecified whether lower urinary tract symptoms present Qualified Code(s): N40.0 - Benign prostatic hyperplasia without lower urinary tract symptoms Lab Results Lab results reviewed: Yes 04/16/25 12:49 04/16/25 08:45 Diagnostic Imaging Results Diagnostic Imaging Results: positive Final report reviewed EKG Results EKG Interpreted Independently: Yes EKG Comparison: Unchanged from prior EKG Core Measures Anticipated LOS I expect patient to be DC'd or transferred within 96 hours.: Yes Issues Hospital Issues and Management Plan: None anticipated. DVT/VTE - Prophylaxis VTE/DVT Device ordered at admit?: Yes VTE/DVT Prophylaxis med ordered at admit?: No Not Ordered - Medical Reason: Not indicated
[2025-04-16] MEDS ORDERED: SODIUM CHLORIDE FLUSH 0.9% 10 ML SYRINGE IVP PRN (12:06)
[2025-04-16] MEDS ORDERED: ONDANSETRON ODT 4 MG TABLET TL PRN (12:06)
[2025-04-16] MEDS ORDERED: ONDANSETRON 4 MG/2 ML VIAL IVP PRN (12:06)
[2025-04-16 12:55] LABS: HCT - HEMATOCRIT 42.9 % (42.0-52.0); HGB - HEMOGLOBIN 13.6 g/dL (14.0-18.0)
[2025-04-16] MEDS: LACTATED RINGERS 1,000 ML IV SCH (13:13)
[2025-04-16] MEDS ORDERED: COD LIVER OIL/ZINC OXIDE 113 GM TUBE TOP PRN (14:47)
[2025-04-16] MEDS: SODIUM CHLORIDE FLUSH 0.9% 10 ML SYRINGE IVP SCH (16:36)
[2025-04-16] MEDS: HYDROcod/ACETAM 5/325 MG TABLET PO PRN (16:36)
[2025-04-16] MEDS ORDERED: ALBUTEROL NEB 2.5 MG/3 ML INH PRN (19:29)
[2025-04-16] MEDS: IPRATROPIUM 0.2 MG/ML NEB INH SCH (20:41)
[2025-04-16] MEDS: BUDESONIDE 0.5 MG/2 ML NEB INH SCH (20:41)
[2025-04-16 21:14] LABS: HCT - HEMATOCRIT 38.2 % (42.0-52.0); HGB - HEMOGLOBIN 12.3 g/dL (14.0-18.0)
[2025-04-16] MEDS: PANTOPRAZOLE 40 MG VIAL IVP SCH (21:36)
[2025-04-17 05:55] LABS: HCT - HEMATOCRIT 40.1 % (42.0-52.0); HGB - HEMOGLOBIN 12.3 g/dL (14.0-18.0)
[2025-04-17 08:37] VITALS: TEMP 97.7
[2025-04-17] MEDS: TRELEGY ELLIPTA PO SCH (09:02)
--- NOTE | 2025-04-17 09:29 | Discharge Summary ---
Discharge Summary Admit Date: 04/16/25 Discharge Date: 04/17/25 Discharging Provider: Dr. Vivi Sousa Primary Care Provider: Dr. Juliana Zuleta Code Status: Do Not Attempt Resuscitation Discharge Facility Name: [facility], located within [facility] DIAGNOSES Discharge Diagnoses with Status of Each Condition: Acute GI bleedingpatient presented with dark stools. FOBT was positive. He does have a longstanding history of GERD, and was recently at [facility] where CT abdomen showed possible gastric ulceration. He has been on what looks like a prednisone taper since his hospitalization there as well, and also takes meloxicam at night, and an aspirin daily for his AAA stent. He was advised to hold his meloxicam. It is unclear where he is in his prednisone taper, but he believes he may be near the end of it (his SNF dispenses his medications for him). He was advised to continue Protonix 40 mg twice a day. He was advised to abstain from alcohol use. He knows that he will need another EGD and colonoscopy done in the outpatient setting, and general surgery follow-up information has been provided. He should have a repeat H&H in 1 week to ensure stability. Here, his hemoglobin was 13.7 on admission, dipped down to 12.3, and is now back up to 13.7. This appears to be right around his baseline. Leukocytosislikely due to above, downtrending. Also due to prolonged steroid use. No signs or symptoms of any other infectious process. Hypertensioncontinue hydrochlorothiazide. COPDcontinue home 2 to 3 L of oxygen, as well as inhalers. BPHcontinue self catheterizations 4 times daily. HPI History of Present Illness: Patient is a 84-year-old gentleman with history of COPD on 2 to 3 L of oxygen at home, BPH requiring self-catheterization 2-4 times a day, longstanding GERD on esomeprazole, who presents after blood was noted in the toilet at his rehab facility. Of note, patient was recently admitted at [facility] from 03/20 to 03/27 for a COPD exacerbation. A CT scan done here showed a possible gastric ulcer along with small bowel ileus. Surgery was consulted, and did not think they urgent endoscopy was needed. His hemoglobin was stable. He was discharged to [facility] for further rehabilitation following this episode. He states that his last colonoscopy and EGD were done about 3 years ago, and he was told that they were normal. He is not quite sure where this was done. His hemoglobin at the time of discharge was 14.3. He has had a few episodes per him, his staff was helping clean him up this morning, when they noted bright red blood in his stool. This is the first time they have noticed this. Nursing here has noted some maroon stool as well. Patient denies any abdominal pain, dizziness, lightheadedness. He has no nausea, no vomiting, and has not vomited up any blood. In the ER, he was vitally stableblood pressure was 139/88, heart rate was 84, temperature is 97.9, respiratory rate was 18, he was saturating 94% on his home 2 L. Lab work shows a hemoglobin of 13.3, BMP was notable for potassium of 4.7, within normal creatinine. Lipase was within normal limits. An abdomen/pelvis CTA was completed which showed no area of active GI bleeding, did show moderate constipation. General surgery was spoken with by the emergency room physician, who will follow along as needed. He was admitted for acute GI bleeding. Past medical history includes COPD on 2 to 3 L of oxygen at home tobacco use, BPH, hypertension, hyperlipidemia, GERD, aortic aneurysm s/p EVAR. Medications included Trelegy, albuterol, esomeprazole, hydrochlorothiazide, Myrbetriq, Percocet, simvastatin, meloxicam. He is allergic to bupropion, salmeterol, fluticasone. Surgical history includes bilateral ankle surgeries, triple aneurysm EVAR procedure. Patient still uses tobacco occasionally, although he has not smoked since being at rehab. He denies any current alcohol use, recreational drug use. He lives alone. He usually ambulates independently. CONSULTS | PROCEDURES Procedures: Abdomen/Pelvis CTA HOSPITAL COURSE Hospital Course: Patient is a 84-year-old male with a history of COPD on 2 to 3 L of oxygen at home, currently on a prednisone taper, longstanding GERD on esomeprazole, triple AAA s/p EVAR on aspirin, who presented after he was noted to have a dark bowel movement at his rehab facility. FOBT was positive. When he first got here, his hemoglobin was 13.7. This downtrended to 12. He had 1 more dark bowel movement. His hemoglobin stayed stable and increased to 13.7. Of note, patient was recently admitted to [facility] for COPD exacerbation. A CT scan of his abdomen done there showed a possible gastric ulcer along with small bowel ileus. He takes meloxicam nightly for pain, and is on aspirin for AAA repair and stent. He denies any heavy alcohol use. General surgery was spoken with by the emergency room physician, they were following peripherally if needed. His hemoglobin stabilized. He was asymptomatic. Plan is to continue Protonix 40 mg twice a day, repeat an H&H in 1 week to ensure stability, and complete an outpatient EGD and colonoscopy. He was given follow-up information, and advised to call to schedule this. Overall, he seems stable for discharge back to his SNF. He needs close follow- up with general surgery and his primary care provider. ALLERGIES Allergies Allergy/AdvReac Type Severity Reaction Status Date / Time bupropion Allergy Unknown Verified 04/16/25 08:38 fluticasone propionate * AdvReac Severe split Verified 04/16/25 08:38 (From Advair Diskus) vision salmeterol xinafoate * (From AdvReac Severe split Verified 04/16/25 08:38 Advair Diskus) vision MEDICATIONS Ambulatory Orders Medication Instructions Recorded Confirmed mirabegron 50 mg tablet,extended 50 mg PO DAILY 04/17/25 release 24 hr (Myrbetriq) montelukast 10 mg tablet 10 mg PO QPM 11/04/24 fluticasone fur. 200 mcg-umeclid 1 inh inhalation REBECA Y 12/03/24 04/17/25 62.5 mcg-vilant 25 mcg inhalat.powder (Trelegy Ellipta) hydrochlorothiazide 25 mg tablet 25 mg PO DAILY #90 ta bs 12/26/24 04/17/25 albuterol sulfate 90 mcg/actuation 1 - 2 puff inhalati on Q4HR PRN 01/15/25 04/17/25 aerosol inhaler (Ventolin HFA) Shortness Of Air/Wheezi ng #8.5 grams simvastatin 20 mg tablet 20 mg PO QPM #90 tabs 04/17/25 cyclobenzaprine 10 mg tablet 10 mg PO Q12H PRN muscle spasm 04/16/25 04/17/25 magnesium oxide 400 mg (241.3 mg 400 mg PO DAILY PRN c onstipation 04/16/25 04/17/25 magnesium) tablet prednisone 10 mg tablet mg 04/16/25 telmisartan 40 mg tablet 40 mg PO DAILY 04/16/2504/08 aspirin 81 mg tablet,delayed 81 mg PO DAILY 04/17/25 1 release hydrocodone 5 mg-acetaminophen 325 1 tab PO .4-6 pain 04/17/25 04/17/25 mg tablet pantoprazole 40 mg tablet,delayed 40 mg PO BID #60 tab s 04/17/25 release (Protonix) potassium chloride 10 mEq 10 meq PO DAILY 04/17/2505/02 tablet,extended release PHYSICAL EXAM AT DISCHARGE Vital Signs: Vital Signs x48h Temp Pulse Resp BP Pulse Ox O2 Flow Rate 04/17/25 13:25 97.7 F 85 20 110/61 90 L 3 04/17/25 08:34 97.7 F 73 16 135/75 H 95 3 Constitutional normal general appearance, no apparent distress, average body habitus and no limitations HENMT normocephalic and head/scalp atraumatic Multiple subherric keratosis noted on scalp. Eyes PERRL, EOMs intact bilaterally and conjunctivae normal Neck/C-Spine visual inspection normal and trachea midline Chest inspection of chest normal Respiratory breath sounds equal bilaterally, normal respiratory effort, clear to auscultation bilaterally, no wheezes, no rales and no retractions On home 2-3 L of oxygen. No active wheezing noted. Cardiovascular normal heart rate noted, regular rhythm noted, no gallop, no rub and no murmur Gastrointestinal abdomen normal to inspection, abdomen soft to palpation, nontender to palpation, distended and normoactive bowel sounds Genitourinary no CVA tenderness and bladder normal to palpation Back/Pelvis spine normal to inspection, no thoracic spine tenderness and no lumbar spine tenderness Extremities normal to inspection, normal to palpation, no tenderness and full ROM Neurology no movement abnormality noted and no focal motor deficit noted Psychiatry mental status grossly normal, oriented x3, thought process normal, cooperative and affect normal Skin no wounds LABS 04/17/25 12:54 04/16/25 08:45 DIAGNOSTIC IMAGING Diagnostic Imaging Results: Final report reviewed FOLLOW UP Follow Up: Follow up PCP. Follow up general surgery. TIME SPENT Time Spent in Discharge (Minutes): 35 Discharge Plan Discharge Patient Disposition: 03 [facility] DC/Xfer Condition: Stable Prescriptions: New pantoprazole [Protonix] 40 mg tablet,delayed release (DR/EC) 40 mg PO BID Qty: 60 0RF Continued hydrochlorothiazide 25 mg tablet 25 mg PO DAILY Qty: 90 3RF albuterol sulfate [Ventolin HFA] 90 mcg/actuation HFA aerosol inhaler 1 - 2 puff inhalation Q4HR PRN (Reason: Shortness Of Air/Wheezing) Qty: 8.5 3RF simvastatin 20 mg tablet 20 mg PO QPM Qty: 90 0RF mirabegron [Myrbetriq] 50 MG tablet extended release 24 hr 50 mg PO DAILY Trelegy Ellipta 200-62.5-25 mcg blister with device 1 inh inhalation DAILY Rx Instructions: patient had a prior listed reaction to Advair Diskus with vision changes, but has tolerated Breo Ellipta daily for several months. No listed history of glaucoma." cyclobenzaprine 10 mg tablet 10 mg PO Q12H PRN (Reason: muscle spasm) prednisone 10 mg tablet prednisone 20 mg tablet 40 mg PO DAILY magnesium oxide 400 mg (241.3 mg magnesium) tablet 400 mg PO DAILY PRN (Reason: constipation) Patient Comments: TAKE ONE TABLET BY MOUTH ONCE DAILY NEEDED for constipation telmisartan 40 mg tablet 40 mg PO DAILY hydrocodone-acetaminophen 5-325 mg tablet 1 tab PO .4-6 potassium chloride 10 mEq tablet extended release 10 meq PO DAILY aspirin 81 mg tablet,delayed release (DR/EC) 81 mg PO DAILY montelukast 10 mg tablet 10 mg PO QPM Discontinued meloxicam 15 mg tablet 15 mg PO QPM Qty: 90 0RF esomeprazole magnesium 40 mg capsule,delayed release(DR/EC) 40 mg PO DAILY Diet: Regular Health Concerns: You came in because at your [facility] facility, they noted that you had a large bloody bowel movement. Since you have been here, you have had no more episodes of this. Your hemoglobin has stayed largely stable. I have reviewed your notes from [facility]. At that time, you had a CT scan of your abdomen done which showed a possible stomach ulcer. I also reviewed your medicationsyou are taking meloxicam at night, and it appears that you are also on aspirin, as well as a steroid taper of prednisone. All of these medications increase the risk of ulcers, and bleeding. I would like you to hold the meloxicam. Aspirin is something I understand that you have to take for your abdominal aneurysm and repair with a stent in place. Our pharmacist are working on calling your rehab facility; it appears that you are on a prednisone taper. This is not a medication we can stop abruptly because it can affect your blood pressure. As such, please continue the slow taper until you are off of it. As we talked about, you will likely need an EGD and colonoscopy completed in the outpatient setting. I would also like you to follow-up with your primary care provider in the next 1 to 2 weeks. Please also have your hemoglobin rechecked, AKA your blood level, in about a week and ensure that it remains stable. We are glad you are feeling better, thank you for allowing us to take care of you. Print Language: Venezuelan Stand Alone Forms: SNF Discharge, PCP List Follow-up Care: Kenya Marley MD [Provider Admit Priv/Credential, Surgery, General] - 2 Weeks Juliana Burns MD [Primary Care Provider, Family Practice] Vitals documented within 30 minutes of discharge?: Yes
[2025-04-17 12:59] LABS: HCT - HEMATOCRIT 44.4 % (42.0-52.0); HGB - HEMOGLOBIN 13.7 g/dL (14.0-18.0); MEAN PLATELET VOLUME 8.8 fL (7.4-11.4); PLT - PLATELET COUNT 213.0 10^3/uL (130-450); RED CELL DISTRIBUTION WIDTH 19.1 % (12.0-15.0)
[2025-04-17 13:27] VITALS: O2SAT 90
--- NOTE | 2025-04-17 13:32 | PHARMACY PROGRESS NOTE ---
Best Possible Medication History Admit Date and Time: 04/16/25 125893 Home Medications Medication Instructions Recorded Confirmed Type mirabegron 50 mg tablet,extended 50 mg PO DAILY 04/17/25 History release 24 hr (Myrbetriq) montelukast 10 mg tablet 10 mg PO QPM 11/04/24 History fluticasone fur. 200 mcg-umeclid 1 inh inhalation REBECA Y 12/03/24 04/17/25 History 62.5 mcg-vilant 25 mcg inhalat.powder (Trelegy Ellipta) hydrochlorothiazide 25 mg tablet 25 mg PO DAILY #90 ta bs 12/26/24 04/17/25 Rx albuterol sulfate 90 mcg/actuation 1 - 2 puff inhalati on Q4HR PRN 01/15/25 04/17/25 Rx aerosol inhaler (Ventolin HFA) Shortness Of Air/Wheezi ng #8.5 grams simvastatin 20 mg tablet 20 mg PO QPM #90 tabs 04/17/25 Rx cyclobenzaprine 10 mg tablet 10 mg PO Q12H PRN muscle spasm 04/16/25 04/17/25 History magnesium oxide 400 mg (241.3 mg 400 mg PO DAILY PRN c onstipation 04/16/25 04/17/25 History magnesium) tablet prednisone 10 mg tablet 10 mg PO DAILY 04/16/2504/08 History telmisartan 40 mg tablet 40 mg PO DAILY 04/16/2504/08 History aspirin 81 mg tablet,delayed 81 mg PO DAILY 04/17/25 1 History release hydrocodone 5 mg-acetaminophen 325 1 tab PO .4-6 pain 04/17/25 04/17/25 History mg tablet pantoprazole 40 mg tablet,delayed 40 mg PO BID #60 tab s 04/17/25 Rx release (Protonix) potassium chloride 10 mEq 10 meq PO DAILY 04/17/2505/02 History tablet,extended release Processed by: Pharmacy Medications reviewed in ED?: No Medication History completed: Yes Patient Interview: Pt unable to participate Secondary Source(s): Pharmacy records, Insurance records and Facility MAR as ONLY source [facility] Statement: As the person ultimately responsible for medication therapy, providers are able to order a medication from an existing home medication list in [facility] via the "Reconcile Routine" prior to Confirmation of that medication by home support worker. Such practice is discouraged except when the physician, in their clinical judgment, deems that a medical need exists for a medication without regard to previous use.
[2025-04-17 15:14] VITALS: BP 112/64
== END 2025-04-17 14:45 ==
LOC: MS2 08:24 → ED 08:24 → MS2 12:24
PROVIDERS: ADMIT Internal Medicine; ATTEND Internal Medicine
DX: Z79.82 Long term (current) use of aspirin; J44.9 Chronic obstructive pulmonary disease, unspecified; I10 Essential (primary) hypertension; Z95.820 Peripheral vascular angioplasty status with implants and grafts; K21.9 Gastro-esophageal reflux disease without esophagitis; N40.1 Benign prostatic hyperplasia with lower urinary tract symptoms; R33.8 Other retention of urine; K92.2 Gastrointestinal hemorrhage, unspecified; F17.210 Nicotine dependence, cigarettes, uncomplicated; D72.829 Elevated white blood cell count, unspecified; Z99.81 Dependence on supplemental oxygen